=== PATIENT | male | born 1985 | race Caucasian/White ===

== ENCOUNTER 2017-11-01 02:41 | Emergency (ER) | payer OTHER, MEDICAID, SELFPAY ==
[2017-11-01 02:57] VITALS: BP 138/80; PULSE 96; RESP 16; TEMP 36.7; O2SAT 100; BMI 35.9
--- NOTE | 2017-11-01 03:20 | ED.EXTPRO ---
HPI - Extremity Problem General Chief complaint: Extremity Problem,Nontraumatic Stated complaint: SWOLLEN AND PAINFUL LEGS Time Seen by Provider: 11/01/17 03:17 Source: patient Mode of arrival: ambulatory Limitations: no limitations History of Present Illness HPI Narrative: Patient is a 32-year-old male presents with bilateral lower extremity wounds and swelling. He is known IV drug user. He injects in his thighs. But his sores that her open and drain are on his lower legs. He denies any injecting there. He has noticed that they have been more swollen over the past couple of days. Slightly more erythema. Used to note that his legs and swelling would go down at nighttime and the almost normal by the next morning. However they no longer go down. He has noted the over the past few months he has had increased swelling in his legs. He denies any swelling is abdomen no shortness of breath. He was seen back at [facility] diagnosed with [id number]-[id number]. Denies any chest pain or heart palpitations. He has not had fever chills or body aches. MD Complaint: extremity swelling Related Data Previous Rx's Medication Instructions Recorded sulfamethoxazole-trimethoprim 1 tab PO BID 7 Days #14 tab 11/01/17 Allergies Allergy/AdvReac Type Severity Reaction Status Date / Time No Known Drug Allergies Allergy Verified 11/01/17 05:10 Review of Systems Review of Systems All systems reviewed & are unremarkable except as noted in HPI and below Constitutional Denies chills, Denies fever(s), Denies lethargy and Denies weakness Cardiovascular Denies chest pain, Denies rapid heart rate, Denies irregular heart rhythm, Denies lightheadedness, Denies palpitations, Denies dyspnea, Denies dyspnea on exertion and Denies orthopnea Respiratory Denies cough, Denies dyspnea, Denies dyspnea on exertion and Denies wheezing Gastrointestinal Gastrointestinal: Denies abdominal pain, Denies change in bowel habits, Denies diarrhea, Denies nausea and Denies vomiting Musculoskeletal Denies back pain, Denies muscle weakness, Denies numbness and Denies tingling Integumentary/Breasts Reports as per HPI, Reports dry skin, Reports new lesions, Reports non-healing lesions, Reports erythema, Reports skin swelling and Reports sores Neurologic Denies numbness, Denies tingling and Denies weakness Endocrine Denies palpitations Allergic/Immunologic Denies wheezing [facility] Medical History Drug abuse (Acute) Hepatitis C virus infection cured after antiviral drug therapy (Acute) Rdtbl-Hnyscxlnj-Dcauk (WPW) pattern (Acute) Social History Smoking Status: Current every day smoker substance use type: opiates and IV drugs Exam Initial Vital Signs Initial Vital Signs: Vital Signs Temperature 98.0 F 11/01/17 02:57 Pulse Rate 96 H 11/01/17 02:57 Respiratory Rate 16 11/01/17 02:57 Blood Pressure 138/80 H 11/01/17 02:57 Pulse Oximetry 100 11/01/17 02:57 Const General: cooperative, healthy appearing and comfortable Orientation: alert, awake and oriented x3 Chest Chest: normal inspection of the chest Resp Effort & Inspection: normal respiratory effort Auscultation: clear to auscultation bilaterally, no crackles, no rhonchi and no wheezes Cardio Rate: regular rate Rhythm: regular rhythm Heart Sounds: S1 normal and S2 normal GI Palpation: soft, No guarding and No tender Skin General: erythema (Bilateral lower extremity he has faint without clear demarcation) Lesions: lesion noted (Multiple lesions noted on lower extremities without gross pus they seem to be healing and scabbed over) Extrem General: normal to inspection, full ROM and edema (Bilaterally nonpitting) Course Orders Ordered: ED Orders 11/01/17 03:45 Lactate (Lactic Acid) Stat 11/01/17 04:25 Blood Culture Stat Complete Blood Count AUTO DIFF Stat Comprehensive Metabolic Panel Stat Partial Thromboplastin Time Stat Procalcitonin Stat Prothrombin Time INR Stat Discontinued Medications Trimethoprim/Sulfamethoxazole (Bactrim Ds Prepack) 1 bottle MISC SEEINSTR ONE Stop: 11/01/17 05:09 Last Admin: 11/01/17 05:20 Dose: 1 bottle Vital Signs - 8 hr 11/01/17 02:57 11/01/17 04:55 11/01/17 05:21 Temperature 98.0 F Pulse Rate 96 H 77 80 Respiratory Rate 16 15 16 Blood Pressure 138/80 H 127/77 H Blood Pressure [Left Arm] 109/74 Pulse Oximetry 100 99 98 MDM - Extremity (Nontraumatic) Medical Records Attestation: I reviewed the patient's medical records. Lab Data Attestation: I reviewed the patient's lab results. Result diagrams: 11/01/17 04:25 11/01/17 04:25 Lab Results 11/01/17 11/01/17 11/01/17 Range/Units 04:25 04:25 04:25 WBC 7.1 (4.5-11.0) X10^3/uL RBC 4.46 L (4.5-5.9) X10^6/uL Hgb 10.6 L (13.5-17.5) g/dL Hct 32.6 L (41-53) % MCV 73.1 L (80-100) fL MCH 23.8 L (26-34) PG MCHC 32.6 (30-36) % RDW 16.1 H (11.6-14.8) % Plt Count 254 (150-400) X10^3/uL Neut % (Auto) 59.6 (50-75) % Lymph % (Auto) 23.1 L (25-40) % [place] % (Auto) 11.1 (3-14) % Eos % (Auto) 5.7 H (2-4) % Baso % (Auto) 0.5 (0-2) % Neut # (Auto) 4200 (8506-1411) /uL PT (10.1-12.7) SECONDS INR (0.9-1.3) APTT (26.4-36.2) SECONDS Sodium 141 (137-145) mmol/L Potassium 3.9 (3.4-5.1) mmol/L Chloride 103 (98-107) mmol/L Carbon Dioxide 33 H (22-32) mmol/L BUN 14 (9-20) mg/dL Creatinine 0.90 (0.66-1.25) mg/dL Estimated GFR > 60.0 (>60) mL/min BUN/Creatinine Ratio 15.6 (6-22) Glucose 104 H (70-100) mg/dL Calcium 8.9 (8.4-10.2) mg/dL Total Bilirubin 0.4 (0.2-1.3) mg/dL AST 23 (17-59) IU/L ALT 23 (21-72) IU/L Alkaline Phosphatase 76 (38-126) U/L Total Protein 7.4 (6.3-8.2) g/dL Albumin 3.7 (3.5-5.0) g/dL Globulin 3.7 (1.7-4.1) g/dL Albumin/Globulin Ratio 1.0 (1.0-2.8) Procalcitonin 0.07 (<0.5) ng/mL 11/01/17 Range/Units 04:25 WBC (4.5-11.0) X10^3/uL RBC (4.5-5.9) X10^6/uL Hgb (13.5-17.5) g/dL Hct (41-53) % MCV (80-100) fL MCH (26-34) PG MCHC (30-36) % RDW (11.6-14.8) % Plt Count (150-400) X10^3/uL Neut % (Auto) (50-75) % Lymph % (Auto) (25-40) % [place] % (Auto) (3-14) % Eos % (Auto) (2-4) % Baso % (Auto) (0-2) % Neut # (Auto) (2260-9974) /uL PT 11.6 (10.1-12.7) SECONDS INR 1.1 (0.9-1.3) APTT 20 L (26.4-36.2) SECONDS Sodium (137-145) mmol/L Potassium (3.4-5.1) mmol/L Chloride (98-107) mmol/L Carbon Dioxide (22-32) mmol/L BUN (9-20) mg/dL Creatinine (0.66-1.25) mg/dL Estimated GFR (>60) mL/min BUN/Creatinine Ratio (6-22) Glucose (70-100) mg/dL Calcium (8.4-10.2) mg/dL Total Bilirubin (0.2-1.3) mg/dL AST (17-59) IU/L ALT (21-72) IU/L Alkaline Phosphatase (38-126) U/L Total Protein (6.3-8.2) g/dL Albumin (3.5-5.0) g/dL Globulin (1.7-4.1) g/dL Albumin/Globulin Ratio (1.0-2.8) Procalcitonin (<0.5) ng/mL [facility] Narrative Medical decision making narrative: Patient blood work relatively within normal limits. Vitals also stable and he appears nontoxic. His concern for his bilateral chronic ongoing swelling. Likely a combination of factors, Chronic venous stasis, persistent IV drug abuse, and open sores. At this time recommend compression socks and will give a course of antibiotics. He is also in sinus rhythm on the monitor. He has no sign of ascites, no shortness of breath Discharge Plan Departure Patient Disposition: Home, Self-Care Clinical Impression: Cellulitis Discharge Date/Time: 11/01/17 05:22 Interventions: ED Discharge Assessment Last Done: 11/01/17 05:21 Instructions: DI for Cellulitis -- Adult Activity Restrictions/Additional Instructions: *You have been diagnosed with cellulitis *What to do: Wear compression socks, elevate *Continue to take medications as directed Bactrim 1 pill twice a day for 7 days *Follow up with your primary care provider in 2-3 days *Return to ER if you should have any new, worsening or concerning symptoms Prescriptions: New sulfamethoxazole-trimethoprim 800-160 mg tablet 1 tab PO BID 7 Days Qty: 14 RF: 0 Referrals: [facility] [Provider Group]
[2017-11-01 04:43] LABS: INR 1.1 (0.9-1.3); Prothrombin Time 11.6 SECONDS (10.1-12.7)
[2017-11-01 04:45] LABS: PTT Partial Thromboplastin Tim 20 SECONDS (26.4-36.2)
[2017-11-01 04:46] LABS: Add Manual Diff / Slide Review NO; Alanine Aminotransferase 23 IU/L (21-72); Albumin 3.7 g/dL (3.5-5.0); Alkaline Phosphatase 76 U/L (38-126); Aspartate Aminotransferase 23 IU/L (17-59); BUN Creatinine Ratio 15.6 (6-22); Basophils Percent Auto 0.5 % (0-2); Bilirubin Total 0.4 mg/dL (0.2-1.3); Blood Urea Nitrogen 14 mg/dL (9-20); Calcium 8.9 mg/dL (8.4-10.2); Carbon Dioxide 33 mmol/L (22-32); Chloride 103 mmol/L (98-107); Eosinophils Percent Auto 5.7 % (2-4); Estimated Glomerular Filt Rate > 60.0 mL/min (>60); Globulin 3.7 g/dL (1.7-4.1); Glucose 104 mg/dL (70-100); HEMOLYSIS < 15 (0-50); Hematocrit 32.6 % (41-53); Hemoglobin 10.6 g/dL (13.5-17.5); Lymphocytes Percent Auto 23.1 % (25-40); Mean Corpuscular HGB Conc 32.6 % (30-36); Mean Corpuscular Hemoglobin 23.8 PG (26-34); Mean Corpuscular Volume 73.1 fL (80-100); Monocytes Percent Auto 11.1 % (3-14); Neutrophils Absolute Auto 4200 /uL (3000-5900); Neutrophils Percent Auto 59.6 % (50-75); Platelet Count 254 X10^3/uL (150-400); Potassium 3.9 mmol/L (3.4-5.1); Red Blood Cell Count 4.46 X10^6/uL (4.5-5.9); Red Cell Distribution Width 16.1 % (11.6-14.8); Sodium 141 mmol/L (137-145); Total Protein 7.4 g/dL (6.3-8.2); White Blood Cell Count 7.1 X10^3/uL (4.5-11.0)
[2017-11-01 04:55] VITALS: BP 109/74; PULSE 77; RESP 15; O2SAT 99
[2017-11-01 05:07] LABS: Procalcitonin 0.07 ng/mL (<0.5)
[2017-11-01] MEDS: SULFA/TRIMETH 800/160 PREPACK 1 BOTTLE MISC (05:20)
[2017-11-01 05:21] VITALS: BP 127/77; PULSE 80; RESP 16; O2SAT 98
--- NOTE | 2017-11-01 05:52 | ED_ITS ---
HPI - Extremity Problem General Chief complaint: Extremity Problem,Nontraumatic Stated complaint: SWOLLEN AND PAINFUL LEGS Time Seen by Provider: 11/01/17 03:17 Source: patient Mode of arrival: ambulatory Limitations: no limitations History of Present Illness HPI Narrative: Patient is a 32-year-old male presents with bilateral lower extremity wounds and swelling. He is known IV drug user. He injects in his thighs. But his sores that her open and drain are on his lower legs. He denies any injecting there. He has noticed that they have been more swollen over the past couple of days. Slightly more erythema. Used to note that his legs and swelling would go down at nighttime and the almost normal by the next morning. However they no longer go down. He has noted the over the past few months he has had increased swelling in his legs. He denies any swelling is abdomen no shortness of breath. He was seen back at [facility] diagnosed with [id number]. Denies any chest pain or heart palpitations. He has not had fever chills or body aches. MD Complaint: extremity swelling Related Data Previous Rx's Medication Instructions Recorded sulfamethoxazole-trimethoprim 1 tab PO BID 7 Days #14 tab 11/01/17 Allergies Allergy/AdvReac Type Severity Reaction Status Date / Time No Known Drug Allergies Allergy Verified 11/01/17 05:10 Review of Systems Review of Systems All systems reviewed & are unremarkable except as noted in HPI and below Constitutional Denies chills, Denies fever(s), Denies lethargy and Denies weakness Cardiovascular Denies chest pain, Denies rapid heart rate, Denies irregular heart rhythm, Denies lightheadedness, Denies palpitations, Denies dyspnea, Denies dyspnea on exertion and Denies orthopnea Respiratory Denies cough, Denies dyspnea, Denies dyspnea on exertion and Denies wheezing Gastrointestinal Gastrointestinal: Denies abdominal pain, Denies change in bowel habits, Denies diarrhea, Denies nausea and Denies vomiting Musculoskeletal Denies back pain, Denies muscle weakness, Denies numbness and Denies tingling Integumentary/Breasts Reports as per HPI, Reports dry skin, Reports new lesions, Reports non-healing lesions, Reports erythema, Reports skin swelling and Reports sores Neurologic Denies numbness, Denies tingling and Denies weakness Endocrine Denies palpitations Allergic/Immunologic Denies wheezing [facility] Medical History Drug abuse (Acute) Hepatitis C virus infection cured after antiviral drug therapy (Acute) Ihbbs-Jvyhzbbnf-Dyhyj (WPW) pattern (Acute) Social History Smoking Status: Current every day smoker substance use type: opiates and IV drugs Exam Initial Vital Signs Initial Vital Signs: Vital Signs Temperature 98.0 F 11/01/17 02:57 Pulse Rate 96 H 11/01/17 02:57 Respiratory Rate 16 11/01/17 02:57 Blood Pressure 138/80 H 11/01/17 02:57 Pulse Oximetry 100 11/01/17 02:57 Const General: cooperative, healthy appearing and comfortable Orientation: alert, awake and oriented x3 Chest Chest: normal inspection of the chest Resp Effort & Inspection: normal respiratory effort Auscultation: clear to auscultation bilaterally, no crackles, no rhonchi and no wheezes Cardio Rate: regular rate Rhythm: regular rhythm Heart Sounds: S1 normal and S2 normal GI Palpation: soft, No guarding and No tender Skin General: erythema (Bilateral lower extremity he has faint without clear demarcation) Lesions: lesion noted (Multiple lesions noted on lower extremities without gross pus they seem to be healing and scabbed over) Extrem General: normal to inspection, full ROM and edema (Bilaterally nonpitting) Course Orders Ordered: ED Orders 11/01/17 03:45 Lactate (Lactic Acid) Stat 11/01/17 04:25 Blood Culture Stat Complete Blood Count AUTO DIFF Stat Comprehensive Metabolic Panel Stat Partial Thromboplastin Time Stat Procalcitonin Stat Prothrombin Time INR Stat Discontinued Medications Trimethoprim/Sulfamethoxazole (Bactrim Ds Prepack) 1 bottle MISC SEEINSTR ONE Stop: 11/01/17 05:09 Last Admin: 11/01/17 05:20 Dose: 1 bottle Vital Signs - 8 hr 11/01/17 02:57 11/01/17 04:55 11/01/17 05:21 Temperature 98.0 F Pulse Rate 96 H 77 80 Respiratory Rate 16 15 16 Blood Pressure 138/80 H 127/77 H Blood Pressure [Left Arm] 109/74 Pulse Oximetry 100 99 98 MDM - Extremity (Nontraumatic) Medical Records Attestation: I reviewed the patient's medical records. Lab Data Attestation: I reviewed the patient's lab results. Result diagrams: 11/01/17 04:25 11/01/17 04:25 Lab Results 11/01/17 11/01/17 11/01/17 Range/Units 04:25 04:25 04:25 WBC 7.1 (4.5-11.0) X10^3/uL RBC 4.46 L (4.5-5.9) X10^6/uL Hgb 10.6 L (13.5-17.5) g/dL Hct 32.6 L (41-53) % MCV 73.1 L (80-100) fL MCH 23.8 L (26-34) PG MCHC 32.6 (30-36) % RDW 16.1 H (11.6-14.8) % Plt Count 254 (150-400) X10^3/uL Neut % (Auto) 59.6 (50-75) % Lymph % (Auto) 23.1 L (25-40) % [place] % (Auto) 11.1 (3-14) % Eos % (Auto) 5.7 H (2-4) % Baso % (Auto) 0.5 (0-2) % Neut # (Auto) 4200 (1509-9830) /uL PT (10.1-12.7) SECONDS INR (0.9-1.3) APTT (26.4-36.2) SECONDS Sodium 141 (137-145) mmol/L Potassium 3.9 (3.4-5.1) mmol/L Chloride 103 (98-107) mmol/L Carbon Dioxide 33 H (22-32) mmol/L BUN 14 (9-20) mg/dL Creatinine 0.90 (0.66-1.25) mg/dL Estimated GFR > 60.0 (>60) mL/min BUN/Creatinine Ratio 15.6 (6-22) Glucose 104 H (70-100) mg/dL Calcium 8.9 (8.4-10.2) mg/dL Total Bilirubin 0.4 (0.2-1.3) mg/dL AST 23 (17-59) IU/L ALT 23 (21-72) IU/L Alkaline Phosphatase 76 (38-126) U/L Total Protein 7.4 (6.3-8.2) g/dL Albumin 3.7 (3.5-5.0) g/dL Globulin 3.7 (1.7-4.1) g/dL Albumin/Globulin Ratio 1.0 (1.0-2.8) Procalcitonin 0.07 (<0.5) ng/mL 11/01/17 Range/Units 04:25 WBC (4.5-11.0) X10^3/uL RBC (4.5-5.9) X10^6/uL Hgb (13.5-17.5) g/dL Hct (41-53) % MCV (80-100) fL MCH (26-34) PG MCHC (30-36) % RDW (11.6-14.8) % Plt Count (150-400) X10^3/uL Neut % (Auto) (50-75) % Lymph % (Auto) (25-40) % [place] % (Auto) (3-14) % Eos % (Auto) (2-4) % Baso % (Auto) (0-2) % Neut # (Auto) (0155-5287) /uL PT 11.6 (10.1-12.7) SECONDS INR 1.1 (0.9-1.3) APTT 20 L (26.4-36.2) SECONDS Sodium (137-145) mmol/L Potassium (3.4-5.1) mmol/L Chloride (98-107) mmol/L Carbon Dioxide (22-32) mmol/L BUN (9-20) mg/dL Creatinine (0.66-1.25) mg/dL Estimated GFR (>60) mL/min BUN/Creatinine Ratio (6-22) Glucose (70-100) mg/dL Calcium (8.4-10.2) mg/dL Total Bilirubin (0.2-1.3) mg/dL AST (17-59) IU/L ALT (21-72) IU/L Alkaline Phosphatase (38-126) U/L Total Protein (6.3-8.2) g/dL Albumin (3.5-5.0) g/dL Globulin (1.7-4.1) g/dL Albumin/Globulin Ratio (1.0-2.8) Procalcitonin (<0.5) ng/mL [facility] Narrative Medical decision making narrative: Patient blood work relatively within normal limits. Vitals also stable and he appears nontoxic. His concern for his bilateral chronic ongoing swelling. Likely a combination of factors, Chronic venous stasis, persistent IV drug abuse, and open sores. At this time recommend compression socks and will give a course of antibiotics. He is also in sinus rhythm on the monitor. He has no sign of ascites, no shortness of breath Discharge Plan Departure Patient Disposition: Home, Self-Care Clinical Impression: Cellulitis Discharge Date/Time: 11/01/17 05:22 Interventions: ED Discharge Assessment Last Done: 11/01/17 05:21 Instructions: DI for Cellulitis -- Adult Activity Restrictions/Additional Instructions: *You have been diagnosed with cellulitis *What to do: Wear compression socks, elevate *Continue to take medications as directed Bactrim 1 pill twice a day for 7 days *Follow up with your primary care provider in 2-3 days *Return to ER if you should have any new, worsening or concerning symptoms Prescriptions: New sulfamethoxazole-trimethoprim 800-160 mg tablet 1 tab PO BID 7 Days Qty: 14 RF: 0 Referrals: [facility] [Provider Group]
== END 2017-11-01 05:22 | disposition home or self-care (01) ==
PROVIDERS: Emergency Provider Emergency Medicine
DX: L03.119 Cellulitis of unspecified part of limb (principal)
CPT/HCPCS: 80053; 84145; 85025; 85610; 85730; 87040; 99282; 99283

== ENCOUNTER 2017-12-01 03:01 | Inpatient (IN) | payer OTHER, MEDICAID, SELFPAY ==
[2017-12-01] VITALS (15 sets, daily range): BP systolic 109–147; BP diastolic 58–84; PULSE 73–97; RESP 14–20; TEMP 36.3–37.7; O2SAT 93–100; BMI 34.7
[2017-12-01 04:41] LABS: Basophils Percent Auto 0.4 % (0-2); Eosinophils Percent Auto 5.5 % (2-4); Hematocrit 34.5 % (41-53); Hemoglobin 11.2 g/dL (13.5-17.5); Lymphocytes Percent Auto 19.3 % (25-40); Mean Corpuscular HGB Conc 32.3 % (30-36); Mean Corpuscular Hemoglobin 23.1 PG (26-34); Mean Corpuscular Volume 71.4 fL (80-100); Monocytes Percent Auto 15.9 % (3-14); Neutrophils Absolute Auto 4900 /uL (3000-5900); Neutrophils Percent Auto 58.9 % (50-75); Platelet Count 257 X10^3/uL (150-400); Red Blood Cell Count 4.83 X10^6/uL (4.5-5.9); Red Cell Distribution Width 15.7 % (11.6-14.8); White Blood Cell Count 8.3 X10^3/uL (4.5-11.0)
[2017-12-01 04:43] LABS: Add Manual Diff / Slide Review SLIDE REVIEW
[2017-12-01 04:59] LABS: BUN Creatinine Ratio 18.8 (6-22); Blood Urea Nitrogen 15 mg/dL (9-20); Calcium 8.8 mg/dL (8.4-10.2); Carbon Dioxide 32 mmol/L (22-32); Chloride 104 mmol/L (98-107); Estimated Glomerular Filt Rate > 60.0 mL/min (>60); Glucose 109 mg/dL (70-100); HEMOLYSIS < 15 (0-50); Potassium 3.7 mmol/L (3.4-5.1); Sodium 146 mmol/L (137-145)
[2017-12-01 05:17] LABS: Microcytosis 2+
[2017-12-01 05:56] LABS: Procalcitonin 0.06 ng/mL (<0.5)
--- NOTE | 2017-12-01 06:41 | PC.NURSE ---
PICC team arrived to place access for surgery. provider ok'd midline placment
--- NOTE | 2017-12-01 07:30 | ED.SKABFB ---
HPI - Skin/Abscess/Foreign Bdy General Chief complaint: Skin/Abscess/Foreign Body Stated complaint: thinks he has infection in abdomen area Time Seen by Provider: 12/01/17 03:06 Source: patient and family Mode of arrival: ambulatory Limitations: no limitations History of Present Illness HPI narrative: 32-year-old male with history of IV drug abuse presents to the emergency department with a chief complaint of 1 week of worsening right lower abdominal wall pain, swelling and redness. It he has been skin popping for many years and has suffered many small cutaneous abscesses. He admits that this is the worst 1 he has ever had and was unable to drain it at home. He denies any significant abdominal pain and has no systemic findings such as fever, chills, nausea or vomiting. He has significant pain particularly with any motion. MD complaint: abscess/boil Onset (ago): day(s) Location: generalized (Right lower abdominal wall) Severity: moderate Quality: burning and aching Pain Consistency: constant Relieving factors: rest Exacerbating factors: palpation and movement Context: IVDA Associated symptoms: denies other symptoms Treatments prior to arrival: attempted to drain pus at home Related Data Allergies Allergy/AdvReac Type Severity Reaction Status Date / Time No Known Drug Allergies Allergy Verified 11/01/17 05:10 Review of Systems Review of Systems All systems reviewed & are unremarkable except as noted in HPI and below Constitutional Denies chills, Denies fever(s), Denies lethargy and Denies weakness Eyes Denies change in vision, Denies eye discharge, Denies irritation and Denies loss of vision ENT Ears, Nose, Mouth, and Throat: Denies change in voice, Denies neck pain and Denies sore throat Cardiovascular Denies chest pain, Denies irregular heart rhythm, Denies lightheadedness, Denies palpitations, Denies dyspnea, Denies dyspnea on exertion and Denies orthopnea Respiratory Denies cough, Denies dyspnea, Denies dyspnea on exertion and Denies wheezing Gastrointestinal Gastrointestinal: Denies abdominal pain, Denies change in bowel habits, Denies diarrhea, Denies nausea and Denies vomiting Genitourinary Denies hematuria, Denies flank pain, Denies urinary incontinence and Denies urinary urgency Musculoskeletal Denies neck pain Integumentary/Breasts Denies pruritus, Reports erythema, Denies rash, Reports skin pain, Reports skin swelling and Denies wounds Neurologic Denies confusion, Denies loss of vision and Denies weakness Psychiatric Denies anxiety, Denies confusion, Denies depression, Denies homicidal ideation and Denies suicidal ideation Endocrine Denies palpitations Hematologic/Lymphatic Denies easy bruising Allergic/Immunologic Denies wheezing [facility] Medical History Drug abuse (Acute) Hepatitis C virus infection cured after antiviral drug therapy (Acute) Wlmvd-Rhyydzhom-Wkpjl (WPW) pattern (Acute) Social History Smoking Status: Current every day smoker substance use type: opiates and IV drugs Exam Narrative Exam Narrative: 32M obviously in pain, clutching his R lower abdomen Initial Vital Signs Initial Vital Signs: Vital Signs Temperature 97.3 F L 12/01/17 03:25 Pulse Rate 82 12/01/17 03:25 Respiratory Rate 16 12/01/17 03:25 Blood Pressure 147/83 H 12/01/17 03:25 Pulse Oximetry 97 12/01/17 03:25 Const General: cooperative and in distress Nutritional Appearance: obese Orientation: alert, awake, oriented x3 and not confused HENMT Head: normocephalic and atraumatic Ears: external ears normal and TM's normal bilaterally Nose: external nose normal and No nasal discharge Face and sinus: sinuses nontender, face symmetric, no sinus tenderness and No dry mucous membranes Mouth: oral mucosae normal and moist mucous membranes Teeth and gingiva: dentition normal Throat: tonsils normal and uvula midline Eyes General: appearance normal, both eyes and all related structures Eyelids: eyelids normal Conjunctivae: conjunctivae normal Sclera: sclerae normal Pupils: PERRL EOM: EOM intact bilaterally Neck Neck: normal visual inspection, trachea midline, No lymphadenopathy, No midline deformity and No JVD Lymphatic: No lymphedema Chest Chest: normal inspection of the chest Resp Effort & Inspection: normal respiratory effort, able to speak in complete sentences, no respiratory distress and no use of accessory muscles Auscultation: clear to auscultation bilaterally, no rales, no rhonchi and no wheezes Cardio Rate: regular rate Rhythm: regular rhythm Heart Sounds: no click, no gallops, no murmurs and no rubs Pulses: normal peripheral pulses GI Inspection: non-distended Palpation: soft, no hepatosplenomegaly, No guarding, No pulsatile mass and tender Auscultation: normal bowel sounds Back/Spine/Pelvis Back: No CVA tenderness Cervical Spine: cervical ROM normal and No pain with cervical ROM Thoracic/Lumbar Spine: thoracic and lumbar spine normal to inspection Skin General: no rashes or lesions noted, No jaundice and No petechiae Other: Patient has a 8 cm oval of fluctuance and induration that with palpation feels quite deep with significant surrounding erythema of the majority of patient's pannus Neuro General: alert, oriented x3, gait normal and no focal motor deficits Speech: speech normal Extrem General: full ROM, no clubbing, cyanosis or edema, no pedal edema and no calf tenderness Psych Appearance: disheveled Mental Status: mental status grossly normal Attitude: cooperative Thought Content: normal and suicidality Judgment: judgment good Course Decision to Admit Date: 12/01/17 Decision to Admit time: 04:30 Orders Ordered: ED Orders 12/01/17 03:47 Blood Culture Stat Lactate (Lactic Acid) Stat 12/01/17 04:15 Basic Metabolic Panel Stat Complete Blood Count AUTO DIFF Stat Procalcitonin Stat 12/01/17 06:46 Basic Metabolic Panel Stat Discontinued Medications Vancomycin HCl 2,000 mg/ (Sodium Chloride) 500 mls @ 250 mls/hr IV NOW ONE Stop: 12/01/17 03:48 Consultations Consultation #1: Ddr. Jo is happy to accept this patient on her service. Vital Signs - 8 hr 12/01/17 03:25 12/01/17 06:47 Temperature 97.3 F L Pulse Rate 82 81 Respiratory Rate 16 16 Blood Pressure 147/83 H Blood Pressure [Right Arm] 141/84 H Pulse Oximetry 97 98 MDM - Skin/Abscess/Foreign Bdy Differential Diagnosis Likely abscess of skin or subcutaneous tissue Lab Data Attestation: I reviewed the patient's lab results. Result diagrams: 12/01/17 04:15 12/01/17 04:15 Lab Results 12/01/17 12/01/17 12/01/17 Range/Units 04:15 04:15 04:15 WBC 8.3 (4.5-11.0) X10^3/uL RBC 4.83 (4.5-5.9) X10^6/uL Hgb 11.2 L (13.5-17.5) g/dL Hct 34.5 L (41-53) % MCV 71.4 L (80-100) fL MCH 23.1 L (26-34) PG MCHC 32.3 (30-36) % RDW 15.7 H (11.6-14.8) % Plt Count 257 (150-400) X10^3/uL Neut % (Auto) 58.9 (50-75) % Lymph % (Auto) 19.3 L (25-40) % [place] % (Auto) 15.9 H (3-14) % Eos % (Auto) 5.5 H (2-4) % Baso % (Auto) 0.4 (0-2) % Neut # (Auto) 4900 (0865-5880) /uL RBC Morphology Not Reportable Microcytosis 2+ H Sodium 146 H (137-145) mmol/L Potassium 3.7 (3.4-5.1) mmol/L Chloride 104 (98-107) mmol/L Carbon Dioxide 32 (22-32) mmol/L BUN 15 (9-20) mg/dL Creatinine 0.80 (0.66-1.25) mg/dL Estimated GFR > 60.0 (>60) mL/min BUN/Creatinine Ratio 18.8 (6-22) Glucose 109 H (70-100) mg/dL Calcium 8.8 (8.4-10.2) mg/dL Procalcitonin 0.06 (<0.5) ng/mL MDM Narrative Medical decision making narrative: The physical exam would suggest the abscess is contained within abdominal wall and subcutaneous tissues it is much larger we can realistically appropriately drained in the emergency department. As result I have consulted the on-call surgeon who was happy to do an incision and drainage in the OR later today Discharge Plan Departure Patient Disposition: Admitted As Inpatient Discharge Date/Time: 12/01/17 07:44 Interventions: ED Discharge Assessment Last Done: 12/01/17 07:43 Admit Date/Time: 12/01/17 07:15 Admit Provider: Winsome Jo
--- NOTE | 2017-12-01 08:05 | PC.NURSE ---
Addendum entered by Samantha Villareal R.N. 12/01/17 11:35: Patient's fiance arrived into room, shortly thereafter patient became somnolent and hard to arouse. Told patient and fiance door needs to remain open. Patient had cigarettes at bedside, I educated them as to our no smoking policy, patient stated he knows and that they were just in his pocket; I gave them to his fiance who packed up their belongings and took them home. Patient was taken from room, to ED, ambulated to BR and voided before he left the room. Midline placed by [facility] in ED early this morning. Midline should be flushed with 50U heparin and can pull labs from line. Dr. Jo said to dismiss the lab draws previously ordered, she stated, I'll take care of them downstairs. Original Note: AM Shift Patient arrived to floor at 0750. Able to ambulate from ED stretcher to room bed. Patient c/o abdominl pain when touched (reports 7/10 pain). +3, pitting edema to bilateral lower extremities. Variously staged bruises and abrasions throughout body including back, stomach, upper and lower extremities. Power Port Midline placed in ED this AM to upper right arm. Patient is AO and pleasant. RLQ of abdomen is red and tender to the touch. Patient is currently resting in bed, with his eyes closed. Asked for his fiance once and then fell asleep.
[2017-12-01] MEDS: LACTATED RINGERS 1,000 ML 42 ML IV (11:44)
--- NOTE | 2017-12-01 12:38 | SUR.OPER ---
Supine on padded OR bed, head on pillow, arms secured on padded arm boards at <90 degrees abduction, legs uncrossed, safety belt at thigh, tape over blanket over lower legs.
[2017-12-01] MEDS: DEXTROSE 5%-0.45% NS 1,000 ML 125 ML IV ×2 (13:18→22:55)
[2017-12-01 14:20] LABS: Lactate (Lactic Acid) 0.5 mmol/L (0.7-2.1)
[2017-12-01] MEDS: VANCOMYCIN 1,500 MG in SODIUM CHLORIDE 0.9% 500 ML 333.333 ML IV (14:23)
--- NOTE | 2017-12-01 14:50 | PC.NURSE ---
Postop Note Pt to room 231 from PACU at 1305. Drowsy but awakens easily to voice, able to answer questions and was asking appropriate questions regarding his surgery. However, unable to remember candace's phone number for chart - will attempt to obtain at later date. Dressings to lower abdomen and left groin/hip, D/I with bloody shadow drainage. Initially reported horrible back pain but not denies pain stating it has settled now. Sleeping/resting in bed, oxygen sats 94-98% RA. SR with PACs on monitor. Belongings at bedside. Call light within reach and bed alarm on.
[2017-12-01] MEDS: HYDROMORPHONE PCA 6 MG/30 ML PCA.VIAL IV (16:20)
[2017-12-01] MEDS: LORazepam 2 MG/ML SYRINGE 1 MG IV ×2 (16:23→19:54)
--- NOTE | 2017-12-01 16:58 | PM.HP.1 ---
History of Present Illness Date Patient Seen: 12/01/17 Time Patient Seen: 08:58 Chief complaint: thinks he has infection in abdomen area Narrative: 32-year-old gentleman presented to the emergency room with complaint of about 10 days of pain in his right lower abdomen. He reports that he injects heroin subcutaneously and has had multiple abscesses in the past. He chooses this route because he reports he has no accessible veins remaining. He has been seen in the emergency room at [place] as well as our facility in the past for abscesses as well as Pvlbj-Hxmjoadun-Gfckb syndrome. He reports that his problem with Cnwfx-Ltgfizyyk-Jtbby syndrome seems to be greatly exacerbated when he is smoking methamphetamine and seems to be better when he is not. He reports that about 10 days ago he noticed some soreness in his abdomen. He said he can usually just drain these little abscesses at home but he was not able to get this 1 to drain. He feels like it became significantly worse because he has been working hard and has gotten very little sleep in the last week or so. He was admitted through the emergency room and given vancomycin. Patient History Medical History Drug abuse (Acute) Hepatitis C virus infection cured after antiviral drug therapy (Acute) Ambnw-Rijhaqdpe-Sqwtr (WPW) pattern (Acute) Family & Social History Family History: Reviewed 12/01/17 by Winsome Jo MD Social History: household members other Prior Living Arrangements House Safety & Behavioral: Feels Safe in Current Yes Environment Been Physically Hurt or No Threatened By a Person Suicidal Ideation Description None Suicide Plan Description No Plan Tobacco & Substance use: Tobacco type cigarettes Smoking Status Current every day smoker alcohol intake never Substance Use Type heroin,IV drugs,methamphetamine Meds Home Medications Medication Instructions Recorded Confirmed Type No Known Home Medications 12/01/17 12/01/17 History Allergies Allergy/AdvReac Type Severity Reaction Status Date / Time No Known Drug Allergies Allergy Verified 11/01/17 05:10 Review of Systems Review of Systems Complains of severe fatigue. Was recently seen in our emergency room for swelling in his legs which she feels is better now. All systems reviewed & are unremarkable except as noted in HPI and below Exam Vital Signs (past 8 hours): - 12/01/17 11:40 12/01/17 12:35 12/01/17 12:38 Temperature 97.3 F L 97.4 F L Pulse Rate 84 80 78 Respiratory Rate 17 15 15 Blood Pressure 112/73 109/74 120/79 Pulse Oximetry 100 99 99 12/01/17 12:43 12/01/17 12:47 12/01/17 13:05 Temperature 99 F 97.3 F L Pulse Rate 74 84 74 Respiratory Rate 14 15 18 Blood Pressure 117/80 124/81 H 111/73 Pulse Oximetry 99 97 97 12/01/17 13:35 12/01/17 14:14 12/01/17 14:50 Temperature 97.5 F L 97.8 F 97.5 F L Pulse Rate 78 77 88 Respiratory Rate 15 20 18 Blood Pressure 121/77 H 120/71 120/79 Pulse Oximetry 95 96 96 12/01/17 15:58 Temperature 99.9 F H Pulse Rate Respiratory Rate 16 Blood Pressure 132/78 H Pulse Oximetry 99 Oxygen Delivery Method Room Air Oxygen Flow Rate 0 Narrative Exam Narrative: Very sleepy gentleman in no obvious distress HEENT: Normocephalic and atraumatic, pupils equal round reactive to light accommodation with anicteric sclera. Oropharynx reveals only poor dentition Lungs: Upper airway noise but improves with coughing. No wheezing Heart: Regular rate and rhythm without murmur Abdomen: Soft, approximately 20 in of erythema surrounding a central area of fluctuance. A small dark region in the center of the fluctuant area is consistent with necrosis. This is in the right lower quadrant of the abdominal wall. Multiple scars and lesions are noted across his abdominal wall consistent with prior skin popping. On the left hip laterally, there is a 10 cm area of erythema with a central necrotic region that is also fluctuant. This is consistent with a 2nd abscess. Abdomen is otherwise soft with active bowel sounds. Extremities: Multiple lesions in various stages of healing. No other obviously fluctuant regions Objective Labs Result Diagrams: 12/01/17 04:15 12/01/17 04:15 Labs: Laboratory Results - last 24 hr 12/01/17 12/01/17 12/01/17 04:15 04:15 04:15 WBC 8.3 RBC 4.83 Hgb 11.2 L Hct 34.5 L MCV 71.4 L MCH 23.1 L MCHC 32.3 RDW 15.7 H Plt Count 257 Neut % (Auto) 58.9 Lymph % (Auto) 19.3 L [place] % (Auto) 15.9 H Eos % (Auto) 5.5 H Baso % (Auto) 0.4 Neut # (Auto) 4900 RBC Morphology Not Reportable Microcytosis 2+ H Sodium 146 H Potassium 3.7 Chloride 104 Carbon Dioxide 32 BUN 15 Creatinine 0.80 Estimated GFR > 60.0 BUN/Creatinine Ratio 18.8 Glucose 109 H Lactate Calcium 8.8 Procalcitonin 0.06 Nasal Screen MRSA (PCR) 12/01/17 12/01/17 13:43 13:50 WBC RBC Hgb Hct MCV MCH MCHC RDW Plt Count Neut % (Auto) Lymph % (Auto) [place] % (Auto) Eos % (Auto) Baso % (Auto) Neut # (Auto) RBC Morphology Microcytosis Sodium Potassium Chloride Carbon Dioxide BUN Creatinine Estimated GFR BUN/Creatinine Ratio Glucose Lactate 0.5 L Calcium Procalcitonin Nasal Screen MRSA (PCR) Positive for mrsa H Assessment & Plan Plan: Assessment/Plan Narrative: Abscess x2 on the right lower abdominal wall and left lateral hip secondary to skin popping heroin. I have recommended incision and drainage in the operating room. The patient expressed an understanding of this procedure and a desire to completed today. Quality VTE Deep Vein Thrombosis/Pulmonary Embolism Present on Admission: No
--- NOTE | 2017-12-01 17:04 | P.HP_ITS ---
History of Present Illness Date Patient Seen: 12/01/17 Time Patient Seen: 08:58 Chief complaint: thinks he has infection in abdomen area Narrative: 32-year-old gentleman presented to the emergency room with complaint of about 10 days of pain in his right lower abdomen. He reports that he injects heroin subcutaneously and has had multiple abscesses in the past. He chooses this route because he reports he has no accessible veins remaining. He has been seen in the emergency room at [place] as well as our facility in the past for abscesses as well as Gxfuu-Cphrntljb-Qgxjh syndrome. He reports that his problem with Dcxxb-Qmkmqmxhd-Sxrug syndrome seems to be greatly exacerbated when he is smoking methamphetamine and seems to be better when he is not. He reports that about 10 days ago he noticed some soreness in his abdomen. He said he can usually just drain these little abscesses at home but he was not able to get this 1 to drain. He feels like it became significantly worse because he has been working hard and has gotten very little sleep in the last week or so. He was admitted through the emergency room and given vancomycin. Patient History Medical History Drug abuse (Acute) Hepatitis C virus infection cured after antiviral drug therapy (Acute) Hyjul-Cotejpfnc-Rqoll (WPW) pattern (Acute) Family & Social History Family History: Reviewed 12/01/17 by Winsome Jo MD Social History: household members other Prior Living Arrangements House Safety & Behavioral: Feels Safe in Current Yes Environment Been Physically Hurt or No Threatened By a Person Suicidal Ideation Description None Suicide Plan Description No Plan Tobacco & Substance use: Tobacco type cigarettes Smoking Status Current every day smoker alcohol intake never Substance Use Type heroin,IV drugs,methamphetamine Meds Home Medications Medication Instructions Recorded Confirmed Type No Known Home Medications 12/01/17 12/01/17 History Allergies Allergy/AdvReac Type Severity Reaction Status Date / Time No Known Drug Allergies Allergy Verified 11/01/17 05:10 Review of Systems Review of Systems Complains of severe fatigue. Was recently seen in our emergency room for swelling in his legs which she feels is better now. All systems reviewed & are unremarkable except as noted in HPI and below Exam Vital Signs (past 8 hours): - 12/01/17 11:40 12/01/17 12:35 12/01/17 12:38 Temperature 97.3 F L 97.4 F L Pulse Rate 84 80 78 Respiratory Rate 17 15 15 Blood Pressure 112/73 109/74 120/79 Pulse Oximetry 100 99 99 12/01/17 12:43 12/01/17 12:47 12/01/17 13:05 Temperature 99 F 97.3 F L Pulse Rate 74 84 74 Respiratory Rate 14 15 18 Blood Pressure 117/80 124/81 H 111/73 Pulse Oximetry 99 97 97 12/01/17 13:35 12/01/17 14:14 12/01/17 14:50 Temperature 97.5 F L 97.8 F 97.5 F L Pulse Rate 78 77 88 Respiratory Rate 15 20 18 Blood Pressure 121/77 H 120/71 120/79 Pulse Oximetry 95 96 96 12/01/17 15:58 Temperature 99.9 F H Pulse Rate Respiratory Rate 16 Blood Pressure 132/78 H Pulse Oximetry 99 Oxygen Delivery Method Room Air Oxygen Flow Rate 0 Narrative Exam Narrative: Very sleepy gentleman in no obvious distress HEENT: Normocephalic and atraumatic, pupils equal round reactive to light accommodation with anicteric sclera. Oropharynx reveals only poor dentition Lungs: Upper airway noise but improves with coughing. No wheezing Heart: Regular rate and rhythm without murmur Abdomen: Soft, approximately 20 in of erythema surrounding a central area of fluctuance. A small dark region in the center of the fluctuant area is consistent with necrosis. This is in the right lower quadrant of the abdominal wall. Multiple scars and lesions are noted across his abdominal wall consistent with prior skin popping. On the left hip laterally, there is a 10 cm area of erythema with a central necrotic region that is also fluctuant. This is consistent with a 2nd abscess. Abdomen is otherwise soft with active bowel sounds. Extremities: Multiple lesions in various stages of healing. No other obviously fluctuant regions Objective Labs Result Diagrams: 12/01/17 04:15 12/01/17 04:15 Labs: Laboratory Results - last 24 hr 12/01/17 12/01/17 12/01/17 04:15 04:15 04:15 WBC 8.3 RBC 4.83 Hgb 11.2 L Hct 34.5 L MCV 71.4 L MCH 23.1 L MCHC 32.3 RDW 15.7 H Plt Count 257 Neut % (Auto) 58.9 Lymph % (Auto) 19.3 L [place] % (Auto) 15.9 H Eos % (Auto) 5.5 H Baso % (Auto) 0.4 Neut # (Auto) 4900 RBC Morphology Not Reportable Microcytosis 2+ H Sodium 146 H Potassium 3.7 Chloride 104 Carbon Dioxide 32 BUN 15 Creatinine 0.80 Estimated GFR > 60.0 BUN/Creatinine Ratio 18.8 Glucose 109 H Lactate Calcium 8.8 Procalcitonin 0.06 Nasal Screen MRSA (PCR) 12/01/17 12/01/17 13:43 13:50 WBC RBC Hgb Hct MCV MCH MCHC RDW Plt Count Neut % (Auto) Lymph % (Auto) [place] % (Auto) Eos % (Auto) Baso % (Auto) Neut # (Auto) RBC Morphology Microcytosis Sodium Potassium Chloride Carbon Dioxide BUN Creatinine Estimated GFR BUN/Creatinine Ratio Glucose Lactate 0.5 L Calcium Procalcitonin Nasal Screen MRSA (PCR) Positive for mrsa H Assessment & Plan Plan: Assessment/Plan Narrative: Abscess x2 on the right lower abdominal wall and left lateral hip secondary to skin popping heroin. I have recommended incision and drainage in the operating room. The patient expressed an understanding of this procedure and a desire to completed today. Quality VTE Deep Vein Thrombosis/Pulmonary Embolism Present on Admission: No
[2017-12-01] MEDS: KETOROLAC 30 MG/ML VIAL IV (19:53)
[2017-12-01] MEDS: HYDROMORPHONE PCA 6 MG/30 ML PCA.VIAL 0.8 MG IV (22:39)
--- NOTE | 2017-12-01 22:50 | PC.NURSE ---
joni note pt woke up, said he was starving. Pt tolerated pudding and water, then ate 100% evening meal. Pt c/o pain and withdrawl symptoms. Pt is tremulous, shivering, mild temp of 99.8. Started ASSOCIATE PROGRAM MANAGER and gave IV Ativan twice. Pt mostly sleeping.
[2017-12-01] MEDS: VANCOMYCIN 1,500 MG in SODIUM CHLORIDE 0.9% 500 ML 333 ML IV (23:28)
[2017-12-02] MEDS: KETOROLAC 30 MG/ML VIAL IV ×5 (00:02→23:52)
[2017-12-02 00:25] VITALS: BP 113/59; PULSE 72; RESP 16; TEMP 36.8; O2SAT 95
[2017-12-02] MEDS: LORazepam 2 MG/ML SYRINGE 1 MG IV ×7 (02:19→22:01)
[2017-12-02 04:36] VITALS: BP 141/80; PULSE 88; RESP 20; TEMP 36.3
[2017-12-02] MEDS: HYDROMORPHONE PCA 6 MG/30 ML PCA.VIAL 2.2 MG IV (06:07)
[2017-12-02] MEDS: VANCOMYCIN 1,500 MG in SODIUM CHLORIDE 0.9% 500 ML 333 ML IV ×3 (06:13→22:01)
--- NOTE | 2017-12-02 07:05 | PC.NURSE ---
NOC Shift: Pt restless night w/active detoxing. VSS, sats stable on room air. Pt needs encouragement to use CONVEYOR WORKER for generalized pain. Has taken off dsgs to left hip, abd. six times, iodiform remains intact, incisions draining yellow serrous drainage. Attempts made to secure dsgs continue. Pt currently getting Ativan Q2H prn, toradol and dilaudid CONVEYOR WORKER. Pt is cooperative yet impulsive bed alarm on for safety. ICU care.
[2017-12-02 08:44] VITALS: BP 132/64; PULSE 50; RESP 18; TEMP 36.6; O2SAT 97
--- NOTE | 2017-12-02 09:20 | PC.NURSE ---
0920 Pt transfered from room 231 via bed. Recieved report from JOVITA Milton. Pt has a dilaudid SALES AND LEASING CONSULTANT, added cont 1mg per new orders.
[2017-12-02] MEDS: HYDROMORPHONE PCA 6 MG/30 ML PCA.VIAL 5 MG IV ×2 (09:26→22:10)
[2017-12-02] MEDS: DEXTROSE 5%-0.45% NS 1,000 ML 125 ML IV ×2 (10:32→20:37)
[2017-12-02 14:48] LABS: Vancomycin Trough 12.7 ug/mL (10-20)
[2017-12-02] MEDS: VANCOMYCIN TROUGH 1 REQUEST MISC (14:48)
--- NOTE | 2017-12-02 15:09 | CM.DANOTE ---
DCP/continued: Received verbal referral from Dr. Jo re: this patient and substance abuse. Per Dr. Jo reports there is suspicion that patient's girlfriend might be bringing him heroin and putting in patient's PICC line. DIGITAL PRODUCER notified charge/RN Rebecca. In addition, Dr. Jo concerned about managing patient's current withdrawal symptoms. Dr. Baldwin/hospitalist consulted to assist. Spoke with Dr. Baldwin and she will speak with pharmacy and consider methadone as option. P: DIGITAL PRODUCER following closely. Patient will need assessment and hopefully will be in agreement to get some help. DONNIE Evans
--- NOTE | 2017-12-02 15:31 | PC.NURSE ---
1430 Pt has been restless all this shift, Pt did rub off abd drsg today.w/2 people:Replaced with sterile guaze & hypafix tape to secure. Pt is uncooperative, turns back & forth in the bed, got OOB by self X one. Risk of falls. Pt PICC line is patent & PANELBOARD ASSEMBLER infusing & IVF. Dr Jo called/notified of Pt's dressing being undone, & that the Pt states I want out of here, Im leaving now. Dr Jo stated would come assess Pt/ replace the packing etc. Dr Jo did arrive, Pt too agitated at the time for wnd care, Pt had previously been Med w/Ativan & toradol & on on dilaudid PANELBOARD ASSEMBLER. Pt has not had any PO fluids or diet this shift. 1510 Dr Baldwin in too assess Pt. will discuss with pharmacy meds to get Pt thru the withdrawls. gave report to oncoming shift.
--- NOTE | 2017-12-02 15:43 | PM.CN ---
History of Present Illness Date Patient Seen: 12/02/17 Time Patient Seen: 15:43 Chief complaint: thinks he has infection in abdomen area Reason for consult: To manage opioid withdrawal Narrative: I was kindly asked by Dr. Jo to assist with the medical management of opioid withdrawal for this 32 y/0 male admitted for treatment of multiple subcutaneous abcesses. Patient admits to using about 1 gram of heroin daily. He has used all veins and now skin popps black tar heroin. Patient has been managed post operatively with Dilaudiid continuous infusion and OUTBOARD MOTORS EXPERIMENTAL MECHANIC. However he has not used the OUTBOARD MOTORS EXPERIMENTAL MECHANIC. He was very agitated, diaphoretic, combative, and removed his dressing and has been uncooperative with further dressing changes. He was given additional dilaudid and ativan and is now sedated but arousable. The patient is not answering questions but appears comfortable [facility] Medical History Drug abuse (Acute) Hepatitis C virus infection cured after antiviral drug therapy (Acute) Gecar-Sootfamrb-Stqrx (WPW) pattern (Acute) Family History: Reviewed 12/01/17 by Winsome Jo MD Social History household members: other Smoking Status: Current every day smoker alcohol intake: never substance use type: opiates and IV drugs Comment: Patient is unable to provide further family history Meds Home Medications Medication Instructions Recorded Confirmed Type No Known Home Medications 12/01/17 12/01/17 History Allergies Allergy/AdvReac Type Severity Reaction Status Date / Time No Known Drug Allergies Allergy Verified 11/01/17 05:10 Review of Systems Review of Systems unobtainable due to mental condition Exam Vital Signs (past 8 hours): - 12/02/17 08:44 Temperature 97.8 F Pulse Rate 50 L Respiratory Rate 18 Blood Pressure 132/64 H Pulse Oximetry 97 Oxygen Delivery Method Room Air Oxygen Flow Rate 0 Narrative Exam Narrative: HEENT: NC/ AT, Oropharynx clear neck supple Lungs: clear to auscultation CV: RRR nl Sl S2 ABd: obese, soft, non tender, multiple subcutaneous masses palpated along the abdomen in the right lower quadrant the wound is open with serous drainage fluid, there is an open small wound on the left anterior thigh Ext: lichenification of both feet with multiple excoriations and 3+ edema bilaterally Skin: Multiple excoriations, evidence of bruising, skin popping, subcutaneous nodules noted Neuro: lethargic but arousable, uncooperative Objective Labs Result Diagrams: 12/01/17 04:15 12/01/17 04:15 Labs: Laboratory Results - last 24 hr 12/01/17 12/02/17 13:43 13:30 Nasal Screen MRSA (PCR) Positive for mrsa H Vancomycin Trough 12.7 Assessment & Plan (1) Opioid withdrawal: Problem details: Would continue the dilaudid drip for acute pain. Will start methadone 20 mg twice daily. Continue Ativan as needed. will titrate medications daily Current visit: Yes Status: Acute (2) Opioid withdrawal delirium: Problem details: Ativan and methadone as above Current visit: Yes Status: Acute (3) Subcutaneous abscess: Problem details: Dressing changes per surgery. Continue vancomycin Current visit: Yes Status: Acute
--- NOTE | 2017-12-02 15:47 | P.CONS_ITS ---
History of Present Illness Date Patient Seen: 12/02/17 Time Patient Seen: 15:43 Chief complaint: thinks he has infection in abdomen area Reason for consult: To manage opioid withdrawal Narrative: I was kindly asked by Dr. Jo to assist with the medical management of opioid withdrawal for this 32 y/0 male admitted for treatment of multiple subcutaneous abcesses. Patient admits to using about 1 gram of heroin daily. He has used all veins and now skin popps black tar heroin. Patient has been managed post operatively with Dilaudiid continuous infusion and WELFARE ELIGIBILITY WORKER. However he has not used the WELFARE ELIGIBILITY WORKER. He was very agitated, diaphoretic, combative, and removed his dressing and has been uncooperative with further dressing changes. He was given additional dilaudid and ativan and is now sedated but arousable. The patient is not answering questions but appears comfortable [facility] Medical History Drug abuse (Acute) Hepatitis C virus infection cured after antiviral drug therapy (Acute) Yjfrj-Oxzvnmros-Uwkwf (WPW) pattern (Acute) Family History: Reviewed 12/01/17 by Winsome Jo MD Social History household members: other Smoking Status: Current every day smoker alcohol intake: never substance use type: opiates and IV drugs Comment: Patient is unable to provide further family history Meds Home Medications Medication Instructions Recorded Confirmed Type No Known Home Medications 12/01/17 12/01/17 History Allergies Allergy/AdvReac Type Severity Reaction Status Date / Time No Known Drug Allergies Allergy Verified 11/01/17 05:10 Review of Systems Review of Systems unobtainable due to mental condition Exam Vital Signs (past 8 hours): - 12/02/17 08:44 Temperature 97.8 F Pulse Rate 50 L Respiratory Rate 18 Blood Pressure 132/64 H Pulse Oximetry 97 Oxygen Delivery Method Room Air Oxygen Flow Rate 0 Narrative Exam Narrative: HEENT: NC/ AT, Oropharynx clear neck supple Lungs: clear to auscultation CV: RRR nl Sl S2 ABd: obese, soft, non tender, multiple subcutaneous masses palpated along the abdomen in the right lower quadrant the wound is open with serous drainage fluid, there is an open small wound on the left anterior thigh Ext: lichenification of both feet with multiple excoriations and 3+ edema bilaterally Skin: Multiple excoriations, evidence of bruising, skin popping, subcutaneous nodules noted Neuro: lethargic but arousable, uncooperative Objective Labs Result Diagrams: 12/01/17 04:15 12/01/17 04:15 Labs: Laboratory Results - last 24 hr 12/01/17 12/02/17 13:43 13:30 Nasal Screen MRSA (PCR) Positive for mrsa H Vancomycin Trough 12.7 Assessment & Plan (1) Opioid withdrawal: Problem details: Would continue the dilaudid drip for acute pain. Will start methadone 20 mg twice daily. Continue Ativan as needed. will titrate medications daily Current visit: Yes Status: Acute (2) Opioid withdrawal delirium: Problem details: Ativan and methadone as above Current visit: Yes Status: Acute (3) Subcutaneous abscess: Problem details: Dressing changes per surgery. Continue vancomycin Current visit: Yes Status: Acute
[2017-12-02 15:58] VITALS: BP 123/68; PULSE 61; RESP 28; TEMP 36.9; O2SAT 96
--- NOTE | 2017-12-02 16:13 | P.PN_ITS ---
Subjective Date Patient Seen: 12/02/17 Time Patient Seen: 16:11 Interval history: Gulshan is extremely restless and uncomfortable. He is denying pain but requesting a ?fix? from visiting friends. Unable to express his needs. Exam Vital Signs (past 8 hours): - 12/02/17 08:44 12/02/17 15:58 Temperature 97.8 F 98.4 F Pulse Rate 50 L 61 Respiratory Rate 18 28 H Blood Pressure 132/64 H 123/68 H Pulse Oximetry 97 96 Oxygen Delivery Method Room Air Oxygen Flow Rate 0 Narrative Exam Narrative: Extremely restless. Unable to assess wound due to patient inability to cooperate. No gross hemorrhage. Dressing is off. Objective Labs Result Diagrams: 12/01/17 04:15 12/01/17 04:15 Labs: Laboratory Results - last 24 hr 12/02/17 13:30 Vancomycin Trough 12.7 Assessment & Plan Plan: Assessment/Plan Narrative: Acute opiate withdrawal. I have consulted Dr. Baldwin, hospitalist, for help in managing withdrawal symptoms. Once Tesfaye has a more clear mind, the social media campaign manager staff can discuss rehab options with him. Awaiting final culture on the wound. Continue vancomycin. Quality VTE Deep Vein Thrombosis/Pulmonary Embolism Present on Admission: No
[2017-12-02] MEDS: METHADONE 10 MG TABLET 20 MG PO (16:35)
[2017-12-02] MEDS: HYDROMORPHONE 2 MG INJ 1 MG IV ×2 (18:31→23:54)
[2017-12-02 20:00] VITALS: BP 135/74; PULSE 55; RESP 20; TEMP 36; O2SAT 95
--- NOTE | 2017-12-02 22:52 | PC.NURSE ---
SHANTE SHIFT: Patent thrashing during first few hours of shift. Patient given prn dilaudid with good effect, patient able to rest on R side for a while. Patient dressing had been removed by patient and open to air. Dr. Woodard aware and this RN told via phone by Dr. woodard that dressings could remain off until patient calm and cooperative. This Rn was able to pack wounds with plain saline guaze and place a dry dressing over with tape. Patient immediately scratched and pulled at dressings removing them again. Dressings reinforced. Ativan helpful for this patient with prn dilaudid breakthrough with residential roofer dilaudid basal rate. Patient not awake enough to push residential roofer button. Patient not eating at this time. Patient not coherent to place, date or situation. Patient rambling through out shifts believing he was at home. PICC line wrapped with kerlix dressing due to patient itching site and dressing. One on one care person with eyes on patient through out shift. Will continue to monitor. Bed alarm on.
[2017-12-02 23:59] VITALS: BP 141/89; PULSE 65; RESP 18; TEMP 36.7; O2SAT 100
[2017-12-03] MEDS: LORazepam 2 MG/ML SYRINGE 1 MG IV ×2 (01:49→06:40)
[2017-12-03 06:01] VITALS: BP 126/69; PULSE 60; RESP 18; TEMP 37.2; O2SAT 95
[2017-12-03] MEDS: VANCOMYCIN 1,500 MG in SODIUM CHLORIDE 0.9% 500 ML 333 ML IV (06:22)
[2017-12-03] MEDS: DEXTROSE 5%-0.45% NS 1,000 ML 125 ML IV (06:22)
[2017-12-03] MEDS: KETOROLAC 30 MG/ML VIAL IV (06:23)
[2017-12-03] MEDS: HYDROMORPHONE PCA 6 MG/30 ML PCA.VIAL 5 MG IV (06:31)
[2017-12-03 07:50] VITALS: BP 138/86; PULSE 61; RESP 18; TEMP 37; O2SAT 97
--- NOTE | 2017-12-03 07:55 | PC.NURSE ---
Assumed care of pt from outgoing shift at 2300 8-29. Pt asleep at this time. Pt has fluids infusing and DIRECTOR OF ADULT EPILEPSY. Pt does not use call light. Pt given PRN ativan and diluadid through the night PRN and pt slept soundly through the night. Pt up around 0100 when mary kay San came in, pt changed into his own underwear. Pt complaint with med passes. pt fell back asleep. Pt tosses and turns 0600- pt slept most of the night. Pt complaining of back pain. adjusted bed and pillows with some relief. Pt given PRNs around the clock for detoxing. and pt did ok. around 0645- pt awake and fiance in room talking with patient and she told him he will need to say for a while and pt then decided he wanted to sign out AMA. called and made aware, Pt and this investment underwriter and Spike discussed at length and repeated plan and reasons for being in the hospital. Pt stated I feel like I'm better and I want to go Pt mary kay stated and was crying that she wanted him to stay that he was really sick and could and needed antibiotics and everything and that he needed to stay. discussed with pt that he did need antibiotic therapy and pt started crying and so was spike. Pt then stated well I can stay. Pt up to chair with one assist, chair alarm on. Pt still tearful and upset but is compliant with staying. Pt call light and belongings within reach. will continue to monitor. Pt door remained open through the night. spike slept most of the night.
[2017-12-03] MEDS: METHADONE 10 MG TABLET 20 MG PO (08:27)
--- NOTE | 2017-12-03 09:59 | PM.PN.1 ---
Subjective Date Patient Seen: 12/03/17 Interval history: Better today. Still saying he will leave AMA at times, but more alert and calm today. We discussed treatment of pain and he was agreeable to transitioning to oral pain medications. He is tolerating the methadone for withdrawal. Exam Vital Signs (past 8 hours): - 12/03/17 06:01 12/03/17 07:50 Temperature 98.9 F 98.6 F Pulse Rate 60 61 Respiratory Rate 18 18 Blood Pressure 126/69 H 138/86 H Pulse Oximetry 95 97 Oxygen Delivery Method Room Air Oxygen Flow Rate 0 Narrative Exam Narrative: Lungs: Clear to auscultation CV: RRR nl Sl S2 Abd: right sided abdominal wound clean and dry without erythema or drainage Left hip wound: clean base no erythema Ext: 2+ edema Skin: Lichenification of both feet with multiple areas of healing lesions on both legs/arms/abdomen Objective Labs Result Diagrams: 12/01/17 04:15 12/01/17 04:15 Labs: Laboratory Results - last 24 hr 12/02/17 13:30 Vancomycin Trough 12.7 Assessment & Plan (1) Subcutaneous abscess: Problem details: Dressing changes per surgery. 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 Start oxycodone for pain Continue methadone for withdrawals Current visit: Yes Status: Acute Quality VTE Deep Vein Thrombosis/Pulmonary Embolism Present on Admission: No
--- NOTE | 2017-12-03 10:03 | P.PN_ITS ---
Subjective Date Patient Seen: 12/03/17 Interval history: Better today. Still saying he will leave AMA at times, but more alert and calm today. We discussed treatment of pain and he was agreeable to transitioning to oral pain medications. He is tolerating the methadone for withdrawal. Exam Vital Signs (past 8 hours): - 12/03/17 06:01 12/03/17 07:50 Temperature 98.9 F 98.6 F Pulse Rate 60 61 Respiratory Rate 18 18 Blood Pressure 126/69 H 138/86 H Pulse Oximetry 95 97 Oxygen Delivery Method Room Air Oxygen Flow Rate 0 Narrative Exam Narrative: Lungs: Clear to auscultation CV: RRR nl Sl S2 Abd: right sided abdominal wound clean and dry without erythema or drainage Left hip wound: clean base no erythema Ext: 2+ edema Skin: Lichenification of both feet with multiple areas of healing lesions on both legs/arms/abdomen Objective Labs Result Diagrams: 12/01/17 04:15 12/01/17 04:15 Labs: Laboratory Results - last 24 hr 12/02/17 13:30 Vancomycin Trough 12.7 Assessment & Plan (1) Subcutaneous abscess: Problem details: Dressing changes per surgery. 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 Start oxycodone for pain Continue methadone for withdrawals Current visit: Yes Status: Acute Quality VTE Deep Vein Thrombosis/Pulmonary Embolism Present on Admission: No
--- NOTE | 2017-12-03 11:41 | PC.NURSE ---
1040 Case managemnt in to see Pt regarding counseling r/t drug usse. Pt states is leaving, right now. Call to Dr Sandro MD requests to have Pt wait, she will be in to dc the Pt, give script for antibX, etc. 1110 DCd [place]. [place] [id number] this AM. Packing was not replaced. drsg to abd & L hip surg sites. Pt states made an appt in [facility] rehab facility, for [address] Jo in to see Pt, will dc to home now.
--- NOTE | 2017-12-03 11:42 | P.DS_ITS ---
History of Present Illness Chief complaint: thinks he has infection in abdomen area Narrative: 32-year-old gentleman presented to the emergency room with complaint of about 10 days of pain in his right lower abdomen. He reports that he injects heroin subcutaneously and has had multiple abscesses in the past. He chooses this route because he reports he has no accessible veins remaining. He has been seen in the emergency room at [facility] as well as our facility in the past for abscesses as well as Rkyel-Hqpjzqrkr-Xmhmz syndrome. He reports that his problem with Pcjyo-Ijcbkpynh-Xzhpe syndrome seems to be greatly exacerbated when he is smoking methamphetamine and seems to be better when he is not. He reports that about 10 days ago he noticed some soreness in his abdomen. He said he can usually just drain these little abscesses at home but he was not able to get this 1 to drain. He feels like it became significantly worse because he has been working hard and has gotten very little sleep in the last week or so. He was admitted through the emergency room and given vancomycin. Discharge Providers Date of admission: 12/01/17 07:15 Consults: 12/01/17 13:13 Consult to Discharge Planning Routine Comment: 12/01/17 13:59 Consult to Respiratory Therapy Evaluate & Treat Comment: Physician Instructions: Evaluate and treat Consult to Dedicated Owner Operator Routine Comment: Discharge provider: Winsome Jo MD Summary Discharge Diagnosis: 1. Multiple skin abscesses secondary to heroin injection 2. Delirium secondary to withdrawal Hospital Course: Gulshan was taken to the operating room shortly after admission where he underwent incision and drainage with culture of both the lesion on his abdomen and a smaller 1 is left hip. He continued on vancomycin while in the hospital. Shortly after his procedure, he began experiencing significant and severe symptoms of withdrawal. Dr. Baldwin was consulted and started him on methadone which seemed to improve his symptoms significantly. Dedicated Owner Operator has contacted [facility] and he has appointment today at 12:30 p.m.. He is being discharged in order to make that appointment. I have gone over wound care with him and he reports he can definitely take care of his wounds without difficulty. He will be discharged with Bactrim for treatment of remaining abscesses in lesions. He will follow up with me in 2 weeks at my office for wound check. If he is not available, he should call and let us know so that we can follow up with him by telephone. Status at Discharge Cognitive/behavioral status at discharge: Improving Functional status at discharge: independent ambulation Overall status at discharge: patient is back to baseline Time Spent with Patient Less than 30 minutes Exam Vital Signs (past 8 hours): - 12/03/17 06:01 12/03/17 07:50 Temperature 98.9 F 98.6 F Pulse Rate 60 61 Respiratory Rate 18 18 Blood Pressure 126/69 H 138/86 H Pulse Oximetry 95 97 Oxygen Delivery Method Room Air Oxygen Flow Rate 0 Narrative Exam Narrative: Much more calm and pleasant today HEENT: Normocephalic and atraumatic, pupils equal round and reactive to light and accommodation Lungs: Essentially clear bilaterally Heart: Regular rate and rhythm Abdomen: Soft, minimal tenderness to palpation now around the incision, active bowel sounds. Skin: Multiple open wounds and lesions with mild cellulitis. No other abscess cavities. Left hip wound is improving significantly Extremities: Warm and well perfused Objective Labs Result Diagrams: 12/01/17 04:15 12/01/17 04:15 Labs: Laboratory Results - last 24 hr 12/02/17 13:30 Vancomycin Trough 12.7 Discharge Plan Discharge Plan Patient Disposition: Released, Other Transportation: Private vehicle Discharge Med Rec/Prescriptions Discharge Orders: Discharge (Order); Ordered 12/03/17 Ordered By: Winsome Jo Discharge Health Status Multidrug resistant organism: No MDRO Precautions: [place] Provider Discharge Instructions Diet: Diet as Tolerated Food texture: Regular Skin/Wound/Dressing Care Report to your healthcare provider any signs of infection, such as:: chills, fever, night sweats, increased pain and unusual drainage Dressing: You may shower as desired. Keep the wounds clean with soap and water and cover with a dry dressing. Discharge Data Attending Provider: Winsome Jo Admit Date/Time: 12/01/17 07:15 Quality VTE Deep Vein Thrombosis/Pulmonary Embolism Present on Admission: No
--- NOTE | 2017-12-03 11:55 | CM.SWNOTE ---
TORCH BRAZER Consult: Reviewed chart. Pt requesting to leave this morning. Met w/pt, explained SW role. Pt dozing off but inevitably sits up to talk w/this TORCH BRAZER. Pt lives w/his gf Mena. 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 Pt also admits to shooting approx 4-7grams of heroin daily which can cost anywhere from$200-$400. Both pt and gf are currently using. Pt makes good eye contact throughout our brief conversation. He is teary and acts remorseful about his use and likelihood it will kill him eventually. Pt wants to be clean. Pt denies being snuck heroin while here. Pt has h/o Crisis respite with follow up at [facility] in [facility]. Pt's current counselor is Shauna, he has not seen her for months. Pt admits to being sober for 2 years until August 2016 when I was too bored. Pt has been heavily using Heroin since that time, states he occasionally gets Suboxone. Pt agreeable to contacting [facility] while this TORCH BRAZER in the room to arrange an appt w/counselor. Appt available today at 1230. Pt wants his gf to drive. This TORCH BRAZER strongly encouraged pt to accept a taxi ride to [place]. Pt refuses. Updated JOVITA Salazar and Dr Jo re: above. Pt eager to leave to have a cigarette. Pt stayed to get PICC removed and DC order/instructions reviewed. Hopefully pt makes it to his arranged appt w/counselor. Home w/recovery/ outpt treatment arranged. Sita Larose TORCH BRAZER
--- NOTE | 2017-12-03 12:20 | PC.NURSE ---
1210 Pt escorted out via w/c to meet w/girlfriend outside.
--- NOTE | 2017-12-10 22:07 | P.OP_ITS ---
Operative Date/Time/Diagnoses Date of procedure: 12/01/17 Time of procedure: 18:07 Pre-op diagnosis: Abdominal wall abscess and left anterior hip abscess Post-op diagnosis: same Procedure & Clinicians Procedure: Incision and drainage with debridement of right anterior abdominal wall abscess and left anterior hip abscess. Same procedure as scheduled: Yes Indications: Two skin abscesses with associated cellulitis secondary to skin popping heroin Surgeon: Winsome Jo Click Yes if Unassisted: Yes Anesthesia Type: General Operative Notes Findings: 5 x 4 cm anterior abdominal wall abscess on the right 2 x 2 cm left anterior hip abscess Both abscesses contained black oily material at the base. Closure Type: non-primary Specimen(s): other (Cultures-both aerobic and anaerobic-submitted from each wound) Implants & Drains: Both wounds packed with iodoform gauze Estimated Blood Loss (mL): 10 Procedure in detail: After obtaining informed consent, the patient is brought to the operating room and placed in the supine position on the operating table. Following successful induction of general endotracheal anesthesia, appropriate padding of all bony prominences, and placement of appropriate monitors, the abdomen and hip are prepped and draped in the standard surgical fashion. A time-out was held per SCOAP protocol. A cruciate incision was created directly over the fluctuant area of the right lateral abdominal wall abscess. This was extended down into the cavity and revealed a well-developed 4 by 5 cm cavity filled with necrotic tissue and containing an oily substance at its base. The cavity was cultured and then irrigated copiously with Betadine saline solution. It was packed with iodoform gauze. An identical procedure was performed on the left anterior hip abscess. It was packed in the same way. Dry dressings were applied to each wound. All sponge, needle, and instrument counts were correct at the conclusion of the case. Patient was allowed to wake from anesthesia without significant difficulty and taken to the postanesthesia care unit in good condition. Complications: none Condition: stable Disposition: PACU Plan for aftercare: Return to [facility] for continued convalescence and supportive care
== END 2017-12-03 12:19 | disposition home or self-care (01) | DRG 364 ==
LOC: ED 03:15 → AC 07:16
PROVIDERS: Admitting Provider Surgery; Emergency Provider Emergency Medicine; Visit Provider Surgery
PROC: 0JD80ZZ Extraction of Abdomen Subcutaneous Tissue and Fascia, Open Approach (ICD-10-PCS; principal; 2017-12-01 12:30)
DX: L03.311 Cellulitis of abdominal wall (principal); L03.116 Cellulitis of left lower limb; I45.6 Pre-excitation syndrome; F17.210 Nicotine dependence, cigarettes, uncomplicated; I96 Gangrene, not elsewhere classified; L02.211 Cutaneous abscess of abdominal wall; L02.416 Cutaneous abscess of left lower limb; F11.23 Opioid dependence with withdrawal
CPT/HCPCS: 10061; 11042; 36415; 80048; 80202; 83605; 84145; 85025; 87040; 87070; 87075; 87077; 87147; 87205; 87797; 99282; 99283; 99406; J1170; J1642; J1885; J2060; J3010

== ENCOUNTER 2020-10-09 09:12 | Emergency (ER) | payer OTHER, MEDICAID, SELFPAY ==
[2017-12-03 11:56] VITALS: BMI 34.7
--- NOTE | 2020-10-09 09:29 | ED.SKABFB ---
HPI - Skin/Abscess/Foreign Bdy General Chief complaint: Skin/Abscess/Foreign Body Stated complaint: Wounds on both feet and legs Time Seen by Provider: 10/09/20 09:29 Mode of arrival: Ambulatory Limitations: no limitations History of Present Illness HPI narrative: This is a 35-year-old male comes emergency department with complaint of swelling and wounds on his bilateral lower extremities for at least 2 years. Patient states he has been trying to care for the home. He has been using topical Neosporin and bacitracin. Patient is using it almost daily. He is keeping his wounds covered the majority of the time. He has had increasing pain and discomfort. He notes that he elevates his legs and evening with swelling improves almost by half and when he then stands he has significant swelling again of his lower extremities. Patient has not had any fevers, denies any chest pain, shortness of breath, orthopnea, cold cough or congestion, no nausea vomiting, no other GI or urinary symptoms. Patient is unaware of any medical issues besides history of Cfrjx-Axblfmxzh-Fnjue, he states he saw cardiology several years ago but never followed with them and was recommended to have ablation but did not complete this. Patient states he has had his tonsils removed. He is not on any daily oral medications. He has not been following regularly for with anyone for his lower extremities but has been told he would benefit from wound care. Patient is unaware of any drug allergies. He uses tobacco occasionally. Occasional alcohol. He had a significant history of methamphetamine abuse and states he will occasionally use but has been trying to avoid. Related Data Previous Rx's Medication Instructions Recorded sulfamethoxazole 800 1 tab PO BID #20 tab MDD 2 12/03/17 mg-trimethoprim 160 mg tablet doxycycline hyclate 100 mg tablet 100 mg PO BID #20 tab 10/09/20 fluconazole 150 mg tablet 150 mg PO DAILY #7 tab 10/09/20 (Diflucan) furosemide 40 mg tablet (Lasix) 40 mg PO DAILY #7 tab 10/09/20 Allergies Allergy/AdvReac Type Severity Reaction Status Date / Time No Known Drug Allergies Allergy Verified 11/01/17 05:10 Review of Systems Review of Systems ROS Unobtainable: All systems reviewed & are unremarkable except as noted in HPI and below Patient History Medical History (Updated 10/09/20 @ 12:08 by Linsey Wilkinson DO) Drug abuse Hepatitis C virus infection cured after antiviral drug therapy Jkyzm-Grhgnxfdk-Oppul (WPW) pattern Social History household members: other Smoking Status: Current every day smoker alcohol intake: never substance use type: opiates and IV drugs Smoking Status: Current every day smoker alcohol intake frequency: 0-2 drinks per day Substance Use Type: heroin, opiates and IV drugs Exam Narrative Exam Narrative: GENERAL: Alert and oriented x three, obese male in mild distress HEENT: Head normocephalic, atraumatic, EOMI, pupils reactive, face symmetric, moist mucous membranes NECK: Supple, full range of motion CARDIOVASCULAR: Regular rate and rhythm without murmurs, rubs or gallops. RESPIRATORY: Breath sounds equal bilaterally, no wheezes rales or rhonchi. ABDOMEN: Soft, nontender. Normoactive bowel sounds all 4 quadrants. No guarding or rebound, rigidity, no mass EXTREMITIES: Normal range of motion, patient has significant bilateral lower extremity edema. Neurovascularly intact to light touch. Cap refill is 3 seconds. Patient has significant chronic venous stasis changes bilateral lower extremities as well as a circular wound on his right anterior eli that is approximately 3 cm in the subcutaneous tissue, there is no bony exposure. S tissue is pink granulation tissue without any obvious drainage at this time. Patient also has multiple areas of skin breakdown that are small. Patient has whitish discoloration over the tops of his toes which appears to be overlying the skin, as well as excoriation of the top layer of skin over his toes. NEUROLOGICAL: Cranial nerves II through XII grossly intact. Moving all extremities SKIN: Warm, dry, no petechiae. Patient does not have any obvious skin changes above the knees. Initial Vital Signs Initial Vital Signs: Vital Signs Pulse Rate 100 H 10/09/20 11:09 Blood Pressure 151/83 H 10/09/20 11:09 Pulse Oximetry 100 10/09/20 11:09 Course Orders Ordered: Discontinued Medications Furosemide (Furosemide 40 Mg/4 Ml Vial) 40 mg IV NOW ONE Stop: 10/09/20 09:56 Last Admin: 10/09/20 11:11 Dose: 40 mg Documented by: ATAYLOR Sodium Chloride (Normal Saline 0.9%) 1,000 mls @ 1,000 mls/hr IV BOLUS ONE Stop: 10/09/20 10:29 Last Admin: 10/09/20 11:00 Dose: Not Given Documented by: ALESIA MDM - Skin/Abscess/Foreign Bdy Lab Data Result diagrams: 10/09/20 10:34 10/09/20 10:34 Labs: Lab Results 10/09/20 10/09/20 10/09/20 Range/Units 10:34 10:34 10:34 WBC 6.2 (4.5-11.0) X10^3/uL RBC 8.03 H (4.5-5.9) X10^6/uL Hgb 19.3 H (13.5-17.5) g/dL Hct 57.2 H (41-53) % MCV 71.2 L (80-100) fL MCH 24.0 L (26-34) PG MCHC 33.7 (30-36) % RDW 19.5 H (11.6-14.8) % Plt Count 103 L (150-400) X10^3/uL Neut % (Auto) 79.1 H (50-75) % Lymph % (Auto) 11.0 L (25-40) % [place] % (Auto) 6.8 (3-14) % Eos % (Auto) 2.7 (2-4) % Baso % (Auto) 0.4 (0-2) % Neut # (Auto) 4900 (4840-5876) /uL Lymph # (Auto) 700 L (8784-5527) /uL [place] # (Auto) 400 (0-900) /uL Eos # (Auto) 200 (0-450) /uL Baso # (Auto) 0 (0-100) /uL Platelet Estimate Decreased on smear RBC Morphology Normal morphology Sodium 140 (137-145) mmol/L Potassium 4.0 (3.4-5.1) mmol/L Chloride 105 (98-107) mmol/L Carbon Dioxide 27 (22-32) mmol/L BUN 15 (9-20) mg/dL Creatinine 0.84 (0.66-1.25) mg/dL Estimated GFR > 60.0 (>60) mL/min BUN/Creatinine Ratio 17.9 (6-22) Glucose 116 H (70-100) mg/dL Hemoglobin A1c (4.0-6.0) % Lactate 1.6 (0.7-2.1) mmol/L Calcium 9.4 (8.4-10.2) mg/dL Total Bilirubin 0.3 (0.2-1.3) mg/dL AST 39 (17-59) IU/L ALT 25 (<50) IU/L Alkaline Phosphatase 102 (38-126) U/L Total Creatine Kinase (55-170) U/L CK-MB (CK-2) (<2.37) ng/mL CK-MB (CK-2) Rel Index (1.5-5.0) % Troponin I (0.01-0.034) ng/mL NT-Pro-B Natriuret Pep (<125) pg/mL Total Protein 8.9 H (6.3-8.2) g/dL Albumin 4.1 (3.5-5.0) g/dL Globulin 4.8 H (1.7-4.1) g/dL Albumin/Globulin Ratio 0.9 L (1.0-2.8) Lipase 61 (23-300) U/L Procalcitonin 0.13 (<0.5) ng/mL 10/09/20 10/09/20 Range/Units 10:34 10:34 WBC (4.5-11.0) X10^3/uL RBC (4.5-5.9) X10^6/uL Hgb (13.5-17.5) g/dL Hct (41-53) % MCV (80-100) fL MCH (26-34) PG MCHC (30-36) % RDW (11.6-14.8) % Plt Count (150-400) X10^3/uL Neut % (Auto) (50-75) % Lymph % (Auto) (25-40) % [place] % (Auto) (3-14) % Eos % (Auto) (2-4) % Baso % (Auto) (0-2) % Neut # (Auto) (6239-6447) /uL Lymph # (Auto) (7579-5710) /uL [place] # (Auto) (0-900) /uL Eos # (Auto) (0-450) /uL Baso # (Auto) (0-100) /uL Platelet Estimate RBC Morphology Sodium (137-145) mmol/L Potassium (3.4-5.1) mmol/L Chloride (98-107) mmol/L Carbon Dioxide (22-32) mmol/L BUN (9-20) mg/dL Creatinine (0.66-1.25) mg/dL Estimated GFR (>60) mL/min BUN/Creatinine Ratio (6-22) Glucose (70-100) mg/dL Hemoglobin A1c 5.7 (4.0-6.0) % Lactate (0.7-2.1) mmol/L Calcium (8.4-10.2) mg/dL Total Bilirubin (0.2-1.3) mg/dL AST (17-59) IU/L ALT (<50) IU/L Alkaline Phosphatase (38-126) U/L Total Creatine Kinase 194 H (55-170) U/L CK-MB (CK-2) 4.94 H (<2.37) ng/mL CK-MB (CK-2) Rel Index 2.5 (1.5-5.0) % Troponin I < 0.012 (0.01-0.034) ng/mL NT-Pro-B Natriuret Pep 91 (<125) pg/mL Total Protein (6.3-8.2) g/dL Albumin (3.5-5.0) g/dL Globulin (1.7-4.1) g/dL Albumin/Globulin Ratio (1.0-2.8) Lipase (23-300) U/L Procalcitonin (<0.5) ng/mL Imaging Data Chest x-ray: Radiologist's Impression: Chart Viewer Diagnostics DATE TYPE STATUS REF RANGE/AUTHOR Hx Today 09:30 PhillipsSalazar 12/01/17 07:15 35, M0 1985 REG ER, Main ED R11 193.04cm Skin/Abscess/Foreign Body Search Chart No Data to Display ONSET No Data to Display Hal Sifuentes 35 M [address] [id number] ReportSigned Patient: Hal Sifuentes SMR#: [id number]: [id number]:[id number]/Sex: 35 / MDate of Service: 10/09/20Loc: EDAccession Number: [id number] Procedure: XR chest 1V Ordering Provider: Linsey Wilkinson D.O. PROCEDURE: XR CHEST 1V INDICATIONS: Suspected sepsis TECHNIQUE: One view of the chest was acquired. COMPARISON: None. FINDINGS: Surgical changes and devices: None. Lungs and pleura: Lungs are clear. No pleural effusions or pneumothorax. Mediastinum: Mediastinal contours appear normal. Heart size is normal. Bones and chest wall: No suspicious bony lesions. Overlying soft tissues appear unremarkable. IMPRESSION: No acute cardiopulmonary process demonstrated radiographically. Dictated by: Salazar Phillips M.D. on 10/09/2020 at 10:24 Approved by: Salazar Phillips M.D. on 10/09/2020 at 10:30 [facility] Narrative Medical decision making narrative: This is a 35-year-old male with significant bilateral lower extremity edema with chronic venous stasis changes with likely overlying bacterial and or fungal infection. Patient has been using Neosporin topically for long-term likely is also having some changes with this as well as keeping his feet covered without any open to air. Increasing the likelihood of skin breakdown. Patient has been trying to care for his lower extremities but feels he is not being successful. He is requesting referral to wound care which I feel is appropriate. Plan for course of Lasix, Diflucan and oral antibiotic. Wound care referral was sent. Discharge Plan Departure Patient Disposition: Home Clinical Impression: Swelling of both lower extremities, Open wound of both lower extremities Instructions: DI for Wound Infection Activity Restrictions/Additional Instructions: Follow up with wound care for treatment and care of her bilateral lower extremities. Call for an appointment. A referral has already been sent. I would put you on oral Diflucan which is an antifungal as well as antibiotics for the short term. You also be given a prescription for Lasix which is diuretic to assist in decreasing some of the fluid on your lower extremities. Prescriptions to [facility] in [place]. I would also recommend following up with Cardiology regarding your prior diagnosis. Call for an appointment. There is a referral included below. Please return for fevers, rapidly worsening symptoms, rapidly worsening pain, purulence drainage, redness, swelling tracking up her lower extremities, new chest pain shortness of breath or other new or concerning symptoms. Prescriptions: New fluconazole [Diflucan] 150 mg tablet 150 mg PO DAILY Qty: 7 RF: 0 doxycycline hyclate 100 mg tablet 100 mg PO BID Qty: 20 RF: 0 furosemide [Lasix] 40 mg tablet 40 mg PO DAILY Qty: 7 RF: 0 No Action sulfamethoxazole-trimethoprim 800-160 mg tablet 1 tab PO BID MDD 2 Qty: 20 RF: 0 Referrals: Rainer Quintero MD [Physician] - Giacomo Mckeon MD [Physician] -
[2020-10-09 11:04] LABS: Alanine Aminotransferase 25 IU/L (<50); Albumin 4.1 g/dL (3.5-5.0); Albumin Globulin Ratio 0.9 (1.0-2.8); Alkaline Phosphatase 102 U/L (38-126); Aspartate Aminotransferase 39 IU/L (17-59); BUN Creatinine Ratio 17.9 (6-22); Bilirubin Total 0.3 mg/dL (0.2-1.3); Blood Urea Nitrogen 15 mg/dL (9-20); Calcium 9.4 mg/dL (8.4-10.2); Carbon Dioxide 27 mmol/L (22-32); Chloride 105 mmol/L (98-107); Creatine Kinase 194 U/L (55-170); Estimated Glomerular Filt Rate > 60.0 mL/min (>60); Globulin 4.8 g/dL (1.7-4.1); Glucose 116 mg/dL (70-100); HEMOLYSIS < 15 (0-50); Lipase 61 U/L (23-300); Sodium 140 mmol/L (137-145); Total Protein 8.9 g/dL (6.3-8.2)
[2020-10-09 11:05] LABS: Lactate (Lactic Acid) 1.6 mmol/L (0.7-2.1)
[2020-10-09 11:09] VITALS: BP 151/83; PULSE 100; O2SAT 100
[2020-10-09] MEDS: FUROSEMIDE 40 MG/4 ML VIAL IV (11:11)
[2020-10-09 11:16] LABS: NT-proBNP (BNP-Adult 18+) 91 pg/mL (<125); Troponin I < 0.012 ng/mL (0.01-0.034)
[2020-10-09 11:19] LABS: Basophils Absolute Auto 0 /uL (0-100); Basophils Percent Auto 0.4 % (0-2); Eosinophils Absolute Auto 200 /uL (0-450); Eosinophils Percent Auto 2.7 % (2-4); Hematocrit 57.2 % (41-53); Hemoglobin 19.3 g/dL (13.5-17.5); Lymphocytes Absolute Auto 700 /uL (1100-4500); Mean Corpuscular HGB Conc 33.7 % (30-36); Mean Corpuscular Volume 71.2 fL (80-100); Monocytes Absolute Auto 400 /uL (0-900); Monocytes Percent Auto 6.8 % (3-14); Neutrophils Absolute Auto 4900 /uL (1500-7000); Neutrophils Percent Auto 79.1 % (50-75); Platelet Count 103 X10^3/uL (150-400); Red Cell Distribution Width 19.5 % (11.6-14.8); White Blood Cell Count 6.2 X10^3/uL (4.5-11.0)
[2020-10-09 11:20] LABS: CKMB % Relative Index 2.5 % (1.5-5.0); Creatine Kinase MB 4.94 ng/mL (<2.37)
[2020-10-09 11:21] LABS: Procalcitonin 0.13 ng/mL (<0.5)
[2020-10-09 11:47] LABS: Add Manual Diff / Slide Review SLIDE REVIEW; Red Blood Cell Count 8.03 X10^6/uL (4.5-5.9)
[2020-10-09 11:58] LABS: Platelet Estimate Decreased on smear; RBC Morphology Normal Morphology
--- NOTE | 2020-10-09 12:08 | CM.SWNOTE ---
STEAMER GUM CANDY Note STE[employer]ER G[employer] CAND[employer] recieves consult to meet with patient from ED provider Dr. Wilkinson. Dr. Wilkinson speaks with patient and patient declines STEAMER GUM CANDY consult and reports that patient has been clean from methamphetamine for a few years. Plan: patient to d/c to the community when medically clear with wound clinic referral DONNIE Jarvis
[2020-10-09 12:36] LABS: Hemoglobin A1C% w Est Avg Glu 5.7 % (4.0-6.0)
== END 2020-10-09 12:26 | disposition home or self-care (01) ==
PROVIDERS: Emergency Provider Emergency Medicine
DX: M79.89 Other specified soft tissue disorders (principal); S81.802A Unspecified open wound, left lower leg, initial encounter; S81.801A Unspecified open wound, right lower leg, initial encounter
CPT/HCPCS: 36415; 71045; 80053; 82550; 82553; 83036; 83605; 83690; 83880; 84145; 84484; 85025; 87040; 96374; 99284; J1940

== ENCOUNTER → 2020-10-22 13:18 | Outpatient (CLI) | payer OTHER, MEDICAID, SELFPAY ==
[2021-02-07 01:23] VITALS: BMI 39.4
== END ==
PROVIDERS: Referring Provider Nurse Practitioner; Visit Provider Family Medicine
DX: I89.0 Lymphedema, not elsewhere classified (principal); I87.2 Venous insufficiency (chronic) (peripheral); L97.811 Non-pressure chronic ulcer of other part of right lower leg limited to breakdown of skin; L97.821 Non-pressure chronic ulcer of other part of left lower leg limited to breakdown of skin; L08.9 Local infection of the skin and subcutaneous tissue, unspecified; S91.301A Unspecified open wound, right foot, initial encounter; S91.302A Unspecified open wound, left foot, initial encounter; F19.10 Other psychoactive substance abuse, uncomplicated; Z72.0 Tobacco use; D58.2 Other hemoglobinopathies; D69.6 Thrombocytopenia, unspecified; R77.1 Abnormality of globulin
CPT/HCPCS: 11042; 11045; 29581; 93922; 99204; 99214

== ENCOUNTER → 2020-10-22 15:48 | Outpatient (CLI) | payer OTHER, MEDICAID, SELFPAY ==
[2017-12-03 11:56] VITALS: BMI 34.7
== END ==
LOC: WC 15:48 → LAB 11-20 12:55
PROVIDERS: Referring Provider Emergency Medicine; Visit Provider Family Medicine
DX: L08.9 Local infection of the skin and subcutaneous tissue, unspecified (principal)
CPT/HCPCS: 87070; 87075; 87077; 87147; 87186; 87205

== ENCOUNTER → 2020-10-24 09:38 | Outpatient (CLI) | payer OTHER, MEDICAID, SELFPAY ==
[2017-12-03 11:56] VITALS: BMI 34.7
== END ==
PROVIDERS: Referring Provider Emergency Medicine; Visit Provider Family Medicine
DX: I87.2 Venous insufficiency (chronic) (peripheral) (principal); L97.821 Non-pressure chronic ulcer of other part of left lower leg limited to breakdown of skin; S91.302A Unspecified open wound, left foot, initial encounter; L97.511 Non-pressure chronic ulcer of other part of right foot limited to breakdown of skin; R60.0 Localized edema
CPT/HCPCS: 29581

== ENCOUNTER → 2020-11-15 15:50 | Outpatient (CLI) | payer OTHER, MEDICAID, SELFPAY ==
[2017-12-03 11:56] VITALS: BMI 34.7
== END ==
PROVIDERS: Referring Provider Emergency Medicine; Visit Provider Family Medicine
DX: I87.2 Venous insufficiency (chronic) (peripheral) (principal); L97.811 Non-pressure chronic ulcer of other part of right lower leg limited to breakdown of skin; L08.89 Other specified local infections of the skin and subcutaneous tissue; L97.521 Non-pressure chronic ulcer of other part of left foot limited to breakdown of skin; L97.511 Non-pressure chronic ulcer of other part of right foot limited to breakdown of skin
CPT/HCPCS: 99214

== ENCOUNTER → 2020-11-30 11:37 | Outpatient (CLI) | payer OTHER, MEDICAID, SELFPAY ==
[2017-12-03 11:56] VITALS: BMI 34.7
== END ==
PROVIDERS: Referring Provider Emergency Medicine; Visit Provider Nurse Practitioner Family
DX: I87.2 Venous insufficiency (chronic) (peripheral) (principal); L97.812 Non-pressure chronic ulcer of other part of right lower leg with fat layer exposed; R60.0 Localized edema
CPT/HCPCS: 11042; 99213

== ENCOUNTER 2020-12-15 20:46 | Inpatient (IN) | payer OTHER, MEDICAID, SELFPAY ==
[2017-12-03 11:56] VITALS: BMI 34.7
[2020-12-15 21:22] VITALS: BP 137/93; PULSE 110; RESP 18; TEMP 36.6; O2SAT 93; BMI 37.5
--- NOTE | 2020-12-15 21:29 | DI.RAD.S_ITS ---
PROCEDURE: XR CHEST 1V INDICATIONS: suspected sepsis TECHNIQUE: One view of the chest was acquired. COMPARISON: [facility], CT, CHEST ANGIO-PE, 11/21/2013, 5:07. [facility], CR, XR CHEST 1V, 10/09/2020, 10:10. FINDINGS: Surgical changes and devices: None. Lungs and pleura: Lungs are clear. No pleural effusions or pneumothorax. Mediastinum: Mediastinal contours appear normal. Heart size is normal. Bones and chest wall: No suspicious bony lesions. Overlying soft tissues appear unremarkable. IMPRESSION: No acute disease. Dictated by: Spenser Charles M.D. on 12/15/2020 at 22:07 Approved by: Spenser Charles M.D. on 12/15/2020 at 22:08
[2020-12-15 22:17] LABS: Hematocrit 33.9 % (41-53); Hemoglobin 10.8 g/dL (13.5-17.5); Mean Corpuscular HGB Conc 31.7 % (30-36); Mean Corpuscular Hemoglobin 22.8 PG (26-34); Platelet Count 464 X10^3/uL (150-400); Red Blood Cell Count 4.71 X10^6/uL (4.5-5.9); Red Cell Distribution Width 18.2 % (11.6-14.8); White Blood Cell Count 14.6 X10^3/uL (4.5-11.0)
[2020-12-15 22:19] LABS: Add Manual Diff / Slide Review YES
[2020-12-15 22:23] LABS: Lactate (Lactic Acid) 1.5 mmol/L (0.7-2.1)
[2020-12-15 22:24] LABS: Alanine Aminotransferase 40 IU/L (<50); Albumin 3.7 g/dL (3.5-5.0); Albumin Globulin Ratio 0.7 (1.0-2.8); Alkaline Phosphatase 296 U/L (38-126); Aspartate Aminotransferase 35 IU/L (17-59); BUN Creatinine Ratio 15.6 (6-22); Bilirubin Total 0.6 mg/dL (0.2-1.3); Blood Urea Nitrogen 15 mg/dL (9-20); Calcium 9.3 mg/dL (8.4-10.2); Carbon Dioxide 30 mmol/L (22-32); Chloride 100 mmol/L (98-107); Estimated Glomerular Filt Rate > 60.0 mL/min (>60); Globulin 5.4 g/dL (1.7-4.1); Glucose 98 mg/dL (70-100); HEMOLYSIS < 15 (0-50); Lipase 34 U/L (23-300); Potassium 4.4 mmol/L (3.4-5.1); Sodium 138 mmol/L (137-145); Total Protein 9.1 g/dL (6.3-8.2)
--- NOTE | 2020-12-15 22:25 | PC.NURSE ---
pt is being treated with PO abx for RLeg cellulites. pt states leg is not improving. Redness, hard dry skin with multiple open wounds and swelling to the extremity from thigh to foot. CMST and pulses intact to effected extremity. pt denies pain or difficulty with ambulation.
[2020-12-15 22:41] LABS: Procalcitonin 0.48 ng/mL (<0.5)
[2020-12-15] MEDS: SODIUM CHLORIDE 0.9% 1,000 ML 1000 ML IV (22:41)
[2020-12-15 22:58] VITALS: BP 134/80; PULSE 89; O2SAT 96
[2020-12-15 23:07] LABS: Neutrophils Absolute Manual 10220 /uL (3000-5900); Total Cells Counted 100
[2020-12-15 23:08] LABS: Anisocytosis 2+
[2020-12-15 23:23] LABS: COVID19 - ADMIT (NP swab/PCR) Negative (Negative)
--- NOTE | 2020-12-15 23:53 | ED.SKABFB ---
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 He was seen and evaluated at [facility] on 12/08/2020 he was started on Keflex and Bactrim of for cellulitis. At that time it appears as though he had full workup including blood work, ultrasound of lower extremity, CT angio chest and CT abdomen pelvis. He apparently previously had blood clot from prior infection he is not on any anticoagulation. He CT abdomen showed numerous large lymph nodes and pelvis and inguinal area possibly reactive. CT chest did not show any pulmonary embolism. He states that the right lower extremity has gotten significantly more swollen and red. He feels like there is an abscess behind his knee. He has been trying to keep his legs elevated to help with the edema. He has chronic lower extremity wounds she has been going to wound care. He says they are doing overall much better. He is no longer using IV drugs but continues to smoke fentanyl. He also has a history of using methamphetamines but says that he has stopped that as well. On wait list to get into a methadone clinic. He has no longer had fever or chills. He is able to ambulate. He denies any chest pain cough or shortness of breath. Related Data Previous Rx's Medication Instructions Recorded sulfamethoxazole 800 1 tab PO BID #20 tab MDD 2 12/03/17 mg-trimethoprim 160 mg tablet doxycycline hyclate 100 mg tablet 100 mg PO BID #20 tab 10/09/20 fluconazole 150 mg tablet 150 mg PO DAILY #7 tab 10/09/20 (Diflucan) furosemide 40 mg tablet (Lasix) 40 mg PO DAILY #7 tab 10/09/20 Allergies Allergy/AdvReac Type Severity Reaction Status Date / Time No Known Drug Allergies Allergy Verified 12/15/20 21:21 Review of Systems Review of Systems Narrative: GENERAL: Denies chills, fatigue, malaise, fever, sweats, travel HEENT: Denies sinus pain, ear pain, sore throat, difficulty swallowing, neck pain RESPIRATORY: Denies dyspnea, cough, wheezing, hemoptysis, sputum. CARDIOVASCULAR: Denies chest pain, palpitations, orthopnea, edema GASTROINTESTINAL: Denies nausea, vomiting, abdominal pain, diarrhea, constipation, melena. : Denies dysuria, frequency, incontinence, hematuria, urinary retention, flank pain. MUSCULOSKELETAL: Denies weakness, joint pain, or bony pain SKIN: Chronic lower extremity wounds with new right leg infection NEUROLOGIC: Denies weakness, dizziness, headache, numbness, change in speech, confusion PSYCHIATRIC: No concerning psychosocial issues. 12 point review of systems is negative except for those stated above and HPI Patient History Medical History (Updated 12/16/20 @ 02:26 by Sonia Otero DO) Drug abuse Hepatitis C virus infection cured after antiviral drug therapy Vpjov-Zsetzhkic-Rouwd (WPW) pattern Social History household members: other Smoking Status: Current every day smoker alcohol intake: never substance use type: opiates and IV drugs Smoking Status: Current every day smoker alcohol intake frequency: 0-2 drinks per day Substance Use Type: heroin, amphetamines, opiates, IV drugs and methamphetamine Exam Initial Vital Signs Initial Vital Signs: Vital Signs Temperature 97.9 F 12/15/20 21:22 Pulse Rate 110 H 12/15/20 21:22 Respiratory Rate 18 12/15/20 21:22 Blood Pressure 137/93 H 12/15/20 21:22 Pulse Oximetry 93 12/15/20 21:22 GENERAL: Alert 35-year-old male in no acute distress. HEENT: Head atraumatic,EOMI, pupils reactive, face symmetric, moist mucous membranes CARDIOVASCULAR: Regular rate and rhythm without murmurs, rubs or gallops. RESPIRATORY: Breath sounds equal bilaterally, no wheezes rales or rhonchi. ABDOMEN: Soft, nontender. Normoactive bowel sounds all 4 quadrants. No guarding or rebound. EXTREMITIES: Normal range of motion, no clubbing or edema. Neurovascularly intact NEUROLOGICAL: Alert and oriented x4.Normal gait and speech. SKIN: Chronic lower extremity wounds. However right leg is significantly more swollen than the left. He has significant erythema of his thigh induration noted. Possible abscess posterior knee but it is not draining and difficult to tell. 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) Stat 12/15/20 22:20 Blood Culture Stat 12/16/20 00:14 US periph venous low extrem rt Stat Acetaminophen (Acetaminophen 325 Mg Tablet) 650 mg PO Q6HR PRN PRN Reason: Fever/Mild Pain (1-3) Lactated Ringer's (Lactated Ringers) 1,000 mls @ 100 mls/hr IV CONT ROSALINDA Vancomycin HCl/Dextrose (Vancomycin) 2,000 mg in 400 mls @ 200 mls/hr IV Q12H ROSALINDA Ibuprofen (Ibuprofen 600 Mg Tablet) 600 mg PO Q6HR PRN PRN Reason: Fever/Mild Pain (1-3) Ketorolac Tromethamine (Ketorolac 30 Mg/Ml Vial) 30 mg IV Q6HR PRN PRN Reason: Pain, Severe (7-10) Stop: 12/21/20 02:39 Methadone HCl (Methadone 10 Mg Tablet) 10 mg PO BID [facility] Metoclopramide HCl (Metoclopramide 10 Mg/2 Ml Inj) 10 mg IV Q6HR PRN PRN Reason: Nausea And Vomiting Stop: 12/17/20 02:44 Metoclopramide HCl (Metoclopramide Hcl 10 Mg Tablet) 10 mg PO Q4HR PRN PRN Reason: Nausea And Vomiting Naloxone HCl (Naloxone 0.4 Mg/Ml Vial) 0.2 mg IV Q2MIN PRN PRN Reason: Opiate Reversal Ondansetron HCl (Ondansetron 4 Mg/2 Ml Inj) 4 mg IV Q8HR PRN PRN Reason: Nausea And Vomiting Stop: 12/17/20 05:00 Ondansetron HCl (Ondansetron 4 Mg Odt) 4 mg PO Q8HR PRN PRN Reason: Nausea And Vomiting Pantoprazole Sodium (Pantoprazole Dr 20 Mg Tablet) 20 mg PO 0600 [facility] Discontinued Medications Sodium Chloride (Normal Saline 0.9%) 1,000 mls @ 1,000 mls/hr IV BOLUS ONE Stop: 12/15/20 22:28 Last Infusion: 12/16/20 00:08 Dose: 1,000 mls/hr Documented by: Admin: 12/15/20 22:41 Dose: 1,000 mls/hr Documented by: MILAGROS Ceftriaxone Sodium 2,000 mg/ (Sodium Chloride) 100 mls @ 200 mls/hr IV NOW ONE Stop: 12/16/20 00:11 Last Infusion: 12/16/20 00:57 Dose: 0 mls/hr Documented by: Admin: 12/16/20 00:23 Dose: 200 mls/hr Documented by: ALBERTINA Vancomycin HCl/Dextrose (Vancomycin) 2,000 mg in 400 mls @ 200 mls/hr IV NOW ONE Stop: 12/16/20 02:13 Last Infusion: 12/16/20 02:52 Dose: 0 mls/hr Documented by: Admin: 12/16/20 01:01 Dose: 200 mls/hr Documented by: MILAGROS Pantoprazole Sodium (Pantoprazole 40 Mg Vial) 40 mg IV NOW ONE Stop: 12/16/20 00:23 Last Admin: 12/16/20 00:34 Dose: 40 mg Documented by: ALBERTINA Vancomycin HCl (Vancomycin Per Pharmacy) 1 request MISC NOW ONE Stop: 12/16/20 02:46 Vital Signs Vital signs: Vital Signs - 8 hr 12/15/20 21:22 12/15/20 22:58 12/16/20 01:08 Temperature 97.9 F Pulse Rate 110 H 89 91 H Respiratory Rate 18 Blood Pressure 137/93 H 134/80 135/85 Pulse Oximetry 93 96 98 MDM - Skin/Abscess/Foreign Bdy Lab Data Result diagrams: 12/15/20 22:00 12/15/20 22:00 Labs: Lab Results 12/15/20 12/15/20 12/15/20 Range/Units 22:00 22:00 22:00 WBC 14.6 H (4.5-11.0) X10^3/uL RBC 4.71 (4.5-5.9) X10^6/uL Hgb 10.8 L (13.5-17.5) g/dL Hct 33.9 L (41-53) % MCV 72.0 L (80-100) fL MCH 22.8 L (26-34) PG MCHC 31.7 (30-36) % RDW 18.2 H (11.6-14.8) % Plt Count 464 H (150-400) X10^3/uL Neut % (Auto) Not Reportable Lymph % (Auto) Not Reportable [place] % (Auto) Not Reportable Eos % (Auto) Not Reportable Baso % (Auto) Not Reportable Lymph # (Auto) Not Reportable [place] # (Auto) Not Reportable Baso # (Auto) Not Reportable Total Counted 100 Seg Neutrophils % 64.0 (38-70) % Band Neutrophils % 6.0 (3-7) % Lymphocytes % (Manual) 17.0 L (25-45) % Monocytes % (Manual) 8.0 (2-11) % Eosinophils % (Manual) 3.0 (2-4) % Basophils % (Manual) 1.0 (0-1) % Myelocytes % 1.0 H (-0) % Neutrophils # (Manual) 64534 H (8991-9847) /uL RBC Morphology See below Anisocytosis 2+ H Sodium 138 (137-145) mmol/L Potassium 4.4 (3.4-5.1) mmol/L Chloride 100 (98-107) mmol/L Carbon Dioxide 30 (22-32) mmol/L BUN 15 (9-20) mg/dL Creatinine 0.96 (0.66-1.25) mg/dL Estimated GFR > 60.0 (>60) mL/min BUN/Creatinine Ratio 15.6 (6-22) Glucose 98 (70-100) mg/dL Lactate 1.5 (0.7-2.1) mmol/L Calcium 9.3 (8.4-10.2) mg/dL Total Bilirubin 0.6 (0.2-1.3) mg/dL AST 35 (17-59) IU/L ALT 40 (<50) IU/L Alkaline Phosphatase 296 H (38-126) U/L Total Protein 9.1 H (6.3-8.2) g/dL Albumin 3.7 (3.5-5.0) g/dL Globulin 5.4 H (1.7-4.1) g/dL Albumin/Globulin Ratio 0.7 L (1.0-2.8) Lipase 34 (23-300) U/L Procalcitonin 0.48 (<0.5) ng/mL SARS-CoV-2 (PCR) (Negative) 12/15/20 Range/Units 22:10 WBC (4.5-11.0) X10^3/uL RBC (4.5-5.9) X10^6/uL Hgb (13.5-17.5) g/dL Hct (41-53) % MCV (80-100) fL MCH (26-34) PG MCHC (30-36) % RDW (11.6-14.8) % Plt Count (150-400) X10^3/uL Neut % (Auto) Lymph % (Auto) [place] % (Auto) Eos % (Auto) Baso % (Auto) Lymph # (Auto) [place] # (Auto) Baso # (Auto) Total Counted Seg Neutrophils % (38-70) % Band Neutrophils % (3-7) % Lymphocytes % (Manual) (25-45) % Monocytes % (Manual) (2-11) % Eosinophils % (Manual) (2-4) % Basophils % (Manual) (0-1) % Myelocytes % (-0) % Neutrophils # (Manual) (1041-9104) /uL RBC Morphology Anisocytosis Sodium (137-145) mmol/L Potassium (3.4-5.1) mmol/L Chloride (98-107) mmol/L Carbon Dioxide (22-32) mmol/L BUN (9-20) mg/dL Creatinine (0.66-1.25) mg/dL Estimated GFR (>60) mL/min BUN/Creatinine Ratio (6-22) Glucose (70-100) mg/dL Lactate (0.7-2.1) mmol/L Calcium (8.4-10.2) mg/dL Total Bilirubin (0.2-1.3) mg/dL AST (17-59) IU/L ALT (<50) IU/L Alkaline Phosphatase (38-126) U/L Total Protein (6.3-8.2) g/dL Albumin (3.5-5.0) g/dL Globulin (1.7-4.1) g/dL Albumin/Globulin Ratio (1.0-2.8) Lipase (23-300) U/L Procalcitonin (<0.5) ng/mL SARS-CoV-2 (PCR) Negative (Negative) Urine Dip Bedside Urine Glucose Negative Bedside Urine Bilirubin - Negative Bedside Urine Ketone - Negative Urine Specific [place] 1.015 Bedside Urine Occult Blood - Negative Bedside Urine pH 6.0 Bedside Urine Protein - Negative Bedside Urine Urobilinogen - Negative Bedside Urine Nitrite - Negative Bedside Urine Leukocytes - Negative Esterase Imaging Data US - DVT: Radiologist's Impression: Preliminary report no DVT. Soft tissue edema/fluid and posterior thigh and upper calf. No loculated fluid collection ECG Data Interpretation: Sinus rhythm rate 87 NC interval 136 QRS [address] changes no priors to compare, possible delta wave noted MDM Narrative Medical decision making narrative: Records from [facility] received and reviewed loss of imaging I do not see a physician note. Failed outpatient antibiotics Bactrim and Keflex. Significant erythema and induration and swelling of his right leg. Concern may need to go to OR for drainage of questionable abscess. Ultrasound does not show any sign of DVT, and no fluid collection. He is found have leukocytosis, elevated procalcitonin slightly of 0.48 no septic shock. Discussed case with Dr. Banegas who will see and evaluate patient in the morning Rocky GARCIA updated patient's symptoms test results and accepts patient. Discharge Plan Departure Patient Disposition: Admitted As Inpatient Clinical Impression: Cellulitis and abscess of right leg Admit Date/Time: 12/16/20 02:26 Admit Provider: Renetta Hidalgo
[2020-12-16] VITALS (12 sets, daily range): BP systolic 129–153; BP diastolic 65–85; PULSE 84–101; RESP 17–18; TEMP 35.9–36.9; O2SAT 94–99; BMI 37.5
--- NOTE | 2020-12-16 00:14 | DI.US.S_ITS ---
PROCEDURE: US PERIPH VENOUS LOW EXTREM RT INDICATIONS: SEVERE EDEMA; DVT VS ABSCESS TECHNIQUE: Real-time imaging, as well as color and pulse Doppler interrogation, were performed of the lower extremity deep veins from the inguinal ligament to the popliteal fossa. COMPARISON: [facility], CT, CT LE RT W CON, 12/16/2020, 9:09. FINDINGS: The common femoral, femoral and popliteal veins are normally compressible, and free of intraluminal thrombus. Color and pulse Doppler demonstrate normal phasic intraluminal flow. There is normal augmentation response to distal compression maneuver. The distal SFV is suboptimally visualized. Subcutaneous edema in the posterior thigh and calf. No loculated fluid collection. IMPRESSION: 1. No right lower extremity DVT. 2. Subcutaneous edema in the posterior thigh and calf. This report is concordant with the overnight preliminary interpretation. Dictated by: Shubham Martin M.D. on 12/16/2020 at 8:49 Approved by: Shubham Martin M.D. on 12/16/2020 at 8:51
[2020-12-16] MEDS: cefTRIAXone 2,000 MG in SODIUM CHLORIDE 0.9% 100 ML 200 ML IV (00:23)
[2020-12-16] MEDS: PANTOPRAZOLE 40 MG VIAL IV (00:34)
[2020-12-16] MEDS: VANCOMYCIN 2,000 MG/400 ML PIGGYBACK 200 MG IV ×2 (01:01→12:24)
--- NOTE | 2020-12-16 03:05 | PM.HP.1 ---
History of Present Illness History of Present Illness Date Patient Seen: 12/16/20 Time Patient Seen: 20:54 Chief complaint: wound RT leg, fever headache, wound care Narrative: Hal Mayen is a?pleasant year-old gentleman presented to the emergency room with complaint of Right Leg swelling/pain/possible abcess. The patient is very jada and honest and reports a history of injecting heroin subcutaneously into his abd, he then changed to skin popping Black Tar Heroin resulting in a prior admission for abd cellulitis/abcess which required surgical I&D Dr. Jo general surgery 2018. He choose that route previously because he reported on prior admission that he had no accessible veins remaining.? He reports that his problem with Jrlgk-Anidbkkyz-Oqukl syndrome seems to be greatly exacerbated when he smoked methamphetamine and seems to be better when he is not. The patient reports that he now has switched to smoking fentanyl upwards of 20 times per day. The patient has attempted to enter a methadone clinic program but has been turned away due to no available slots for treatment. He developed chronic leg wounds starting approximately 1 year ago, inciting event unknown. Of which he saw seen in the ED here on 10/09/20 prescribed antibiotics, lasix, and referred to wound care clinic. He states that the right lower extremity has gotten significantly more swollen, painful, and red.?He has been trying to keep his legs elevated to help with the edema.? He has been going to wound care for his chronic leg wounds.? He says that the left is improving but the right has changed and is worsening. Patient reports that approximately 1 week ago the swelling in the right leg exceeded that of the left and became more red and painful, was seen and evaluated at [facility] on 12/08/2020 he was started on Keflex and Bactrim of for cellulitis.? At that time it appears as though he had full workup including blood work, ultrasound of lower extremity, CT angio chest and CT abdomen pelvis.? He apparently previously had blood clot from prior infection he is not on any anticoagulation.? His CT abdomen showed numerous large lymph nodes and pelvis and inguinal area possibly reactive.? CT chest did not show any pulmonary embolism. He feels like there is an abscess behind his Right knee.? Patient denies chest pain, shortness of breath, abdominal pain, nausea, vomiting, diarrhea, chills, body aches, fever, hematemesis, melena, hematuria, recent injury illness or trauma. Patient is resting in bed and states that the pain is manageable at this time, he denies current withdrawal symptoms and is in no distress. Patient's vitals upon admit are stable afebrile with BP 134/80, HR 89, RR 18, O2 saturation 96% on room air. Patient has an elevated white count WBC 14.6, HGB 10.8, HCt 33.9, platelets 464, MCV 72, neutrophils 10,220, chemistry use WNL, total protein 9.1, lipase and procalcitonin WNL, alk-phos 296, sofa score of 1. Chest x-ray demonstrated no acute cardiopulmonary processes. Dr. Banegas was consulted in the ED and will come in tomorrow to evaluate the patient for possible surgical intervention. Patient to be admitted for right leg cellulitis with possible abscess. Patient History Medical History (Updated 12/16/20 @ 03:35 by NINOSKA Adames-PAM) Drug abuse Hepatitis C virus infection cured after antiviral drug therapy History of DVT (deep vein thrombosis) Obesity (BMI 30-39.9) Opiate dependence, continuous Vfdan-Ebkfltrwj-Duawh (WPW) pattern Surgical History (Updated 12/16/20 @ 03:33 by NINOSKA Adames-PAM) History of abdominal surgery Family & Social History Family History (Updated 12/16/20 @ 06:12 by NINOSKA Adames-PAM) Father Overdose Drug addiction Mother Overdose Drug addiction Social History: household members other Safety & Behavioral: Feels Safe in Current Yes, patient lives in a 5th wheel with his . Environment Tobacco & Substance use: Tobacco type cigarettes 2-3 QD Smoking Status Current every day smoker alcohol intake never alcohol intake frequency Quit 2 yrs ago Substance Use Type amphetamines,opiates,IV drugs stopped injecting a year ago, popping black tar heroin, methamphetamine, currently smokes fentanyl (equivalent of a 8Ball of heroin or 4-500 mg of morphine q.day) Meds Home Medications and Allergies Home Medications Medication Instructions Recorded Confirmed Type furosemide 40 mg tablet (Lasix) 40 mg PO DAILY #7 tab 10/09/20 12/16/20 Rx cephalexin 500 mg capsule 500 mg PO Q6HR 12/16/20 12/16/20 History sulfamethoxazole 800 1 tab PO BID MDD 2 12/16/20 12/16/20 History mg-trimethoprim 160 mg tablet (Bactrim DS) Allergies Allergy/AdvReac Type Severity Reaction Status Date / Time No Known Drug Allergies Allergy Verified 12/15/20 21:21 Review of Systems Review of Systems Narrative: All 12 point systems reviewed with the patient and are negative except otherwise documented. Exam Vital Signs (past 8 hours): - 12/15/20 21:22 12/15/20 22:58 12/16/20 01:08 Temperature 97.9 F Pulse Rate 110 H 89 91 H Respiratory Rate 18 Blood Pressure 137/93 H 134/80 135/85 Pulse Oximetry 93 96 98 12/16/20 02:50 Temperature Pulse Rate 92 H Respiratory Rate 18 Blood Pressure 143/65 H Pulse Oximetry 94 Oxygen Delivery Method Room Air Narrative Exam Narrative: General: Patient is a pleasant well-developed, well-nourished obese male, calm, relaxed in bed, in no distress at this time. HEENT: Normocephalic, atraumatic, extraocular muscles intact, oral pharynx is clear and mucous membranes are moist. Neck is supple and symmetric, trachea is midline, no adenopathy, no thyroid enlargement, nontender, no masses palpated. Negative for JVD Chest: Normal AP diameter and contour without kyphoscoliosis, no nasal flaring, retractions, or tachypneic labored Lungs: Auscultation of all lung dos santos are clear without adventitious sounds, wheezes, rhonchi, or rales. Cardio: S1 & S2 with regular rate and rhythm without murmur, rubs, or gallops, no carotid bruit, no cardiac pulsations present. Abdomen: Soft nontender, negative for organomegaly, or masses. Bowel sounds are present in all 4 quadrants without guarding or rebound, no CVA tenderness. Musculoskeletal: LOWER EXT /SKIN: Radial and pedal pulses are intact, sensation intact, Bilateral Chronic lower extremity wounds, skin is dry, feet have white flaky skin, left lower leg appearance of venous stasis, dark red discoloration, non-pitting edema.? However right leg is significantly more swollen than the left groin to foot.? He has significant erythema of his thigh induration noted.? Possible abscess posterior knee, increased warmth to touch, no openings or drainage noted, Left leg no acute signs of infection visualized. Neuro: Alert and orientated x3, sensation to touch intact, no gross deficits noted of cranial nerves. Psych: Patient has a moderately-kept appearance, appropriate affect, mental status attitude thought context and judgment are appropriate for age, no signs of withdrawls. Objective Labs Result Diagrams: 12/16/20 04:10 12/15/20 22:00 Labs: Laboratory Results - last 24 hr 12/15/20 12/15/20 12/15/20 22:00 22:00 22:00 WBC 14.6 H RBC 4.71 Hgb 10.8 L Hct 33.9 L MCV 72.0 L MCH 22.8 L MCHC 31.7 RDW 18.2 H Plt Count 464 H Neut % (Auto) Not Reportable Lymph % (Auto) Not Reportable [place] % (Auto) Not Reportable Eos % (Auto) Not Reportable Baso % (Auto) Not Reportable Lymph # (Auto) Not Reportable [place] # (Auto) Not Reportable Baso # (Auto) Not Reportable Total Counted 100 Seg Neutrophils % 64.0 Band Neutrophils % 6.0 Lymphocytes % (Manual) 17.0 L Monocytes % (Manual) 8.0 Eosinophils % (Manual) 3.0 Basophils % (Manual) 1.0 Myelocytes % 1.0 H Neutrophils # (Manual) 95657 H RBC Morphology See below Anisocytosis 2+ H Sodium 138 Potassium 4.4 Chloride 100 Carbon Dioxide 30 BUN 15 Creatinine 0.96 Estimated GFR > 60.0 BUN/Creatinine Ratio 15.6 Glucose 98 Lactate 1.5 Calcium 9.3 Total Bilirubin 0.6 AST 35 ALT 40 Alkaline Phosphatase 296 H Total Protein 9.1 H Albumin 3.7 Globulin 5.4 H Albumin/Globulin Ratio 0.7 L Lipase 34 Procalcitonin 0.48 SARS-CoV-2 (PCR) 12/15/20 22:10 WBC RBC Hgb Hct MCV MCH MCHC RDW Plt Count Neut % (Auto) Lymph % (Auto) [place] % (Auto) Eos % (Auto) Baso % (Auto) Lymph # (Auto) [place] # (Auto) Baso # (Auto) Total Counted Seg Neutrophils % Band Neutrophils % Lymphocytes % (Manual) Monocytes % (Manual) Eosinophils % (Manual) Basophils % (Manual) Myelocytes % Neutrophils # (Manual) RBC Morphology Anisocytosis Sodium Potassium Chloride Carbon Dioxide BUN Creatinine Estimated GFR BUN/Creatinine Ratio Glucose Lactate Calcium Total Bilirubin AST ALT Alkaline Phosphatase Total Protein Albumin Globulin Albumin/Globulin Ratio Lipase Procalcitonin SARS-CoV-2 (PCR) Negative Assessment & Plan Assessment & Plan narrative: Hal Mayen is a?35-year-old gentleman presented to the emergency room with complaint of Right Leg swelling/pain/possible abcess. With a history of injecting heroin subcutaneously into his abd, he then changed to skin popping Black Tar Heroin resulting in a prior admission for abd cellulitis/abcess, Yknbl-Rwcxavuep-Khvoe syndrome, methamphetamine abuse, and now smokes fentanyl. He has failed out-patient management with previous ED visit here on 10/09/20, wound care clinic, and [facility] visit on 12/08/2020 and failed 9 days of Bactrim & keflex. Patient admitted for right leg cellulitis and abscess in the setting of chronic leg wounds for acute care IV fluid, antibiotics and surgical consult. 1. Right leg cellulitis with abscess in the setting of chronic legs, and history of Abcess/Cellulitis, acute on chronic, present on admission -without respiratory failure, SEPSIS/septic shock or POLI -Initial Labs: WBC 14.6, HGB 10.8, HCt 33.9, platelets 464, MCV 72, neutrophils# 10,220, chemistry use WNL, total protein 9.1, lipase and procalcitonin WNL, alk-phos 296 -Sofa Score of 1. -Chest x-ray: no acute cardiopulmonary processes. -US - DVT:Radiologist's Impression: Preliminary report no DVT.? Soft tissue edema/fluid and posterior thigh and upper calf.? No loculated fluid collection -EKG: Sinus rhythm rate 87, without ST or T wave changes no priors to compare, possible delta wave noted. -Dr. Banegas was consulted in the ED, Consult order placed, and he will consult & evaluate the patient today. -Pain Management with toradol, IBF, Tylenol. Antimetics: Zofran & reglan -Vancomyacin per Pharmacy- Initial doses of Rocephin and vancomycin given in ED -elevate right extremity -Labs: Ordered in am cbc, BNP, PT PTT, lacatate, MRSA, Lactate -blood cultures pending 2. Opiate withdrawals in the setting of opiate dependence, with a history methamphetamine, amphetamine, heroin, and IV drug use, acute on chronic, present on admission -patient to be monitored for withdrawal symptoms, aspiration, QT prolongation, airway impairment, and over-sedation -patient was very honest and states that he smokes fentanyl upwards of 20 times a day-he base the equivalent amount approximately on 8 ball of heroin or 4-500 mg of morphine daily. Patient denies any further IV drug use. -patient to be started on methadone 20 mg b.i.d. to be titrated as needed-monitor for QT prolongation patient placed on telemedicine ( please note pt given one 10mg tab on admit with an additional 10mg tab at 9am for total 20mg, then the 20BID schedule will kick in at 2100 for a total 40mgQD. -begin tapering methadone when appropriate for discharge -clonidine as needed 0.1-0.2 mg Q 45-60 minutes reasses for s/s relief-with a max of 4 doses or total 0.8-1.2 mg per day or ativan per withdrawal protocol -recommend using the Clinical Opiate Withdrawal Scale (COWS) opiate withdrawal scale for monitoring-as it is a well validated, easy to use & sensitivity. Best suited to the purposes of short-term medically supervised withdrawal, and clinical observation. -patient encouraged in opiate cessation 3.Obesity as evidence by BMI of 37.5, acute on chronic, present on admission -consideration will be given for dietary counseling 4. Tobacco abuse, acute on chronic, present on admission -patient will be provided with tobacco cessation education Code status: Full code Surrogate decision maker: Mena [place] spouse COVID PCR: Negative COVID vaccination: Unknown DVT/VTE prophylaxis: Medication held until surgical intervention assessed, No SCD's due to left edema & leg wounds. Will resume heparin EDMOND-based on surgery needs. Disposition: Expected length of stay greater than 2 midnights I have utilized all available immediate resources to obtain, update, or review the patient's current medications. I confirmed that the patient's advanced care plan is present, Code status is documented and/or surrogate decision maker is listed in the patient's medical record. Time Spent With Patient Critical Care time: I spent a total of [] minutes of critical care time on this patient's care today; this time is exclusive of procedural time. Scores GCS Sana coma scale eye opening: Spontaneous Sana coma scale verbal response: Orientated [place] coma scale motor response: Obey commands [place] coma scale total score: 15
[2020-12-16] MEDS: LACTATED RINGERS 1,000 ML 100 ML IV (03:28)
[2020-12-16] MEDS: KETOROLAC 30 MG/ML VIAL IV ×2 (04:20→22:24)
[2020-12-16 04:32] LABS: INR 1.1 (0.9-1.3); Prothrombin Time 11.8 SECONDS (10.1-12.7)
[2020-12-16 04:34] LABS: Add Manual Diff / Slide Review YES; Hematocrit 32.6 % (41-53); Hemoglobin 10.5 g/dL (13.5-17.5); Mean Corpuscular HGB Conc 32.2 % (30-36); Mean Corpuscular Hemoglobin 22.9 PG (26-34); Mean Corpuscular Volume 71.3 fL (80-100); Platelet Count 335 X10^3/uL (150-400); Red Blood Cell Count 4.57 X10^6/uL (4.5-5.9); White Blood Cell Count 11.2 X10^3/uL (4.5-11.0)
[2020-12-16 04:35] LABS: PTT Partial Thromboplastin Tim 28 SECONDS (26.4-36.2)
--- NOTE | 2020-12-16 04:36 | PC.NURSE ---
0315 Pt. admitted from ER with diagnosed of RLE Cellulitis. Oriented to his room showed how to use his call light, TV & bed controls. Denies any fall for the past 3 months, fall precautions not implemented. C/O RLE pain with pain level of 6/10, medicated with 30 mg. of Toradol IVP. No S&S of any drugs withdrawal noted at this time. After medicated with Toradol he settled to sleep. Pt. declined to keep his money & wallet in the hospital safe. Will continue POC & monitor.
[2020-12-16] MEDS: METHADONE 10 MG TABLET PO ×2 (05:30→21:00)
[2020-12-16 05:39] LABS: Lactate (Lactic Acid) 0.9 mmol/L (0.7-2.1)
[2020-12-16 06:28] LABS: Neutrophils Absolute Manual 7280 /uL (3000-5900); Total Cells Counted 100
[2020-12-16 06:29] LABS: Anisocytosis 1+
[2020-12-16 06:47] LABS: BUN Creatinine Ratio 17.6 (6-22); Blood Urea Nitrogen 15 mg/dL (9-20); Calcium 8.8 mg/dL (8.4-10.2); Carbon Dioxide 28 mmol/L (22-32); Chloride 104 mmol/L (98-107); Estimated Glomerular Filt Rate > 60.0 mL/min (>60); Glucose 119 mg/dL (70-100); HEMOLYSIS 28 (0-50); Magnesium 2.4 mg/dL (1.6-2.3); Potassium 4.5 mmol/L (3.4-5.1); Sodium 138 mmol/L (137-145)
--- NOTE | 2020-12-16 06:56 | PC.NURSE ---
0650 Right thigh measures 76 cm, right calf 51 cm & left thigh 69 cm & left calf 38 cm.
--- NOTE | 2020-12-16 08:30 | DI.CT.S_ITS ---
PROCEDURE: CT LE RT W CON INDICATIONS: indurated back of leg, proximal to popliteal fossa, abscess? TECHNIQUE: After the administration of intravenous contrast, 1 mm axial sections acquired of the right knee, with coronal and sagittal reformats. COMPARISON: [facility], CR, XR KNEE 3VW RT, 07/11/2015, 18:56. FINDINGS: Image quality: Excellent. Bones: No fracture or dislocation. No periosteal reaction. No suspicious osseous lesion. Soft tissues: Diffuse subcutaneous edema. No loculated fluid collection. Prepatellar soft tissue swelling. Skin thickening suspected. No significant joint effusion. IMPRESSION: No acute osseous abnormality. Diffuse subcutaneous edema. No loculated fluid collection to suggest abscess. Skin thickening. Possible cellulitis. Dictated by: Shubham Martin M.D. on 12/16/2020 at 9:17 Approved by: Shubham Martin M.D. on 12/16/2020 at 9:21
[2020-12-16] MEDS: PANTOPRAZOLE 40 MG VIAL 20 MG IV (09:41)
--- NOTE | 2020-12-16 10:29 | PM.CN ---
History of Present Illness Consult details Date Patient Seen: 12/16/20 Time Patient Seen: 10:29 Chief complaint: wound RT leg, fever headache, wound care Narrative: 35M history of injection substance abuse admitted to the hospital for concern of a right lower extremity infection. Has a painful RLE for many weeks but acutely worse over the past several days. No drainage or fever. Meds Home Medications and Allergies Home Medications Medication Instructions Recorded Confirmed Type furosemide 40 mg tablet (Lasix) 40 mg PO DAILY #7 tab 10/09/20 12/16/20 Rx cephalexin 500 mg capsule 500 mg PO Q6HR 12/16/20 12/16/20 History sulfamethoxazole 800 1 tab PO BID MDD 2 12/16/20 12/16/20 History mg-trimethoprim 160 mg tablet (Bactrim DS) Allergies Allergy/AdvReac Type Severity Reaction Status Date / Time No Known Drug Allergies Allergy Verified 12/15/20 21:21 Review of Systems Review of Systems ROS: Yes All systems reviewed with the patient and are negative except as otherwise documented Exam Vital Signs (past 8 hours): - 12/16/20 02:31 12/16/20 02:50 12/16/20 03:15 Temperature 98.4 F Pulse Rate 92 H 86 Respiratory Rate 18 18 Blood Pressure 143/65 H 153/81 H Pulse Oximetry 98 94 99 12/16/20 06:31 12/16/20 09:27 Temperature 98.0 F Pulse Rate 84 Respiratory Rate 17 Blood Pressure 140/78 Pulse Oximetry 97 96 Oxygen Delivery Method Room Air Oxygen Flow Rate 0 Narrative Exam Narrative: Gen-Adult man obese no acute distress Chest-non labored resp [id number], chronic inflammation involving the leg from ankle to groin. Well perfused. Fullness posteior R knee, no discrete fluid collection. Generalized edema. Objective Labs Result Diagrams: 12/16/20 04:10 12/16/20 04:10 Labs: Laboratory Results - last 24 hr 12/15/20 12/15/20 12/15/20 22:00 22:00 22:00 WBC 14.6 H RBC 4.71 Hgb 10.8 L Hct 33.9 L MCV 72.0 L MCH 22.8 L MCHC 31.7 RDW 18.2 H Plt Count 464 H Neut % (Auto) Not Reportable Lymph % (Auto) Not Reportable [place] % (Auto) Not Reportable Eos % (Auto) Not Reportable Baso % (Auto) Not Reportable Lymph # (Auto) Not Reportable [place] # (Auto) Not Reportable Baso # (Auto) Not Reportable Total Counted 100 Seg Neutrophils % 64.0 Band Neutrophils % 6.0 Lymphocytes % (Manual) 17.0 L Monocytes % (Manual) 8.0 Eosinophils % (Manual) 3.0 Basophils % (Manual) 1.0 Myelocytes % 1.0 H Neutrophils # (Manual) 94128 H RBC Morphology See below Anisocytosis 2+ H PT INR APTT Sodium 138 Potassium 4.4 Chloride 100 Carbon Dioxide 30 BUN 15 Creatinine 0.96 Estimated GFR > 60.0 BUN/Creatinine Ratio 15.6 Glucose 98 Lactate 1.5 Calcium 9.3 Magnesium Total Bilirubin 0.6 AST 35 ALT 40 Alkaline Phosphatase 296 H Total Protein 9.1 H Albumin 3.7 Globulin 5.4 H Albumin/Globulin Ratio 0.7 L Lipase 34 Procalcitonin 0.48 Nasal Screen MRSA (PCR) SARS-CoV-2 (PCR) 12/15/20 12/16/20 12/16/20 22:10 04:00 04:10 WBC 11.2 H RBC 4.57 Hgb 10.5 L Hct 32.6 L MCV 71.3 L MCH 22.9 L MCHC 32.2 RDW 18.0 H Plt Count 335 Neut % (Auto) Not Reportable Lymph % (Auto) Not Reportable [place] % (Auto) Not Reportable Eos % (Auto) Not Reportable Baso % (Auto) Not Reportable Lymph # (Auto) Not Reportable [place] # (Auto) Not Reportable Baso # (Auto) Not Reportable Total Counted 100 Seg Neutrophils % 61.0 Band Neutrophils % 4.0 Lymphocytes % (Manual) 20.0 L Monocytes % (Manual) 12.0 H Eosinophils % (Manual) 3.0 Basophils % (Manual) Myelocytes % Neutrophils # (Manual) 7280 H RBC Morphology See below Anisocytosis 1+ H PT INR APTT Sodium Potassium Chloride Carbon Dioxide BUN Creatinine Estimated GFR BUN/Creatinine Ratio Glucose Lactate Calcium Magnesium Total Bilirubin AST ALT Alkaline Phosphatase Total Protein Albumin Globulin Albumin/Globulin Ratio Lipase Procalcitonin Nasal Screen MRSA (PCR) Negative for mrsa SARS-CoV-2 (PCR) Negative 12/16/20 12/16/20 12/16/20 04:10 04:10 05:10 WBC RBC Hgb Hct MCV MCH MCHC RDW Plt Count Neut % (Auto) Lymph % (Auto) [place] % (Auto) Eos % (Auto) Baso % (Auto) Lymph # (Auto) [place] # (Auto) Baso # (Auto) Total Counted Seg Neutrophils % Band Neutrophils % Lymphocytes % (Manual) Monocytes % (Manual) Eosinophils % (Manual) Basophils % (Manual) Myelocytes % Neutrophils # (Manual) RBC Morphology Anisocytosis PT 11.8 INR 1.1 APTT 28 D Sodium 138 Potassium 4.5 Chloride 104 Carbon Dioxide 28 BUN 15 Creatinine 0.85 Estimated GFR > 60.0 BUN/Creatinine Ratio 17.6 Glucose 119 H Lactate 0.9 Calcium 8.8 Magnesium 2.4 H Total Bilirubin AST ALT Alkaline Phosphatase Total Protein Albumin Globulin Albumin/Globulin Ratio Lipase Procalcitonin Nasal Screen MRSA (PCR) SARS-CoV-2 (PCR) [facility] Medical History Drug abuse Hepatitis C virus infection cured after antiviral drug therapy History of DVT (deep vein thrombosis) Obesity (BMI 30-39.9) Opiate dependence, continuous Pntii-Jvryhenkt-Teicd (WPW) pattern Surgical History History of abdominal surgery Family History Father Overdose Drug addiction Mother Overdose Drug addiction Social History household members: spouse Tobacco & Substance Use Smoking Status: Current every day smoker alcohol intake: never substance use type: opiates and IV drugs Assessment & Plan Assessment and plan (1) Cellulitis and abscess of right leg: Status: Acute Assessment & Plan narrative: 35M history of injection substance abuse admitted for Right lower extremity chronic wound. No abscess appreciated on exam, there is chronic inflammation of the entire right leg. CT reviewed demonstrates diffuse subcutaneous edema without loculated fluid collection to suggest abscess.? No surgical intervention necessary, will sign off for now. Continue management of possible cellulitis. Call with questions Time Spent With Patient Critical Care time: I spent a total of [] minutes of critical care time on this patient's care today; this time is exclusive of procedural time.
--- NOTE | 2020-12-16 11:13 | PM.PN.1 ---
Subjective Subjective Date Patient Seen: 12/16/20 Time Patient Seen: 08:00 Interval history: Today he thinks he feels somewhat improved. He notes the pain is most just proximal to the popliteal fossa on the right side. He does not feel any withdrawal symptoms Exam Vital Signs (past 8 hours): - 12/16/20 03:15 12/16/20 06:31 12/16/20 09:27 Temperature 98.4 F 98.0 F Pulse Rate 86 84 Respiratory Rate 18 17 Blood Pressure 153/81 H 140/78 Pulse Oximetry 99 97 96 Oxygen Delivery Method Room Air Oxygen Flow Rate 0 Narrative Exam Narrative: GEN: no acute distress HEENT: moist mucous membranes, PERRL PULM: clear bilaterally, no wheezes, rhonchi, rales CV: regular rate and rhythm with no murmurs ABD: soft, nontender, nondistended, no organomegaly, normal bowel sounds EXT: warm and well perfused, woody/brawny appearance to bilateral legs with worse chronic changes on right leg, healing wounds on bilateral legs, skin is dry, no pus, has quite significant tenderness to palpation on the back of the right leg just proximal to the popliteal fossa, area is mildly erythematous, no fluctuance noted Objective Labs Result Diagrams: 12/16/20 04:10 12/16/20 04:10 Labs: Laboratory Results - last 24 hr 12/15/20 12/15/20 12/15/20 22:00 22:00 22:00 WBC 14.6 H RBC 4.71 Hgb 10.8 L Hct 33.9 L MCV 72.0 L MCH 22.8 L MCHC 31.7 RDW 18.2 H Plt Count 464 H Neut % (Auto) Not Reportable Lymph % (Auto) Not Reportable [place] % (Auto) Not Reportable Eos % (Auto) Not Reportable Baso % (Auto) Not Reportable Lymph # (Auto) Not Reportable [place] # (Auto) Not Reportable Baso # (Auto) Not Reportable Total Counted 100 Seg Neutrophils % 64.0 Band Neutrophils % 6.0 Lymphocytes % (Manual) 17.0 L Monocytes % (Manual) 8.0 Eosinophils % (Manual) 3.0 Basophils % (Manual) 1.0 Myelocytes % 1.0 H Neutrophils # (Manual) 61216 H RBC Morphology See below Anisocytosis 2+ H PT INR APTT Sodium 138 Potassium 4.4 Chloride 100 Carbon Dioxide 30 BUN 15 Creatinine 0.96 Estimated GFR > 60.0 BUN/Creatinine Ratio 15.6 Glucose 98 Lactate 1.5 Calcium 9.3 Magnesium Total Bilirubin 0.6 AST 35 ALT 40 Alkaline Phosphatase 296 H Total Protein 9.1 H Albumin 3.7 Globulin 5.4 H Albumin/Globulin Ratio 0.7 L Lipase 34 Procalcitonin 0.48 Nasal Screen MRSA (PCR) SARS-CoV-2 (PCR) 12/15/20 12/16/20 12/16/20 22:10 04:00 04:10 WBC 11.2 H RBC 4.57 Hgb 10.5 L Hct 32.6 L MCV 71.3 L MCH 22.9 L MCHC 32.2 RDW 18.0 H Plt Count 335 Neut % (Auto) Not Reportable Lymph % (Auto) Not Reportable [place] % (Auto) Not Reportable Eos % (Auto) Not Reportable Baso % (Auto) Not Reportable Lymph # (Auto) Not Reportable [place] # (Auto) Not Reportable Baso # (Auto) Not Reportable Total Counted 100 Seg Neutrophils % 61.0 Band Neutrophils % 4.0 Lymphocytes % (Manual) 20.0 L Monocytes % (Manual) 12.0 H Eosinophils % (Manual) 3.0 Basophils % (Manual) Myelocytes % Neutrophils # (Manual) 7280 H RBC Morphology See below Anisocytosis 1+ H PT INR APTT Sodium Potassium Chloride Carbon Dioxide BUN Creatinine Estimated GFR BUN/Creatinine Ratio Glucose Lactate Calcium Magnesium Total Bilirubin AST ALT Alkaline Phosphatase Total Protein Albumin Globulin Albumin/Globulin Ratio Lipase Procalcitonin Nasal Screen MRSA (PCR) Negative for mrsa SARS-CoV-2 (PCR) Negative 12/16/20 12/16/20 12/16/20 04:10 04:10 05:10 WBC RBC Hgb Hct MCV MCH MCHC RDW Plt Count Neut % (Auto) Lymph % (Auto) [place] % (Auto) Eos % (Auto) Baso % (Auto) Lymph # (Auto) [place] # (Auto) Baso # (Auto) Total Counted Seg Neutrophils % Band Neutrophils % Lymphocytes % (Manual) Monocytes % (Manual) Eosinophils % (Manual) Basophils % (Manual) Myelocytes % Neutrophils # (Manual) RBC Morphology Anisocytosis PT 11.8 INR 1.1 APTT 28 D Sodium 138 Potassium 4.5 Chloride 104 Carbon Dioxide 28 BUN 15 Creatinine 0.85 Estimated GFR > 60.0 BUN/Creatinine Ratio 17.6 Glucose 119 H Lactate 0.9 Calcium 8.8 Magnesium 2.4 H Total Bilirubin AST ALT Alkaline Phosphatase Total Protein Albumin Globulin Albumin/Globulin Ratio Lipase Procalcitonin Nasal Screen MRSA (PCR) SARS-CoV-2 (PCR) [facility] Medical History Drug abuse Hepatitis C virus infection cured after antiviral drug therapy History of DVT (deep vein thrombosis) Obesity (BMI 30-39.9) Opiate dependence, continuous Jbuwi-Djlabhzxz-Ivlwd (WPW) pattern Surgical History History of abdominal surgery Family History Father Overdose Drug addiction Mother Overdose Drug addiction Social History household members: spouse Smoking Status: Current every day smoker alcohol intake: never substance use type: opiates and IV drugs Assessment & Plan Assessment & Plan narrative: Mr. Sifuentes is a 35M with [facility] previous IVDU with heroin, meth abuse, now smokes fentanyl who presents with cellulitis, failed outpatient oral antibiotics. 1. R leg cellulitis, acute -failed outpatient antibiotics -no evidence of sepsis -CT negative for abscess -continue vancomycin for cellulitis -follow up cultures 2. Opiate abuse -currently not in withdrawal -smokes significant amounts of fentanyl -ordered for methadone while in the hospital -appreciate [facility] 3.Obesity as evidence by BMI of 37.5, acute on chronic, present on admission -encourage dietary modifications 4. 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 Chronic leg wounds -plan for return to wound care on discharge Time Spent With Patient Critical Care time: I spent a total of [] minutes of critical care time on this patient's care today; this time is exclusive of procedural time. Quality VTE Deep Vein Thrombosis/Pulmonary Embolism Present on Admission: No
[2020-12-16] MEDS: IBUPROFEN 600 MG TABLET PO (12:25)
[2020-12-16] MEDS: ACETAMINOPHEN 325 MG TABLET 650 MG PO (12:25)
[2020-12-16] MEDS: SODIUM CHLORIDE 0.9% FLUSH 10 ML IV (21:00)
[2020-12-17] VITALS (9 sets, daily range): BP systolic 125–138; BP diastolic 63–82; PULSE 92–101; RESP 16–20; TEMP 36.3–36.8; O2SAT 94–99
[2020-12-17] MEDS: VANCOMYCIN 2,000 MG/400 ML PIGGYBACK 200 MG IV ×2 (00:48→12:34)
[2020-12-17] MEDS: SODIUM CHLORIDE 0.9% FLUSH 10 ML IV ×2 (00:50→08:32)
--- NOTE | 2020-12-17 01:51 | PC.NURSE ---
Patient is alert and oriented. Breath sounds CTA with RA sat of 96%. HRR w/rate of 101 bpm. Denies nausea. BT present and reports having had BM yesterday. Voiding per urinal; denies dysuria, frequency or urgency. Independent with mobility; denies weakness or unsteadiness. Right LE is swollen, firm, erythematous with scaly skin. Noted to have 2cm open area; no drainage. Area behind right knee is also reddened. Right LE is elevated on 2 pillows. States pain is improved at 4/10 at shift change. Has order for left LE SCD but patient states I don't think I need that after receiving explanation as to purpose; reminded to ankle wave when awake. Fall risk score is moderate but patient is steady on feet; verbalizes agreement to call for assist if feeling dizzy or weak when getting out of bed.
[2020-12-17 05:00] LABS: Add Manual Diff / Slide Review NO; Basophils Absolute Auto 0 /uL (0-100); Basophils Percent Auto 0.3 % (0-2); Eosinophils Absolute Auto 300 /uL (0-450); Eosinophils Percent Auto 2.8 % (2-4); Hematocrit 33.3 % (41-53); Hemoglobin 10.6 g/dL (13.5-17.5); Lymphocytes Absolute Auto 1700 /uL (1100-4500); Lymphocytes Percent Auto 15.1 % (25-40); Monocytes Absolute Auto 1200 /uL (0-900); Monocytes Percent Auto 10.1 % (3-14); Neutrophils Absolute Auto 8300 /uL (1500-7000); Neutrophils Percent Auto 71.7 % (50-75); Platelet Count 371 X10^3/uL (150-400); Red Blood Cell Count 4.62 X10^6/uL (4.5-5.9); Red Cell Distribution Width 18.1 % (11.6-14.8); White Blood Cell Count 11.5 X10^3/uL (4.5-11.0)
[2020-12-17 05:14] LABS: Blood Urea Nitrogen 16 mg/dL (9-20); Calcium 8.3 mg/dL (8.4-10.2); Carbon Dioxide 26 mmol/L (22-32); Chloride 102 mmol/L (98-107); Estimated Glomerular Filt Rate > 60.0 mL/min (>60); Glucose 98 mg/dL (70-100); Sodium 135 mmol/L (137-145)
[2020-12-17 05:17] LABS: HEMOLYSIS 54 (0-50)
[2020-12-17 05:18] LABS: Potassium 4.6 mmol/L (3.4-5.1)
[2020-12-17] MEDS: PANTOPRAZOLE DR 20 MG TABLET PO (05:53)
--- NOTE | 2020-12-17 08:15 | CM.DANOTE ---
DCP/Assessment: Reviewed chart. Patient is a 35yr old male admitted [facility] with [facility]. Primary payor is 1)PW 2)Medicaid. No PCP listed. NUMERICAL CONTROL LATHE OPERATOR met with patient on 12-16. Patient resting comfortably in bed at time of visit. Patient alert and oriented. Patient reports that he has long h/o substance abuse. Patient indicates that he actively has been crushing up fentanyl pills and smoking it. Patient reports that he has been doing this for approximately 1 year. Prior to that patient was using heroin. Patient denies currently injecting any substances. Patient indicates that he has been doing illegal drugs for about 22yrs. Patient denies any legal trouble associated with his substance abuse. However, patient does admit to strained family relationships do to his drug use. Patient has 2 nine year old daughters that reside in [place] with there Mother. Patient currently and reports that he has a very good marriage. Patient does report that his spouse also uses but states not as much as me. In addition, patient reports that his spouse often is the one initiating treatment. Patient denies suicidal or homicidal ideation. Patient reports that he is interested in treatment but prefers a methadone program vs. anything else? Patient indicates that he has tried to enroll onto methadone program at [facility] but that they are currently not accepting new patients. Patient currently not receiving any type of outpatient treatment for substance abuse. Initially it was thought that patient was on methodone as outpatient but he is not. NUMERICAL CONTROL LATHE OPERATOR encouraged patient to consider additional alternatives to methodone while he is waiting for enrollment at [facility]. Patient reports that he has been on suboxene in the past but it was unsuccessful. Patient is willing to accept resources for suboxene treatment and additional methodone clinics however, he will have difficulty driving long distances to obtain methadone. Updated provider of above. It is anticipated that patient will not be discharging from [facility] on methodone and patient aware. Patient with h/o right lower extremity infection(s) prior to admit patient reports that he has been going to [facility] care clinic for dressing changes and wound checks. Patient reports that he has been doing this for approximately 1 year. Currently appointments are every 2 weeks. P: Home when medically stable. NUMERICAL CONTROL LATHE OPERATOR will provide community resources for substance abuse treatment which will include suboxene. Patient aware and agreeable. KJS Discharge Planning/Care Management Advanced directive, confirm from FAMILY Start: 12/16/20 04:03 Freq: Q24H Status: Active Protocol: Document 12/16/20 04:03 MP (Rec: 12/16/20 04:11 MP [id number]) Advance Directive, confirm on record Time 04:11 Person contacted Pt. Copy received No CM Discharge Assessment Start: 12/17/20 08:12 Freq: Status: Active Protocol: Document 12/17/20 08:12 KJS (Rec: 12/17/20 08:15 KJS [id number]) Discharge Planning Assessment Assigned Gis Instructor DONNIE Evans Contact Information Mena Hagen (spouse) # [phone] Advance Directives? No Advance Directives on File No History Provided By Patient,Medical Record Prior Living Arrangements Apartment/Condo Household Members spouse Type of transporation used prior to Relies on Others admit Independent with ADL's Yes Is patient alert and oriented? Yes Caregiver for Another No Barriers to Discharge No Discharge Plan Home Transportation Arrangement Family can provide transport. Referrals Initiated Other Additional Comment Resources will be provided for substance abuse treatment. Whiteboard Updated in Patient Room with Yes name and ext. # of Gis Instructor Review Status In Process Next Review Type Continued Stay Review
[2020-12-17] MEDS: METHADONE 10 MG TABLET PO ×2 (08:32→20:52)
--- NOTE | 2020-12-17 12:16 | DI.MRI.S_ITS ---
PROCEDURE: MR LOWER LEG RT WO CON INDICATIONS: r/o rt post thigh abscess TECHNIQUE: Noncontrast coronal T1 spin echo and STIR through the knee. COMPARISON: [facility], CT, CT LE RT W CON, 12/16/2020, 9:09. FINDINGS: Image quality: The exam is incomplete, as the patient terminated the exam early due to pain. Only 2 coronal sequences were obtained, which are moderately degraded by patient motion. A small amount of diagnostic information is obtained. Bones: No acute trabecular bone injury. Mild subchondral edema and marginal osteophyte formation is seen at the lateral femorotibial compartment. No definite signs of osteomyelitis. Soft tissues: Diffuse subcutaneous edema is seen throughout the visualized portion of the lower extremity. No discrete fluid collection is identified at the popliteal fossa. The included musculature is normal in bulk. No large joint effusion is seen. No significant medial popliteal cyst identified. IMPRESSION: 1. Markedly limited evaluation, as the patient terminated the exam after 2 coronal sequences were obtained due to pain. The obtained images are degraded by patient motion. 2. Diffuse subcutaneous edema throughout the visualized lower extremity. No definite focal fluid collection is seen to suggest abscess formation. No acute osseous edema. No definite involvement of the deeper intermuscular fascial layers is identified. Dictated by: Cuco Mcqueen M.D. on 12/17/2020 at 15:48 Approved by: Cuco Mcqueen M.D. on 12/17/2020 at 15:56
[2020-12-17] MEDS: VANCOMYCIN TROUGH 1 REQUEST MISC (12:34)
[2020-12-17 13:26] LABS: Vancomycin Trough 14.5 ug/mL (10-20)
--- NOTE | 2020-12-17 16:17 | P.PN_ITS ---
Subjective Subjective Date Patient Seen: 12/17/20 Interval history: Patient notes improvement in right posterior thigh pain on IV antibiotic. Limited MRI done today shows no evidence of abscess. Exam Vital Signs (past 8 hours): - 12/17/20 08:23 12/17/20 12:00 12/17/20 16:00 Temperature 97.4 F L 97.9 F Pulse Rate 94 H 92 H Respiratory Rate 19 18 Blood Pressure 127/66 133/74 Pulse Oximetry 99 98 99 Oxygen Delivery Method Room Air Oxygen Flow Rate 0 Narrative Exam Narrative: General: Alert and cooperative male NAD Extremities: There is diffuse lymphedema of the right leg, there is area of increased erythema, swelling and induration above the right popliteal fossa Objective Labs Result Diagrams: 12/17/20 04:20 12/17/20 04:20 Labs: Laboratory Results - last 24 hr 12/17/20 12/17/20 12/17/20 04:20 04:20 12:28 WBC 11.5 H RBC 4.62 Hgb 10.6 L Hct 33.3 L MCV 72.0 L MCH 23.0 L MCHC 32.0 RDW 18.1 H Plt Count 371 Neut % (Auto) 71.7 Lymph % (Auto) 15.1 L [place] % (Auto) 10.1 Eos % (Auto) 2.8 Baso % (Auto) 0.3 Neut # (Auto) 8300 H Lymph # (Auto) 1700 [place] # (Auto) 1200 H Eos # (Auto) 300 Baso # (Auto) 0 Sodium 135 L Potassium 4.6 Chloride 102 Carbon Dioxide 26 BUN 16 Creatinine 0.80 Estimated GFR > 60.0 BUN/Creatinine Ratio 20.0 Glucose 98 Calcium 8.3 L Vancomycin Trough 14.5 PFSH Medical History Drug abuse Hepatitis C virus infection cured after antiviral drug therapy History of DVT (deep vein thrombosis) Obesity (BMI 30-39.9) Opiate dependence, continuous Munzk-Dqzcnupys-Gqknd (WPW) pattern Surgical History History of abdominal surgery Family History Father Overdose Drug addiction Mother Overdose Drug addiction Social History household members: spouse Smoking Status: Current every day smoker alcohol intake: never substance use type: opiates and IV drugs Assessment & Plan Assessment & Plan narrative: Mr. Sifuentes is a 35M with H previous IVDU with heroin, meth abuse, now smokes fentanyl who presents with cellulitis, failed outpatient oral antibiotics. 1. R leg cellulitis, acute, improving -previous history MRSA -failed outpatient antibiotics (1 week of Bactrim and Keflex) -no evidence of sepsis -CT, U.S. and MRI negative for abscess -continue vancomycin for cellulitis -blood cultures negative -consider DC tomorrow on doxycycline if continued improvement 2. Opiate abuse -currently not in withdrawal -smokes significant amounts of fentanyl -ordered for methadone 20 mg b.i.d. while in the hospital -appreciate SW eval and referral to Suboxone Clinic 3.Obesity as evidence by BMI of 37.5, acute on chronic, present on admission -encourage dietary modifications 4. 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 Chronic leg wounds -plan for return to wound care on discharge Time Spent With Patient Critical Care time: I spent a total of [] minutes of critical care time on this patient's care today; this time is exclusive of procedural time. Quality VTE Deep Vein Thrombosis/Pulmonary Embolism Present on Admission: No
--- NOTE | 2020-12-17 18:07 | PC.NURSE ---
pt IV became infiltrated, tried restarting IV X 4. pt states he is a hard IV stick. Spoke to the hospitalist lina and he will be changing pt to PO AB.
[2020-12-17] MEDS: DOXYCYCLINE HYCLATE 100 MG TABLET PO (20:52)
--- NOTE | 2020-12-18 02:15 | PC.NURSE ---
Patient is alert and oriented. Breath sounds CTA with RA sat of 95%. HRR w/rate of 100 bpm. Denies nausea. BT present and abdomen is soft. Denies dysuria, frequency or urgency with urination. Independent with mobility. Right LE remains lightly pink, edematous to groin with open area on lateral aspect of lower calf. Skin is dry and callused appearance, firm to touch. States pain is tolerable at 3/10 and describes as tightness. Refuses SCD to left leg so reminded to ankle wave. Fall risk score is moderate but patient is steady on feet so alarm is not in use.
[2020-12-18 04:10] VITALS: BP 131/84; PULSE 89; RESP 18; TEMP 36.3; O2SAT 96
[2020-12-18 05:32] LABS: Add Manual Diff / Slide Review NO; Basophils Absolute Auto 0 /uL (0-100); Basophils Percent Auto 0.4 % (0-2); Eosinophils Absolute Auto 400 /uL (0-450); Eosinophils Percent Auto 3.5 % (2-4); Hematocrit 32.9 % (41-53); Hemoglobin 10.4 g/dL (13.5-17.5); Lymphocytes Absolute Auto 2100 /uL (1100-4500); Lymphocytes Percent Auto 18.8 % (25-40); Mean Corpuscular HGB Conc 31.8 % (30-36); Mean Corpuscular Hemoglobin 23.1 PG (26-34); Mean Corpuscular Volume 72.7 fL (80-100); Monocytes Absolute Auto 1200 /uL (0-900); Neutrophils Absolute Auto 7400 /uL (1500-7000); Neutrophils Percent Auto 66.3 % (50-75); Platelet Count 455 X10^3/uL (150-400); Red Blood Cell Count 4.52 X10^6/uL (4.5-5.9); Red Cell Distribution Width 18.2 % (11.6-14.8); White Blood Cell Count 11.1 X10^3/uL (4.5-11.0)
[2020-12-18] MEDS: PANTOPRAZOLE DR 20 MG TABLET PO (05:56)
[2020-12-18 08:00] VITALS: O2SAT 93
[2020-12-18 08:43] VITALS: BP 144/85; PULSE 118; RESP 20; TEMP 36.2; O2SAT 93
[2020-12-18] MEDS: DOXYCYCLINE HYCLATE 100 MG TABLET PO (08:43)
[2020-12-18] MEDS: METHADONE 10 MG TABLET PO (08:43)
[2020-12-18 08:50] VITALS: O2SAT 97
--- NOTE | 2020-12-18 11:21 | PC.NURSE ---
A&Ox4. BP elevated 144/85, HR 118. Patient stated not feeling well and needing his methadone. He was diaphoretic. Patient was given methadone and cold towels. He felt much better shortly after. Denies pain. Right leg edematous with open wound on anterior eli. Independent in room. No IV access. Went over discharge instructions, questions answered. Wheeled off of unit at 11:20, driving home.
--- NOTE | 2020-12-18 17:52 | P.DS_ITS ---
History of Present Illness History of Present Illness Chief complaint: wound RT leg, fever headache, wound care Narrative: Hal Mayen is a pleasant year-old gentleman presented to the emergency room with complaint of Right Leg swelling/pain/possible abcess. The patient is very jada and honest and reports a history of injecting heroin subcutaneously into his abd, he then changed to skin popping Black Tar Heroin resulting in a prior admission for abd cellulitis/abcess which required surgical I&D Dr. Jo general surgery 2018. He choose that route previously because he reported on prior admission that he had no accessible veins remaining. He reports that his problem with Dihgd-Eadgkahob-Uiruf syndrome seems to be greatly exacerbated when he smoked methamphetamine and seems to be better when he is no t. The patient reports that he now has switched to smoking fentanyl upwards of 20 times per day. The patient has attempted to enter a methadone clinic program but has been turned away due to no available slots for treatment. He developed chronic leg wounds starting approximately 1 year ago, inciting event unknown. Of which he saw seen in the ED here on 10/09/20 prescribed antibiotics, lasix, and referred to wound care clinic. He states that the right lower extremity has gotten significantly more swollen, painful, and red. He has been trying to keep his legs elevated to help with the edema. He has been going to wound care for his chronic leg wounds. He says that the left is improving but the right has changed and is worsening. Patient reports that approximately 1 week ago the swelling in the right leg exceeded that of the left and became more red and painful, was seen and evaluated at [facility] general on 12/08/2020 he was started on Keflex and Bactrim of for cellulitis. At that time it appears as though he had full workup including blood work, ultrasound of lower extremity, CT angio chest and CT abdomen pelvis. He apparently previously had blood clot from prior infection he is not on any anticoagulation. His CT abdomen showed numerous large lymph nodes and pelvis and inguinal area possibly reactive. CT chest did not show any pulmonary embolism. He feels like there is an abscess behind his Right knee. Discharge Providers Provider Date of admission: 12/16/20 02:26 Discharge Date: 12/18/20 Consults: 12/16/20 03:00 Consult to General Surgery Routine Comment: Consulting Provider: Nicholas Banegas Reason for consultation: Right leg cellulitis/abscess Has provider been notified: Yes 12/16/20 11:22 Consult to LINE CONSTRUCTION SUPERINTENDENT - Safety Council Director Routine Comment: LINE CONSTRUCTION SUPERINTENDENT Consult: Substance Abuse Assess Discharge provider: Kendrick Underwood MD Summary Hospital Course Discharge Diagnosis: 1. Right leg cellulitis, MRSA, secondary to chronic lymphe michelet 2. Opiate abuse 3. Obesity 4. Tobacco abuse 5. History of WPW syndrome Patient was admitted and treated with vancomycin. He had area swelling and tenderness above the right popliteal but CT, ultrasound and MRI did not show any abscess. A wound culture grew MRSA but it was susceptible to doxycycline, clindamycin and Bactrim. He was discharged on clindamycin. He will follow-up with local wound care. Patient is using fentanyl prior to admission. He is given information on scheduling appointment at Suboxone clinic. On exam, vitals are stable. There is improvement in erythema and swelling of the leg and the area above the right popliteal is less swollen and less tender as well. Time Spent with Patient Time spent: Less than 30 minutes Exam Vital Signs (past 8 hours): Oxygen Delivery Method Room Air Oxygen Flow Rate 0 Objective Labs Result Diagrams: 12/18/20 04:55 12/17/20 04:20 Labs: Laboratory Results - last 24 hr 12/18/20 04:55 WBC 11.1 H RBC 4.52 Hgb 10.4 L Hct 32.9 L MCV 72.7 L MCH 23.1 L MCHC 31.8 RDW 18.2 H Plt Count 455 H Neut % (Auto) 66.3 Lymph % (Auto) 18.8 L [place] % (Auto) 11.0 Eos % (Auto) 3.5 Baso % (Auto) 0.4 Neut # (Auto) 7400 H Lymph # (Auto) 2100 [place] # (Auto) 1200 H Eos # (Auto) 400 Baso # (Auto) 0 PFSH Medical History Drug abuse Hepatitis C virus infection cured after antiviral drug therapy History of DVT (deep vein thrombosis) Obesity (BMI 30-39.9) Opiate dependence, continuous Heztz-Amycyqcmf-Clglx (WPW) pattern Surgical History History of abdominal surgery Family History Father Overdose Drug addiction Mother Overdose Drug addiction Social History household members: spouse Smoking Status: Current every day smoker alcohol intake: never substance use type: opiates and IV drugs Discharge Plan Discharge Plan Patient Disposition: Home Discharge orders & Medications Prescriptions: New doxycycline hyclate 100 mg Tablet 100 mg PO BID Qty: 28 RF: 0 Discontinued furosemide [Lasix] 40 mg tablet 40 mg PO DAILY Qty: 7 RF: 0 cephalexin 500 mg capsule 500 mg PO Q6HR RF: 0 sulfamethoxazole-trimethoprim [Bactrim DS] 800-160 mg tablet 1 tab PO BID MDD 2 RF: 0 Follow up/Referrals: Wound Care[facility] Ctr [Other] Diet/Activity/Treatments Diet: Regular Quality VTE Deep Vein Thrombosis/Pulmonary Embolism Present on Admission: No
== END 2020-12-18 11:20 | disposition home or self-care (01) | DRG 383 ==
LOC: ED 12-16 02:26 → AC 12-16 02:27
PROVIDERS: Internal Medicine; Admitting Provider Nurse Practitioner Family; Emergency Provider Emergency Medicine; Referring Provider Emergency Medicine; Visit Provider Nurse Practitioner Family
DX: L03.115 Cellulitis of right lower limb (principal); F15.10 Other stimulant abuse, uncomplicated; I45.6 Pre-excitation syndrome; B95.62 Methicillin resistant Staphylococcus aureus infection as the cause of diseases classified elsewhere; F17.210 Nicotine dependence, cigarettes, uncomplicated; E66.9 Obesity, unspecified; F11.20 Opioid dependence, uncomplicated; I89.0 Lymphedema, not elsewhere classified; Z68.37 Body mass index [BMI] 37.0-37.9, adult; Z20.822 Contact with and (suspected) exposure to COVID-19
CPT/HCPCS: 36415; 71045; 73701; 73718; 80048; 80053; 80202; 81003; 82962; 83605; 83690; 83735; 84145; 85007; 85025; 85610; 85730; 87040; 87635; 87797; 93005; 93971; 94760; 96361; 96365; 96366; 96367; 96375; 99232; 99284; C9803; C9113; J0696; J1885; Q9967

== ENCOUNTER 2021-02-06 20:34 | Inpatient (IN) | payer OTHER, MEDICAID, SELFPAY ==
[2020-12-16 03:15] VITALS: BMI 37.5
[2021-02-06] VITALS (14 sets, daily range): BP systolic 102–132; BP diastolic 54–75; PULSE 113–128; RESP 17–30; TEMP 38.4–39.5; O2SAT 89–99; BMI 38.7
--- NOTE | 2021-02-06 20:54 | DI.US.S_ITS ---
PROCEDURE: US EXTREMITY NONVASC LOWER RT INDICATIONS: RIGHT MEDIAL THIGH MASS, PAIN, ERYTHEMA, INFECTION TECHNIQUE: Real-time scanning was performed of the right, with image documentation. COMPARISON: None. FINDINGS: Diffuse ill-defined hypoechogenicity. No abscess. IMPRESSION: Diffuse edema versus cellulitis. No abscess. Dictated by: Mayra Bermudez M.D. on 02/06/2021 at 21:57 Approved by: Mayra Bermudez M.D. on 02/06/2021 at 21:58
--- NOTE | 2021-02-06 20:55 | ED.EXTPRO ---
HPI - Extremity Problem General Chief complaint: Skin/Abscess/Foreign Body Stated complaint: thinks possible blood infection Time Seen by Provider: 02/06/21 20:42 Source: patient, family and old records reviewed Mode of arrival: Wheelchair Limitations: no limitations History of Present Illness HPI Narrative: This is a 35-year-old male with complaint of infection in his right lower extremity. Patient states he had an infection and a lump in his leg which is treated with IV antibiotics and then he was discharged home on oral antibiotics. Patient states that he has had some intermittent discomfort at times but today acutely became significantly more painful. Patient states that he has developed a fever. He has had pain and swelling in his right leg as well as warmth and erythema. Patient states his leg is not as swollen as it was the time before. He does not have any known diabetes or medical issues that he relates to me. His prior admission notes that he has a history of opiate abuse and had been injecting in his extremity before. There has also noted a history of Ktiss-Jvmcvwstx-Xstzv syndrome. Patient states he had an episode of chest pain earlier today. He feels short of breath at this time. He denies any vomiting he has had some nausea. He has had normal bowel movements and urination. He denies new sensation changes other than being extremely painful in his right leg. He also notes some redness in the other leg as well. He states he has not been following up with Wound Care but he has been cleaning the wounds on his leg and changing them daily. He has not on does not follow with anyone as planned after his discharge. He denies any allergies to medications. Related Data Previous Rx's Medication Instructions Recorded doxycycline hyclate 100 mg tablet 100 mg PO BID #28 tab 12/18/20 Allergies Allergy/AdvReac Type Severity Reaction Status Date / Time No Known Drug Allergies Allergy Verified 12/15/20 21:21 Review of Systems Review of Systems ROS Unobtainable: All systems reviewed & are unremarkable except as noted in HPI and below Patient History Medical History Amphetamine abuse Drug abuse Hepatitis C virus infection cured after antiviral drug therapy History of DVT (deep vein thrombosis) Obesity (BMI 30-39.9) Opiate dependence, continuous Xivot-Gytafhksp-Xepwb (WPW) pattern Surgical History History of abdominal surgery Family History Father Overdose Drug addiction Mother Overdose Drug addiction Social History (Updated 02/07/21 @ 01:38 by JOSE Del Castillo) household members: spouse Smoking Status: Current every day smoker alcohol intake: never substance use type: opiates, IV drugs and methamphetamine Smoking Status: Current every day smoker alcohol intake frequency: 0-2 drinks per day Substance Use Type: heroin, amphetamines, opiates, IV drugs and methamphetamine Exam Narrative Exam Narrative: GEN: well nourished, well appearing male, alert and oriented x 3, patient appears to be in moderate distress. Patient is warm to touch. HEENT: Atraumatic, pupils are equal round reactive to light, extraocular movements are intact, nares are clear. Throat is clear without any exudates, erythema, tonsillar enlargement or uvular deviation HEART: Tachycardic but Regular rate and rhythm without murmur, clicks, rubs. Pulses are equal in upper extremities. Cap refill equal in all 10 toes bilateral lower extremities. Difficult to palpate pulses secondary to habitus. LUNGS:Lungs clear to auscultation, no wheezes, rales, crackles, chest moves symmetrically, no tachypnea accessory muscle use. ABD:bowel sounds normal, soft, non-tender, no guarding, rebound, rigidity, no masses noted, no hepatosplenomegaly :No CVA tenderness MSCL: Patient is quite tender in the right inner thigh with induration and some skin breakdown but no clearly palpable abscess, patient has erythema bilateral lower extremities but the right lower extremity from the upper thigh down towards the foot. Patient has wounds that least 3 on his anterior and posterior lower calf that are into subcutaneous. Patient also has some skin breakdown and whitish discoloration consistent with yeast between his toes. Patient does have full range of motion. He has sensation to my touch. NEURO:CN 2-12 intact, sensation normal SKIN: see above. Initial Vital Signs Initial Vital Signs: Vital Signs Temperature 102 F H 02/06/21 20:35 Pulse Rate 123 H 02/06/21 20:35 Respiratory Rate 24 02/06/21 20:35 Blood Pressure 130/64 02/06/21 20:35 Pulse Oximetry 95 02/06/21 20:35 Course Orders Ordered: ED Orders 02/06/21 20:45 COVID19 -Nasal swab/Pre-Proc Stat 02/06/21 20:51 Blood Culture Stat Complete Blood Count AUTO DIFF Stat Comprehensive Metabolic Panel Stat Lactate (Lactic Acid) Stat Procalcitonin Stat Troponin & CK Cardiac Panel Stat EKG-12 Lead Stat 02/06/21 20:54 US extremity nonvasc lower rt Stat 02/07/21 00:49 Urine Drug Screen, Rapid Stat 02/07/21 01:10 COVID19 - ADMIT ([facility] HOST/HOSTESS swab/PCR) Stat Acetaminophen (Acetaminophen 325 Mg Tablet) 650 mg PO Q6HR PRN PRN Reason: Fever/Mild Pain (1-3) Enoxaparin Sodium (Enoxaparin 40 Mg/0.4 Ml Syringe) 40 mg SUBCUT DAILY [facility] Vancomycin HCl/Dextrose (Vancomycin) 1,500 mg in 300 mls @ 200 mls/hr IV Q8H ROSALINDA Ketorolac Tromethamine (Ketorolac 30 Mg/Ml Vial) 30 mg IV Q6HR PRN PRN Reason: Pain, Severe (7-10) Stop: 02/12/21 01:32 Lorazepam (Lorazepam 1 Mg Tablet) 1 mg PO Q6HR PRN PRN Reason: Anxiety Methadone HCl (Methadone 10 Mg Tablet) 20 mg PO BID [facility] Naloxone HCl (Naloxone 0.4 Mg/Ml Vial) 0.2 mg IV Q2MIN PRN PRN Reason: Opiate Reversal Ondansetron HCl (Ondansetron 4 Mg/2 Ml Inj) 4 mg IV Q6HR PRN PRN Reason: Nausea And Vomiting Sennosides (Sennosides 8.6 Mg Tablet) 17.2 mg PO BEDTIME [facility] Vancomycin HCl (Vancomycin Per Pharmacy) 1 request MISC NOW ONE Stop: 02/07/21 01:40 Discontinued Medications Acetaminophen (Acetaminophen 325 Mg Tablet) 975 mg PO NOW ONE Stop: 02/06/21 20:56 Last Admin: 02/06/21 21:16 Dose: 975 mg Documented by: FLORENCE Hydromorphone HCl (Hydromorphone 1 Mg Inj) 1 mg IV NOW ONE Stop: 02/07/21 00:49 Last Admin: 02/07/21 00:56 Dose: 1 mg Documented by: FLORENCE Vancomycin HCl/Dextrose (Vancomycin) 2,000 mg in 400 mls @ 200 mls/hr IV NOW ONE Stop: 02/06/21 22:52 Last Infusion: 02/07/21 01:33 Dose: 200 mls/hr Documented by: Admin: 02/07/21 00:25 Dose: 200 mls/hr Documented by: FLORENCE Sodium Chloride (Normal Saline 0.9%) 1,000 mls @ 1,000 mls/hr IV BOLUS ONE Stop: 02/06/21 21:50 Last Admin: 02/07/21 00:32 Dose: Not Given Documented by: FLORENCE Sodium Chloride (Normal Saline 0.9%) 2,535 mls @ 845 mls/hr 30 ml/kg infuse over 3 hr (2535 ml) IV NOW ONE Stop: 02/07/21 00:08 Last Infusion: 02/07/21 01:33 Dose: 845 mls/hr Documented by: Admin: 02/07/21 00:25 Dose: 845 mls/hr Documented by: FLORENCE Ketorolac Tromethamine (Ketorolac 30 Mg/Ml Vial) 15 mg IV NOW ONE Stop: 02/07/21 00:34 Last Admin: 02/07/21 00:37 Dose: 15 mg Documented by: FLORENCE Reevaluation(s) Reevaluation #1: Patient continues to be uncomfortable. Given Toradol IV. HR has mild improvement as fever improves. PICC line placed and labs collected, fluids and antibiotics initiated. Consultations Consultation #1: ROSARIO Charles, hospitalist service. Accepts for admission. Patient has some skin breakdown at the right inner thigh where he has most indurated no obvious abscess or fluid collection. He has obvious wounds that are nonhealing on his right lower leg. Patient leg is red warm and erythematous with a fever, white count of 26 in clearly meets septic criteria. He has not been hypotensive in the department. Vitals are slowly improving with resuscitation. Patient accepted for admission. Vital Signs Vital signs: Vital Signs - 8 hr 02/06/21 20:35 02/06/21 20:46 02/06/21 20:47 Temperature 102 F H Pulse Rate 123 H 128 H 121 H Respiratory Rate 24 28 H 17 Blood Pressure 130/64 130/64 Pulse Oximetry 95 97 98 02/06/21 21:00 02/06/21 21:16 02/06/21 21:19 Temperature 102 F H Pulse Rate 121 H 118 H Respiratory Rate 26 H 30 H Blood Pressure 102/54 L Pulse Oximetry 97 02/06/21 21:30 02/06/21 22:00 02/06/21 22:25 Temperature 102 F H Pulse Rate 120 H 120 H Respiratory Rate 28 H 23 Blood Pressure Pulse Oximetry 02/06/21 22:26 02/06/21 22:30 02/06/21 22:34 Temperature 103.1 F H 101.3 F H 101.8 F H Pulse Rate 117 H 113 H Respiratory Rate 28 H 21 Blood Pressure 111/61 116/63 Pulse Oximetry 93 89 L 02/06/21 23:00 02/06/21 23:30 02/07/21 00:00 Temperature 101.7 F H 101.1 F H 100.6 F H Pulse Rate 114 H 114 H 111 H Respiratory Rate 27 H 21 20 Blood Pressure 132/75 125/60 144/66 H Pulse Oximetry 97 99 97 02/07/21 00:30 02/07/21 01:00 Temperature 100.6 F H 100.2 F H Pulse Rate 101 H 101 H Respiratory Rate 21 18 Blood Pressure 122/65 110/65 Pulse Oximetry 92 97 MDM - Extremity (Nontraumatic) Lab Data Result diagrams: 02/07/21 00:10 02/07/21 00:10 Labs: Lab Results 02/06/21 02/07/21 02/07/21 Range/Units 20:45 00:10 00:10 WBC 26.2 H (4.5-11.0) X10^3/uL RBC 4.26 L (4.5-5.9) X10^6/uL Hgb 9.9 L (13.5-17.5) g/dL Hct 30.7 L (41-53) % MCV 72.0 L (80-100) fL MCH 23.3 L (26-34) PG MCHC 32.3 (30-36) % RDW 16.5 H (11.6-14.8) % Plt Count 352 (150-400) X10^3/uL Neut % (Auto) Not Reportable Lymph % (Auto) Not Reportable [place] % (Auto) Not Reportable Eos % (Auto) Not Reportable Baso % (Auto) Not Reportable Lymph # (Auto) Not Reportable [place] # (Auto) Not Reportable Baso # (Auto) Not Reportable Total Counted 100 Seg Neutrophils % 74.0 H (38-70) % Band Neutrophils % 23.0 H (3-7) % Lymphocytes % (Manual) 2.0 L (25-45) % Monocytes % (Manual) 1.0 L (2-11) % Neutrophils # (Manual) 07746 H (8831-6564) /uL RBC Morphology Normal morphology Sodium 134 L (137-145) mmol/L Potassium 3.5 (3.4-5.1) mmol/L Chloride 99 (98-107) mmol/L Carbon Dioxide 29 (22-32) mmol/L BUN 8 L (9-20) mg/dL Creatinine 0.85 (0.66-1.25) mg/dL Estimated GFR > 60.0 (>60) mL/min BUN/Creatinine Ratio 9.4 (6-22) Glucose 111 H (70-100) mg/dL Lactate (0.7-2.1) mmol/L Calcium 8.5 (8.4-10.2) mg/dL Total Bilirubin 0.9 (0.2-1.3) mg/dL AST 30 (17-59) IU/L ALT 15 (<50) IU/L Alkaline Phosphatase 99 (38-126) U/L Total Creatine Kinase 38 L (55-170) U/L CK-MB (CK-2) TNP CK-MB (CK-2) Rel Index TNP Troponin I < 0.012 (0.01-0.034) ng/mL Total Protein 8.3 H (6.3-8.2) g/dL Albumin 3.5 (3.5-5.0) g/dL Globulin 4.8 H (1.7-4.1) g/dL Albumin/Globulin Ratio 0.7 L (1.0-2.8) Procalcitonin 12.2 H (<0.5) ng/mL U Opiates 300ng/mL cut (Negative) Ur Oxycodone Screen (Negative) Urine Methadone Screen (Negative) Ur Barbiturates Screen (Negative) U Tricyclic Antidepress (Negative) Ur Phencyclidine Scrn (Negative) Ur Amphetamines Screen (Negative) U Methamphetamines Scrn (Negative) Ur MDMA Scrn (Ecstasy) (Negative) U Benzodiazepines Scrn (Negative) Urine Cocaine Screen (Negative) U Marijuana (THC) Screen (Negative) SARS-CoV-2 (PCR) Negative (Negative) 02/07/21 02/07/21 Range/Units 00:10 00:49 WBC (4.5-11.0) X10^3/uL RBC (4.5-5.9) X10^6/uL Hgb (13.5-17.5) g/dL Hct (41-53) % MCV (80-100) fL MCH (26-34) PG MCHC (30-36) % RDW (11.6-14.8) % Plt Count (150-400) X10^3/uL Neut % (Auto) Lymph % (Auto) [place] % (Auto) Eos % (Auto) Baso % (Auto) Lymph # (Auto) [place] # (Auto) Baso # (Auto) Total Counted Seg Neutrophils % (38-70) % Band Neutrophils % (3-7) % Lymphocytes % (Manual) (25-45) % Monocytes % (Manual) (2-11) % Neutrophils # (Manual) (3882-6830) /uL RBC Morphology Sodium (137-145) mmol/L Potassium (3.4-5.1) mmol/L Chloride (98-107) mmol/L Carbon Dioxide (22-32) mmol/L BUN (9-20) mg/dL Creatinine (0.66-1.25) mg/dL Estimated GFR (>60) mL/min BUN/Creatinine Ratio (6-22) Glucose (70-100) mg/dL Lactate 1.0 (0.7-2.1) mmol/L Calcium (8.4-10.2) mg/dL Total Bilirubin (0.2-1.3) mg/dL AST (17-59) IU/L ALT (<50) IU/L Alkaline Phosphatase (38-126) U/L Total Creatine Kinase (55-170) U/L CK-MB (CK-2) CK-MB (CK-2) Rel Index Troponin I (0.01-0.034) ng/mL Total Protein (6.3-8.2) g/dL Albumin (3.5-5.0) g/dL Globulin (1.7-4.1) g/dL Albumin/Globulin Ratio (1.0-2.8) Procalcitonin (<0.5) ng/mL U Opiates 300ng/mL cut Negative (Negative) Ur Oxycodone Screen Negative (Negative) Urine Methadone Screen Negative (Negative) Ur Barbiturates Screen Negative (Negative) U Tricyclic Antidepress Negative (Negative) Ur Phencyclidine Scrn Negative (Negative) Ur Amphetamines Screen Positive H (Negative) U Methamphetamines Scrn Positive H (Negative) Ur MDMA Scrn (Ecstasy) Negative (Negative) U Benzodiazepines Scrn Negative (Negative) Urine Cocaine Screen Negative (Negative) U Marijuana (THC) Screen Negative (Negative) SARS-CoV-2 (PCR) (Negative) Urine Dip Bedside Urine Glucose Negative Bedside Urine Bilirubin - Negative Bedside Urine Ketone - Negative Urine Specific [place] 1.015 Bedside Urine Occult Blood - Negative Bedside Urine pH 6.5 Bedside Urine Protein - Negative Bedside Urine Urobilinogen - Negative Bedside Urine Nitrite - Negative Bedside Urine Leukocytes - Negative Esterase Imaging Data US lower extremity: Radiologist's Impression: Hal Sifuentes??35??M??1985 ? Allergy/Adv: No Known Drug Allergies Close Extremity Ultrasound (Signed) Mayra Bermudez - 02/06/21 Lower Extremity MRI (Signed) Cuco Mcqueen - 12/17/[address] (Signed) Call,Shubham - 12/16/20 Telemetry Strips 12/16/20 Vascular Ultrasound (Signed) Call,Shubham - 12/16/20 Chest X-Ray (Signed) Spenser Charles - 12/15/20 Chest X-Ray (Signed) Salazar Phillips - 10/09/20 Telemetry Strips 12/01/17 [place] [address] Ultrasound Report Signed Patient: Hal Sifuentes MR#: [id number] : 1985 Acct:[id number] Age/Sex: 35 / M Date of Service: 02/06/21 Loc: ED Accession Number: [id number] ?? Procedure: US extremity nonvasc lower rt Ordering Provider: Linsey Wilkinson D.O. PROCEDURE:? US EXTREMITY NONVASC LOWER RT ? INDICATIONS:? RIGHT MEDIAL THIGH MASS, PAIN, ERYTHEMA, INFECTION ? TECHNIQUE:? Real-time scanning was performed of the right, with image documentation.? ? COMPARISON:? None. ? FINDINGS:? Diffuse ill-defined hypoechogenicity.? No abscess. ? IMPRESSION:? Diffuse edema versus cellulitis.? No abscess. ? ? Dictated by: Mayra Bermudez M.D. on 02/06/2021 at 21:57 ? ? Approved by: Mayra Bermudez M.D. on 02/06/2021 at 21:58?? ECG Data Attestation EKG: I personally reviewed and interpreted this ECG as follows: Prior ECG tracings: available for review Interpretation: Sinus tachycardia rate of 116, MI 140 QRS of 98 QTC 447. No acute ST changes appreciated. Patient has prior from 12/15/2020 which appears similar MDM Narrative Medical decision making narrative: Patient and multiple times in axis and refused lab draw. PICC line nurse was called. Patient continued to be tachycardic but somewhat improved his fever decreasing. Patient was started on a 30 cc/kilos bolus but quite delayed secondary to access issues. Patient has not been hypotensive. He was started on vancomycin based on prior sensitivities. His right lower extremity has obvious signs of infection with open wound and skin breakdown in various locations. He has leg is hot and warm to touch. He had formal ultrasound which did not show abscess although he was quite indurated in the left inner thigh. He had multiple imaging modalities including CT, MRI and ultrasound on his last visit to evaluate the same area for abscess. Discussed with our hospitalist who accepts for admission. Patient was given medication for pain as well as some of his withdrawal symptoms as he does admit to smoking fentanyl regularly and just before coming to the emergency department. Discharge Plan Departure Patient Disposition: Admitted As Inpatient Clinical Impression: Cellulitis of right leg, Sepsis Admit Date/Time: 02/07/21 01:09 Admit Provider: Azalea Charles
--- NOTE | 2021-02-06 21:10 | PC.NURSE ---
Pt is an extremely hard IV stick. Multiple RNs looking for an IV site. notified. Lab coming to attempt lab draw. PICC team notified
[2021-02-06] MEDS: ACETAMINOPHEN 325 MG TABLET 975 MG PO (21:16)
[2021-02-06 21:36] LABS: COVID19 -Nasal RAPID Negative (Negative)
--- NOTE | 2021-02-06 22:32 | PC.NURSE ---
Pt appears to have sleep apnea, placed on 4 L NC. Pt did admit to smoking Fentanyl before coming.
--- NOTE | 2021-02-06 23:53 | PC.NURSE ---
PICC RN in placing line
[2021-02-07] VITALS (8 sets, daily range): BP systolic 102–144; BP diastolic 55–78; PULSE 94–111; RESP 17–22; TEMP 36.1–38.1; O2SAT 92–97; BMI 39.4
[2021-02-07] MEDS: VANCOMYCIN 2,000 MG/400 ML PIGGYBACK 200 MG IV (00:25)
[2021-02-07] MEDS: SODIUM CHLORIDE 0.9% 2,535 ML 845 ML IV (00:25)
[2021-02-07 00:32] LABS: Hematocrit 30.7 % (41-53); Hemoglobin 9.9 g/dL (13.5-17.5); Mean Corpuscular HGB Conc 32.3 % (30-36); Mean Corpuscular Hemoglobin 23.3 PG (26-34); Platelet Count 352 X10^3/uL (150-400); Red Blood Cell Count 4.26 X10^6/uL (4.5-5.9); Red Cell Distribution Width 16.5 % (11.6-14.8); White Blood Cell Count 26.2 X10^3/uL (4.5-11.0)
[2021-02-07 00:33] LABS: Add Manual Diff / Slide Review YES
[2021-02-07 00:35] LABS: Alanine Aminotransferase 15 IU/L (<50); Albumin 3.5 g/dL (3.5-5.0); Albumin Globulin Ratio 0.7 (1.0-2.8); Alkaline Phosphatase 99 U/L (38-126); Aspartate Aminotransferase 30 IU/L (17-59); BUN Creatinine Ratio 9.4 (6-22); Bilirubin Total 0.9 mg/dL (0.2-1.3); Blood Urea Nitrogen 8 mg/dL (9-20); Calcium 8.5 mg/dL (8.4-10.2); Carbon Dioxide 29 mmol/L (22-32); Chloride 99 mmol/L (98-107); Creatine Kinase 38 U/L (55-170); Estimated Glomerular Filt Rate > 60.0 mL/min (>60); Globulin 4.8 g/dL (1.7-4.1); Glucose 111 mg/dL (70-100); HEMOLYSIS < 15 (0-50); Potassium 3.5 mmol/L (3.4-5.1); Sodium 134 mmol/L (137-145); Total Protein 8.3 g/dL (6.3-8.2)
[2021-02-07] MEDS: KETOROLAC 30 MG/ML VIAL 15 MG IV (00:37)
[2021-02-07 00:47] LABS: Troponin I < 0.012 ng/mL (0.01-0.034)
[2021-02-07 00:52] LABS: Procalcitonin 12.2 ng/mL (<0.5)
[2021-02-07] MEDS: HYDROMORPHONE 1 MG INJ IV (00:56)
[2021-02-07 01:07] LABS: Neutrophils Absolute Manual 25414 /uL (3000-5900); Total Cells Counted 100
[2021-02-07 01:13] LABS: UR Morphine/Opiate cutoff 300 Negative (Negative); Ur Creatinine Normal (Normal); Ur Specific Gravity Normal (Normal); Urine Amphetamines Positive (Negative); Urine Barbiturates Negative (Negative); Urine Benzodiazepines Negative (Negative); Urine Cocaine Negative (Negative); Urine MDMA Negative (Negative); Urine Methadone Negative (Negative); Urine Methamphetamines Positive (Negative); Urine Oxycodone Negative (Negative); Urine Phencyclidine Negative (Negative); Urine Tetrahydrocannabinol Negative (Negative); Urine Tricyclic Antidepressant Negative (Negative); Urine pH Normal (Normal)
[2021-02-07 01:56] LABS: RBC Morphology Normal Morphology
[2021-02-07 02:13] LABS: COVID19 - ADMIT (NP swab/PCR) Negative (Negative)
--- NOTE | 2021-02-07 02:13 | PM.HP.1 ---
History of Present Illness History of Present Illness Date Patient Seen: 02/07/21 Time Patient Seen: 01:45 Chief complaint: thinks possible blood infection Narrative: Hal Mayen is a 35 year-old morbidly obese gentleman resident of [place] who presented to the emergency room with complaint of right Leg swelling, pain, and possible abscess.? He reports a history of injecting heroin subcutaneously into his abd, he then changed to skin popping Black Tar Heroin resulting in a prior admission for abominal cellulitis and abscess which required surgical I&D Dr. Covington Sandro general surgery 2018. He choose that route previously because he reported on prior admission that he had no accessible veins remaining.?? He reports that his problem with Xywyo-Ycdnhruli-Jngxb syndrome seems to be greatly exacerbated when he smoked methamphetamine and seems to be better when he is not.? The patient reports that he now has switched to smoking fentanyl as well as methamphetamine.?Today his UDS only indicates methamphetamine. He is quite lethargic and keeps falling asleep while being interviewed, so much of this history is gleaned from previous records in his chart. He presented with a fever he reports he has had for the last day or so. He was nauseous yesterday. He denies any abdominal pain, vomiting, dysuria, diarrhea or constipation. He does state that his left lower calf does hurt more than the right side. He developed chronic leg wounds starting approximately 1 year ago, inciting event unknown.?He states that the right lower extremity has gotten significantly more swollen, painful, and red.?He has been trying to keep his legs elevated to help with the edema.? He has gone to wound care in [place] for his chronic leg wounds. He was seen in the ED here on 10/09/20 prescribed antibiotics, lasix, and referred to wound care clinic. Review of our records indicated he was given oral methadone to help with both withdrawals as well as pain. He did state that it was not enough for his pain. Tonight in the emergency department he was given 1 mg of IV Dilaudid. In the emergency department they did an nonvascular ultrasound of the right leg and did not identify any abscesses. He did have enlarged lymph nodes per their report. He was febrile on presentation to the emergency department with a temperature of 102? and his T-max was 103.1?. Currently his blood pressure is 110/59, heart rate 94, respiratory rate 18, oxygen saturation of 97% on 2 L, he weighs 143 kg with a BMI of 37.5. He has a significantly elevated white count of 26.2, RBC 4.26 hemoglobin 9.9, hematocrit 30.7, platelet count 352, he has a significant left shift and a neutrophil count of 25,400, sodium is 134, glucose 111, lactate is 1.0 liver enzymes are within normal limits, procalcitonin is 12.2, UDS is positive for both amphetamines and methamphetamines and he underwent to [facility] [facility] screenings both were negative. The patient has attempted to enter a methadone clinic program but has been turned away due to no available slots for treatment and when asked was interested in being referred to drug rehab if it is available. He states he comes to [facility] as he states that there are no services available to him and [place]. Patient History Medical History Amphetamine abuse Drug abuse Hepatitis C virus infection cured after antiviral drug therapy History of DVT (deep vein thrombosis) Obesity (BMI 30-39.9) Opiate dependence, continuous Katie-Xqcatyveu-Lefpj (WPW) pattern Surgical History History of abdominal surgery Family & Social History Family History Father Overdose Drug addiction Mother Overdose Drug addiction Social History: household members spouse Safety & Behavioral: Feels Safe in Current Yes Environment Tobacco & Substance use: Tobacco type cigarettes Smoking Status Current every day smoker alcohol intake never alcohol intake frequency 0-2 drinks per day Substance Use Type states smokes methamphetmine and fentanyl Meds Home Medications and Allergies Home Medications Medication Instructions Recorded Confirmed Type doxycycline hyclate 100 mg tablet 100 mg PO BID #28 tab 12/18/20 Rx Allergies Allergy/AdvReac Type Severity Reaction Status Date / Time No Known Drug Allergies Allergy Verified 12/15/20 21:21 Review of Systems Review of Systems ROS: Yes All systems reviewed with the patient and are negative except as otherwise documented Exam Vital Signs (past 8 hours): - 02/06/21 20:35 02/06/21 20:46 02/06/21 20:47 Temperature 102 F H Pulse Rate 123 H 128 H 121 H Respiratory Rate 24 28 H 17 Blood Pressure 130/64 130/64 Pulse Oximetry 95 97 98 02/06/21 21:00 02/06/21 21:16 02/06/21 21:19 Temperature 102 F H Pulse Rate 121 H 118 H Respiratory Rate 26 H 30 H Blood Pressure 102/54 L Pulse Oximetry 97 02/06/21 21:30 02/06/21 22:00 02/06/21 22:25 Temperature 102 F H Pulse Rate 120 H 120 H Respiratory Rate 28 H 23 Blood Pressure Pulse Oximetry 02/06/21 22:26 02/06/21 22:30 02/06/21 22:34 Temperature 103.1 F H 101.3 F H 101.8 F H Pulse Rate 117 H 113 H Respiratory Rate 28 H 21 Blood Pressure 111/61 116/63 Pulse Oximetry 93 89 L 02/06/21 23:00 02/06/21 23:30 02/07/21 00:00 Temperature 101.7 F H 101.1 F H 100.6 F H Pulse Rate 114 H 114 H 111 H Respiratory Rate 27 H 21 20 Blood Pressure 132/75 125/60 144/66 H Pulse Oximetry 97 99 97 02/07/21 00:30 02/07/21 01:00 02/07/21 01:35 Temperature 100.6 F H 100.2 F H 98.9 F Pulse Rate 101 H 101 H 94 H Respiratory Rate 21 18 18 Blood Pressure 122/65 110/65 110/59 L Pulse Oximetry 92 97 97 Oxygen Delivery Method Room Air Oxygen Flow Rate 0 Narrative Exam Narrative: Gen: Alert, oriented, morbidly obese 35 y.o. male, very lethargic HEENT: normocephalic, atraumatic, conjunctiva clear, sclera non-icteric, oral mucosa pink and moist Neck: supple, full ROM, no JVD, trachea is midline Resp: Lungs CTA, non-labored breathing CV: RRR, no murmur or rubs Abd: Obese, soft, non-tender, normoactive BTs Skin: Multiple needle sticks visualized on both his lower extremities extending from his mid thigh area down to his toes. It appears that there are recent scars in her around his toes. He has dried ulcerations worse on the right leg. Skin is very dry, flaky and pale. Neuro: Alert and oriented X 3 w/no focal deficits. Speech almost inaudible but clear Extremities: moves all 4 extremities, is ambulatory, positive Melanie?s sign bilaterally Psyche: normal mood and affect. Objective Labs Result Diagrams: 02/07/21 00:10 02/07/21 00:10 Labs: Laboratory Results - last 24 hr 02/06/21 02/07/21 02/07/21 20:45 00:10 00:10 WBC 26.2 H RBC 4.26 L Hgb 9.9 L Hct 30.7 L MCV 72.0 L MCH 23.3 L MCHC 32.3 RDW 16.5 H Plt Count 352 Neut % (Auto) Not Reportable Lymph % (Auto) Not Reportable Union % (Auto) Not Reportable Eos % (Auto) Not Reportable Baso % (Auto) Not Reportable Lymph # (Auto) Not Reportable Union # (Auto) Not Reportable Baso # (Auto) Not Reportable Total Counted 100 Seg Neutrophils % 74.0 H Band Neutrophils % 23.0 H Lymphocytes % (Manual) 2.0 L Monocytes % (Manual) 1.0 L Neutrophils # (Manual) 10907 H RBC Morphology Normal morphology Sodium 134 L Potassium 3.5 Chloride 99 Carbon Dioxide 29 BUN 8 L Creatinine 0.85 Estimated GFR > 60.0 BUN/Creatinine Ratio 9.4 Glucose 111 H Lactate Calcium 8.5 Total Bilirubin 0.9 AST 30 ALT 15 Alkaline Phosphatase 99 Total Creatine Kinase 38 L CK-MB (CK-2) TNP CK-MB (CK-2) Rel Index TNP Troponin I < 0.012 Total Protein 8.3 H Albumin 3.5 Globulin 4.8 H Albumin/Globulin Ratio 0.7 L Procalcitonin 12.2 H U Opiates 300ng/mL cut Ur Oxycodone Screen Urine Methadone Screen Ur Barbiturates Screen U Tricyclic Antidepress Ur Phencyclidine Scrn Ur Amphetamines Screen U Methamphetamines Scrn Ur MDMA Scrn (Ecstasy) U Benzodiazepines Scrn Urine Cocaine Screen U Marijuana (THC) Screen SARS-CoV-2 (PCR) Negative 02/07/21 02/07/21 02/07/21 00:10 00:49 01:10 WBC RBC Hgb Hct MCV MCH MCHC RDW Plt Count Neut % (Auto) Lymph % (Auto) Union % (Auto) Eos % (Auto) Baso % (Auto) Lymph # (Auto) Union # (Auto) Baso # (Auto) Total Counted Seg Neutrophils % Band Neutrophils % Lymphocytes % (Manual) Monocytes % (Manual) Neutrophils # (Manual) RBC Morphology Sodium Potassium Chloride Carbon Dioxide BUN Creatinine Estimated GFR BUN/Creatinine Ratio Glucose Lactate 1.0 Calcium Total Bilirubin AST ALT Alkaline Phosphatase Total Creatine Kinase CK-MB (CK-2) CK-MB (CK-2) Rel Index Troponin I Total Protein Albumin Globulin Albumin/Globulin Ratio Procalcitonin U Opiates 300ng/mL cut Negative Ur Oxycodone Screen Negative Urine Methadone Screen Negative Ur Barbiturates Screen Negative U Tricyclic Antidepress Negative Ur Phencyclidine Scrn Negative Ur Amphetamines Screen Positive H U Methamphetamines Scrn Positive H Ur MDMA Scrn (Ecstasy) Negative U Benzodiazepines Scrn Negative Urine Cocaine Screen Negative U Marijuana (THC) Screen Negative SARS-CoV-2 (PCR) Negative Assessment & Plan Assessment & Plan narrative: Hal Mayen will be admitted for acute cellulitis of the right lower leg. 1. Acute cellulitis of the right lower leg, present on admission He was administered IV vancomycin in the emergency department and will be continued on this Procalcitonin was markedly elevated and will recheck in the morning I have requested wound care consult Dr. Frankel general surgery has been consulted by the emergency department Midline was placed in the ED 2. History of a DVT not currently anticoagulated I have ordered bilateral vascular ultrasounds of his lower extremities DVT prophylaxis with enoxaparin 40 mg subQ daily 3. Probable polysubstance abuse with amphetamines detected in urine, present on admission Patient will likely have high opioid tolerance He will be written for methadone 20 mg b.i.d. for pain as well as Toradol 30 mg q.i.d. as needed for pain however this will probably be limited to 3 days Case management/social work should see him for this 4. History of Gonzalez Parkinson White syndrome Cardiac monitoring VTE Prophylaxis: Wells risk score [3] [X]Enoxaparin 40 mg subQ once daily Patient is admitted to the inpatient service due to the severity of disease, risks of further disease progression and this stay is expected to exceed 2 midnights. FEN: IV fluids: NS at 100 ml/hour, diet: heart healty diet, labs: CBC, C/BMP, liver enzymes, Mag, PT/INR Consultants Dr. Frankel, General Surgery, wound care, care and involvement in the patient?s care is appreciated. Dispo: probable discharge to home on oral antibiotics Code status: Full code as discussed with the patient who identifies his as his surrogate and POA. [X] I have utilized all available immediate resources to obtain, update, or review of the patient's current medications COVID-19 COVID-19 status: Negative Result date/Date tested (Pos, Neg/Pending): 02/07/21 Scores Wells' Criteria for PE Clinical signs and symptoms of DVT: No PE is #1 Dx or equally likely: No Heart rate > 100: Yes Immobilization at least 3 days or surg in previous 4 weeks: No History of PE or DVT: Yes Hemoptysis: No Malignancy w/Treatment within 6 months or palliative: No Wells' PE Score total: 3.0 Quality VTE Deep Vein Thrombosis/Pulmonary Embolism Present on Admission: No MIPS - Admit I confirm the patient?s Advance Care Plan is present, Code status is documented, Surrogate decision maker is in patient?s record [If Yes, STOP here]: Yes MIPS - DC The patient has current or prior documentation of left ventricular ejection fraction (LVEF) less than 40%, or moderate or severely depressed left ventricular systolic function.: No
[2021-02-07] MEDS: SODIUM CHLORIDE 0.9% 1,000 ML 100 ML IV ×2 (04:41→15:54)
[2021-02-07] MEDS: ONDANSETRON 4 MG/2 ML INJ IV (06:10)
[2021-02-07 06:11] LABS: Add Manual Diff / Slide Review NO; Basophils Absolute Auto 0 /uL (0-100); Basophils Percent Auto 0.1 % (0-2); Eosinophils Absolute Auto 0 /uL (0-450); Hematocrit 28.8 % (41-53); Hemoglobin 9.3 g/dL (13.5-17.5); Lymphocytes Absolute Auto 600 /uL (1100-4500); Lymphocytes Percent Auto 2.5 % (25-40); Mean Corpuscular HGB Conc 32.2 % (30-36); Mean Corpuscular Volume 71.5 fL (80-100); Monocytes Absolute Auto 700 /uL (0-900); Monocytes Percent Auto 2.8 % (3-14); Neutrophils Absolute Auto 21900 /uL (1500-7000); Neutrophils Percent Auto 94.6 % (50-75); Platelet Count 307 X10^3/uL (150-400); Red Blood Cell Count 4.03 X10^6/uL (4.5-5.9); Red Cell Distribution Width 16.4 % (11.6-14.8); White Blood Cell Count 23.1 X10^3/uL (4.5-11.0)
[2021-02-07] MEDS: KETOROLAC 30 MG/ML VIAL IV (06:11)
[2021-02-07] MEDS: LORazepam 1 MG TABLET PO (06:12)
[2021-02-07 06:13] LABS: Alanine Aminotransferase 14 IU/L (<50); Albumin Globulin Ratio 0.7 (1.0-2.8); Alkaline Phosphatase 81 U/L (38-126); Aspartate Aminotransferase 25 IU/L (17-59); BUN Creatinine Ratio 11.4 (6-22); Bilirubin Total 0.8 mg/dL (0.2-1.3); Bilirubin Unconjugated 0.5 mg/dL (0.0-1.1); Blood Urea Nitrogen 8 mg/dL (9-20); Calcium 7.6 mg/dL (8.4-10.2); Carbon Dioxide 26 mmol/L (22-32); Chloride 104 mmol/L (98-107); Estimated Glomerular Filt Rate > 60.0 mL/min (>60); Globulin 4.4 g/dL (1.7-4.1); Glucose 100 mg/dL (70-100); HEMOLYSIS < 15 (0-50); Potassium 3.8 mmol/L (3.4-5.1); Sodium 136 mmol/L (137-145); Total Protein 7.4 g/dL (6.3-8.2)
[2021-02-07 06:30] LABS: Procalcitonin 14.2 ng/mL (<0.5)
[2021-02-07 06:44] LABS: Erythrocyte Sedimentation Rate 96 MM/HR (0-15)
[2021-02-07 07:25] LABS: C-Reactive Protein Quant 14.8 mg/dL (<1.0)
--- NOTE | 2021-02-07 08:00 | DI.US.S_ITS ---
PROCEDURE: US PERIPH VENOUS LOW EXTREM BI INDICATIONS: RIGHT CALF PAIN WORSE THAN LEFT. TECHNIQUE: Real-time imaging, as well as color and pulse Doppler interrogation, were performed of the deep veins of both legs from the inguinal ligament to the popliteal fossa. COMPARISON: None. FINDINGS: Right: The common femoral, femoral and popliteal veins are normally compressible, and free of intraluminal thrombus. Color and pulse Doppler demonstrate normal phasic intravascular flow. There is normal augmentation response to distal compression maneuver. Left: The common femoral, femoral and popliteal veins are normally compressible, and free of intraluminal thrombus. Color and pulse Doppler demonstrate normal phasic intravascular flow. There is normal augmentation response to distal compression maneuver. Bilateral enlarged inguinal lymph nodes are noted largest right lymph node measuring 1.7 centimeters in short axis and largest left lymph node measuring 2.1 centimeters in short axis. Cortical thickening noted in the enlarged lymph nodes. Nonspecific edema noted in the left mid thigh extending into the left popliteal fossa. IMPRESSION: 1. No evidence of deep vein thrombosis involving either the right or left lower extremities. 2. Bilateral inguinal lymphadenopathy which could be reactive or neoplastic. Dictated by: Leda Martel MD, PhD on 02/07/2021 at 8:39 Approved by: Leda Martel MD, PhD on 02/07/2021 at 8:41
[2021-02-07] MEDS: VANCOMYCIN 1,500 MG/300 ML PIGGYBACK 200 MG IV ×2 (08:31→15:54)
[2021-02-07] MEDS: ENOXAPARIN 40 MG/0.4 ML SYRINGE SUBCUT (08:32)
--- NOTE | 2021-02-07 09:05 | DIET.PN1 ---
Dietary Progress Note RD Note: RD to see patient this morning. Will immediately start sending ONS Bucky bid to support wound healing and encourage pt to consume HH diet for meals. Recc pt start MVI to support chronic wounds. Electronically Signed by: Marisa Henderson 02/07/21 09:05 Clinical Dietitian [address] [address]
[2021-02-07] MEDS: METHADONE 10 MG TABLET 20 MG PO ×2 (09:58→21:37)
--- NOTE | 2021-02-07 14:14 | CM.DANOTE ---
DCP assessment: Patient was admitted for leg cellulites. Dr. Clinton stated he is working on getting a MRI to determine if patient has Osteomylitis or not. CM met with patient at the bed side and explained role. patient was diaphoretic and pale at time of visit. patient was oriented and able to answer CM questions but kept his eyes closed and complained of pain. CM asked how long patient has been using methamphetamines patient stated he has been using for a few years. patient states he lives with his in a single level home in [place]. CM asked if patient wants help with getting treatment for his drug usage. patient stated he is not interested in treatment at this time but is open to receiving information. Patient restless in his bed and is complaining of pain. Patient stated he will have his take him home at [place]. CM asked if patient would be open to going to either SNF or Swing bed at Discharge if detention IV Abx is needed due to cellulites. patient stated he would be okay with that if it is needed but would prefer to go home with his . CM called Abimbola at [facility] who is reviewing patient information. Called graciela at [facility] as well she is also reviewing.faxed clinicals to review to graciela at [facility]. CM spoke with Dr. Clinton after meeting with patient to discuss patient current condition and concerns for drug withdrawal. Dr. Clinton stated that he agreed that patient is possibly going through withdrawal. I: [facility] and Medicaid Plan: [place] home with if leave on PO ABX if need IV ABX either swing bed or SNF will be needed for detention IV ABX. this will need to be determined based on need for IV vs PO ABX. Lexie Marquez RNsummer school coordinator Discharge Planning/Care Management Advanced directive, confirm from FAMILY Start: 02/07/21 06:27 Freq: Q24H Status: Active Protocol: Document 02/07/21 12:01 GMP (Rec: 02/07/21 12:01 [facility] [id number]) Advance Directive, confirm on record Time 12:01 Person contacted pt Copy received No CM Discharge Assessment Start: 02/07/21 14:12 Freq: Status: Active Protocol: Document 02/07/21 14:12 HS (Rec: 02/07/21 14:14 HS [id number]) Discharge Planning Assessment Assigned Cement Patcher Lexie Marquez RN Case Manger DPOA/Assigned Designee Name Jermaine Hagen () Contact Information [phone] Advance Directives? No Advance Directives on File No History Provided By Patient,Medical Record Prior Living Arrangements House Household Members spouse Type of transporation used prior to Drives own vehicle admit Independent with ADL's Yes Is patient alert and oriented? Yes Caregiver for Another No Comment Pending Discharge Plan Home Transportation Arrangement Family can provide transport. Referrals Initiated Other Additional Comment Resources will be provided for substance abuse treatment. patient stated he is not interested in treatment at this time but will accept infromaiton. Whiteboard Updated in Patient Room with Yes name and ext. # of Cement Patcher Review Status In Process Next Review Type Continued Stay Review
--- NOTE | 2021-02-07 14:59 | DIET.PN1 ---
Dietary Progress Note Assessment: 35y M admitted for cellulitis secondary to subcutaneous injection of controlled substances. Pt with hx chronic wounds and morbid obesity referred to nutrition for bilateral lower leg wounds. Pt sleeping when RD attempted visit. Discussion with Room Office Specialist Kristin who states pt was agreeable to her suggestions for wound supportive foods and ONS Bucky. Pt states has EGG ALLERGY, nursing updated chart as such. Ht: 190.5 cm Wt: 143 kg BMI: 39.4 Last BM: () MNA: Kushal Score: 17 Diet: 02/07/21 Breakfast Heart Healthy Diet Diet Modifications: ONS Bucky bid Labs: RBC 4.03 X10^6/uL (4.5-5.9) L 02/07/21 05:20 Hgb 9.3 g/dL (13.5-17.5) L 02/07/21 05:20 Hct 28.8 % (41-53) L 02/07/21 05:20 Creatinine 0.70 mg/dL (0.66-1.25) 02/07/21 05:20 Lactate 1.0 mmol/L (0.7-2.1) 02/07/21 00:10 Nutrition Diagnosis: increased nutrient needs (protein, vitamin A, vitamin c, zinc) r/t chronic unhealing wounds, acute cellulitis aeb pt active drug user (injecting subcutaneous) c hx abdominal I&D for same three years ago, active meth use suppressing appetite, pt not interested in abstinence at this time. Interventions: 1. Recc ONS Bucky bid while hospitalized and encourage pt to continue bid at home to support wound healing. 2. Recc pt take MVI daily. 3. Recc increasing intake of nutrients for healing from protein rich foods, foods rich in vits A and C, and zinc. EER: 120g PRO/d (0.9g/kg) Monitoring/Evaluations: POs, ONS tolerance Electronically Signed by: Marisa Henderson 02/07/21 14:[address] [address]
--- NOTE | 2021-02-07 15:03 | CM.DPC ---
Emailed Joanie Traylor a referral packet per Lexie. Confirm. received. Morena Miles CM Asst.
--- NOTE | 2021-02-07 15:06 | PC.NURSE ---
KENDALL Anton reports to JOVITA Christian and this student RN that this patient has dropped his urinal on the floor twice. When this student RN was in the room the patient has been asleep with bed sheets twisted and occluding his IV tubing. This student RN repositioned his sheets and began the IV again per JUN. Call light is within reach, bed alarm is on.
--- NOTE | 2021-02-07 15:25 | PC.NURSE ---
Addendum entered by Anahi Constantino R.N. 02/07/21 17:33: Lab called to report Strep A in Blood, Notified Dr. lCinton, Per MD ok to finish infusing Vanco prior to infusing new orders. Per lab Strep A sensitive to PCN. Contact Isolation not initiated as Strep A is sensitive. Original Note: Assumed care of pt at 0700. Pt resting in bed during hand-off report. Awakens to sternal rub. Reports wanting to sleep and be left alone. Awakens for breakfast, Pt reports he is allergic to eggs but ate some of his [place] toast because he stated I was too hungry to wait for a different breakfast. MD aware. No s/s of allergic reaction. Chart updated to note egg allergy. Pt accepted offer of shower. Refused to let staff assist with transfer to bathroom or to allow skin assessment of posterior body. Ambulated to bathroom with FWW. Sitting in chair during shower. Refused to let staff assist during shower and requested to be left alone. Will call when finished. Student nurse documented note referencing pt dumping urinal on floor at least 2x this shift. See note for details.
[2021-02-07 15:47] LABS: Enterococcus species Not Detected (Not Detect); Listeria monocytogenes Not Detected (Not Detect); Staphylococcus species Not Detected (Not Detect); Streptococcus agalactiae (Gr B Not Detected (Not Detect); Streptococcus pneumonia Not Detected (Not Detect); Streptococcus species Detected (Not Detect)
[2021-02-07 15:48] LABS: Acinetobacter baumannii Not Detected (Not Detect); Candida albicans Not Detected (Not Detect); Candida glabrata Not Detected (Not Detect); Candida krusei Not Detected (Not Detect); Candida parapsilosis Not Detected (Not Detect); Candida tropicalis Not Detected (Not Detect); E. coli Not Detected (Not Detect); Enterobacter cloacae complex Not Detected (Not Detect); Enterobacteriaceae species Not Detected (Not Detect); Haemophilus influenzae Not Detected (Not Detect); Neisseria meningitidis Not Detected (Not Detect); Proteus species Not Detected (Not Detect); Pseudomonas aeruginosa Not Detected (Not Detect); Serratia marcescens Not Detected (Not Detect)
[2021-02-07 15:52] LABS: Streptococcus pyogenes (Gr A) Detected (Not Detect)
--- NOTE | 2021-02-07 16:49 | DI.CT.S_ITS ---
PROCEDURE: CT LE LT W CON INDICATIONS: group A strep bacteremia, r/o abscess entire left leg. TECHNIQUE: After the administration of intravenous contrast, 3 mm axial sections acquired of the left lower extremity , with coronal and sagittal reformats. COMPARISON: [facility], CT, CT LE RT W CON, 12/16/2020, 9:09. FINDINGS: Image quality: Excellent. Bones: No evidence of osteomyelitis. No significant degenerative change. Soft tissues: Diffuse edema, possibly representing cellulitic change. No abscess. No soft tissue gas. No radiopaque foreign body. There are extensive bilateral enlarged inguinal lymph nodes. Additionally, there are bilateral enlarged external iliac lymph nodes. IMPRESSION: 1. Diffuse edematous change in the subcutaneous tissues may represent cellulitis. 2. No evidence of osteomyelitis. There is no evidence of soft tissue gas or radiopaque foreign body. 3. Extensive bilateral inguinal adenopathy and lower pelvic adenopathy. Consider CT abdomen and pelvis to evaluate for the presence or absence of other enlarged lymph nodes and consider possible reactive adenopathy versus lymphoma. Dictated by: Parker Wright M.D. on 02/07/2021 at 17:45 Approved by: Parker Wright M.D. on 02/07/2021 at 17:50
[2021-02-07] MEDS: CLINDAMYCIN 900 MG/50 ML PIGGYBACK 50 MG IV (18:02)
[2021-02-07] MEDS: PENICILLIN POTASSIUM IV ×2 (19:13→22:57)
[2021-02-07] MEDS: SODIUM CHLORIDE 0.9% IV ×2 (19:13→22:57)
[2021-02-07] MEDS: SENNOSIDES 8.6 MG TABLET 17.2 MG PO (21:37)
[2021-02-07] MEDS: SODIUM CHLORIDE 0.9% FLUSH 10 ML IV (21:38)
[2021-02-08] VITALS (9 sets, daily range): BP systolic 93–135; BP diastolic 56–85; PULSE 89–101; RESP 16–18; TEMP 35–37.7; O2SAT 96–99
[2021-02-08] MEDS: CLINDAMYCIN 900 MG/50 ML PIGGYBACK 50 MG IV ×4 (00:14→23:46)
[2021-02-08] MEDS: SODIUM CHLORIDE 0.9% IV ×6 (01:30→21:20)
[2021-02-08] MEDS: KETOROLAC 30 MG/ML VIAL IV (01:30)
[2021-02-08] MEDS: PENICILLIN POTASSIUM IV ×6 (01:30→21:20)
[2021-02-08 05:15] LABS: Add Manual Diff / Slide Review NO; Basophils Absolute Auto 100 /uL (0-100); Basophils Percent Auto 0.3 % (0-2); Eosinophils Absolute Auto 100 /uL (0-450); Eosinophils Percent Auto 0.3 % (2-4); Hematocrit 27.6 % (41-53); Hemoglobin 8.8 g/dL (13.5-17.5); Lymphocytes Absolute Auto 1200 /uL (1100-4500); Lymphocytes Percent Auto 6.9 % (25-40); Mean Corpuscular HGB Conc 31.8 % (30-36); Mean Corpuscular Hemoglobin 22.9 PG (26-34); Mean Corpuscular Volume 72.1 fL (80-100); Monocytes Absolute Auto 1000 /uL (0-900); Monocytes Percent Auto 5.7 % (3-14); Neutrophils Absolute Auto 15500 /uL (1500-7000); Neutrophils Percent Auto 86.8 % (50-75); Platelet Count 315 X10^3/uL (150-400); Red Blood Cell Count 3.83 X10^6/uL (4.5-5.9); Red Cell Distribution Width 16.8 % (11.6-14.8); White Blood Cell Count 17.8 X10^3/uL (4.5-11.0)
[2021-02-08 05:30] LABS: Alanine Aminotransferase 15 IU/L (<50); Albumin 2.9 g/dL (3.5-5.0); Albumin Globulin Ratio 0.6 (1.0-2.8); Alkaline Phosphatase 94 U/L (38-126); Aspartate Aminotransferase 33 IU/L (17-59); BUN Creatinine Ratio 20.3 (6-22); Bilirubin Total 0.4 mg/dL (0.2-1.3); Bilirubin Unconjugated 0.2 mg/dL (0.0-1.1); Blood Urea Nitrogen 13 mg/dL (9-20); Calcium 7.5 mg/dL (8.4-10.2); Carbon Dioxide 25 mmol/L (22-32); Chloride 107 mmol/L (98-107); Estimated Glomerular Filt Rate > 60.0 mL/min (>60); Globulin 4.5 g/dL (1.7-4.1); Glucose 115 mg/dL (70-100); HEMOLYSIS 27 (0-50); Potassium 3.5 mmol/L (3.4-5.1); Sodium 136 mmol/L (137-145); Total Protein 7.4 g/dL (6.3-8.2)
[2021-02-08] MEDS: METHADONE 10 MG TABLET 20 MG PO ×2 (08:59→21:28)
[2021-02-08] MEDS: SODIUM CHLORIDE 0.9% 1,000 ML 100 ML IV (08:59)
[2021-02-08] MEDS: ENOXAPARIN 40 MG/0.4 ML SYRINGE SUBCUT (08:59)
--- NOTE | 2021-02-08 09:11 | CM.DPNOTE ---
Faxed referral packet to [facility] [employer] and emailed to [facility] per Jerri. Received confirm. Morena Miles CM Asst.
[2021-02-08] MEDS: SODIUM CHLORIDE 0.9% FLUSH 10 ML IV (09:12)
--- NOTE | 2021-02-08 12:10 | P.PN_ITS ---
Subjective Subjective Date Patient Seen: 02/08/21 Time Patient Seen: 12:10 Interval history: 35 M admitted with cellulitis, blood cultures now positive for group A strep. Antibiotics changed to penicillin and clindamycin. Vanco discontinued. Patient appears much improved today, erythema improving, and leg pain now gone per patient. Exam Vital Signs (past 8 hours): - 02/08/21 05:00 02/08/21 07:00 02/08/21 08:05 Temperature 95.0 F L 97.8 F Pulse Rate 89 96 H Respiratory Rate 16 16 Blood Pressure 93/56 L 98/69 Pulse Oximetry 96 96 99 02/08/21 10:37 Temperature Pulse Rate Respiratory Rate Blood Pressure Pulse Oximetry 99 Oxygen Delivery Method Room Air Oxygen Flow Rate 0 Narrative Exam Narrative: Gen: Alert, oriented, morbidly obese 35 y.o. male, no acute distress HEENT: normocephalic, atraumatic, conjunctiva clear, sclera non-icteric, oral mucosa pink and moist Neck: supple, full ROM, no JVD, trachea is midline Resp: Lungs CTA, non-labored breathing CV: RRR, no murmur or rubs Abd:? Obese, soft, non-tender, normoactive BTs Skin:? Multiple needle sticks visualized on both his lower extremities extending from his mid thigh area down to his toes.?left leg erythema from calf to hip, improving, less tender. R medial foot eschar, no active drainage. Neuro: Alert and oriented X 3 w/no focal deficits. Extremities: bilateral edema in the lower extremities, chronic. no obvious joint effusions. Psyche: normal mood and affect. Objective Labs Result Diagrams: 02/08/21 04:45 02/08/21 04:45 Labs: Laboratory Results - last 24 hr 02/07/21 02/08/21 02/08/21 00:25 04:45 04:45 WBC 17.8 H RBC 3.83 L Hgb 8.8 L Hct 27.6 L MCV 72.1 L MCH 22.9 L MCHC 31.8 RDW 16.8 H Plt Count 315 Neut % (Auto) 86.8 H Lymph % (Auto) 6.9 L [place] % (Auto) 5.7 Eos % (Auto) 0.3 L Baso % (Auto) 0.3 Neut # (Auto) 33394 H Lymph # (Auto) 1200 [place] # (Auto) 1000 H Eos # (Auto) 100 Baso # (Auto) 100 Sodium 136 L Potassium 3.5 Chloride 107 Carbon Dioxide 25 BUN 13 Creatinine 0.64 L Estimated GFR > 60.0 BUN/Creatinine Ratio 20.3 Glucose 115 H Calcium 7.5 L Total Bilirubin 0.4 Conjugated Bilirubin 0.0 Unconjugated Bilirubin 0.2 AST 33 ALT 15 Alkaline Phosphatase 94 Total Protein 7.4 Albumin 2.9 L Globulin 4.5 H Albumin/Globulin Ratio 0.6 L A. baumannii (PCR) Not detected Marlene albicans (PCR) Not detected C. glabrata (PCR) Not detected C. krusei (PCR) Not detected C. parapsilosis (PCR) Not detected C. tropicalis (PCR) Not detected Enterobacteriac sp PCR Not detected E. cloacae complex PCR Not detected Enterococcus sp PCR Not detected E. coli (PCR) Not detected H. influenzae (PCR) Not detected Klebsiella oxytoca PCR Not detected Klebsiella pneumoniae Not detected List. monocytogenes PCR Not detected N. meningitidis (PCR) Not detected Proteus species (PCR) Not detected Serratia marcescens PCR Not detected Staphylococcus sp PCR Not detected Staph aureus (PCR) Not detected mecA-Methicil Res Gene Not Reportable Streptococcus sp PCR Detected H Group A Strep (PCR) Detected H Strep agalactiae (PCR) Not detected Strep pneumoniae (PCR) Not detected P. aeruginosa (PCR) Not detected Portia/B-Vanco Res Genes Not Reportable KPC-Carbap Res Gene PCR Not Reportable [facility] Medical History Amphetamine abuse Drug abuse Hepatitis C virus infection cured after antiviral drug therapy History of DVT (deep vein thrombosis) Obesity (BMI 30-39.9) Opiate dependence, continuous Ytqhe-Ktzjsrbtq-Ohbgl (WPW) pattern Surgical History History of abdominal surgery Family History Father Overdose Drug addiction Mother Overdose Drug addiction Social History (Updated 02/07/21 @ 01:38 by JOSE Del Castillo) household members: spouse Smoking Status: Current every day smoker alcohol intake: never substance use type: opiates, IV drugs and methamphetamine Assessment & Plan Assessment & Plan narrative: Hal Mayen is a 35 year old male admitted with bilateral lower leg cellulitis and now group A strep bacteremia. 1.? Acute cellulitis of the right lower leg, group A strep bacteremia, sepsis ruled out - patient encephalopathic on admission, now improved. May be related to sepsis or more likely intoxication. SOFA score only 1. - continue penicillin G and clindamycin. Clinda can be stopped after 3 days if no shock develops. Penicillin should be continued for 14 days for bacteremia after first negative culture. - repeat blood cultures from this AM pending. Recommend midline or picc for continued antibiotics once cultures are negative. - source is likely his extensive cellulitis. CT without evidence of abscess, no evidence for osteomyelitis. 2. History of a DVT not currently anticoagulated * repeat ultrasound without DVT 3. Polysubstance abuse with amphetamines detected in urine, present on admission * Patient will likely have high opioid tolerance * He will be written for methadone 20 mg b.i.d. for pain as well as Toradol 30 mg q.i.d. as needed for pain however this will probably be limited to 3 days * Appreciate social work consultation. 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 Toxic metabolic encephalopathy, improved. - likely secondary to substance use, but cannot rule out source being his bacteremia. Now much improved today. VTE Prophylaxis: Enoxaparin 40 mg subQ once daily Dispo: will require 14 days of penicillin after first negative blood culture, so if today would be until 02/21. Care management looking for possible SNF or swing bed. May need to stay inpatient until completed. Code status: Full code as discussed with the patient who identifies his as? his surrogate and POA. [X] I have utilized all available immediate resources to obtain, update, or review of the patient's current medications Time Spent With Patient Critical Care time: I spent a total of [] minutes of critical care time on this patient's care today; this time is exclusive of procedural time. Quality VTE Deep Vein Thrombosis/Pulmonary Embolism Present on Admission: No
[2021-02-08] MEDS: POTASSIUM CHLORIDE 20 MEQ TAB 40 MEQ PO (12:16)
--- NOTE | 2021-02-08 12:24 | CM.DPC ---
DCP Cont: Referrals had been sent to facilities for senior care secondary to patient needing about 10-15 more days of IV ABO. [facility], both [facility] have refused secondary to his history of drug abuse. Had Morena, bakery assistant, send referral over to [facility] in [place]. They can potentially have a bed coming up next week. Have updated hospitalist. He stated, worst case scenario, he may need to complete his IV ABO treatment here, and does not look like osteomyelitis. P: DCP to continue to follow, and can touch base with [facility] as well. Savanna Johnson, JOVITA/Meatcutter
--- NOTE | 2021-02-08 18:54 | PC.NURSE ---
Wound care nurse brought drsg change supplies. Drsg changed per wound care verbal instructions. Stated to place silvercel non-adherent drsg to open wounds. Cover with telfa, wrap with kerlix and tubular compression stockings. Drsgs applied to open area on RLE. Tublar stockings applied to BLE.
[2021-02-08] MEDS: SENNOSIDES 8.6 MG TABLET 17.2 MG PO (21:28)
[2021-02-09] VITALS (7 sets, daily range): BP systolic 107–142; BP diastolic 63–91; PULSE 80–99; RESP 17–20; TEMP 36.6–37.7; O2SAT 96–100
[2021-02-09] MEDS: SODIUM CHLORIDE 0.9% IV ×6 (02:33→21:37)
[2021-02-09] MEDS: PENICILLIN POTASSIUM IV ×6 (02:33→21:37)
[2021-02-09] MEDS: SODIUM CHLORIDE 0.9% 1,000 ML 100 ML IV ×2 (02:36→17:21)
[2021-02-09 06:22] LABS: Add Manual Diff / Slide Review NO; Basophils Absolute Auto 0 /uL (0-100); Basophils Percent Auto 0.5 % (0-2); Eosinophils Absolute Auto 200 /uL (0-450); Eosinophils Percent Auto 2.4 % (2-4); Hematocrit 27.3 % (41-53); Hemoglobin 8.8 g/dL (13.5-17.5); Lymphocytes Absolute Auto 1200 /uL (1100-4500); Lymphocytes Percent Auto 13.3 % (25-40); Mean Corpuscular Hemoglobin 23.1 PG (26-34); Monocytes Absolute Auto 900 /uL (0-900); Monocytes Percent Auto 9.7 % (3-14); Neutrophils Absolute Auto 6500 /uL (1500-7000); Neutrophils Percent Auto 74.1 % (50-75); Platelet Count 355 X10^3/uL (150-400); Red Cell Distribution Width 17.2 % (11.6-14.8); White Blood Cell Count 8.8 X10^3/uL (4.5-11.0)
--- NOTE | 2021-02-09 07:36 | PM.PN.1 ---
Subjective Subjective Date Patient Seen: 02/09/21 Interval history: He is seen in his room here on 02/09/2021 to follow-up his group A bacteremia with cellulitis. The white count has dropped from 17 down to 8.8. The hemoglobin remains stable at 8.8 compared to yesterday. He is now 3 days into his 14 day planned ceftriaxone course. An echocardiogram will also be obtained to make sure there is no obvious endocarditis. Exam Vital Signs (past 8 hours): - 02/09/21 05:36 Temperature 97.9 F Pulse Rate 97 H Respiratory Rate 20 Blood Pressure 121/68 Pulse Oximetry 96 Oxygen Delivery Method Room Air Oxygen Flow Rate 0 Narrative Exam Narrative: He is alert and oriented x3. He is in no apparent distress. Heart is regular rate and rhythm without murmur Lungs are clear to auscultation bilaterally Lower legs are lymphedematous and are wrapped. Objective Labs Result Diagrams: 02/09/21 06:00 02/09/21 11:13 Labs: Laboratory Results - last 24 hr 02/09/21 06:00 WBC 8.8 D RBC 3.80 L Hgb 8.8 L Hct 27.3 L MCV 72.0 L MCH 23.1 L MCHC 32.0 RDW 17.2 H Plt Count 355 Neut % (Auto) 74.1 Lymph % (Auto) 13.3 L [place] % (Auto) 9.7 Eos % (Auto) 2.4 Baso % (Auto) 0.5 Neut # (Auto) 6500 Lymph # (Auto) 1200 [place] # (Auto) 900 Eos # (Auto) 200 Baso # (Auto) 0 PFSH Medical History Amphetamine abuse Drug abuse Hepatitis C virus infection cured after antiviral drug therapy History of DVT (deep vein thrombosis) Obesity (BMI 30-39.9) Opiate dependence, continuous Tedjp-Qszspaffj-Rvhny (WPW) pattern Surgical History History of abdominal surgery Family History Father Overdose Drug addiction Mother Overdose Drug addiction Social History (Updated 02/07/21 @ 01:38 by JOSE Del Castillo) household members: spouse Smoking Status: Current every day smoker alcohol intake: never substance use type: opiates, IV drugs and methamphetamine Assessment & Plan Assessment & Plan narrative: Hal Mayen is a 35 year old male admitted with bilateral lower leg cellulitis and now group A strep bacteremia. 1. Acute cellulitis of the right lower leg, group A strep bacteremia(strep pyogenes), sepsis ruled out - patient encephalopathic on admission, now improved. May be related to sepsis or more likely intoxication. SOFA score only 1. - initially treated with clindamycin (stopped 02/09) and penicillin. Now on day 05/20 penicillin for strep pyogenes bacteremia (after 1st negative blood culture on 02/08). - Blood culture negative on 02/08. Will need midline or picc for continued antibiotics. - source is likely his extensive cellulitis. CT without evidence of abscess, no evidence for osteomyelitis. Check echocardiogram due to possible IV drug use history. 2. History of a DVT not currently anticoagulated repeat ultrasound without DVT 3. Polysubstance abuse with amphetamines detected in urine, present on admission Patient will likely have high opioid tolerance Methadone 20 mg b.i.d. for pain as well as Toradol 30 mg q.i.d. (stopped after 3 days on 02/09) Appreciate social work consultation. 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 Toxic metabolic encephalopathy, improved. - likely secondary to substance use, but cannot rule out source being his bacteremia. Now resolved. 6. Anemia -Likely caused by inflammatory block of Strep Pyogenes Bacteremia/Cellulitis -Echo to r/o endocarditis -Stable at 8.8 Hgb on 02/09 VTE Prophylaxis: Enoxaparin 40 mg subQ once daily Dispo: will require 14 days of penicillin after first negative blood culture, so until 02/21. Care management looking for possible SNF or swing bed. May need to stay inpatient until completed. Code status: Full code as discussed with the patient who identifies his as his surrogate and POA. Time Spent With Patient Critical Care time: I spent a total of [] minutes of critical care time on this patient's care today; this time is exclusive of procedural time. Quality VTE Deep Vein Thrombosis/Pulmonary Embolism Present on Admission: No
[2021-02-09] MEDS: ENOXAPARIN 40 MG/0.4 ML SYRINGE SUBCUT (09:26)
[2021-02-09] MEDS: CLINDAMYCIN 900 MG/50 ML PIGGYBACK 50 MG IV (09:26)
[2021-02-09] MEDS: METHADONE 10 MG TABLET 20 MG PO ×2 (09:26→21:37)
[2021-02-09] MEDS: SODIUM CHLORIDE 0.9% FLUSH 10 ML IV ×2 (09:27→21:38)
[2021-02-09 11:50] LABS: Alanine Aminotransferase 16 IU/L (<50); Albumin 3.1 g/dL (3.5-5.0); Albumin Globulin Ratio 0.7 (1.0-2.8); Alkaline Phosphatase 102 U/L (38-126); Aspartate Aminotransferase 33 IU/L (17-59); BUN Creatinine Ratio 19.1 (6-22); Bilirubin Total 0.3 mg/dL (0.2-1.3); Blood Urea Nitrogen 13 mg/dL (9-20); Calcium 8.3 mg/dL (8.4-10.2); Carbon Dioxide 27 mmol/L (22-32); Chloride 107 mmol/L (98-107); Estimated Glomerular Filt Rate > 60.0 mL/min (>60); Globulin 4.5 g/dL (1.7-4.1); Glucose 120 mg/dL (70-100); HEMOLYSIS < 15 (0-50); Potassium 4.1 mmol/L (3.4-5.1); Sodium 140 mmol/L (137-145); Total Protein 7.6 g/dL (6.3-8.2)
--- NOTE | 2021-02-09 12:09 | DI.ECHO.S_ITS ---
[facility]---------+ [facility] +---------+ : : [address] [place] [address] : : : : [id number] : : : : Phone: [phone]+ Echocardiogram Report + + :Name: JAYLIN LUNA Study Date: 02/10/2021 Height: 75 in : :[facility] ReadingLocation: Weight: 315 lb : : Gender: Male BSA: 2.7 m2 : :: 1985 Age: 35 yrs BP: 142/91 mmHg: :Reason For Study: BACTEREMIA AND IVDU : :Ordering Physician: MASTER, : :ALETHA Ahumada Performed By: Scarlett Hart : :Referring: ALETHA THAO : + + Interpretation Summary Left ventricular systolic function appears normal with an estimated ejection fraction of 55 to 60% without any obvious focal wall motion abnormality. Left ventricular size and wall thickness appear normal. Diastolic function is likely normal with normal filling pressures. The right ventricle appears borderline enlarged and slightly larger compared to the previous study. Right ventricular systolic function appears normal and unchanged from the previous exam. Right ventricular systolic pressure cannot be estimated but CVP is likely around 3 mmHg, and is possibly lower compared to the previous study. Both atria are mildly enlarged and measure slightly larger compared to the previous study. The cardiac valves grossly appear normal although are not well visualized. Specifically, there is no obvious vegetation seen. There is no significant functional valvular abnormality. Procedure: A two-dimensional transthoracic echocardiogram with color flow and Doppler was performed. The study quality was technically difficult. Comparison is made with the echocardiogram of 04/05/2018. The patient was in sinus rhythm with heart rates between 74-86 bpm during the exam. Left Ventricle: The left ventricle is normal in size and wall thickness. Left ventricular systolic function is normal. The ejection fraction is estimated to be 55-60%. There are no obvious focal wall motion abnormalities noted but poor endocardial definition reduces the sensitivity for the detection of such. Diastolic parameters suggest probable normal left ventricular diastolic function and normal filling pressures. There has been no significant change since the previous study. Right Ventricle: The right ventricle is borderline dilated. This is slightly larger compared to the previous study. The right ventricular systolic function is normal. This is unchanged compared to the previous study. Atria: Both atria are mildly dilated. Both atria have mildly increased in size since the prior echo exam. There is no Doppler evidence for an interatrial shunt. Mitral Valve: The mitral valve is grossly normal. There is no obvious vegetation seen on the mitral valve. There is trace mitral regurgitation. Aortic Valve: The aortic valve is not well visualized. The aortic valve is grossly normal. The aortic valve opens well. There is no obvious aortic valvular vegetation. There is no aortic valve stenosis. No aortic regurgitation is present. Tricuspid Valve: The tricuspid valve is not well visualized. There is no obvious tricuspid valve vegetation. There is trace tricuspid regurgitation. Pulmonary artery pressures cannot be estimated because of the lack of a measurable TR jet velocity but the IVC suggests a CVP of around 3 mmHg. This is possibly slightly lower compared to the previous study. Pulmonic Valve: The pulmonic valve is not well seen, but is grossly normal. There is no obvious vegetation on the pulmonic valve. There is no pulmonic valvular regurgitation. There is no significant valvular heart disease. Great Vessels: The aortic root is normal size. The dimensions of the ascending aorta are normal. The IVC is of normal diameter and collapses greater than 50% with a sniff. This suggests a low right atrial pressure of 3 mm Hg. Pericardium/ Pleura There is no pericardial effusion. There is no pleural effusion. MMode/2D Measurements & Calculations LVIDd: 5.3 cm LVOT diam: 2.5 cm LVIDs: 3.7 cm Ao root diam: 3.5 cm FS: 29.8 % asc Aorta Diam: 3.2 cm IVSd: 0.84 cm LVPWd: 1.0 cm LV gardiner. diameter/BSA (cm/m^2): 2.0 LV sys. diameter/BSA (cm/m^2): 1.4 LA A2 area: 25.7 cm2 RA long axis: 6.0 cm LA A4 area: 27.4 cm2 RA area: 22.7 cm2 LA length (vol): 5.9 cm RA vol: 73.2 ml LA vol: 100.5 ml RA : 27.5 ml/m2 LA vol index: 37.8 ml/m2 IVC diam: 1.8 cm RVD1 (basal): 3.9 cm TAPSE: 2.5 cm Doppler Measurements & Calculations Ao V2 max: 111.1 cm/sec LVOT Max Alexi: 98.1 cm/sec Ao V2 mean: 74.3 cm/sec LV V1 max P.8 mmHg Ao max P.9 mmHg LV V1 VTI: 20.2 cm Ao mean P.5 mmHg EMELYN(I,D): 4.5 cm2 Ao V2 VTI: 22.9 cm EMELYN(V,D): 4.5 cm2 sev ratio: 0.88 EMELYN indexed to BSA (cm^2/m^2): 1.7 MV E max alexi: 85.5 cm/sec PA V2 max: 114.4 cm/sec MV A max alexi: 50.3 cm/sec PA V2 mean: 85.8 cm/sec MV E/A: 1.7 PA mean P.2 mmHg Med Peak E' Alexi: 12.7 cm/sec PA pr(Accel): 3.6 mmHg E/E' med: 6.7 Lat Peak E' Alexi: 17.0 cm/sec E/E' lat: 5.0 E/e' average: 5.9 MV dec time: 0.22 sec SV(LVOT): 102.3 ml Reading Physician:12:07 PM
--- NOTE | 2021-02-09 15:02 | CM.DPC ---
DCP Cont: Discussed patient during team rounds. It is confirmed that patient needs approximately 11 more days of IV ABO. His total was 14, and he has had 3 treatments. [facility] has referral, but has no openings until the middle of next week. Can check in with them again on Thursday. [facility], and both [facility] have denied. Started searching in the [place] area. Left Anne-Marie a message on her admissions cell phone about patient. Patient does have [facility], and unsure if they accept insurance. Authorization would need to be obtained regardless of the facility. Spoke to Winsome at [facility], and she denied. Left a message with [facility] with the attention of Sita. Left a message with [facility] with Kevin in admissions. Left a message with Becky at [facility] [place] [facility], as well as [facility]ri[facility] Gusman in [place]. P: DCP to continue to follow. Most facilities have been attempted as stated above, and messages left. Main barrier is history of drug use. Savanna Johnson RN/Sanitor
[2021-02-09] MEDS: SENNOSIDES 8.6 MG TABLET 17.2 MG PO (21:37)
[2021-02-10] VITALS (10 sets, daily range): BP systolic 119–145; BP diastolic 77–84; PULSE 79–88; RESP 14–18; TEMP 36.1–37.2; O2SAT 96–100
[2021-02-10] MEDS: PENICILLIN POTASSIUM IV ×6 (01:41→22:51)
[2021-02-10] MEDS: SODIUM CHLORIDE 0.9% IV ×6 (01:41→22:51)
--- NOTE | 2021-02-10 04:46 | PC.NURSE ---
Pt's room has been having an unusual smells. I asked pt if he has been smoking in the room which he denies. Pt has history of drug abuse. will continue to follow up.
[2021-02-10] MEDS: METHADONE 10 MG TABLET 20 MG PO ×2 (09:14→20:31)
[2021-02-10] MEDS: ENOXAPARIN 40 MG/0.4 ML SYRINGE SUBCUT (09:14)
[2021-02-10] MEDS: SODIUM CHLORIDE 0.9% FLUSH 10 ML IV ×2 (09:14→22:42)
--- NOTE | 2021-02-10 15:14 | CM.DPC ---
DCP: Discussed patient during team rounds, and verified by Dr. Underwood that patient will need IV ABO for the next two weeks. Patient will be on daily IV antibiotics. Dr. Underwood asked about patient going home with IV ABO, but he would need to go with a midline, and drug use is a concern. There would be another option of patient going to the wound clinic for the daily infusions, but would need to have an IV started each time. Will go and discuss with patient. This life care planner and PUTTIER, Erika, met with patient. Introduced self and role. Patient had been sleeping, pleasant. Asked him if he knew why he was still here, and he is aware that he has an infection in his blood that needs to be treated. Let him know that this case management coordinator had attempted to find facilities for patient to complete his IV ABO, but due to drug use, no facilities have accepted. Asked patient if he was still using IV drugs, he stated, I stopped doing that about a year ago, but recently smoked meth. Confirmed with him that he is continuing to go to [facility] wound clinic next to the hospital for wound care. Asked him if he would be willing to go to infusion clinic to complete his IV ABO, but would need a new IV daily. Patient stated, he would be fine with that. Asked him if he had a primary provider. He mentioned that he had gone to Dr. Victor at [facility], but hadn't been there for a while. He stated, she can see me again, even though I haven't been there for a while. He is already established with Dr. Mcdowell for wound care. Updated Dr. Underwood on plan. Will need to contact infusion clinic, as insurance is [employer]. Decided to call over at the infusion clinic. Left a message with them about this patient needing daily IV ABO, and if Dr. Mcdowell can follow him. Will go ahead and fax over a face sheet to them today. Will need to follow up tomorrow. P: DCP to continue to follow. Follow up with infusion clinic to see if they can accomidate patient, and then, hospitalist will need to write a script. Savanna Johnson RN/Commissioning Editor
--- NOTE | 2021-02-10 16:08 | PM.PN.1 ---
Subjective Subjective Date Patient Seen: 02/10/21 Interval history: Patient is in follow-up of group a strep bacteremia with lower extremity cellulitis. Repeat blood cultures negative. He has no complaints. Exam Vital Signs (past 8 hours): - 02/10/21 08:54 02/10/21 09:00 02/10/21 13:00 Temperature 98.2 F 98.9 F Pulse Rate 87 85 Respiratory Rate 18 18 Blood Pressure 129/78 138/80 Pulse Oximetry 99 99 100 Oxygen Delivery Method Room Air Oxygen Flow Rate 0 Narrative Exam Narrative: General: Alert, NAD Extremity: Chronic bilateral LE lymphedema with unchanged superficial non pressure ulcers and mild erythema Objective Labs Result Diagrams: 02/09/21 06:00 02/09/21 11:13 [facility] Medical History Amphetamine abuse Drug abuse Hepatitis C virus infection cured after antiviral drug therapy History of DVT (deep vein thrombosis) Obesity (BMI 30-39.9) Opiate dependence, continuous Fmjfd-Foiwdofsr-Vfgxi (WPW) pattern Surgical History History of abdominal surgery Family History Father Overdose Drug addiction Mother Overdose Drug addiction Social History (Updated 02/07/21 @ 01:38 by JOSE Del Castillo) household members: spouse Smoking Status: Current every day smoker alcohol intake: never substance use type: opiates, IV drugs and methamphetamine Assessment & Plan Assessment & Plan narrative: Hal Mayen is a 35 year old male admitted with bilateral lower leg cellulitis and now group A strep bacteremia. 1. Acute cellulitis of the right lower leg, group A strep bacteremia(strep pyogenes), sepsis ruled out - patient encephalopathic on admission, now improved. May be related to sepsis or more likely intoxication. SOFA score only 1. - initially treated with clindamycin (stopped 02/09) and penicillin. Now on day 3 penicillin for strep pyogenes bacteremia (after 1st negative blood culture on 02/08). - Blood culture negative on 02/08. - source is likely his extensive cellulitis. CT without evidence of abscess, no evidence for osteomyelitis. -no obvious vegetations on echo -patient agreeable to likely discharge tomorrow to come in to infusion clinic for daily IV antibiotic which will be with Rocephin 2 g IV Q 24 hours. Will transition him to Rocephin tomorrow a.m.. He will need fresh IV line each time due to past history of IVDU. -follow-up at local wound care 2. History of a DVT not currently anticoagulated repeat ultrasound without DVT 3. Polysubstance abuse with amphetamines detected in urine, present on admission Patient will likely have high opioid tolerance Methadone 20 mg b.i.d. for pain as well as Toradol 30 mg q.i.d. (stopped after 3 days on 02/09) Appreciate social work consultation. 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 Toxic metabolic encephalopathy, improved. - likely secondary to substance use, but cannot rule out source being his bacteremia. Now resolved. 6. Anemia -Likely caused by inflammatory block of Strep Pyogenes Bacteremia/Cellulitis -Stable at 8.8 Hgb on 02/09 VTE Prophylaxis: Enoxaparin 40 mg subQ once daily Time Spent With Patient Critical Care time: I spent a total of [] minutes of critical care time on this patient's care today; this time is exclusive of procedural time. Quality VTE Deep Vein Thrombosis/Pulmonary Embolism Present on Admission: No
[2021-02-10] MEDS: SENNOSIDES 8.6 MG TABLET 17.2 MG PO (20:31)
[2021-02-11 01:00] VITALS: BP 135/85; PULSE 89; RESP 20; TEMP 36.8; O2SAT 97
[2021-02-11] MEDS: PENICILLIN POTASSIUM IV ×2 (01:05→06:08)
[2021-02-11] MEDS: SODIUM CHLORIDE 0.9% IV ×2 (01:05→06:08)
[2021-02-11 07:00] VITALS: BP 144/79; PULSE 83; RESP 22; TEMP 37.1; O2SAT 96
[2021-02-11] MEDS: cefTRIAXone 2,000 MG in SODIUM CHLORIDE 0.9% 100 ML 200 ML IV (08:25)
[2021-02-11] MEDS: ENOXAPARIN 40 MG/0.4 ML SYRINGE SUBCUT (08:27)
[2021-02-11] MEDS: METHADONE 10 MG TABLET 20 MG PO (08:28)
[2021-02-11] MEDS: SODIUM CHLORIDE 0.9% FLUSH 10 ML IV (08:28)
[2021-02-11 08:47] VITALS: O2SAT 100
[2021-02-11 10:10] VITALS: BP 133/78; PULSE 76; RESP 16; TEMP 37.4; O2SAT 99
--- NOTE | 2021-02-11 10:59 | CM.DPC ---
Addendum entered by Micaela Smith DONNIE 02/11/21 11:50: ADD: Return call from Jennifer at [facility] confirming that Dr. Mcdowell will follow with pt for outpt wound care but preference is for PCP to follow for IV-Abx as pt has had difficulty coming in consistently/as often as recommended for Wound Care. GISEL called PCP office back again with request and then RADHA Berg faxed facesheet, H&P, d/c summ and [place] [facility] [place] to set up appointment with Dr. Victor. BF Original Note: DCP Discharge with IV-Abx needs Per MD, pt is medically stable to d/c today with 9 more days of IV-Abx Q24 if outpt infusion can be set up without midline or PICC being placed but daily IV sticks due to pt's ongoing IV-DA and hx. GISEL called [facility] and spoke to guide travel Frankie and discussed pt situation and she confirmed that they would be willing to do once daily IV access for pt's IV-Abx for 9 days at their clinic since pt is willing to drive daily. GISEL called pt's previous PCP Dr. Victor at [facility] and confirmed that pt has not been seen since June 2019 and therefore would need to schedule a re-establish appt with the MD and could not likely follow for ongoing IV-Abx. GISEL called [facility] and left msg inquiring if Dr. Mcdowell could be the following MD for the 9 days of IV-Abx and that referral/consult order placed for ongoing follow up outpt after d/c today and faxed pt's d/c summary. GISEL called Frankie back at Infusion Clinic and updated and she states they just need hard copy of script with IV-Abx dosing and frequency and duration, H&P, facesheet, d/c summ faxed to [phone] and they would schedule pt for tomorrow afternoon and will call him with time. GISEL met bedside with pt and explained role and discussed above and confirmed pt is agreeable with d/c home today with once daily drive from home in [place] to [facility]fusion [facility] in [place] as he has been established with [facility] wound care and will need f/u there at d/c anyways and it will only be for 9 more days. Pt agreeable with calling the [facility] clinic number provided to set up re-establish care apt with Dr. Victor while waiting for d/c today. Pt states his spouse is on her way to the hospital to transport him home today. SW updated MD and RN and RADHA Berg kindly faxing requested documents to Infusion Clinic at [facility]. Plan: Patient to d/c home via spouse POV and 9 days outpt IV-Abx clinic and ongoing wound care at [facility]. DONNIE Khan
--- NOTE | 2021-02-11 12:38 | PC.NURSE ---
Discharge orders received. Float nurse reviewed discharge paperwork and removed IV midline from patient, patient now state he has no further questions or concerns. Agrees with plan for infusion clinic infusions for next 9 days, and will re establish care/follow up with his PCP and wound care. Legs currently wrapped in nonadherent dressing, covered with wrap and his compression stockings, intact, patient declines dressing change today prior to discharge. Patient without complaint. Escorted out via wheelchair by RN to be discharged to home with his . Instructed to seek care for new or worsening symptoms.
--- NOTE | 2021-02-11 15:24 | CM.DPNOTE ---
Faxed RX, fs, & H&P to [facility] Infusion clinic. Will send DC summary when completed. Confirm received. Morena Miles CM Asst.
--- NOTE | 2021-02-11 15:40 | P.DS_ITS ---
History of Present Illness History of Present Illness Chief complaint: thinks possible blood infection Narrative: 35 year-old morbidly obese gentleman resident of [place] who presented to the emergency room with complaint of right Leg swelling, pain, and possible abscess. Discharge Providers Provider Date of admission: 02/07/21 01:09 Discharge Date: 02/11/21 Consults: 02/07/21 02:06 Consult to Dietitian, Adult Urgent Comment: Reason For Exam: bilateral lower leg wounds 02/07/21 02:07 Consult to Physician Routine Comment: Consulting Provider: Daksha Frankel Reason for consultation: ulcers on left calf Has provider been notified: Yes Consult to Wound Care Routine Comment: Consulting Provider: Rachael- Wound Care 02/07/21 03:00 Consult to JOB PRESS OPERATOR - Civil Design Specialist Routine Comment: Said he was interested in rehab JOB PRESS OPERATOR Consult: Substance Abuse Assess Discharge provider: Kendrick Underwood MD Summary Hospital Course Discharge Diagnosis: 1. Group a strep bacteremia without sepsis 2. Acute cellulitis of right lower leg 3. Polysubstance abuse 4. History of Wgpgc-Uzozeyhlk-Batwh syndrome 5. Acute toxic metabolic encephalopathy 6. Anemia secondary to inflammatory block Echocardiogram: No valvular vegetations Patient was admitted and started on antibiotic for right lower extremity cellulitis. There is no evidence of abscess. Blood cultures did grow group a strep. He was treated with penicillin IV q.4 hours and then transition to Rocephin on morning of discharge. He will come in to infusion clinic for 9 more days to complete a 14 day treatment course for group a strep bacteremia. He will have a fresh peripheral IV put in each time due to history of IVDU in the past. His repeat blood cultures did show clearance of bacteremia. Source of bacteremia is likely chronic non pressure ulcers on the lower extremity where he scratches. Status at Discharge Cognitive/behavioral status at discharge: oriented Functional status at discharge: independent ambulation Overall status at discharge: patient is back to baseline Time Spent with Patient Time spent: Less than 30 minutes Exam Vital Signs (past 8 hours): - 02/11/21 08:47 02/11/21 10:10 Temperature 99.3 F Pulse Rate 76 Respiratory Rate 16 Blood Pressure 133/78 Pulse Oximetry 100 99 Oxygen Delivery Method Room Air Oxygen Flow Rate 0 Narrative Exam Narrative: General: Alert, NAD Extremities: Chronic lymphedema, improving cellulitis of right leg with superficial non pressure ulcers Objective Labs Result Diagrams: 02/09/21 06:00 02/09/21 11:13 [facility] Medical History Amphetamine abuse Drug abuse Hepatitis C virus infection cured after antiviral drug therapy History of DVT (deep vein thrombosis) Obesity (BMI 30-39.9) Opiate dependence, continuous Aboes-Zovhmrhaj-Gzhev (WPW) pattern Surgical History History of abdominal surgery Family History Father Overdose Drug addiction Mother Overdose Drug addiction Social History (Updated 02/07/21 @ 01:38 by JOSE Del Castillo) household members: spouse Smoking Status: Current every day smoker alcohol intake: never substance use type: opiates, IV drugs and methamphetamine Discharge Plan Discharge Plan Patient Disposition: Home Provider Discharge Comment: You were treated for lower extremity cellulitis and strep bacteremia. You are scheduled to return to infusion clinic for 9 more days of IV antibioitic to complete treatment course. Follow up at wound care clinic. Discharge orders & Medications Prescriptions: New ceftriaxone 2 gram Recon Soln 2,000 mg IV Q24H 9 Days Qty: 9 RF: 0 Medication counseling provided by Pharmacist: Yes Follow up/Referrals: Rainer Quintero MD [Physician] - Discharge Health Status Multidrug resistant organism: No MDRO Diet/Activity/Treatments Diet: Regular Visit Report/Discharge Packet Instructions: DI for Cellulitis -- Adult, DI for Bacteremia-Adult Quality VTE Deep Vein Thrombosis/Pulmonary Embolism Present on Admission: No
== END 2021-02-11 12:30 | disposition home or self-care (01) | DRG 383 ==
LOC: ED 02-07 01:06 → AC 02-07 08:24
PROVIDERS: Admitting Provider Nurse Practitioner Family; Emergency Provider Emergency Medicine; Referring Provider Emergency Medicine; Visit Provider Nurse Practitioner Family
DX: L03.115 Cellulitis of right lower limb (principal); R78.81 Bacteremia; E66.01 Morbid (severe) obesity due to excess calories; G92.8 Other toxic encephalopathy; L97.919 Non-pressure chronic ulcer of unspecified part of right lower leg with unspecified severity; L97.929 Non-pressure chronic ulcer of unspecified part of left lower leg with unspecified severity; B95.0 Streptococcus, group A, as the cause of diseases classified elsewhere; Z68.39 Body mass index [BMI] 39.0-39.9, adult; I45.6 Pre-excitation syndrome; F15.10 Other stimulant abuse, uncomplicated; F11.10 Opioid abuse, uncomplicated; F17.210 Nicotine dependence, cigarettes, uncomplicated; D64.9 Anemia, unspecified; Z86.718 Personal history of other venous thrombosis and embolism; Z20.822 Contact with and (suspected) exposure to COVID-19
CPT/HCPCS: 36415; 73701; 76882; 80048; 80053; 80076; 80305; 81003; 82550; 83605; 84145; 84484; 85007; 85025; 85651; 86140; 87040; 87150; 87186; 87205; 87635; 93005; 93010; 93306; 93970; 94760; 96365; 96375; 99284; 99406; C9803; J0696; J1170; J1642; J1650; J1885; J2405; J2540; Q9957; Q9967

== ENCOUNTER 2022-03-19 04:55 | Emergency (ER) | payer OTHER, MEDICAID, SELFPAY ==
[2021-02-07 01:23] VITALS: BMI 39.4
[2022-03-19 05:06] VITALS: BP 146/86; PULSE 104; RESP 18; TEMP 36.1; O2SAT 96; BMI 36.8
[2022-03-19] MEDS: DOXYCYCLINE HYCLATE 100 MG TABLET PO (05:41)
--- NOTE | 2022-03-19 05:41 | ED.SKABFB ---
HPI - Skin/Abscess/Foreign Bdy General Chief complaint: Skin/Abscess/Foreign Body Stated complaint: infection in legs Time Seen by Provider: 03/19/22 05:20 Source: patient Mode of arrival: Ambulatory Limitations: no limitations History of Present Illness HPI narrative: Patient here for chronic bilateral leg wounds. His right leg flared up again about 2 or 3 weeks ago. No fever chills. Patient has chronic ulcerations from years of leg infections. Denies any chest pain or dyspnea. No fever chills. Dressing removed from leg and foot bilaterally Related Data Previous Rx's Medication Instructions Recorded doxycycline monohydrate 100 mg 100 mg PO BID #20 caps 03/19/22 capsule Allergies Allergy/AdvReac Type Severity Reaction Status Date / Time egg Allergy Intermediate Verified 02/07/21 10:07 Egg Derived Allergy Verified 02/07/21 10:07 Review of Systems Review of Systems Narrative: GENERAL: negative chills, fatigue, malaise, fever, sweats. HEENT: negative sinus pain, ear pain, sore throat RESPIRATORY: negative dyspnea, cough CARDIOVASCULAR: negative chest pain, palpitations GASTROINTESTINAL: negative nausea, vomiting, abdominal pain : negative dysuria, frequency, hematuria MUSCULOSKELETAL: negative muscle or bony pain SKIN: negative rash, positive skin lesions, positive ulcerations NEUROLOGIC: negative weakness, numbness ROS Unobtainable: All systems reviewed & are unremarkable except as noted in HPI and below Patient History Medical History Amphetamine abuse Drug abuse Hepatitis C virus infection cured after antiviral drug therapy History of DVT (deep vein thrombosis) Obesity (BMI 30-39.9) Opiate dependence, continuous Tkogw-Roxpmaxaq-Qoxnn (WPW) pattern Surgical History History of abdominal surgery Family History Father Overdose Drug addiction Mother Overdose Drug addiction Social History household members: spouse Smoking Status: Current every day smoker alcohol intake: never substance use type: opiates, IV drugs and methamphetamine Smoking Status: Current every day smoker alcohol intake frequency: 0-2 drinks per day Substance Use Type: heroin, amphetamines, opiates, IV drugs and methamphetamine Exam Narrative Exam Narrative: GENERAL: in no distress, not toxic not dyspneic HEAD: Normocephalic. EYES: Pupils equal round No scleral icterus. ENT: Mucous membranes moist. NECK: Trachea midline. CARDIOVASCULAR: Regular rate and rhythm without murmurs RESPIRATORY: Clear to auscultation. Breath sounds equal bilaterally. No wheezes, rales, or rhonchi. GASTROINTESTINAL: Abdomen soft, non-tender EXTREMITIES: Knees to toes exposed bilaterally. There is chronic appearing skin wounds on bilateral legs. No active drainage. No bleeding. No blood or muscle or fat or tendon or injury seen on ulcerations. Patient able to stand and bear weight. Steady self gait in hallway to his room. BACK: No flank tenderness. NEURO: AOx4. SKIN: Warm and dry PSYCH: Not anxious, is cooperative Initial Vital Signs Initial Vital Signs: Vital Signs Temperature 96.9 F L 03/19/22 05:06 Pulse Rate 104 H 03/19/22 05:06 Respiratory Rate 18 03/19/22 05:06 Blood Pressure 146/86 H 03/19/22 05:06 Pulse Oximetry 96 03/19/22 05:06 Oxygen Delivery Method 03/19/22 05:06 Course Course Course Narrative: No new issues during course of stay Orders Ordered: Discontinued Medications Doxycycline Hyclate (Doxycycline Hyclate 100 Mg Tablet) 100 mg PO NOW ONE Stop: 03/19/22 05:32 Last Admin: 03/19/22 05:41 Dose: 100 mg Documented By: INOCENCIO Vital Signs Vital signs: Vital Signs - 8 hr 03/19/22 05:06 Temperature 96.9 F L Pulse Rate 104 H Respiratory Rate 18 Blood Pressure 146/86 H Pulse Oximetry 96 Oxygen Delivery Method Room Air MDM - Skin/Abscess/Foreign Bdy MDM Narrative Medical decision making narrative: Appropriate for discharge home. Patient presents with chronic leg wound infection. Patient has been followed by wound care clinic here locally last year. Has been doing well, however about 3 weeks ago right leg lesions acted up again. He called online services in the prescribed him Bactrim and Keflex which he states helped him. No blood work or imaging indicated at this time. Again these are chronic findings today. Prescription for doxycycline has been sent with patient to complete. Referral to wound clinic provided for him with Dr. Quintero. Not toxic at discharge, patient desires discharge Discharge Plan Departure Patient Disposition: Home Clinical Impression: Cellulitis Instructions: DI for Cellulitis -- Adult Activity Restrictions/Additional Instructions: Call provided wound clinic today to establish appointment time for continued care of your chronic leg/skin wounds. Prescription antibiotic has been provided for you to continue. Be sure to complete these antibiotics. Continue wound care dressing changes daily. Return if worse if any questions or concerns Call provided primary care referral phone number to establish family doctor. Call [phone] Prescriptions: New doxycycline monohydrate 100 mg capsule 100 mg PO BID Qty: 20 0RF Referrals: Rainer Quintero MD [Non-Staff] - Visit Report Forms: Patient Portal/API
--- NOTE | 2022-03-19 05:52 | PC.NURSE ---
open wounds noted around the calf of the right lower extremity, abd pads x 4 placed over open areas and wrapped with kerlix
== END 2022-03-19 05:56 | disposition home or self-care (01) ==
PROVIDERS: Emergency Provider Emergency Medicine
DX: L03.115 Cellulitis of right lower limb (principal)
CPT/HCPCS: 99283

== ENCOUNTER → 2022-03-27 09:33 | Outpatient (CLI) | payer OTHER, MEDICAID, SELFPAY ==
[2021-02-07 01:23] VITALS: BMI 39.4
== END ==
PROVIDERS: Referring Provider Emergency Medicine; Visit Provider Surgery
DX: L08.9 Local infection of the skin and subcutaneous tissue, unspecified (principal); I87.2 Venous insufficiency (chronic) (peripheral); L97.822 Non-pressure chronic ulcer of other part of left lower leg with fat layer exposed; L97.522 Non-pressure chronic ulcer of other part of left foot with fat layer exposed; L97.812 Non-pressure chronic ulcer of other part of right lower leg with fat layer exposed; L97.512 Non-pressure chronic ulcer of other part of right foot with fat layer exposed; R60.0 Localized edema; L53.9 Erythematous condition, unspecified; F17.210 Nicotine dependence, cigarettes, uncomplicated
CPT/HCPCS: 36415; 80053; 85025; 87070; 87075; 87077; 87147; 87205; 99214; 99215

== ENCOUNTER → 2022-03-27 13:47 | Outpatient (CLI) | payer OTHER, MEDICAID, SELFPAY ==
[2021-02-07 01:23] VITALS: BMI 39.4
[2022-03-27 14:56] LABS: Add Manual Diff / Slide Review NO; Basophils Absolute Auto 0 /uL (0-100); Basophils Percent Auto 0.2 % (0-2); Eosinophils Absolute Auto 300 /uL (0-450); Eosinophils Percent Auto 2.3 % (2-4); Hematocrit 33.8 % (41-53); Hemoglobin 10.5 g/dL (13.5-17.5); Lymphocytes Absolute Auto 1500 /uL (1100-4500); Lymphocytes Percent Auto 11.7 % (25-40); Mean Corpuscular HGB Conc 31.1 % (30-36); Mean Corpuscular Hemoglobin 22.1 PG (26-34); Mean Corpuscular Volume 70.9 fL (80-100); Monocytes Absolute Auto 1200 /uL (0-900); Neutrophils Absolute Auto 9800 /uL (1500-7000); Neutrophils Percent Auto 76.8 % (50-75); Platelet Count 528 X10^3/uL (150-400); Red Blood Cell Count 4.77 X10^6/uL (4.5-5.9); Red Cell Distribution Width 17.9 % (11.6-14.8); White Blood Cell Count 12.8 X10^3/uL (4.5-11.0)
[2022-03-27 14:58] LABS: Alanine Aminotransferase 19 IU/L (<50); Albumin 3.6 g/dL (3.5-5.0); Albumin Globulin Ratio 0.6 (1.0-2.8); Alkaline Phosphatase 132 U/L (38-126); Aspartate Aminotransferase 23 IU/L (17-59); BUN Creatinine Ratio 17.5 (6-22); Bilirubin Total 0.5 mg/dL (0.2-1.3); Blood Urea Nitrogen 11 mg/dL (9-20); Calcium 8.6 mg/dL (8.4-10.2); Carbon Dioxide 28 mmol/L (22-32); Chloride 99 mmol/L (98-107); Estimated Glomerular Filt Rate > 60 mL/min (>60); Globulin 5.9 g/dL (1.7-4.1); Glucose 95 mg/dL (70-100); HEMOLYSIS < 15 (0-50); Potassium 4.6 mmol/L (3.4-5.1); Sodium 138 mmol/L (137-145); Total Protein 9.5 g/dL (6.3-8.2)
== END ==
PROVIDERS: Referring Provider Surgery; Visit Provider Surgery
DX: L08.9 Local infection of the skin and subcutaneous tissue, unspecified (principal)
CPT/HCPCS: 36415; 80053; 85025

== ENCOUNTER → 2022-04-03 15:12 | Outpatient (CLI) | payer OTHER, MEDICAID, SELFPAY ==
[2021-02-07 01:23] VITALS: BMI 39.4
== END ==
PROVIDERS: Referring Provider Emergency Medicine; Visit Provider Surgery
DX: I89.0 Lymphedema, not elsewhere classified (principal); L97.822 Non-pressure chronic ulcer of other part of left lower leg with fat layer exposed; L97.522 Non-pressure chronic ulcer of other part of left foot with fat layer exposed; L97.812 Non-pressure chronic ulcer of other part of right lower leg with fat layer exposed; L97.512 Non-pressure chronic ulcer of other part of right foot with fat layer exposed; F17.210 Nicotine dependence, cigarettes, uncomplicated
CPT/HCPCS: 99213

== ENCOUNTER → 2022-04-08 15:04 | Outpatient (CLI) | payer OTHER, MEDICAID, SELFPAY ==
[2021-02-07 01:23] VITALS: BMI 39.4
== END ==
PROVIDERS: Referring Provider Emergency Medicine; Visit Provider Surgery
DX: I89.0 Lymphedema, not elsewhere classified (principal); L97.822 Non-pressure chronic ulcer of other part of left lower leg with fat layer exposed; L97.522 Non-pressure chronic ulcer of other part of left foot with fat layer exposed; L97.812 Non-pressure chronic ulcer of other part of right lower leg with fat layer exposed; L97.512 Non-pressure chronic ulcer of other part of right foot with fat layer exposed
CPT/HCPCS: 29580

== ENCOUNTER → 2022-04-10 14:49 | Outpatient (CLI) | payer OTHER, MEDICAID, SELFPAY ==
[2021-02-07 01:23] VITALS: BMI 39.4
== END ==
PROVIDERS: Visit Provider Surgery
DX: I89.0 Lymphedema, not elsewhere classified (principal); I87.2 Venous insufficiency (chronic) (peripheral); L97.822 Non-pressure chronic ulcer of other part of left lower leg with fat layer exposed; L97.522 Non-pressure chronic ulcer of other part of left foot with fat layer exposed; L97.812 Non-pressure chronic ulcer of other part of right lower leg with fat layer exposed; L97.512 Non-pressure chronic ulcer of other part of right foot with fat layer exposed; Z86.718 Personal history of other venous thrombosis and embolism
CPT/HCPCS: 11042; 97597

== ENCOUNTER → 2022-04-15 14:40 | Outpatient (CLI) | payer OTHER, MEDICAID, SELFPAY ==
[2021-02-07 01:23] VITALS: BMI 39.4
== END ==
PROVIDERS: Referring Provider Emergency Medicine; Visit Provider Surgery
DX: I89.0 Lymphedema, not elsewhere classified (principal); I87.2 Venous insufficiency (chronic) (peripheral); L97.822 Non-pressure chronic ulcer of other part of left lower leg with fat layer exposed; L97.522 Non-pressure chronic ulcer of other part of left foot with fat layer exposed; L97.812 Non-pressure chronic ulcer of other part of right lower leg with fat layer exposed; L97.512 Non-pressure chronic ulcer of other part of right foot with fat layer exposed; F17.200 Nicotine dependence, unspecified, uncomplicated
CPT/HCPCS: 11042; 97597; 99213

== ENCOUNTER → 2022-05-05 15:21 | Outpatient (CLI) | payer OTHER, MEDICAID, SELFPAY ==
[2021-02-07 01:23] VITALS: BMI 39.4
== END ==
PROVIDERS: PCP Emergency Medicine; Referring Provider Emergency Medicine; Visit Provider Surgery
DX: I89.0 Lymphedema, not elsewhere classified (principal); L97.822 Non-pressure chronic ulcer of other part of left lower leg with fat layer exposed; L97.522 Non-pressure chronic ulcer of other part of left foot with fat layer exposed; L97.812 Non-pressure chronic ulcer of other part of right lower leg with fat layer exposed; L97.512 Non-pressure chronic ulcer of other part of right foot with fat layer exposed; I87.2 Venous insufficiency (chronic) (peripheral)
CPT/HCPCS: 97597; 99213

== ENCOUNTER → 2022-05-08 15:25 | Outpatient (CLI) | payer OTHER, MEDICAID, SELFPAY ==
[2021-02-07 01:23] VITALS: BMI 39.4
== END ==
PROVIDERS: PCP Emergency Medicine; Referring Provider Emergency Medicine; Visit Provider Surgery
DX: I89.0 Lymphedema, not elsewhere classified (principal); L97.822 Non-pressure chronic ulcer of other part of left lower leg with fat layer exposed; L97.522 Non-pressure chronic ulcer of other part of left foot with fat layer exposed; L97.812 Non-pressure chronic ulcer of other part of right lower leg with fat layer exposed; L97.512 Non-pressure chronic ulcer of other part of right foot with fat layer exposed; R60.0 Localized edema
CPT/HCPCS: 29581

== ENCOUNTER → 2022-05-13 14:55 | Outpatient (CLI) | payer OTHER, MEDICAID, SELFPAY ==
[2021-02-07 01:23] VITALS: BMI 39.4
== END ==
PROVIDERS: PCP Emergency Medicine; Referring Provider Emergency Medicine; Visit Provider Surgery
DX: I89.0 Lymphedema, not elsewhere classified (principal); L97.822 Non-pressure chronic ulcer of other part of left lower leg with fat layer exposed; L97.812 Non-pressure chronic ulcer of other part of right lower leg with fat layer exposed; L97.512 Non-pressure chronic ulcer of other part of right foot with fat layer exposed; L97.522 Non-pressure chronic ulcer of other part of left foot with fat layer exposed; F17.210 Nicotine dependence, cigarettes, uncomplicated
CPT/HCPCS: 11042; 97597

== ENCOUNTER → 2022-05-23 14:55 | Outpatient (CLI) | payer OTHER, MEDICAID, SELFPAY ==
[2021-02-07 01:23] VITALS: BMI 39.4
== END ==
PROVIDERS: PCP Emergency Medicine; Referring Provider Emergency Medicine; Visit Provider Nurse Practitioner Family
DX: I89.0 Lymphedema, not elsewhere classified (principal); L97.822 Non-pressure chronic ulcer of other part of left lower leg with fat layer exposed; L97.522 Non-pressure chronic ulcer of other part of left foot with fat layer exposed; L97.812 Non-pressure chronic ulcer of other part of right lower leg with fat layer exposed; L97.512 Non-pressure chronic ulcer of other part of right foot with fat layer exposed
CPT/HCPCS: 29581; 99212

== ENCOUNTER → 2022-05-26 15:11 | Outpatient (CLI) | payer OTHER, MEDICAID, SELFPAY ==
[2021-02-07 01:23] VITALS: BMI 39.4
== END ==
PROVIDERS: PCP Emergency Medicine; Referring Provider Emergency Medicine; Visit Provider Surgery
DX: I89.0 Lymphedema, not elsewhere classified (principal); I87.2 Venous insufficiency (chronic) (peripheral); L97.822 Non-pressure chronic ulcer of other part of left lower leg with fat layer exposed; L97.522 Non-pressure chronic ulcer of other part of left foot with fat layer exposed; L97.812 Non-pressure chronic ulcer of other part of right lower leg with fat layer exposed; L97.512 Non-pressure chronic ulcer of other part of right foot with fat layer exposed; F19.10 Other psychoactive substance abuse, uncomplicated; F17.210 Nicotine dependence, cigarettes, uncomplicated
CPT/HCPCS: 11042; 97597

== ENCOUNTER → 2022-06-02 13:50 | Outpatient (CLI) | payer OTHER, MEDICAID, SELFPAY ==
[2021-02-07 01:23] VITALS: BMI 39.4
== END ==
PROVIDERS: PCP Emergency Medicine; Referring Provider Emergency Medicine; Visit Provider Surgery
DX: I89.0 Lymphedema, not elsewhere classified (principal); L97.822 Non-pressure chronic ulcer of other part of left lower leg with fat layer exposed; L97.522 Non-pressure chronic ulcer of other part of left foot with fat layer exposed; L97.812 Non-pressure chronic ulcer of other part of right lower leg with fat layer exposed; L97.512 Non-pressure chronic ulcer of other part of right foot with fat layer exposed
CPT/HCPCS: 11042; 97597; 99212; 99213

== ENCOUNTER → 2022-06-09 15:06 | Outpatient (CLI) | payer OTHER, MEDICAID, SELFPAY ==
[2021-02-07 01:23] VITALS: BMI 39.4
== END ==
PROVIDERS: PCP Emergency Medicine; Referring Provider Emergency Medicine; Visit Provider Surgery
DX: I87.2 Venous insufficiency (chronic) (peripheral) (principal); I89.0 Lymphedema, not elsewhere classified; L97.822 Non-pressure chronic ulcer of other part of left lower leg with fat layer exposed; L97.522 Non-pressure chronic ulcer of other part of left foot with fat layer exposed; L97.512 Non-pressure chronic ulcer of other part of right foot with fat layer exposed; L97.812 Non-pressure chronic ulcer of other part of right lower leg with fat layer exposed; R60.0 Localized edema; L53.9 Erythematous condition, unspecified
CPT/HCPCS: 11042; 97597

== ENCOUNTER → 2022-06-12 14:35 | Outpatient (CLI) | payer OTHER, MEDICAID, SELFPAY ==
[2021-02-07 01:23] VITALS: BMI 39.4
== END ==
PROVIDERS: PCP Emergency Medicine; Referring Provider Emergency Medicine; Visit Provider Surgery
DX: I89.0 Lymphedema, not elsewhere classified (principal); L97.822 Non-pressure chronic ulcer of other part of left lower leg with fat layer exposed; L97.522 Non-pressure chronic ulcer of other part of left foot with fat layer exposed; L97.812 Non-pressure chronic ulcer of other part of right lower leg with fat layer exposed; L97.512 Non-pressure chronic ulcer of other part of right foot with fat layer exposed
CPT/HCPCS: 29581

== ENCOUNTER → 2022-06-19 14:49 | Outpatient (CLI) | payer OTHER, MEDICAID, SELFPAY ==
[2021-02-07 01:23] VITALS: BMI 39.4
== END ==
PROVIDERS: PCP Emergency Medicine; Referring Provider Emergency Medicine; Visit Provider Surgery
DX: I87.313 Chronic venous hypertension (idiopathic) with ulcer of bilateral lower extremity (principal); I89.0 Lymphedema, not elsewhere classified; L97.822 Non-pressure chronic ulcer of other part of left lower leg with fat layer exposed; L97.522 Non-pressure chronic ulcer of other part of left foot with fat layer exposed; L97.812 Non-pressure chronic ulcer of other part of right lower leg with fat layer exposed; L97.512 Non-pressure chronic ulcer of other part of right foot with fat layer exposed
CPT/HCPCS: 11042; 97597; 99213

== ENCOUNTER → 2022-07-04 08:50 | Outpatient (CLI) | payer OTHER, MEDICAID, SELFPAY ==
[2021-02-07 01:23] VITALS: BMI 39.4
== END ==
PROVIDERS: PCP Emergency Medicine; Referring Provider Emergency Medicine; Visit Provider Nurse Practitioner Family
DX: I89.0 Lymphedema, not elsewhere classified (principal); I87.2 Venous insufficiency (chronic) (peripheral); L97.822 Non-pressure chronic ulcer of other part of left lower leg with fat layer exposed; L97.522 Non-pressure chronic ulcer of other part of left foot with fat layer exposed; L97.812 Non-pressure chronic ulcer of other part of right lower leg with fat layer exposed; L97.512 Non-pressure chronic ulcer of other part of right foot with fat layer exposed; R60.0 Localized edema; Z91.199 Patient's noncompliance with other medical treatment and regimen due to unspecified reason
CPT/HCPCS: 11042; 11045; 87070; 87075; 87077; 87102; 87147; 87186; 87205; 99214

== ENCOUNTER → 2022-07-08 09:08 | Outpatient (CLI) | payer OTHER, MEDICAID, SELFPAY ==
[2021-02-07 01:23] VITALS: BMI 39.4
== END ==
PROVIDERS: PCP Emergency Medicine; Referring Provider Emergency Medicine; Visit Provider Surgery
DX: S81.801A Unspecified open wound, right lower leg, initial encounter (principal); S81.802A Unspecified open wound, left lower leg, initial encounter; S91.302A Unspecified open wound, left foot, initial encounter
CPT/HCPCS: 99212

== ENCOUNTER 2022-07-09 23:47 | Emergency (ER) | payer OTHER, MEDICAID, SELFPAY ==
[2021-02-07 01:23] VITALS: BMI 39.4
[2022-07-10 00:03] VITALS: BP 166/86; PULSE 98; RESP 20; TEMP 36.3; O2SAT 100; BMI 43.9
--- NOTE | 2022-07-10 00:41 | PC.NURSE ---
pt has several chronic open wounds to the BLE, pt states he has been dealing with this for over a year, he has been going to wound care but the areas are getting worse and he was told to come here d/t postive cultures. pt's legs are swollen, red, with many sores over both lower ext, some are weepy areas are dressed with medicinal dressings from wound care skin is darkened
--- NOTE | 2022-07-10 01:40 | ED.SKABFB ---
HPI - Skin/Abscess/Foreign Bdy General Chief complaint: Skin/Abscess/Foreign Body Stated complaint: both legs/feet infected/MRSA Time Seen by Provider: 07/09/22 23:52 Source: patient Mode of arrival: Ambulatory History of Present Illness HPI narrative: 37-year-old male daily smoker with history of IV drug abuse and chronic bilateral lower extremity cellulitis managed by wound care presents with his significant other and a chief complaint of concerns about a leg infection. He states that he was seen and evaluated by wound care recently, had cultures and was started on doxycycline. He is taken 2-3 days' worth thus far and states that he is actually feeling much better. His legs were becoming increasingly red with drainage from various wounds and since being on the doxycycline his symptoms have certainly stopped worsening and are likely to be improving. He denies fever or chills. He is not dizzy nor weak or lightheaded. He denies any chest pain or shortness of breath. Denies nausea, vomiting or diarrhea. Related Data Previous Rx's Medication Instructions Recorded doxycycline monohydrate 100 mg 100 mg PO BID #20 caps 03/19/22 capsule hydrocodone 5 mg-acetaminophen 325 1 tab PO Q4-6H PRN pain #10 tabs 07/10/22 mg tablet Allergies Allergy/AdvReac Type Severity Reaction Status Date / Time egg Allergy Intermediate Verified 02/07/21 10:07 Egg Derived Allergy Verified 02/07/21 10:07 Review of Systems Review of Systems Narrative: GENERAL: Denies chills, fatigue, malaise, fever, sweats. HEENT: Denies sinus pain, ear pain, sore throat, difficulty swallowing, dizziness. RESPIRATORY: Denies dyspnea, cough, wheezing, hemoptysis, sputum. CARDIOVASCULAR: Denies chest pain, palpitations, orthopnea, edema, GASTROINTESTINAL: Denies nausea, vomiting, abdominal pain, diarrhea, constipation, melena. : Denies dysuria, frequency, incontinence, hematuria, urinary retention. MUSCULOSKELETAL: denies weakness, joint pain, or bony pain SKIN: see HPI NEUROLOGIC: Denies weakness, headache, numbness, change in speech, confusion, seizures, incoordination. PSYCHIATRIC: No concerning psychosocial issues. 12 point review of systems is negative except for those stated above Patient History Medical History Amphetamine abuse Drug abuse Hepatitis C virus infection cured after antiviral drug therapy History of DVT (deep vein thrombosis) Obesity (BMI 30-39.9) Opiate dependence, continuous Hwrhc-Wpcxawise-Yfwhw (WPW) pattern Surgical History History of abdominal surgery Family History Father Overdose Drug addiction Mother Overdose Drug addiction Social History household members: spouse Smoking Status: Current every day smoker alcohol intake: never substance use type: opiates, IV drugs and methamphetamine Smoking Status: Current every day smoker alcohol intake frequency: 0-2 drinks per day Substance Use Type: heroin, amphetamines, opiates, IV drugs and methamphetamine Exam Narrative Exam Narrative: GENERAL: [37] year old patient appears stated age. Well-developed patient, in mild distress. HEAD: Atraumatic. Normocephalic. EYES: Pupils equal round and reactive. Extraocular motions intact. No scleral icterus. No injection or drainage. ENT: Nose without bleeding, purulent drainage. Throat without erythema, tonsillar hypertrophy or exudate. Airway patent. NECK: Trachea midline. Non tender CARDIOVASCULAR: Regular rate and rhythm without murmurs, gallops, or rubs. RESPIRATORY: Clear to auscultation. Breath sounds equal bilaterally. No wheezes, rales, or rhonchi. GASTROINTESTINAL: Abdomen soft, non-tender, nondistended. EXTREMITIES: Bilateral lower extremities BACK: Nontender without deformity or crepitance. No flank tenderness. NEURO: AOx3. SKIN: No rash or erythema of visible areas Initial Vital Signs Initial Vital Signs: Vital Signs Temperature 97.4 F L 07/10/22 00:03 Pulse Rate 98 H 07/10/22 00:03 Respiratory Rate 20 07/10/22 00:03 Blood Pressure 166/86 H 07/10/22 00:03 Pulse Oximetry 100 07/10/22 00:03 Oxygen Delivery Method Room Air 07/10/22 00:03 Course Orders Ordered: ED Orders 07/10/22 00:24 Blood Culture Stat C-Reactive Protein Quant Stat Complete Blood Count AUTO DIFF Stat 07/10/22 00:25 COVID19 -Nasal RAPID Stat Comprehensive Metabolic Panel Stat Erythrocyte Sedimentation Rate Stat Magnesium Stat 07/10/22 00:35 Wound Culture and Gram Stain Stat 07/10/22 00:50 Lactate (Lactic Acid) Stat Vital Signs Vital signs: Vital Signs - 8 hr 07/10/22 00:03 Temperature 97.4 F L Pulse Rate 98 H Respiratory Rate 20 Blood Pressure 166/86 H Pulse Oximetry 100 Oxygen Delivery Method Room Air MDM - Skin/Abscess/Foreign Bdy Lab Data Labs: Lab Results 07/10/22 Range/Units 00:50 Lactate 1.0 (0.7-2.1) mmol/L MDM Narrative Medical decision making narrative: [37] year old patient presents with concerns of leg infection Multiple etiologies for patient's symptoms considered including, but not limited to: [Cellulitis versus abscess versus other] Prior Charts reviewed in our EMR Primary Historian: patient After taking down the dressing and seeing no erythema or drainage we had a lengthy discussion at the bedside with patient and significant other. We discussed the risks and benefits of an advanced workup including labs etcetera and sure the opinion that he is only had a few days of doxycycline and is certainly not worsening and likely improving already. It seems likely that this is the appropriate antibiotic and it is doing its job. The patient shows no signs of sepsis. There is no active drainage or erythema. I have given him extensive return precautions which he understands fully as evidenced by his ability to recite back worsening pain, fever, vomiting, unexplained diaphoresis, drainage or other concerning symptoms. Findings and discharge diagnosis discussed with patient/family followed by verbalization of understanding Return precautions discussed with patient/family whom verbalize understanding of diagnosis and plan Discharge Plan Departure Patient Disposition: Home Clinical Impression: Bilateral cellulitis of lower leg Instructions: DI for Cellulitis -- Adult Activity Restrictions/Additional Instructions: *You have been diagnosed with [bilateral lower extremity acute on chronic cellulitis. As we discussed it would seem the doxycycline is doing it's job and there is little evidence to suggest that labs or changing antibiotics would be helpful at this time] *What to do: *Please continue to take your regular medications as directed. [x ] New medication prescriptions sent to your pharmacy: [ [facility]] [ ] New medication written as a paper prescription [ ] No new medications given *Please follow up with your primary care provider in 2-3 days, call for an appointment. Let them know you were seen in the Emergency Department and that we ask that you be seen in follow up. We will electronically transmit a record of today's note if your PCP is in our system *If you do not have a primary care provider please contact the [facility] Resource line at [phone]. They will ask some questions about your medical history and help get you set up with a doctor in the community. *Return to Emergency Department if you should have any new, worsening or concerning symptoms, such as [fever greater than 101 F, shaking chills, worsening pain, persistent vomiting or other bothersome symptoms] You have been prescribed a short course of narcotic medications. These are potentially dangerous and addictive medications that should be used carefully. While on these medications you cannot drive or operate heavy machinery. Additionally, you cannot sign legal documents or perform any duties such as this. Many people get constipated on narcotic medications so it would be advisable to discuss stool softeners with the pharmacist when you chicken picker your prescription. Please understand that we cannot provide further refills of narcotics or controlled substances through the ED and your pain management will need to be through your Primary Care Provider Prescriptions: New hydrocodone-acetaminophen 5-325 mg tablet 1 tab PO Q4-6H PRN (Reason: pain) Qty: 10 0RF No Action doxycycline monohydrate 100 mg capsule 100 mg PO BID Qty: 20 0RF Referrals: Linsey Wilkinson DO [Primary Care Provider] - Stand Alone Forms: Patient Portal/API
== END 2022-07-10 02:44 | disposition home or self-care (01) ==
PROVIDERS: Emergency Provider Emergency Medicine; PCP Emergency Medicine
DX: L03.116 Cellulitis of left lower limb (principal); L03.115 Cellulitis of right lower limb
CPT/HCPCS: 83605; 87070; 87077; 87147; 87205; 99281; 99283

== ENCOUNTER 2022-07-16 20:09 | Inpatient (IN) | payer OTHER, MEDICAID, SELFPAY ==
[2021-02-07 01:23] VITALS: BMI 39.4
[2022-07-16 20:24] VITALS: BP 130/79; PULSE 99; RESP 26; TEMP 36.9; O2SAT 98; BMI 43.7
--- NOTE | 2022-07-16 20:33 | DI.RAD.S_ITS ---
PROCEDURE: XR CHEST 1V INDICATIONS: chest pain TECHNIQUE: One view of the chest was acquired. COMPARISON: [facility], CR, XR CHEST 1V, 12/15/2020, 21:46. [facility], CR, XR CHEST 1V, 10/09/2020, 10:10. FINDINGS: Surgical changes and devices: None. Lungs and pleura: Lungs appear clear. No pneumothorax. Possible blunting of the right costophrenic angle. Mediastinum: Mediastinal contours appear normal. Heart size is normal. Bones and chest wall: No suspicious bony lesions. Overlying soft tissues appear unremarkable. IMPRESSION: Possible trace right pleural effusion. Dictated by: Shubham Martin M.D. on 07/16/2022 at 22:22 Approved by: Shubham Martin M.D. on 07/16/2022 at 22:23
[2022-07-16 20:40] VITALS: PULSE 93; RESP 23; O2SAT 97
[2022-07-16 21:00] VITALS: PULSE 96; RESP 20; O2SAT 98
[2022-07-16 21:29] LABS: INR 1.2 (0.9-1.3); Prothrombin Time 13.6 SECONDS (10.1-12.7)
[2022-07-16 21:30] LABS: Add Manual Diff / Slide Review NO; Basophils Absolute Auto 100 /uL (0-100); Basophils Percent Auto 1.5 % (0-2); Eosinophils Absolute Auto 200 /uL (0-450); Eosinophils Percent Auto 2.3 % (2-4); Hematocrit 31.8 % (41-53); Hemoglobin 10.3 g/dL (13.5-17.5); Lymphocytes Absolute Auto 1600 /uL (1100-4500); Lymphocytes Percent Auto 16.8 % (25-40); Mean Corpuscular HGB Conc 32.4 % (30-36); Mean Corpuscular Volume 70.9 fL (80-100); Monocytes Absolute Auto 700 /uL (0-900); Monocytes Percent Auto 7.8 % (3-14); Neutrophils Absolute Auto 6800 /uL (1500-7000); Neutrophils Percent Auto 71.6 % (50-75); Platelet Count 306 X10^3/uL (150-400); Red Blood Cell Count 4.48 X10^6/uL (4.5-5.9); Red Cell Distribution Width 16.7 % (11.6-14.8); White Blood Cell Count 9.5 X10^3/uL (4.5-11.0)
[2022-07-16 21:32] LABS: PTT Partial Thromboplastin Tim 29 SECONDS (26-36)
[2022-07-16 21:34] LABS: Lactate (Lactic Acid) 1.2 mmol/L (0.7-2.1)
[2022-07-16 21:35] LABS: Alanine Aminotransferase 18 IU/L (<50); Albumin 3.3 g/dL (3.5-5.0); Albumin Globulin Ratio 0.6 (1.0-2.8); Alkaline Phosphatase 102 U/L (38-126); Aspartate Aminotransferase 25 IU/L (17-59); BUN Creatinine Ratio 17.4 (6-22); Bilirubin Total 0.3 mg/dL (0.2-1.3); Blood Urea Nitrogen 12 mg/dL (9-20); Calcium 8.3 mg/dL (8.4-10.2); Carbon Dioxide 33 mmol/L (22-32); Chloride 98 mmol/L (98-107); Creatine Kinase 60 U/L (55-170); Estimated Glomerular Filt Rate > 60 mL/min (>60); Globulin 5.9 g/dL (1.7-4.1); Glucose 97 mg/dL (70-100); HEMOLYSIS < 15 (0-50); Lipase 56 U/L (23-300); Potassium 3.8 mmol/L (3.4-5.1); Sodium 134 mmol/L (137-145); Total Protein 9.2 g/dL (6.3-8.2)
[2022-07-16 21:46] LABS: NT-proBNP (BNP-Adult 18+) 133 pg/mL (<125); Troponin I < 0.012 ng/mL (0.01-0.034)
[2022-07-16 22:00] VITALS: PULSE 92; RESP 17; O2SAT 95
[2022-07-16 23:00] VITALS: PULSE 89; RESP 16; O2SAT 93
[2022-07-17] VITALS (10 sets, daily range): BP systolic 115–137; BP diastolic 56–75; PULSE 80–94; RESP 15–20; TEMP 36.1–36.6; O2SAT 91–97; BMI 43.7
--- NOTE | 2022-07-17 | DI.ECHO.S_ITS ---
[facility] +---------+ : : [address] : [address] : : : : [phone] : : : : Phone: [phone]+ Echocardiogram Report + + :Name: JAYLIN LUNA Study Date: 07/18/2022 Height: 75 in : :[facility] ReadingLocation: Weight: 350 lb : : Gender: Male BSA: 2.8 m2 : :: 1985 Age: 37 yrs BP: 117/75 mmHg: :Reason For Study: Acute PE, RV strain : : Performed By: Susana Goff : :Referring: GUILLE CHRISTIANSEN A : + + Interpretation Summary The left ventricle is normal in size and wall thickness. Left ventricular systolic function appears normal without focal wall motion abnormalities. The ejection fraction is estimated to be 60-65%. Diastolic parameters suggest probable normal left ventricular diastolic function and normal filling pressures. The right ventricle is normal in size and function. Pulmonary artery pressures cannot be estimated because of the lack of a measurable TR jet velocity but the IVC suggests a CVP of around 8 mmHg. Both atria are normal in size. There is no significant valvular heart disease. The aortic root is normal size. Procedure: A two-dimensional transthoracic echocardiogram with color flow and Doppler was performed. The study quality was technically difficult. The study was done portably. Comparison is made with the echocardiogram of 02/10/2021. Patient was supine and upright for duration of the exam. A contrast injection of Definity was performed to improve assessment of LV function. The patient was in normal sinus rhythm during the exam. Left Ventricle: The left ventricle is normal in size and wall thickness. Left ventricular systolic function appears normal without focal wall motion abnormalities. The ejection fraction is estimated to be 60-65%. Diastolic parameters suggest probable normal left ventricular diastolic function and normal filling pressures. Right Ventricle: The right ventricle is normal in size and function. Atria: Both atria are normal in size. There is no Doppler evidence for an interatrial shunt. Mitral Valve: The mitral valve is normal in structure and function. There is no mitral regurgitation noted. Aortic Valve: The aortic valve is normal in structure and function. No aortic regurgitation is present. Tricuspid Valve: The tricuspid valve is normal in structure and function. No tricuspid regurgitation. Pulmonary artery pressures cannot be estimated because of the lack of a measurable TR jet velocity but the IVC suggests a CVP of around 8 mmHg. Pulmonic Valve: The pulmonic valve is not well seen, but is grossly normal. There is no pulmonic valvular regurgitation. There is no significant valvular heart disease. Great Vessels: The aortic root is normal size. The ascending aorta is normal in size. The aortic arch is normal in size. The IVC is dilated (diameter is greater than 2.1 cm) yet it collapses greater than 50% with a sniff. This suggests a right atrial pressure of 8 mm Hg. Pericardium/ Pleura There is no pericardial effusion. MMode/2D Measurements & Calculations LVIDd: 5.7 cm LVOT diam: 2.6 cm LVIDs: 3.8 cm Ao root diam: 3.6 cm FS: 33.6 % asc Aorta Diam: 3.1 cm EPSS: 0.73 cm Ao Arch Diam (Prox Trans): 2.9 cm IVSd: 0.79 cm LVPWd: 0.85 cm LV gardiner. diameter/BSA (cm/m^2): 2.0 LV sys. diameter/BSA (cm/m^2): 1.3 LA A2 area: 22.6 cm2 RA long axis: 5.0 cm LA A4 area: 25.3 cm2 RA area: 17.2 cm2 LA length (vol): 5.7 cm RA vol: 50.0 ml LA vol: 85.4 ml RA : 18.0 ml/m2 LA vol index: 30.7 ml/m2 IVC diam: 2.4 cm RVD1 (basal): 3.8 cm TAPSE: 2.7 cm Doppler Measurements & Calculations Ao V2 max: 118.9 cm/sec LVOT Max Alexi: 97.3 cm/sec Ao V2 mean: 77.8 cm/sec LV V1 max P.8 mmHg Ao max P.7 mmHg LV V1 VTI: 16.8 cm Ao mean P.8 mmHg EMELYN(I,D): 4.3 cm2 Ao V2 VTI: 20.3 cm EMELYN(V,D): 4.2 cm2 sev ratio: 0.83 EMELYN indexed to BSA (cm^2/m^2): 1.5 MV E max alexi: 75.3 cm/sec PA V2 max: 92.7 cm/sec MV A max alexi: 66.3 cm/sec PA V2 mean: 61.7 cm/sec MV E/A: 1.1 PA mean P.7 mmHg Med Peak E' Alexi: 12.9 cm/sec PA pr(Accel): 45.6 mmHg E/E' med: 5.9 Lat Peak E' Alexi: 11.4 cm/sec E/E' lat: 6.6 E/e' average: 6.2 MV dec time: 0.24 sec SV(OT): 86.7 ml Reading Physician:12:55 PM
--- NOTE | 2022-07-17 01:15 | ED.CHESTPAIN ---
HPI - Chest Pain General Chief Complaint: Chest Pain Stated Complaint: states MRSA infection Time Seen by Provider: 07/16/22 20:32 Source: patient Mode of arrival: Ambulatory Limitations: no limitations History of Present Illness HPI narrative: This is a 37-year-old male, daily tobacco use with history of IV drug use and chronic bilateral lower extremity cellulitis managed with wound care. Patient presents with concern for increasingly worse infection in his legs, fevers and new chest pain. Patient states infections been going on for chronically but he is had about a week of worsening skin breakdown and then a new area of erythema, pain and swelling of his right upper thigh. It is particularly in the inside of the thigh. Patient does note he had a DVT remotely in the past and developed an pulmonary emboli when he was hospitalized for about 46 days he states he had subjective fevers with shaking chills 2 nights ago, he describes right-sided chest pain worse with movement, deep inspiration some shortness of breath. He denies any syncope. No nausea or vomiting, no diarrhea constipation, no urinary symptoms. Patient was started on doxycycline a week ago he thought it was maybe helping a little bit but things seemed to be progressing. He states his right leg is more swollen than his left and has new redness and pain that was not present before. He states he is currently in a methadone program he had his dose he states Thursday afternoon on 07/16/2022. He states he is on doxycycline but no other prescriptions currently. He states prior surgery was for an abscess of his abdomen. He does use tobacco, denies active alcohol use, states he still occasionally uses fentanyl to smoke but states he has not used any IV injection drugs in a long time. He is following with Wound Care locally he states regularly. He denies any drug allergies. Related Data Previous Rx's Medication Instructions Recorded doxycycline monohydrate 100 mg 100 mg PO BID #20 caps 03/19/22 capsule hydrocodone 5 mg-acetaminophen 325 1 tab PO Q4-6H PRN pain #10 tabs 07/10/22 mg tablet Allergies Allergy/AdvReac Type Severity Reaction Status Date / Time egg Allergy Intermediate Verified 07/16/22 20:31 Egg Derived Allergy Verified 07/16/22 20:31 Review of Systems Review of Systems ROS Unobtainable: All systems reviewed & are unremarkable except as noted in HPI and below Patient History Medical History Amphetamine abuse Drug abuse Hepatitis C virus infection cured after antiviral drug therapy History of DVT (deep vein thrombosis) Obesity (BMI 30-39.9) Opiate dependence, continuous Hszen-Yyencfide-Bgjxf (WPW) pattern Surgical History History of abdominal surgery Family History Father Overdose Drug addiction Mother Overdose Drug addiction Social History household members: spouse Smoking Status: Current every day smoker alcohol intake: never substance use type: opiates, IV drugs and methamphetamine Smoking Status: Current every day smoker alcohol intake frequency: 0-2 drinks per day Substance Use Type: heroin, amphetamines, opiates, IV drugs and methamphetamine Exam Narrative Exam Narrative: GENERAL: Alert and oriented x three, obese male in moderate distress. HEENT: Head normocephalic, atraumatic, EOMI, pupils reactive, face symmetric, moist mucous membranes NECK: Supple, full range of motion CARDIOVASCULAR: Regular rate and rhythm without murmurs, rubs or gallops. RESPIRATORY: Breath sounds equal bilaterally, no wheezes rales or rhonchi. No tachypnea. Speaks in full sentences. Patient is tender on the right side of his chest no obvious ecchymosis, no subcutaneous emphysema, symmetric movement. No rash or skin changes. ABDOMEN: Soft, nontender. Normoactive bowel sounds all 4 quadrants. No guarding or rebound, rigidity, no mass : No CVA tenderness EXTREMITIES: Normal range of motion, patient has thickening stent with chronic hyperkeratotic and venous stasis changes, patient's lower extremities are quite large in general and difficult to tell swelling versus body habitus but the right inner thigh is warm, erythematous in tracking around and up towards his groin. Patient does have many small wounds with foul odor with little bit of purulent discharge bilaterally.. Neurovascularly intact NEUROLOGICAL: Cranial nerves II through XII grossly intact. Moving all extremities SKIN: Warm, dry, no petechiae. Initial Vital Signs Initial Vital Signs: Vital Signs Temperature 98.4 F 07/16/22 20:24 Pulse Rate 99 H 07/16/22 20:24 Respiratory Rate 26 H 07/16/22 20:24 Blood Pressure 130/79 07/16/22 20:24 Pulse Oximetry 98 07/16/22 20:24 Oxygen Delivery Method Room Air 07/16/22 20:24 Course Orders Ordered: Acetaminophen (Acetaminophen 325 Mg Tablet) 650 mg PO Q6H PRN PRN Reason: Fever/Mild Pain (1-3) Enoxaparin Sodium (Enoxaparin 100 Mg/Ml Syringe) 160 mg SUBCUT BID [facility] Last Admin: 07/17/22 21:17 Dose: 160 mg Documented By: Admin: 07/17/22 08:48 Dose: 160 mg Documented By: CHRISTOS Vancomycin HCl/Dextrose (Vancomycin) 2,000 mg in 400 mls @ 200 mls/hr IV Q12H [facility] Last Infusion: 07/17/22 21:18 Dose: 0 mls/hr Documented By: Admin: 07/17/22 18:57 Dose: 200 mls/hr Documented By: CHRISTOS Cefepime HCl 2 gm/ Sodium (Chloride) 100 mls @ 200 mls/hr IV Q12H [facility] Last Admin: 07/17/22 21:21 Dose: 200 mls/hr Documented By: Infusion: 07/17/22 09:45 Dose: 0 mls/hr Documented By: Admin: 07/17/22 09:02 Dose: 200 mls/hr Documented By: CHRISTOS Methadone HCl (Methadone Intensol 10 Mg/Ml Oral.Conc) 70 mg PO DAILY [facility] Last Admin: 07/17/22 14:53 Dose: 70 mg Documented By: CHRISTOS Naloxone HCl (Naloxone 0.4 Mg/Ml Vial) 0.2 mg IV Q2MIN PRN PRN Reason: Opiate Reversal Ondansetron HCl (Ondansetron 4 Mg/2 Ml Inj) 4 mg IV Q8HR PRN PRN Reason: Nausea And Vomiting Polyethylene Glycol (Polyethylene Glycol 3350 17 Gm Powd.Pack) 17 gm PO DAILY PRN PRN Reason: Constipation Sennosides (Sennosides 8.6 Mg Tablet) 8.6 mg PO BID PRN PRN Reason: Constipation Vancomycin HCl (Vancomycin Trough) 1 request MIS 1805 [facility] Stop: 07/18/22 17:31 Discontinued Medications Heparin Sodium (Porcine) (Heparin 5,000 Unit/Ml Vial) 7,500 unit IV NOW ONE Stop: 07/17/22 03:01 Last Admin: 07/17/22 03:16 Dose: 7,500 unit Documented By: CAROLINA Vancomycin HCl/Dextrose (Vancomycin) 2,000 mg in 400 mls @ 200 mls/hr IV NOW ONE Stop: 07/17/22 03:27 Last Infusion: 07/17/22 03:12 Dose: 0 mls/hr Documented By: Infusion: 07/17/22 03:11 Dose: 200 mls/hr Documented By: Admin: 07/17/22 02:32 Dose: 200 mls/hr Documented By: ADY Piperacillin Sod/Tazobactam (Sod 4.5 gm/ Sodium Chloride) 100 mls @ 200 mls/hr IV NOW ONE Stop: 07/17/22 01:28 Last Infusion: 07/17/22 02:23 Dose: 0 mls/hr Documented By: Admin: 07/17/22 01:45 Dose: 200 mls/hr Documented By: CAROLINA Sodium Chloride (Normal Saline 0.9%) 1,000 mls @ 1,000 mls/hr IV BOLUS ONE Stop: 07/17/22 02:27 Last Infusion: 07/17/22 05:16 Dose: 0 mls/hr Documented By: Admin: 07/17/22 02:32 Dose: 1,000 mls/hr Documented By: ADY Heparin Sodium/Dextrose (Heparin Drip) 25,000 unit in 500 mls @ 57.153 mls/hr IV CONT ROSALINDA; Protocol Last Admin: 07/17/22 19:37 Dose: Not Given Documented By: ZAIDA Heparin Sodium/Dextrose (Heparin Drip) 25,000 unit in 500 mls @ 40 mls/hr IV CONT ROSALINDA; Protocol Last Titration: 07/17/22 06:00 Dose: 0 unit/hr, 0 mls/hr Documented By: Admin: 07/17/22 03:22 Dose: 2,000 unit/hr, 40 mls/hr Documented By: CAROLINA Clindamycin Phosphate (Cleocin) 900 mg in 50 mls @ 50 mls/hr IV Q8H ROSALINDA Last Admin: 07/17/22 19:36 Dose: Not Given Documented By: ZAIDA Cefepime HCl 1 gm/ Sodium (Chloride) 100 mls @ 200 mls/hr IV Q12H ROSALINDA Last Infusion: 07/17/22 06:55 Dose: 0 mls/hr Documented By: Admin: 07/17/22 06:15 Dose: 200 mls/hr Documented By: ZAIDA Vancomycin HCl (Vancomycin) 1,000 mg in 200 mls @ 200 mls/hr IV NOW ONE Stop: 07/17/22 06:29 Last Admin: 07/17/22 06:19 Dose: 200 mls/hr Documented By: ZAIDA Cefepime HCl 2 gm/ Sodium (Chloride) 100 mls @ 200 mls/hr IV Q12H [facility] Morphine Sulfate (Morphine 4 Mg/Ml Inj) 4 mg IV NOW ONE Stop: 07/17/22 03:20 Last Admin: 07/17/22 03:36 Dose: 4 mg Documented By: IDANIA Vital Signs Vital signs: Vital Signs - 8 hr 07/16/22 23:00 07/17/22 00:30 07/17/22 01:03 Pulse Rate 89 88 94 H Respiratory Rate 16 15 16 Blood Pressure 121/58 L Pulse Oximetry 93 94 Oxygen Delivery Method Room Air Room Air 07/17/22 01:30 07/17/22 01:30 07/17/22 02:00 Pulse Rate 91 H Respiratory Rate 17 Blood Pressure 115/56 L 115/56 L Pulse Oximetry Oxygen Delivery Method 07/17/22 02:00 07/17/22 02:55 07/17/22 02:55 Pulse Rate 90 80 Respiratory Rate 17 18 Blood Pressure 124/66 Pulse Oximetry 97 91 Oxygen Delivery Method MDM - Chest Pain Lab Data 07/17/22 05:40 07/17/22 05:40 Labs: Lab Results 07/16/22 07/16/22 07/16/22 Range/Units 21:10 21:10 21:10 WBC 9.5 (4.5-11.0) X10^3/uL RBC 4.48 L (4.5-5.9) X10^6/uL Hgb 10.3 L (13.5-17.5) g/dL Hct 31.8 L (41-53) % MCV 70.9 L (80-100) fL MCH 23.0 L (26-34) PG MCHC 32.4 (30-36) % RDW 16.7 H (11.6-14.8) % Plt Count 306 (150-400) X10^3/uL Neut % (Auto) 71.6 (50-75) % Lymph % (Auto) 16.8 L (25-40) % [place] % (Auto) 7.8 (3-14) % Eos % (Auto) 2.3 (2-4) % Baso % (Auto) 1.5 (0-2) % Neut # (Auto) 6800 (0321-3493) /uL Lymph # (Auto) 1600 (6019-9671) /uL [place] # (Auto) 700 (0-900) /uL Eos # (Auto) 200 (0-450) /uL Baso # (Auto) 100 (0-100) /uL PT 13.6 H (10.1-12.7) SECONDS INR 1.2 (0.9-1.3) APTT 29 (26-36) SECONDS Sodium 134 L (137-145) mmol/L Potassium 3.8 (3.4-5.1) mmol/L Chloride 98 (98-107) mmol/L Carbon Dioxide 33 H (22-32) mmol/L BUN 12 (9-20) mg/dL Creatinine 0.69 (0.66-1.25) mg/dL Estimated GFR > 60 (>60) mL/min BUN/Creatinine Ratio 17.4 (6-22) Glucose 97 (70-100) mg/dL Lactate (0.7-2.1) mmol/L Calcium 8.3 L (8.4-10.2) mg/dL Total Bilirubin 0.3 (0.2-1.3) mg/dL AST 25 (17-59) IU/L ALT 18 (<50) IU/L Alkaline Phosphatase 102 (38-126) U/L Total Creatine Kinase 60 (55-170) U/L CK-MB (CK-2) TNP CK-MB (CK-2) Rel Index TNP Troponin I < 0.012 (0.01-0.034) ng/mL NT-Pro-B Natriuret Pep 133 H (<125) pg/mL Total Protein 9.2 H (6.3-8.2) g/dL Albumin 3.3 L (3.5-5.0) g/dL Globulin 5.9 H (1.7-4.1) g/dL Albumin/Globulin Ratio 0.6 L (1.0-2.8) Lipase 56 (23-300) U/L Urine RBC (0-5/HPF) Urine WBC (0-5/HPF) Ur Squamous Epith Cells (0-5/HPF) Urine Bacteria (None) Ur Culture Indicated? U Opiates 300ng/mL cut (Negative) Ur Oxycodone Screen (Negative) Urine Methadone Screen (Negative) Ur Barbiturates Screen (Negative) U Tricyclic Antidepress (Negative) Ur Phencyclidine Scrn (Negative) Ur Amphetamines Screen (Negative) U Methamphetamines Scrn (Negative) Ur MDMA Scrn (Ecstasy) (Negative) U Benzodiazepines Scrn (Negative) Urine Cocaine Screen (Negative) U Marijuana (THC) Screen (Negative) 07/16/22 07/17/22 07/17/22 Range/Units 21:10 01:00 01:00 WBC (4.5-11.0) X10^3/uL RBC (4.5-5.9) X10^6/uL Hgb (13.5-17.5) g/dL Hct (41-53) % MCV (80-100) fL MCH (26-34) PG MCHC (30-36) % RDW (11.6-14.8) % Plt Count (150-400) X10^3/uL Neut % (Auto) (50-75) % Lymph % (Auto) (25-40) % Claiborne % (Auto) (3-14) % Eos % (Auto) (2-4) % Baso % (Auto) (0-2) % Neut # (Auto) (1800-6134) /uL Lymph # (Auto) (8678-6179) /uL Cla[place]orne # (Auto) (0-900) /uL Eos # (Auto) (0-450) /uL Baso # (Auto) (0-100) /uL PT (10.1-12.7) SECONDS INR (0.9-1.3) APTT (26-36) SECONDS Sodium (137-145) mmol/L Potassium (3.4-5.1) mmol/L Chloride (98-107) mmol/L Carbon Dioxide (22-32) mmol/L BUN (9-20) mg/dL Creatinine (0.66-1.25) mg/dL Estimated GFR (>60) mL/min BUN/Creatinine Ratio (6-22) Glucose (70-100) mg/dL Lactate 1.2 (0.7-2.1) mmol/L Calcium (8.4-10.2) mg/dL Total Bilirubin (0.2-1.3) mg/dL AST (17-59) IU/L ALT (<50) IU/L Alkaline Phosphatase (38-126) U/L Total Creatine Kinase (55-170) U/L CK-MB (CK-2) CK-MB (CK-2) Rel Index Troponin I (0.01-0.034) ng/mL NT-Pro-B Natriuret Pep (<125) pg/mL Total Protein (6.3-8.2) g/dL Albumin (3.5-5.0) g/dL Globulin (1.7-4.1) g/dL Albumin/Globulin Ratio (1.0-2.8) Lipase (23-300) U/L Urine RBC None seen (0-5/HPF) Urine WBC None seen (0-5/HPF) Ur Squamous Epith Cells 0-1 /hpf (0-5/HPF) Urine Bacteria None seen (None) Ur Culture Indicated? Cult not indicated U Opiates 300ng/mL cut Negative (Negative) Ur Oxycodone Screen Negative (Negative) Urine Methadone Screen Positive H (Negative) Ur Barbiturates Screen Negative (Negative) U Tricyclic Antidepress Negative (Negative) Ur Phencyclidine Scrn Negative (Negative) Ur Amphetamines Screen Positive H (Negative) U Methamphetamines Scrn Positive H (Negative) Ur MDMA Scrn (Ecstasy) Negative (Negative) U Benzodiazepines Scrn Negative (Negative) Urine Cocaine Screen Positive H (Negative) U Marijuana (THC) Screen Positive H (Negative) Imaging Data Chest x-ray: Radiologist's Impression: [address] [address] XRay Report Signed Patient: Hal Sifuentes MR#: [id number] : 1985 Acct:[id number] Age/Sex: 37 / M Date of Service: 07/16/22 Loc: ED Accession Number: [id number] ?? Procedure: XR chest 1V Ordering Provider: Linsey Wilkinson D.O. PROCEDURE:? XR CHEST 1V ? INDICATIONS:? chest pain ? TECHNIQUE:? One view of the chest was acquired.? ? COMPARISON:? [facility], CR, XR CHEST 1V, 12/15/2020, 21:46.? [facility], CR, XR CHEST 1V, 10/09/2020, 10:10. ? FINDINGS:? ? Surgical changes and devices:? None.? ? Lungs and pleura:? Lungs appear clear.? No pneumothorax.? Possible blunting of the right costophrenic angle. ? Mediastinum:? Mediastinal contours appear normal.? Heart size is normal.? ? Bones and chest wall:? No suspicious bony lesions.? Overlying soft tissues appear unremarkable.? ? IMPRESSION:? Possible trace right pleural effusion. ? ? Dictated by: Shubham Martin M.D. on 07/16/2022 at 22:22 ? ? Approved by: Shubham Martin M.D. on 07/16/2022 at 22:23?? DVT B/L LE: Radiologist's Impression: Negative for bilateral lower extremity DVT. ECG Data Attestation: I personally reviewed and interpreted this ECG as follows: Prior ECG tracings: available for review Interpretation: Rate of 95 [place] 180 QRS of 110 QTC of 464. No acute ST elevation appreciated S1 Q3. Patient has prior from 02/06/2021 which appears similar. MDM Narrative Medical decision making narrative: This is a 37-year-old male who presents with complaint of increased swelling and redness particularly if his right lower extremity likely infection but patient does have a history of DVT and blood clots to his lungs. Patient has also developed right-sided chest pain has his infection has been worsening. He describes subjective fevers, right-sided chest pain which is pleuritic in nature but also worse with movement patient has been on doxycycline for about a week but states his symptoms are continuing to worsen. He has a pulse of 94 but is not hypotensive, normal oxygenation, white count normal, hemoglobin is 10 with platelets 3 0 6- coags, CMP shows a CO2 of 33, negative LFTs, negative trope, BNP 133, negative lipase. Patient has trace right pleural effusion. This could certainly be contributing to patient's pain but with his history felt prudent to follow up with PE evaluation. I do think his right leg swelling is secondary to infection but with his history DVTs were ordered, DVT study is negative. Patient does have an echo with an EF of 55%, no focal wall motion abnormalities or effusions from 02/09/2021. Patient PE study is positive for enlargement of main pulmonary artery measuring 3.6 cm filling defect in the right lower lobe pulmonary artery consistent with acute PE RV/LV ratio is a proximally 1, no other acute findings, non aneurysmal thoracic aorta. Patient started on heparin bolus with drip. Patient's Hestia score is 48. Discussed with hospitalist with Dr. Nguyen, he accepts for inpatient admission. Critical Care Time Critical Care Time Critical Care Time: Yes Total Critical Care Time: 35 Attestation: The high probability of a clinically significant, sudden or life threatening deterioration of the [cardiac, pulm] system(s) required my full and direct attention, intervention and personal management. The aggregate critical care time was [] minutes. This time is in addition to time spent performing reported procedures but includes the following: [x] Data Review and interpretation [x] Patient assessment and monitoring of vital signs [x] Documentation [x] Medication orders and management Discharge Plan Departure Patient Disposition: Admitted As Inpatient Clinical Impression: Cellulitis of leg, right, Pulmonary embolism on right Admit Date/Time: 07/17/22 03:07 Admit Provider: Adi Nguyen
[2022-07-17 01:26] LABS: Ur Creatinine 20 (Normal); Ur Specific Gravity 1.015 (Normal)
[2022-07-17 01:27] LABS: UR Morphine/Opiate cutoff 300 Negative (Negative); Urine Amphetamines Positive (Negative); Urine Barbiturates Negative (Negative); Urine Benzodiazepines Negative (Negative); Urine Cocaine Positive (Negative); Urine MDMA Negative (Negative); Urine Methadone Positive (Negative); Urine Methamphetamines Positive (Negative); Urine Oxycodone Negative (Negative); Urine Phencyclidine Negative (Negative); Urine Tetrahydrocannabinol Positive (Negative); Urine Tricyclic Antidepressant Negative (Negative); Urine pH 6.5 (Normal)
--- NOTE | 2022-07-17 01:27 | DI.US.S_ITS ---
PROCEDURE: [facility] VENOUS LOW EXTREM BI INDICATIONS: PAIN, EDEMA TECHNIQUE: Real-time imaging, as well as color and pulse Doppler interrogation, were performed of the deep veins of both legs from the inguinal ligament to the popliteal fossa. COMPARISON: [facility], , [facility] VENOUS LOW EXTREM , 02/07/2021, 8:54. FINDINGS: Right: The common femoral, femoral and popliteal veins are normally compressible, and free of intraluminal thrombus. Color and pulse Doppler demonstrate normal phasic intravascular flow. There is normal augmentation response to distal compression maneuver. Left: The common femoral, femoral and popliteal veins are normally compressible, and free of intraluminal thrombus. Color and pulse Doppler demonstrate normal phasic intravascular flow. There is normal augmentation response to distal compression maneuver. IMPRESSION: No sonographic evidence of deep venous thrombosis in the right or left lower extremity. There is no significant discrepancy when compared to the overnight preliminary report. Approved by: Cuco Mcqueen M.D. on 07/17/2022 at 8:31
--- NOTE | 2022-07-17 01:27 | DI.CT.S_ITS ---
PROCEDURE: CT ANGIO CHEST PE PROTOCOL INDICATIONS: chest pain, hx pe, ? pna, red swollen leg TECHNIQUE: After the administration of intravenous contrast, 2 mm thick sections acquired from the pulmonary apices to the posterior costophrenic angles. 3-dimensional maximum intensity projection (MIP) coronal and sagittal reformats were then acquired through the thorax. For radiation dose reduction, the following was used: automated exposure control, adjustment of mA and/or kV according to patient size. COMPARISON: [facility], CR, XR CHEST 1V, 07/16/2022, 20:35. FINDINGS: Image quality: Excellent. Pulmonary arteries: Main pulmonary artery is enlarged, measuring 3.6 cm in diameter. There is a filling defect within the posterior basilar segmental artery of the right lower lobe extending into subsegmental branches. Questionable tiny filling defect within a subsegmental artery supplying the superior segment of the left lower lobe (60/4). RV: LV ratio is approximately 1 or slightly greater than 1. No reflux of contrast material into the hepatic veins. Lungs and pleura: Small ground-glass opacity in the right lower lobe could represent a small pulmonary infarct in the setting of pulmonary embolus. Mild atelectasis or scarring versus pleural thickening is seen at the lateral right middle lobe adjacent to the 5th rib fracture. No pleural effusions or pneumothorax. Central and peripheral airways are patent. Mediastinum: Heart size is normal, without pericardial effusion. No mediastinal or hilar adenopathy. Thoracic aorta is normal in caliber and enhancement. Esophagus is normal in caliber. Small hiatal hernia contains stomach and a small amount of peritoneal fat. Bones and chest wall: No suspicious bony lesions. A nondisplaced right 5th rib fractures of uncertain age. Thyroid is unremarkable. No axillary or supraclavicular adenopathy. Abdomen: Liver is hypoattenuating. Visualized upper abdominal solid organs otherwise appear normal in the early arterial phase of enhancement. IMPRESSION: 1. Acute right lower lobe segmental pulmonary embolus. Questionable tiny subsegmental pulmonary embolus in the left lower lobe. 2. Enlarged main pulmonary artery and borderline RV:LV ratio could indicate mild right heart strain. Recommend clinical correlation. 3. Ground-glass opacity in the right lower lobe distal to the pulmonary embolus is suspicious for early pulmonary infarct. 4. Nondisplaced fracture of the lateral right 5th rib is of uncertain age. No history of trauma was given. Recommend correlation for point tenderness. There is no significant discrepancy when compared to the overnight preliminary report. Approved by: Cuco Mcqueen M.D. on 07/17/2022 at 8:02
[2022-07-17 01:34] LABS: Bacteria Urine None Seen; Culture Indicated Urine Cult Not Indicated; RBC Urine None Seen (0-5/HPF); Squamous Epithelial Cell Urine 0-1 /HPF (0-5/HPF); WBC Urine None Seen (0-5/HPF)
[2022-07-17] MEDS: PIPERACILLIN/TAZO 4.5 GM in SODIUM CHLORIDE 0.9% 100 ML IV (01:45)
[2022-07-17] MEDS: VANCOMYCIN 2,000 MG/400 ML PIGGYBACK 200 MG IV ×2 (02:32→18:57)
[2022-07-17] MEDS: SODIUM CHLORIDE 0.9% 1,000 ML 1000 ML IV (02:32)
--- NOTE | 2022-07-17 03:13 | PC.NURSE ---
REVERSER note: Called the outside picc line company at [id number]. Put patient on the list for a picc line placement. Was told they couldn't come until 10am or later. Kept patient on the list, pending our picc line team wasn't here. The gal on the other end of the line told me to please call her if we no longer need their services because so often they come to [place] and the picc line placement has been cancelled. Assured her I would pass the message along. Called the internal diagnostic nurse and left a message about a PICC being placed.
[2022-07-17] MEDS: HEPARIN 5,000 UNIT/ML VIAL 7500 UNIT IV (03:16)
[2022-07-17] MEDS: HEPARIN DRIP 25,000 UNIT/500 ML IV.SOLN 40 UNIT IV (03:22)
[2022-07-17] MEDS: MORPHINE 4 MG/ML INJ IV (03:36)
--- NOTE | 2022-07-17 03:37 | P.HP_ITS ---
History of Present Illness History of Present Illness Date Patient Seen: 07/17/22 Time Patient Seen: 03:00 Chief complaint: states MRSA infection Narrative: Mr. Sifuentes is a 37M with H polysubstance abuse, morbid obesity, WPW syndrome, history of DVT, chronic lower extremity edema and wounds who presents with chest pain, shortness of breath, subjective fevers, and worsening leg swelling and pain. He states he has chronic ulcers on his legs. He is seen in wound care clinic. He think he has had about six antibiotic prescriptions for cellulitis in his legs prior to recently being given a prescription for doxycycline. He has noted worsening lower leg swelling primarily in his right leg and thigh erythema on his right leg. He notes for the last two days he has had chest pain on the right and shortness of breath. Chest pain in worse with breathing. No cough. He was diagnosed with VTE over 10 years ago, but he does not think he took any anticoagulation. In the ED workup was done, vitals notable for temp 98.4, heart rate in the 90s, respiratory rate in the 20s, blood pressure 130s/70s. Sats 98% on room air. Labs reviewed by me and notable for WBC 9.5, hgb 10.3, plts 306. Creatinine 0.69. INR 1.2. Troponin negative. BNP 133. Chest xray reviewed by me and notable for no consolidation and small right pleural effusion. CTA PE noted right lower lobe pulmonary artery PE with RV/LV ratio of approximately one and possible RV enlargement. He was given antibiotics and started on heparin drip and admitted for further treatment. [facility] Medical History Amphetamine abuse Drug abuse Hepatitis C virus infection cured after antiviral drug therapy History of DVT (deep vein thrombosis) Obesity (BMI 30-39.9) Opiate dependence, continuous Nnxcn-Tmckbxhib-Bjrju (WPW) pattern Surgical History History of abdominal surgery Family History Father Overdose Drug addiction Mother Overdose Drug addiction Social History household members: spouse Smoking Status: Current every day smoker alcohol intake: never substance use type: opiates, IV drugs and methamphetamine Meds Home Medications and Allergies Home Medications Medication Instructions Recorded Confirmed Type doxycycline monohydrate 100 mg 100 mg PO BID #20 caps 03/19/22 Rx capsule hydrocodone 5 mg-acetaminophen 325 1 tab PO Q4-6H PRN pain #10 tabs 07/10/22 Rx mg tablet Allergies Allergy/AdvReac Type Severity Reaction Status Date / Time egg Allergy Intermediate Verified 07/16/22 20:31 Egg Derived Allergy Verified 07/16/22 20:31 Review of Systems Review of Systems Narrative: 14 systems reviewed and negative aside from what is noted in HPI Exam Vital Signs (past 8 hours): - 07/16/22 20:24 07/16/22 20:40 07/16/22 21:00 Temperature 98.4 F Pulse Rate 99 H 93 H 96 H Respiratory Rate 26 H 23 20 Blood Pressure 130/79 Pulse Oximetry 98 97 98 Oxygen Delivery Method Room Air 07/16/22 22:00 07/16/22 23:00 07/17/22 00:30 Temperature Pulse Rate 92 H 89 88 Respiratory Rate 17 16 15 Blood Pressure Pulse Oximetry 95 93 94 Oxygen Delivery Method Room Air Room Air Room Air 07/17/22 01:03 07/17/22 01:30 07/17/22 01:30 Temperature Pulse Rate 94 H 91 H Respiratory Rate 16 17 Blood Pressure 121/58 L 115/56 L Pulse Oximetry Oxygen Delivery Method 07/17/22 02:00 07/17/22 02:00 07/17/22 02:55 Temperature Pulse Rate 90 80 Respiratory Rate 17 18 Blood Pressure 115/56 L 124/66 Pulse Oximetry 97 Oxygen Delivery Method 07/17/22 02:55 Temperature Pulse Rate Respiratory Rate Blood Pressure Pulse Oximetry 91 Oxygen Delivery Method Oxygen Delivery Method Room Air Narrative Exam Narrative: GEN: in distress from pain HEENT: moist mucous membranes, PERRL NECK: trachea midline, no JVD PULM: clear bilaterally, no wheezes, rhonchi, rales CV: regular rate and rhythm, with no murmurs ABD: soft, nontender, nondistended, no organomegaly, normal bowel sounds EXT: warm and well perfused, erythema and tenderness on right thigh just proximal to right knee, bilateral edematous legs with chronic venous stasis changes and multiple ulcers NEURO: awake, alert, oriented, with no focal deficits Objective Labs 07/16/22 21:10 07/16/22 21:10 Labs: Laboratory Results - last 24 hr 07/16/22 07/16/22 07/16/22 21:10 21:10 21:10 WBC 9.5 RBC 4.48 L Hgb 10.3 L Hct 31.8 L MCV 70.9 L MCH 23.0 L MCHC 32.4 RDW 16.7 H Plt Count 306 Neut % (Auto) 71.6 Lymph % (Auto) 16.8 L [place] % (Auto) 7.8 Eos % (Auto) 2.3 Baso % (Auto) 1.5 Neut # (Auto) 6800 Lymph # (Auto) 1600 [place] # (Auto) 700 Eos # (Auto) 200 Baso # (Auto) 100 PT 13.6 H INR 1.2 APTT 29 Sodium 134 L Potassium 3.8 Chloride 98 Carbon Dioxide 33 H BUN 12 Creatinine 0.69 Estimated GFR > 60 BUN/Creatinine Ratio 17.4 Glucose 97 Lactate Calcium 8.3 L Total Bilirubin 0.3 AST 25 ALT 18 Alkaline Phosphatase 102 Total Creatine Kinase 60 CK-MB (CK-2) TNP CK-MB (CK-2) Rel Index TNP Troponin I < 0.012 NT-Pro-B Natriuret Pep 133 H Total Protein 9.2 H Albumin 3.3 L Globulin 5.9 H Albumin/Globulin Ratio 0.6 L Lipase 56 Urine RBC Urine WBC Ur Squamous Epith Cells Urine Bacteria Ur Culture Indicated? U Opiates 300ng/mL cut Ur Oxycodone Screen Urine Methadone Screen Ur Barbiturates Screen U Tricyclic Antidepress Ur Phencyclidine Scrn Ur Amphetamines Screen U Methamphetamines Scrn Ur MDMA Scrn (Ecstasy) U Benzodiazepines Scrn Urine Cocaine Screen U Marijuana (THC) Screen 07/16/22 07/17/22 07/17/22 21:10 01:00 01:00 WBC RBC Hgb Hct MCV MCH MCHC RDW Plt Count Neut % (Auto) Lymph % (Auto) [place] % (Auto) Eos % (Auto) Baso % (Auto) Neut # (Auto) Lymph # (Auto) [place] # (Auto) Eos # (Auto) Baso # (Auto) PT INR APTT Sodium Potassium Chloride Carbon Dioxide BUN Creatinine Estimated GFR BUN/Creatinine Ratio Glucose Lactate 1.2 Calcium Total Bilirubin AST ALT Alkaline Phosphatase Total Creatine Kinase CK-MB (CK-2) CK-MB (CK-2) Rel Index Troponin I NT-Pro-B Natriuret Pep Total Protein Albumin Globulin Albumin/Globulin Ratio Lipase Urine RBC None seen Urine WBC None seen Ur Squamous Epith Cells 0-1 /hpf Urine Bacteria None seen Ur Culture Indicated? Cult not indicated U Opiates 300ng/mL cut Negative Ur Oxycodone Screen Negative Urine Methadone Screen Positive H Ur Barbiturates Screen Negative U Tricyclic Antidepress Negative Ur Phencyclidine Scrn Negative Ur Amphetamines Screen Positive H U Methamphetamines Scrn Positive H Ur MDMA Scrn (Ecstasy) Negative U Benzodiazepines Scrn Negative Urine Cocaine Screen Positive H U Marijuana (THC) Screen Positive H Assessment & Plan Assessment & Plan narrative: 1. Pulmonary embolism, acute -presented with right sided chest pain, and shortness of breath -patient hemodynamically stable, not requiring oxygen -CTA PE positive for small PE -DVT us negative for VTE -started on heparin gtt in the ED, will continue -initial trop normal, BNP 133 -keep on telemetry -CTA showed some indication for right ventricle dilation, but no severe symptoms from PE, no hypotension -consider ECHO if patient symptoms worsen to evaluate for RV strain -no indication for catheter directed lysis, but will monitor for worsening symptoms 2. Acute cellulitis -patient with pain, swelling, and erythema of right thigh -probable infection, though may be secondary to chronic changes -is currently on doxycycline -will order vancomycin, clindamycin, and cefepime for now, has had wound cultures with group a strep, e. coli, and mrsa within the last two weeks -follow up blood cultures 3. Morbid obesity -BMI 43.7 -obesity will delay healing of wound and infection 4. History of Gokqz-Cmefsowhl-vzzqe syndrome -monitor on telemetry for above indication 5. Polysubstance abuse -positive uds for methadone, meth, cocaine, marijuana I have discussed plan and obtained history from the patient. I have discussed plan of care with ED physician and bedside nurse. I have reviewed labs, previous medical notes, chest xray and CT imaging.
[2022-07-17 04:39] LABS: COVID19 -Nasal RAPID Negative (Negative)
[2022-07-17] MEDS: CEFEPIME 1 GM in SODIUM CHLORIDE 0.9% 100 ML IV (06:15)
[2022-07-17 06:16] LABS: Add Manual Diff / Slide Review NO; Basophils Absolute Auto 100 /uL (0-100); Basophils Percent Auto 0.6 % (0-2); Eosinophils Absolute Auto 200 /uL (0-450); Eosinophils Percent Auto 2.2 % (2-4); Hematocrit 30.8 % (41-53); Hemoglobin 10.1 g/dL (13.5-17.5); Lymphocytes Absolute Auto 1700 /uL (1100-4500); Lymphocytes Percent Auto 17.6 % (25-40); Mean Corpuscular HGB Conc 32.7 % (30-36); Mean Corpuscular Hemoglobin 23.2 PG (26-34); Mean Corpuscular Volume 70.8 fL (80-100); Monocytes Absolute Auto 900 /uL (0-900); Monocytes Percent Auto 9.5 % (3-14); Neutrophils Absolute Auto 6600 /uL (1500-7000); Neutrophils Percent Auto 70.1 % (50-75); Platelet Count 283 X10^3/uL (150-400); Red Blood Cell Count 4.35 X10^6/uL (4.5-5.9); Red Cell Distribution Width 16.8 % (11.6-14.8); White Blood Cell Count 9.5 X10^3/uL (4.5-11.0)
[2022-07-17] MEDS: VANCOMYCIN 1,000 MG/200 ML PIGGYBACK 200 MG IV (06:19)
[2022-07-17 06:28] LABS: BUN Creatinine Ratio 17.7 (6-22); Blood Urea Nitrogen 11 mg/dL (9-20); Calcium 8.2 mg/dL (8.4-10.2); Carbon Dioxide 27 mmol/L (22-32); Chloride 102 mmol/L (98-107); Estimated Glomerular Filt Rate > 60 mL/min (>60); Glucose 96 mg/dL (70-100); HEMOLYSIS 22 (0-50); Potassium 4.1 mmol/L (3.4-5.1); Sodium 133 mmol/L (137-145)
--- NOTE | 2022-07-17 06:49 | PC.NURSE ---
Related to Vancomycin administration: The remainder of the dose that was started in the ER was finished on the floor. He is to receive the complete 2 grams from that dose is infusing now. In addition, another 1 gram was ordered that is infusing now as well. Starting at 0630, he will be begin receiving the remainder of the 2 grams, then the 1 gram of vanco for a total of 3 grams. In addition he is receiving the cefepime. The heparin has been discontinued in the setting of limited IV access. He currently has one IV in his right FA.
[2022-07-17] MEDS: ENOXAPARIN 100 MG/ML SYRINGE 160 MG SUBCUT ×2 (08:48→21:17)
[2022-07-17] MEDS: CEFEPIME 2 GM in SODIUM CHLORIDE 0.9% 100 ML IV ×2 (09:02→21:21)
--- NOTE | 2022-07-17 11:02 | CM.DANOTE ---
Addendum entered by Savanna Johnson R.N. 07/17/22 13:32: Met with patient, confirmed that he does not have a primary care provider, but has been able to go to [facility]. Asked him if he had attempted to get in touch with [facility], stated, they have a long waiting list, was trying to get established with Dr. Victor. He stated, it has been hard to find providers that accept his insurance. Let him know that this [place] Parking Line Painter can check with [facility] next door, to see if they accept his insurance. Called over at [facility], spoke to banking center manager, and indicated that their providers to accept [facility]. Dr. Mendez is accepting, is booked out until about September, Dr. Zaragoza, Dr. Zarate, accepting, booked out until about November. Gave patient their phone number and information, placed at his bedside to review. Original Note: DCP: Case received, EMR reviewed and met with patient. Introduced self and role. Was able to get limited amount of information from patient in order to complete DCP assessment. Assessment completed with information currently available. Patient is a 37 year old male who admitted early this morning to the care of the hospitalist team. PCP: unknown at this time. Payer: confirmed: [facility] [employer]/Medicaid. Patient came to the hospital via private vehicle secondary to having concerns of increased infection in his legs. Notes indicate that patient had a DVT remotely and a pulmonary emboli. Patient was also complaining of increased chest pain, and shortness of breath. Patient was admitted for pulmonary embolism, acute, and acute cellulitis. Met briefly with patient, he was in bed, groggy. Confirmed that he resides in [place] with his spouse, Mena. He is independent at baseline. He is established at the Methadone clinic in [facility]. He goes to the would clinic. Called over at [facility], spoke to Ladonna, and confirmed that he is active with them. His last appointment was on 07-08. She gave their fax number of: [phone], can fax them DC Summary. Their phone extension is [phone]. Ladonna indicated that they see patient once, sometimes twice a week. P: DCP to continue to follow. Plan will most likely be home, updated hospitalist regarding Methadone clinic, and wound clinic. Did not yet get to ask patient his primary care provider. Will need to update [facility] upon discharge. Savanna Johnson RN/Pop Singer Discharge Planning/Care Management CM Discharge Assessment Start: 07/17/22 10:59 Freq: Status: Active Protocol: Document 07/17/22 10:59 (Rec: 07/17/22 11:02 [id number]) Discharge Planning Assessment Assigned News Videotape Editor Savanna Johnson RN/Pop Singer Advance Directives? No Advance Directives on File No History Provided By Patient,Medical Record Household Members spouse Type of transporation used prior to Drives own vehicle admit Independent with ADL's Yes Is patient alert and oriented? Yes Caregiver for Another No Barriers to Discharge No Comment Patient is established at [facility], verified with Concha at the wound clinic. Discharge Plan Home [facility] Wound Care Transportation Arrangement Family can provide transport. Referrals Initiated Other Additional Comment Patient is established at Methadone clinic, at [facility], and [facility] wound clinic. Whiteboard Updated in Patient Room with Yes name and ext. # of News Videotape Editor Review Status In Process Next Review Type Continued Stay Review
[2022-07-17] MEDS: METHADONE INTENSOL 10 MG/ML ORAL.CONC 70 MG PO (14:53)
[2022-07-18 02:00] VITALS: BP 140/74; PULSE 77; RESP 18; TEMP 36.5; O2SAT 95
[2022-07-18 05:26] VITALS: BP 120/72; PULSE 80; RESP 19; TEMP 36.1; O2SAT 96
[2022-07-18] MEDS: VANCOMYCIN 2,000 MG/400 ML PIGGYBACK 200 MG IV ×2 (06:23→18:43)
--- NOTE | 2022-07-18 07:33 | PM.PN.1 ---
Subjective Subjective Interval history: Patient says his LE pain is improving but he is having more itching in his legs. Exam Vital Signs (past 8 hours): - 07/18/22 02:00 07/18/22 05:26 Temperature 97.7 F 96.9 F L Pulse Rate 77 80 Respiratory Rate 18 19 Blood Pressure 140/74 120/72 Pulse Oximetry 95 96 Oxygen Flow Rate 0 0 Oxygen Delivery Method Room Air Oxygen Flow Rate 0 Narrative Exam Narrative: GEN: NAD HEENT: moist mucous membranes, PERRL NECK: trachea midline, no JVD PULM: clear bilaterally, no wheezes, rhonchi, rales CV: regular rate and rhythm, with no murmurs ABD: soft, nontender, nondistended, no organomegaly, normal bowel sounds EXT: warm and well perfused, erythema and tenderness on right thigh just proximal to right knee, bilateral edematous legs with chronic venous stasis changes and multiple ulcers NEURO: awake, alert, oriented, with no focal deficits Objective Labs 07/18/22 09:00 07/18/22 09:00 [facility] Medical History Amphetamine abuse Drug abuse Hepatitis C virus infection cured after antiviral drug therapy History of DVT (deep vein thrombosis) Obesity (BMI 30-39.9) Opiate dependence, continuous Zeums-Clhaqwzvh-Ggqmm (WPW) pattern Surgical History History of abdominal surgery Family History Father Overdose Drug addiction Mother Overdose Drug addiction Social History household members: spouse Smoking Status: Current every day smoker alcohol intake: never substance use type: opiates, IV drugs and methamphetamine Assessment & Plan Assessment & Plan narrative: 1. Pulmonary embolism, acute -presented with right sided chest pain, and shortness of breath -patient hemodynamically stable, not requiring oxygen -CTA PE positive for small PE -DVT us negative for VTE -change lovenox to eliquis 10mg BID x7 days the 5mg BID after likely indefinitely as this is 2nd occurrence of PE -initial trop normal, BNP 133 -keep on telemetry -CTA showed some indication for right ventricle dilation, but no severe symptoms from PE, no hypotension -echo with EF 60-65% and diastolic dysfunction but no RH strain 2. Acute cellulitis, improving -patient with pain, swelling, and erythema of right thigh -probable infection, though may be secondary to chronic changes -is currently on doxycycline -will order vancomycin and cefepime for now, has had wound cultures with group a strep, e. coli, and mrsa within the last two weeks -follow up blood cultures -will likely switch to po linezolid on discharge -benadryl PRN for itching 3. Morbid obesity -BMI 43.7 -obesity will delay healing of wound and infection 4. History of Jldyr-Cesywqlci-yfoid syndrome -monitor on telemetry for above indication 5. Polysubstance abuse -positive uds for methadone, meth, cocaine, marijuana -continue methadone 70mg daily verified with [facility] Dispo: Home in 1-2 days pending improvement in cellulitis. Quality VTE Deep Vein Thrombosis/Pulmonary Embolism Present on Admission: Yes
[2022-07-18 08:00] VITALS: BP 121/57; PULSE 73; RESP 16; TEMP 36.2; O2SAT 97
[2022-07-18] MEDS: METHADONE INTENSOL 10 MG/ML ORAL.CONC 70 MG PO (08:25)
[2022-07-18] MEDS: APIXABAN 5 MG TABLET 10 MG PO ×2 (08:25→21:03)
[2022-07-18] MEDS: CEFEPIME 2 GM in SODIUM CHLORIDE 0.9% 100 ML IV ×2 (08:25→21:03)
[2022-07-18 09:15] LABS: Add Manual Diff / Slide Review NO; Basophils Absolute Auto 0 /uL (0-100); Basophils Percent Auto 0.6 % (0-2); Eosinophils Absolute Auto 300 /uL (0-450); Eosinophils Percent Auto 4.1 % (2-4); Hematocrit 31.5 % (41-53); Hemoglobin 10.2 g/dL (13.5-17.5); Lymphocytes Absolute Auto 1700 /uL (1100-4500); Lymphocytes Percent Auto 22.6 % (25-40); Mean Corpuscular HGB Conc 32.4 % (30-36); Mean Corpuscular Hemoglobin 23.2 PG (26-34); Mean Corpuscular Volume 71.5 fL (80-100); Monocytes Absolute Auto 900 /uL (0-900); Monocytes Percent Auto 11.8 % (3-14); Neutrophils Absolute Auto 4500 /uL (1500-7000); Neutrophils Percent Auto 60.9 % (50-75); Platelet Count 329 X10^3/uL (150-400); Red Cell Distribution Width 16.8 % (11.6-14.8); White Blood Cell Count 7.3 X10^3/uL (4.5-11.0)
[2022-07-18 09:27] LABS: BUN Creatinine Ratio 14.7 (6-22); Blood Urea Nitrogen 10 mg/dL (9-20); Calcium 8.1 mg/dL (8.4-10.2); Carbon Dioxide 32 mmol/L (22-32); Chloride 104 mmol/L (98-107); Estimated Glomerular Filt Rate > 60 mL/min (>60); Glucose 101 mg/dL (70-100); HEMOLYSIS < 15 (0-50); Potassium 4.1 mmol/L (3.4-5.1); Sodium 138 mmol/L (137-145)
--- NOTE | 2022-07-18 11:23 | CM.DPC ---
DCP Cont: Discussed patient during team rounds. Patient is continuing with treatment for P.E, and cellulitis. Patient will discharge when medically stable, and will follow up at wound clinic. Have given patient number for [facility], to look into primary providers, as indicated in note from yesterday. P: DCP to continue to follow. Plan is home when medically stable. Savanna Johnson RN/Yarn Preparation Supervisor
[2022-07-18 18:22] LABS: Vancomycin Trough 13.3 ug/mL (10-20)
[2022-07-18 20:00] VITALS: BP 145/97; PULSE 86; RESP 16; TEMP 36; O2SAT 97
[2022-07-18] MEDS: SODIUM CHLORIDE 0.9% FLUSH 10 ML IV (22:00)
--- NOTE | 2022-07-18 22:51 | PC.NURSE ---
Addendum entered by Radha Hilario R.N. 07/19/22 05:42: Earlier found documentation that patient had MRSA in right leg wounds on 07/04/22 so is now on contact isolation. Addendum entered by Radha Hilario R.N. 07/19/22 05:42: here earlier and now found cigarette application development team lead in patient's bed. Removed from room and placed in nurse bistro server drawer. Original Note: Patient is alert and oriented. Breath sounds CTA with RA sat of 97%. HRR w/elevated BP of 145/97. Does complain of right sided chest pain with severity of 5/10 which he states is due to his PE. Denies SOB and declines offer of pain medication. Denies nausea. BT present and abdomen is soft. Voiding per urinal and denies dysuria. Is independent with mobility and steady on feet. Dressings to bilateral LE, knee to toe, are CDI; patient changed dressings prior to RN doing assessment. Refusing SCD's related to independent mobility and ulcers on legs. Fall risk score is moderate; bed alarm is not activated.
[2022-07-18 23:30] VITALS: BP 143/93; PULSE 87; RESP 15; TEMP 35.9; O2SAT 95
[2022-07-19 04:45] VITALS: BP 142/91; PULSE 89; RESP 16; TEMP 35.9; O2SAT 96
[2022-07-19] MEDS: SODIUM CHLORIDE 0.9% FLUSH 10 ML IV (05:35)
[2022-07-19] MEDS: VANCOMYCIN 2,000 MG/400 ML PIGGYBACK 200 MG IV (05:35)
[2022-07-19 06:49] LABS: Add Manual Diff / Slide Review NO; Basophils Absolute Auto 0 /uL (0-100); Basophils Percent Auto 0.5 % (0-2); Eosinophils Absolute Auto 400 /uL (0-450); Eosinophils Percent Auto 5.4 % (2-4); Hematocrit 33.7 % (41-53); Hemoglobin 10.8 g/dL (13.5-17.5); Lymphocytes Absolute Auto 1800 /uL (1100-4500); Lymphocytes Percent Auto 25.5 % (25-40); Mean Corpuscular HGB Conc 32.1 % (30-36); Mean Corpuscular Hemoglobin 22.9 PG (26-34); Mean Corpuscular Volume 71.5 fL (80-100); Monocytes Absolute Auto 900 /uL (0-900); Monocytes Percent Auto 12.9 % (3-14); Neutrophils Absolute Auto 3800 /uL (1500-7000); Neutrophils Percent Auto 55.7 % (50-75); Platelet Count 333 X10^3/uL (150-400); Red Blood Cell Count 4.71 X10^6/uL (4.5-5.9); Red Cell Distribution Width 16.9 % (11.6-14.8); White Blood Cell Count 6.9 X10^3/uL (4.5-11.0)
[2022-07-19 06:56] LABS: BUN Creatinine Ratio 13.4 (6-22); Blood Urea Nitrogen 11 mg/dL (9-20); Calcium 8.4 mg/dL (8.4-10.2); Carbon Dioxide 32 mmol/L (22-32); Chloride 103 mmol/L (98-107); Estimated Glomerular Filt Rate > 60 mL/min (>60); Glucose 94 mg/dL (70-100); HEMOLYSIS < 15 (0-50); Potassium 4.5 mmol/L (3.4-5.1); Sodium 139 mmol/L (137-145)
[2022-07-19 08:00] VITALS: BP 140/85; PULSE 80; RESP 20; TEMP 36.8; O2SAT 96
--- NOTE | 2022-07-19 08:15 | P.DS_ITS ---
History of Present Illness History of Present Illness Date Patient Seen: 07/17/22 Time Patient Seen: 03:00 Chief complaint: states MRSA infection Narrative: Mr. Sifuentes is a 37M with H polysubstance abuse, morbid obesity, WPW syndrome, history of DVT, chronic lower extremity edema and wounds who presents with chest pain, shortness of breath, subjective fevers, and worsening leg swelling and pain. He states he has chronic ulcers on his legs. He is seen in wound care clinic. He think he has had about six antibiotic prescriptions for cellulitis in his legs prior to recently being given a prescription for doxycycline. He has noted worsening lower leg swelling primarily in his right leg and thigh erythema on his right leg. He notes for the last two days he has had chest pain on the right and shortness of breath. Chest pain in worse with breathing. No cough. He was diagnosed with VTE over 10 years ago, but he does not think he took any anticoagulation. In the ED workup was done, vitals notable for temp 98.4, heart rate in the 90s, respiratory rate in the 20s, blood pressure 130s/70s. Sats 98% on room air. Labs reviewed by me and notable for WBC 9.5, hgb 10.3, plts 306. Creatinine 0.69. INR 1.2. Troponin negative. BNP 133. Chest xray reviewed by me and notable for no consolidation and small right pleural effusion. CTA PE noted right lower lobe pulmonary artery PE with RV/LV ratio of approximately one and possible RV enlargement. He was given antibiotics and started on heparin drip and admitted for further treatment. Discharge Providers Provider Date of admission: 07/17/22 03:07 Discharge Date: 07/19/22 Consults: 07/17/22 05:43 Consult to Corporate Quality Assurance Manager Routine Comment: Discharge provider: Ricardo Colbert DO Summary Hospital Course Discharge Diagnosis: 1. Pulmonary embolism, acute -presented with right sided chest pain, and shortness of breath -patient hemodynamically stable, not requiring oxygen -CTA PE positive for small PE -DVT us negative for VTE -change lovenox to eliquis 10mg BID x7 days the 5mg BID after likely indefinitely as this is 2nd occurrence of PE -initial trop normal, BNP 133 -keep on telemetry -CTA showed some indication for right ventricle dilation, but no severe symptoms from PE, no hypotension -echo with EF 60-65% and diastolic dysfunction but no RH strain 2. Acute cellulitis, improving -patient with pain, swelling, and erythema of right thigh -probable infection, though may be secondary to chronic changes -is currently on doxycycline prior to admit -will order vancomycin and cefepime for now, has had wound cultures with group a strep, e. coli, and mrsa within the last two weeks -blood cultures NG at 48 hours -benadryl PRN for itching -discharged on doxy and cefdinir po 3. Morbid obesity -BMI 43.7 -obesity will delay healing of wound and infection 4. History of Tjgjg-Uatqqhpnt-zyzer syndrome -monitor on telemetry for above indication 5. Polysubstance abuse -positive uds for methadone, meth, cocaine, marijuana -continue methadone 70mg daily verified with [facility] Hospital Course: Admitted for worsening cellulitis of RLE which improved with IV abx. Found to have acute PE and started on eliquis for this. Discharged home on eliquis, doxy and cefdinir to complete 5 more days of po abx as he previously grew MRSA sensitive to doxy and E. coli sensitive to cephalosporins. Time Spent with Patient Time spent: Greater than 30 minutes Exam Vital Signs (past 8 hours): - 07/19/22 04:45 Temperature 96.6 F L Pulse Rate 89 Respiratory Rate 16 Blood Pressure 142/91 H Pulse Oximetry 96 Oxygen Flow Rate 0 Oxygen Delivery Method Room Air Oxygen Flow Rate 0 Narrative Exam Narrative: GEN: NAD HEENT: moist mucous membranes, PERRL NECK: trachea midline, no JVD PULM: clear bilaterally, no wheezes, rhonchi, rales CV: regular rate and rhythm, with no murmurs ABD: soft, nontender, nondistended, no organomegaly, normal bowel sounds EXT: warm and well perfused, erythema and tenderness on right thigh just proximal to right knee, bilateral edematous legs with chronic venous stasis changes and multiple ulcers NEURO: awake, alert, oriented, with no focal deficits Objective Labs 07/19/22 06:32 07/19/22 06:32 Labs: Laboratory Results - last 24 hr 07/18/22 07/18/22 07/18/22 09:00 09:00 17:38 WBC 7.3 RBC 4.40 L Hgb 10.2 L Hct 31.5 L MCV 71.5 L MCH 23.2 L MCHC 32.4 RDW 16.8 H Plt Count 329 Neut % (Auto) 60.9 Lymph % (Auto) 22.6 L [place] % (Auto) 11.8 Eos % (Auto) 4.1 H Baso % (Auto) 0.6 Neut # (Auto) 4500 Lymph # (Auto) 1700 [place] # (Auto) 900 Eos # (Auto) 300 Baso # (Auto) 0 Sodium 138 Potassium 4.1 Chloride 104 Carbon Dioxide 32 BUN 10 Creatinine 0.68 Estimated GFR > 60 BUN/Creatinine Ratio 14.7 Glucose 101 H Calcium 8.1 L Vancomycin Trough 13.3 07/19/22 07/19/22 06:32 06:32 WBC 6.9 RBC 4.71 Hgb 10.8 L Hct 33.7 L MCV 71.5 L MCH 22.9 L MCHC 32.1 RDW 16.9 H Plt Count 333 Neut % (Auto) 55.7 Lymph % (Auto) 25.5 [place] % (Auto) 12.9 Eos % (Auto) 5.4 H Baso % (Auto) 0.5 Neut # (Auto) 3800 Lymph # (Auto) 1800 [place] # (Auto) 900 Eos # (Auto) 400 Baso # (Auto) 0 Sodium 139 Potassium 4.5 Chloride 103 Carbon Dioxide 32 BUN 11 Creatinine 0.82 Estimated GFR > 60 BUN/Creatinine Ratio 13.4 Glucose 94 Calcium 8.4 Vancomycin Trough [facility] Medical History Amphetamine abuse Drug abuse Hepatitis C virus infection cured after antiviral drug therapy History of DVT (deep vein thrombosis) Obesity (BMI 30-39.9) Opiate dependence, continuous Lpmvm-Vtsihfrfy-Ctosj (WPW) pattern Surgical History History of abdominal surgery Family History Father Overdose Drug addiction Mother Overdose Drug addiction Social History household members: spouse Smoking Status: Current every day smoker alcohol intake: never substance use type: opiates, IV drugs and methamphetamine Discharge Plan Discharge Plan Patient Disposition: Home Provider Discharge Comment: You were admitted for cellulitis infection of your right leg and found to have a pulmonary embolism. You will now need to be on the blood thinner eliquis and probably indefinitely since this is your 2nd time having a clot in your lungs. I've sent you home on 2 antibiotics to finish 5 days of for your legs. Discharge orders & Medications Prescriptions: New Eliquis 5 mg Tablet 10 mg PO BID Qty: 60 0RF Rx Instructions: take 10mg twice daily for 6 days then 5mg twice daily after that cefdinir 300 mg capsule 300 mg PO BID 5 Days Qty: 10 0RF Continued hydrocodone-acetaminophen 5-325 mg tablet 1 tab PO Q4-6H PRN (Reason: pain) Qty: 10 0RF doxycycline monohydrate 100 mg capsule 100 mg PO BID 5 Days Qty: 10 0RF Visit Report/Discharge Packet Instructions: DI for Cellulitis -- Adult, DI for Pulmonary Embolism, Apixaban Stand Alone Forms: Patient Portal/API, Stroke Signs & Symptoms Discharges patient from system. Discharge Date/Time: 07/19/22 10:30 Quality VTE Deep Vein Thrombosis/Pulmonary Embolism Present on Admission: Yes
[2022-07-19] MEDS: CEFEPIME 2 GM in SODIUM CHLORIDE 0.9% 100 ML IV (08:42)
[2022-07-19] MEDS: METHADONE 10 MG TABLET 70 MG PO (08:43)
[2022-07-19] MEDS: APIXABAN 5 MG TABLET 10 MG PO (08:43)
--- NOTE | 2022-07-19 09:17 | CM.DPC ---
DCP Discharge Home Per MD, pt is medically stable to d/c home today with spouse and outpt f/u with Wound Clinic and ongoing [facility]. SW faxed pt's d/c summary to [facility] per their request to fax [phone] for review for pt's next scheduled outpt appointment. Plan: Patient to d/c home with spouse assist today and outpt f/u with wound care and methadone clinic. No further SW needs at this time. DONNIE Khan
--- NOTE | 2022-07-19 09:40 | PC.NURSE ---
Day shift: Paperwork signed and all questions answered at this time ([id number]). Paperwork went over w/ Pt by JOVITA Delacruz and this fiction and nonfiction writer prose in room as well. Pt getting dressed and will be taken to car via WC. Pt's S.O. is picking him up. Pt states he has nothing in safe or locked up in pharmacy.
--- NOTE | 2022-07-19 12:29 | PC.NURSE ---
Discharge: Pt feels ready to d/c to home. Found smoking something in the bathroom, bandage maker was removed on noc shift. Pt changed his own lower leg dressings. Reviewed discharge packet. Questions answered. Taken to the front of the hospital to wait for his ride. He was concerned about his methadone for thursday, ifhe gets to the clinic before it closes they will give him a dose.
== END 2022-07-19 10:30 | disposition home or self-care (01) | DRG 134 ==
LOC: ED 07-17 02:46 → AC 07-17 03:08
PROVIDERS: Student in an Organized Health Care Education/Training Program; Admitting Provider Internal Medicine; Emergency Provider Emergency Medicine; Referring Provider Emergency Medicine; Visit Provider Internal Medicine
DX: I26.99 Other pulmonary embolism without acute cor pulmonale (principal); L03.115 Cellulitis of right lower limb; E66.01 Morbid (severe) obesity due to excess calories; F14.10 Cocaine abuse, uncomplicated; F15.10 Other stimulant abuse, uncomplicated; F17.210 Nicotine dependence, cigarettes, uncomplicated; B95.62 Methicillin resistant Staphylococcus aureus infection as the cause of diseases classified elsewhere; B96.20 Unspecified Escherichia coli [E. coli] as the cause of diseases classified elsewhere; Z20.822 Contact with and (suspected) exposure to COVID-19; Z68.41 Body mass index [BMI] 40.0-44.9, adult
CPT/HCPCS: 36415; 71045; 71275; 80048; 80053; 80202; 80305; 81015; 82550; 83605; 83690; 83880; 84484; 85025; 85610; 85730; 87040; 87635; 93005; 93010; 93306; 93970; 96365; 96367; 96375; 99284; 99291; C9803; J0692; J1644; J1650; J2270; J2543; Q9957; Q9967

== ENCOUNTER → 2022-07-23 14:37 | Outpatient (CLI) | payer OTHER, MEDICAID, SELFPAY ==
[2022-07-17 03:17] VITALS: BMI 43.7
== END ==
PROVIDERS: PCP Emergency Medicine; Referring Provider Emergency Medicine; Visit Provider Surgery
DX: I87.313 Chronic venous hypertension (idiopathic) with ulcer of bilateral lower extremity (principal); I89.0 Lymphedema, not elsewhere classified; L97.822 Non-pressure chronic ulcer of other part of left lower leg with fat layer exposed; L97.522 Non-pressure chronic ulcer of other part of left foot with fat layer exposed; L97.812 Non-pressure chronic ulcer of other part of right lower leg with fat layer exposed; L97.512 Non-pressure chronic ulcer of other part of right foot with fat layer exposed; R60.0 Localized edema
CPT/HCPCS: 11042; 99213

== ENCOUNTER 2022-08-14 17:23 | Emergency (ER) | payer OTHER, MEDICAID, SELFPAY ==
[2022-07-17 03:17] VITALS: BMI 43.7
[2022-08-14 17:38] VITALS: BP 152/75; PULSE 104; RESP 16; TEMP 36.4; O2SAT 97; BMI 40.6
--- NOTE | 2022-08-14 22:41 | ED.SKABFB ---
HPI - Skin/Abscess/Foreign Bdy General Chief complaint: Skin/Abscess/Foreign Body Stated complaint: Ongoing infection Time Seen by Provider: 08/14/22 22:07 Source: patient Mode of arrival: Ambulatory Limitations: no limitations History of Present Illness HPI narrative: Patient is a 37-year-old male history of IVDA chronic ongoing lower extremity wound and cellulitis, history of WPW syndrome, DVT, admitted in July for cellulitis. He reports that he has been going to wound care however over the last 2-3 days he is noticed blisters and new wounds on his legs. He has been chilled but no fevers. No chest pain or shortness of breath. Related Data Previous Rx's Medication Instructions Recorded hydrocodone 5 mg-acetaminophen 325 1 tab PO Q4-6H PRN pain #10 tabs 07/10/22 mg tablet apixaban 5 mg tablet (Eliquis) 10 mg PO BID #60 tabs 07/19/22 doxycycline monohydrate 100 mg 100 mg PO BID 5 days #10 caps 07/19/22 capsule doxycycline hyclate 100 mg capsule 100 mg PO BID #20 caps 08/15/22 levofloxacin 750 mg tablet 750 mg PO DAILY 10 days #10 tabs 08/15/22 Allergies Allergy/AdvReac Type Severity Reaction Status Date / Time egg Allergy Intermediate Verified 08/14/22 17:38 Egg Derived Allergy Verified 08/14/22 17:38 Review of Systems Review of Systems ROS Unobtainable: All systems reviewed & are unremarkable except as noted in HPI and below Patient History Medical History Amphetamine abuse Drug abuse Hepatitis C virus infection cured after antiviral drug therapy History of DVT (deep vein thrombosis) Obesity (BMI 30-39.9) Opiate dependence, continuous Kxsjj-Mhjojcqyc-Eints (WPW) pattern Surgical History History of abdominal surgery Family History Father Overdose Drug addiction Mother Overdose Drug addiction Social History household members: spouse Smoking Status: Current every day smoker alcohol intake: never substance use type: opiates, IV drugs and methamphetamine Smoking Status: Current every day smoker alcohol intake frequency: holidays/special occasions only Substance Use Type: former substance user, heroin, amphetamines, opiates, IV drugs and methamphetamine Exam Initial Vital Signs Initial Vital Signs: Vital Signs Temperature 97.5 F L 08/14/22 17:38 Pulse Rate 104 H 08/14/22 17:38 Respiratory Rate 16 08/14/22 17:38 Blood Pressure 152/75 H 08/14/22 17:38 Pulse Oximetry 97 08/14/22 17:38 Oxygen Delivery Method Room Air 08/14/22 17:38 GENERAL: Alert cooperative well-appearing 37-year-old male and in no acute distress. HEENT: Head atraumatic,EOMI, pupils reactive, face symmetric, moist mucous membranes CARDIOVASCULAR: Regular rate and rhythm without murmurs, rubs or gallops. RESPIRATORY: Breath sounds equal bilaterally, no wheezes rales or rhonchi. EXTREMITIES: Normal range of motion, no clubbing or edema. Neurovascularly intact NEUROLOGICAL: Alert and oriented x4.Normal gait and speech. SKIN: Chronic lower extremity wounds some are open clear drainage mild surrounding erythema thickened skin Course Orders Ordered: ED Orders 08/14/22 21:56 Wound Culture and Gram Stain Stat Wound Culture and Gram Stain Stat 08/14/22 22:45 BNP [NT-proBNP (BNP-Adult 18+)] Stat CBC Auto Diff [Complete Blood Count AUTO DIFF] Stat CMP [Comprehensive Metabolic Panel] Stat Lactate (Lactic Acid) Stat Procalcitonin Stat Troponin & CK Cardiac Panel Stat 08/14/22 23:10 Blood Culture Stat Discontinued Medications Doxycycline Hyclate (Doxycycline Hyclate 100 Mg Tablet) 100 mg PO NOW ONE Stop: 08/15/22 00:35 Last Admin: 08/15/22 01:01 Dose: 100 mg Documented By: Levofloxacin (Levofloxacin 250 Mg Tablet) 750 mg PO NOW ONE Stop: 08/15/22 00:35 Last Admin: 08/15/22 01:01 Dose: 750 mg Documented By: Vital Signs Vital signs: Vital Signs - 8 hr 08/15/22 01:10 Pulse Rate 96 H Respiratory Rate 16 Blood Pressure 136/99 H Pulse Oximetry 100 Oxygen Delivery Method Room Air MDM - Skin/Abscess/Foreign Bdy Lab Data 08/14/22 22:45 08/14/22 22:45 Labs: Lab Results 08/14/22 08/14/22 08/14/22 Range/Units 22:45 22:45 22:45 WBC 9.8 (4.5-11.0) X10^3/uL RBC 4.38 L (4.5-5.9) X10^6/uL Hgb 10.1 L (13.5-17.5) g/dL Hct 31.2 L (41-53) % MCV 71.1 L (80-100) fL MCH 23.1 L (26-34) PG MCHC 32.4 (30-36) % RDW 16.5 H (11.6-14.8) % Plt Count 435 H (150-400) X10^3/uL Neut % (Auto) 66.0 (50-75) % Lymph % (Auto) 16.9 L (25-40) % [place] % (Auto) 12.2 (3-14) % Eos % (Auto) 4.2 H (2-4) % Baso % (Auto) 0.7 (0-2) % Neut # (Auto) 6500 (5175-1838) /uL Lymph # (Auto) 1700 (4378-0327) /uL [place] # (Auto) 1200 H (0-900) /uL Eos # (Auto) 400 (0-450) /uL Baso # (Auto) 100 (0-100) /uL Sodium 135 L (137-145) mmol/L Potassium 4.2 (3.4-5.1) mmol/L Chloride 99 (98-107) mmol/L Carbon Dioxide 33 H (22-32) mmol/L BUN 8 L (9-20) mg/dL Creatinine 0.70 (0.66-1.25) mg/dL Estimated GFR > 60 (>60) mL/min BUN/Creatinine Ratio 11.4 (6-22) Glucose 121 H (70-100) mg/dL Lactate 1.5 (0.7-2.1) mmol/L Calcium 8.2 L (8.4-10.2) mg/dL Total Bilirubin 0.1 L (0.2-1.3) mg/dL AST 26 (17-59) IU/L ALT 16 (<50) IU/L Alkaline Phosphatase 80 (38-126) U/L Total Creatine Kinase 73 (55-170) U/L CK-MB (CK-2) TNP CK-MB (CK-2) Rel Index TNP Troponin I < 0.012 (0.01-0.034) ng/mL NT-Pro-B Natriuret Pep 160 H (<125) pg/mL Total Protein 8.8 H (6.3-8.2) g/dL Albumin 3.2 L (3.5-5.0) g/dL Globulin 5.6 H (1.7-4.1) g/dL Albumin/Globulin Ratio 0.6 L (1.0-2.8) Procalcitonin 0.08 (<0.5) ng/mL MDM Narrative Medical decision making narrative: Patient 37-year-old male chronic lower extremity wounds and cellulitis. He does present with new wound today he was recently admitted last month for MRSA infection. He is not septic he is afebrile not tachycardic or hypotensive blood work is overall reassuring. Cultures do show both Gram-negative rods Gram-positive rods g cocci. He has some erythema. We discussed staying in hospital versus going home reasonable to go home will treat him for Pseudomonas and MRSA infection given Levaquin and doxycycline. He says he is previously had doxy before. He has no sign of severe sepsis he is no significant erythema his legs. He is good outpatient follow-up and is established with wound care he just has to call in the morning. Gram Stain Final 08/15/22-0012 White blood cells No WBC seen Gram Positive Cocci 3+ Gram Positive Rods 1+ Gram Negative Rods 2+ Gram Stain Final 08/15/22-0009 White blood cells No WBC seen Epithelial cells Occasional (0-1) Gram Positive Cocci 2+ Gram Positive Rods 3+ Gram Negative Rods 3+ Discharge Plan Departure Patient Disposition: Home Clinical Impression: Cellulitis Instructions: DI for Cellulitis -- Adult Activity Restrictions/Additional Instructions: *You have been diagnosed with cellulitis *What to do: Will start you on 2 separate antibiotics. Hopefully he this helps your legs. We may call you in the next 2-3 days depending on your cultures. Please monitor very closely and follow-up with wound care *Continue to take medications as directed--> SENT TO [facility] Levaquin 750 mg once a day for 10 days Doxycycline 100 mg twice a day for 10 days *Follow up with your primary care provider in 2-3 days or call [phone] *Return to ER if you should have increasing redness pain drainage fever or any new, worsening or concerning symptoms Prescriptions: New doxycycline hyclate 100 mg capsule 100 mg PO BID Qty: 20 0RF levofloxacin 750 mg tablet 750 mg PO DAILY 10 Days Qty: 10 0RF No Action hydrocodone-acetaminophen 5-325 mg tablet 1 tab PO Q4-6H PRN (Reason: pain) Qty: 10 0RF Eliquis 5 mg Tablet 10 mg PO BID Qty: 60 0RF Rx Instructions: take 10mg twice daily for 6 days then 5mg twice daily after that doxycycline monohydrate 100 mg capsule 100 mg PO BID 5 Days Qty: 10 0RF Referrals: Linsey Wilkinson DO [Primary Care Provider] - Stand Alone Forms: Patient Portal/API
[2022-08-14 22:57] LABS: Add Manual Diff / Slide Review NO; Basophils Absolute Auto 100 /uL (0-100); Basophils Percent Auto 0.7 % (0-2); Eosinophils Absolute Auto 400 /uL (0-450); Eosinophils Percent Auto 4.2 % (2-4); Hematocrit 31.2 % (41-53); Hemoglobin 10.1 g/dL (13.5-17.5); Lymphocytes Absolute Auto 1700 /uL (1100-4500); Lymphocytes Percent Auto 16.9 % (25-40); Mean Corpuscular HGB Conc 32.4 % (30-36); Mean Corpuscular Hemoglobin 23.1 PG (26-34); Mean Corpuscular Volume 71.1 fL (80-100); Monocytes Absolute Auto 1200 /uL (0-900); Monocytes Percent Auto 12.2 % (3-14); Neutrophils Absolute Auto 6500 /uL (1500-7000); Platelet Count 435 X10^3/uL (150-400); Red Blood Cell Count 4.38 X10^6/uL (4.5-5.9); Red Cell Distribution Width 16.5 % (11.6-14.8); White Blood Cell Count 9.8 X10^3/uL (4.5-11.0)
[2022-08-14 23:12] LABS: Lactate (Lactic Acid) 1.5 mmol/L (0.7-2.1)
[2022-08-14 23:13] LABS: Alanine Aminotransferase 16 IU/L (<50); Albumin 3.2 g/dL (3.5-5.0); Albumin Globulin Ratio 0.6 (1.0-2.8); Alkaline Phosphatase 80 U/L (38-126); Aspartate Aminotransferase 26 IU/L (17-59); BUN Creatinine Ratio 11.4 (6-22); Bilirubin Total 0.1 mg/dL (0.2-1.3); Blood Urea Nitrogen 8 mg/dL (9-20); Calcium 8.2 mg/dL (8.4-10.2); Carbon Dioxide 33 mmol/L (22-32); Chloride 99 mmol/L (98-107); Creatine Kinase 73 U/L (55-170); Estimated Glomerular Filt Rate > 60 mL/min (>60); Globulin 5.6 g/dL (1.7-4.1); Glucose 121 mg/dL (70-100); HEMOLYSIS 35 (0-50); Potassium 4.2 mmol/L (3.4-5.1); Sodium 135 mmol/L (137-145); Total Protein 8.8 g/dL (6.3-8.2)
[2022-08-14 23:25] LABS: NT-proBNP (BNP-Adult 18+) 160 pg/mL (<125); Troponin I < 0.012 ng/mL (0.01-0.034)
[2022-08-14 23:30] LABS: Procalcitonin 0.08 ng/mL (<0.5)
[2022-08-15] MEDS: levoFLOXacin 250 MG TABLET 750 MG PO (01:01)
[2022-08-15] MEDS: DOXYCYCLINE HYCLATE 100 MG TABLET PO (01:01)
[2022-08-15 01:10] VITALS: BP 136/99; PULSE 96; RESP 16; O2SAT 100
[2022-08-15 19:08] LABS: Acinetobacter calcoa-baumannii Not Detected (Not Detect); Bacteroides fragilis Not Detected (Not Detect); Candida albicans Not Detected (Not Detect); Candida auris Not Detected (Not Detect); Candida glabrata Not Detected (Not Detect); Candida krusei Not Detected (Not Detect); Candida parapsilosis Not Detected (Not Detect); Candida tropicalis Not Detected (Not Detect); Cryptococcus neoformans/gatti Not Detected (Not Detect); Enterobacter cloacae complex Not Detected (Not Detect); Enterobacterales DETECTED (Not Detect); Enterococcus faecalis Not Detected (Not Detect); Enterococcus faecium Not Detected (Not Detect); Haemophilus influenzae Not Detected (Not Detect); Klebsiella aerogenes Not Detected (Not Detect); Listeria monocytogenes Not Detected (Not Detect); Neisseria meningitidis Not Detected (Not Detect); Proteus species Not Detected (Not Detect); Pseudomonas aeruginosa Not Detected (Not Detect); Salmonella species Not Detected (Not Detect); Serratia marcescens Not Detected (Not Detect); Staphylococcus epidermidis Not Detected (Not Detect); Staphylococcus lugdunensis Not Detected (Not Detect); Staphylococcus species Not Detected (Not Detect); Stenotrophomonas maltophilia Not Detected (Not Detect); Streptococcus agalactiae (Gr B Not Detected (Not Detect); Streptococcus pneumonia Not Detected (Not Detect); Streptococcus pyogenes (Gr A) Not Detected (Not Detect); Streptococcus species Not Detected (Not Detect)
--- NOTE | 2022-08-15 19:23 | PC.NURSE ---
Dr Otero review results of blood culture and was told to call patient to return. Called patient. Voicemail box is full at this time, no message left. Tried calling but 's phone number states not accepting calls at this time.
--- NOTE | 2022-08-15 19:29 | PC.NURSE ---
Pt returned call and was instructed to come back into the emergency deparment. Pt stated understanding.
[2022-08-16 07:11] LABS: CTX-M Resistance Not Detected (Not Detect); IMP Resistance Not Detected (Not Detect); KPC Resistance Not Detected (Not Detect); mcr-1 Resistance Not Detected (Not Detect)
[2022-08-16 07:12] LABS: NDM Resistance Not Detected (Not Detect); OXA-48-like Resistance Not Detected (Not Detect); VIM Resistance Not Detected (Not Detect)
== END 2022-08-15 01:11 | disposition home or self-care (01) ==
PROVIDERS: Emergency Provider Emergency Medicine; PCP Emergency Medicine
DX: L03.116 Cellulitis of left lower limb (principal); L03.115 Cellulitis of right lower limb; Z79.01 Long term (current) use of anticoagulants; Z79.899 Other long term (current) drug therapy
CPT/HCPCS: 36415; 80053; 82550; 82553; 83605; 83880; 84145; 84484; 85025; 87040; 87070; 87075; 87077; 87147; 87154; 87186; 87205; 99283

== ENCOUNTER 2022-08-18 14:05 | Inpatient (IN) | payer OTHER, MEDICAID, SELFPAY ==
[2022-07-17 03:17] VITALS: BMI 43.7
[2022-08-18] VITALS (26 sets, daily range): BP systolic 134–182; BP diastolic 63–90; PULSE 88–101; RESP 14–25; TEMP 36.3–37.1; O2SAT 95–100; BMI 42.5; BMI 41.8
--- NOTE | 2022-08-18 14:25 | PC.NURSE ---
I spoke with Dr. Bullock about the patient and the many call backs to get the patient to come back to the ER after positive cultures. he went to bedside to discuss with patient. No orders to be done until Dr. Bullock puts them in.
--- NOTE | 2022-08-18 14:29 | ED_ITS ---
HPI - General Adult General Chief complaint: Skin/Abscess/Foreign Body Stated complaint: was seen 2 days ago ER called to come back Time Seen by Provider: 08/18/22 14:22 Source: patient Mode of arrival: Ambulatory History of Present Illness HPI narrative: Patient is a 37-year-old male. Has have a history of IV drug abuse. Has chronic lower extremity swelling. Was admitted to our facility last month for infection/ulcerations in his lower extremities. He states he was on antibiotics for a period of time and also on oral antibiotics and he felt like his wounds were improving but then the course of antibiotics stopped and since that time he thinks that things have worsened. He was seen here in the emergency department a couple days ago. Was given a prescription for antibiotics. He is yet to fill this medication however he was told to come back to the emergency department because blood cultures that were obtained during that visit 2 days ago were positive. Related Data Previous Rx's Medication Instructions Recorded apixaban 5 mg tablet (Eliquis) 10 mg PO BID #60 tabs 07/19/22 Allergies Allergy/AdvReac Type Severity Reaction Status Date / Time egg Allergy Intermediate Verified 08/18/22 14:26 Egg Derived Allergy Verified 08/18/22 14:26 Review of Systems Review of Systems ROS Unobtainable: All systems reviewed & are unremarkable except as noted in HPI and below Patient History Medical History Amphetamine abuse Drug abuse Hepatitis C virus infection cured after antiviral drug therapy History of DVT (deep vein thrombosis) Obesity (BMI 30-39.9) Opiate dependence, continuous Jeosf-Sesvghayn-Ylmiz (WPW) pattern Surgical History History of abdominal surgery Family History Father Overdose Drug addiction Mother Overdose Drug addiction Social History household members: spouse Smoking Status: Current every day smoker alcohol intake: never substance use type: opiates, IV drugs and methamphetamine Smoking Status: Current every day smoker alcohol intake frequency: holidays/special occasions only Substance Use Type: former substance user, heroin, amphetamines, opiates, IV drugs and methamphetamine Exam Initial Vital Signs Initial Vital Signs: Vital Signs Temperature 98.6 F 08/18/22 14:20 Pulse Rate 101 H 08/18/22 14:20 Respiratory Rate 18 08/18/22 14:20 Blood Pressure 138/67 08/18/22 14:20 Pulse Oximetry 97 08/18/22 14:20 Oxygen Delivery Method Room Air 08/18/22 14:20 Const General: No ill appearing HENMT Head: normal to inspection and normocephalic Resp Effort & Inspection: normal respiratory effort Auscultation: clear to auscultation bilaterally Cardio Rate: tachycardic Rhythm: regular rhythm Skin Other: Bilateral lower extremity edema. Has multiple ulcerations at various stages of healing located circumferentially around his lower extremities from just distal to his knee to his toes. Some of these do have small amount of surrounding erythema. They are tender to the touch. There is no bone exposed. No purulent drainage. Do have a foul smell. Neuro General: patient alert, patient awake, patient oriented x3 and moves all extremities Extrem General: edema Course Orders Ordered: ED Orders 08/18/22 14:26 Consult to SERVICE ORDER CLERK - Liquor Inspector Stat 08/18/22 14:40 Complete Blood Count AUTO DIFF Stat Comprehensive Metabolic Panel Stat Lactate (Lactic Acid) Stat Lipase Stat Procalcitonin Stat 08/18/22 14:49 EC echo doppler complete Stat 08/18/22 15:03 Blood Culture Stat Discontinued Medications Sodium Chloride (Normal Saline 0.9%) 1,000 mls @ 1,000 mls/hr IV BOLUS ONE Stop: 08/18/22 15:35 Last Infusion: 08/18/22 16:00 Dose: 0 mls/hr Documented By: Admin: 08/18/22 14:48 Dose: 1,000 mls/hr Documented By: YON Vancomycin HCl/Dextrose (Vancomycin) 2,000 mg in 400 mls @ 200 mls/hr IV NOW ONE Stop: 08/18/22 16:36 Last Admin: 08/18/22 16:00 Dose: 200 mls/hr Documented By: YON Ceftriaxone Sodium 1,000 mg/ (Sodium Chloride) 100 mls @ 200 mls/hr IV NOW ONE Stop: 08/18/22 14:37 Last Infusion: 08/18/22 15:59 Dose: 0 mls/hr Documented By: Admin: 08/18/22 15:11 Dose: 200 mls/hr Documented By: SB Vital Signs Vital signs: Vital Signs - 8 hr 08/18/22 14:20 08/18/22 14:25 08/18/22 14:30 Temperature 98.6 F Pulse Rate 101 H 101 H 98 H Respiratory Rate 18 16 20 Blood Pressure 138/67 Pulse Oximetry 97 97 97 Oxygen Delivery Method Room Air 08/18/22 14:41 08/18/22 14:41 08/18/22 14:45 Temperature Pulse Rate 94 H Respiratory Rate 20 Blood Pressure 134/64 137/63 Pulse Oximetry 97 Oxygen Delivery Method Room Air 08/18/22 14:45 08/18/22 15:00 08/18/22 15:00 Temperature Pulse Rate 96 H 97 H Respiratory Rate 19 22 Blood Pressure 141/67 H Pulse Oximetry 97 100 Oxygen Delivery Method 08/18/22 15:15 08/18/22 15:15 08/18/22 15:30 Temperature Pulse Rate 99 H 95 H Respiratory Rate 21 20 Blood Pressure 145/74 H Pulse Oximetry 99 98 Oxygen Delivery Method 08/18/22 15:31 08/18/22 15:31 08/18/22 15:45 Temperature Pulse Rate 91 H Respiratory Rate 20 Blood Pressure 151/90 H 164/86 H Pulse Oximetry 98 Oxygen Delivery Method 08/18/22 15:45 08/18/22 16:00 08/18/22 16:00 Temperature Pulse Rate 94 H 91 H Respiratory Rate 25 H 20 Blood Pressure 155/81 H Pulse Oximetry 96 97 Oxygen Delivery Method 08/18/22 16:15 08/18/22 16:15 08/18/22 16:30 Temperature Pulse Rate 88 Respiratory Rate Blood Pressure 152/78 H 157/80 H Pulse Oximetry 95 Oxygen Delivery Method 08/18/22 16:30 08/18/22 16:45 08/18/22 16:45 Temperature Pulse Rate 93 H 90 Respiratory Rate Blood Pressure 153/74 H Pulse Oximetry 99 Oxygen Delivery Method 08/18/22 17:00 08/18/22 17:00 08/18/22 17:15 Temperature 97.4 F L Pulse Rate 95 H Respiratory Rate 22 Blood Pressure 152/82 H 157/79 H Pulse Oximetry 98 Oxygen Delivery Method Room Air 08/18/22 17:15 08/18/22 17:30 08/18/22 17:31 Temperature Pulse Rate 92 H 94 H Respiratory Rate 22 23 Blood Pressure 182/82 H Pulse Oximetry 97 Oxygen Delivery Method Medical Decision Making Medical Records Medical records reviewed: Yes I reviewed the patient's medical records. Lab Data Lab results reviewed: Yes I reviewed the patient's lab results. 08/18/22 14:40 08/18/22 14:40 Labs: Lab Results 08/18/22 08/18/22 08/18/22 Range/Units 14:40 14:40 14:40 WBC 9.5 (4.5-11.0) X10^3/uL RBC 4.55 (4.5-5.9) X10^6/uL Hgb 10.6 L (13.5-17.5) g/dL Hct 32.4 L (41-53) % MCV 71.2 L (80-100) fL MCH 23.2 L (26-34) PG MCHC 32.6 (30-36) % RDW 16.5 H (11.6-14.8) % Plt Count 448 H (150-400) X10^3/uL Neut % (Auto) 64.8 (50-75) % Lymph % (Auto) 21.6 L (25-40) % [place] % (Auto) 9.4 (3-14) % Eos % (Auto) 3.6 (2-4) % Baso % (Auto) 0.6 (0-2) % Neut # (Auto) 6100 (3395-3050) /uL Lymph # (Auto) 2100 (8306-8428) /uL [place] # (Auto) 900 (0-900) /uL Eos # (Auto) 300 (0-450) /uL Baso # (Auto) 100 (0-100) /uL Sodium 139 (137-145) mmol/L Potassium 3.8 (3.4-5.1) mmol/L Chloride 103 (98-107) mmol/L Carbon Dioxide 30 (22-32) mmol/L BUN 9 (9-20) mg/dL Creatinine 0.72 (0.66-1.25) mg/dL Estimated GFR > 60 (>60) mL/min BUN/Creatinine Ratio 12.5 (6-22) Glucose 100 (70-100) mg/dL Lactate 1.5 (0.7-2.1) mmol/L Calcium 8.4 (8.4-10.2) mg/dL Total Bilirubin 0.3 (0.2-1.3) mg/dL AST 29 (17-59) IU/L ALT 20 (<50) IU/L Alkaline Phosphatase 95 (38-126) U/L Total Protein 9.8 H (6.3-8.2) g/dL Albumin 3.5 (3.5-5.0) g/dL Globulin 6.3 H (1.7-4.1) g/dL Albumin/Globulin Ratio 0.6 L (1.0-2.8) Lipase 42 (23-300) U/L Procalcitonin 0.06 (<0.5) ng/mL MDM Narrative Medical decision making narrative: Patient did have blood cultures that were positive from a couple days ago which is why he was informed to come back here to the emergency department. His labs and vital signs are reassuring however he obviously has infections to his lower extremities. Cultures were reobtained today. Antibiotics administered. Lactate normal. Procalcitonin is negative. Low suspicion for DVT. He is on anticoagulation. I did discuss the case with Dr. rock hospitalist on-call who will admit for further evaluation and treatment. Discussed the need for admission with the patient who expressed understanding and agreement as well. Discharge Plan Departure Patient Disposition: Admitted As Inpatient Clinical Impression: Bilateral leg ulcer, Cellulitis Admit Date/Time: 08/18/22 17:37 Admit Provider: Justyna Rock
[2022-08-18] MEDS: SODIUM CHLORIDE 0.9% 1,000 ML 1000 ML IV (14:48)
[2022-08-18 14:52] LABS: Add Manual Diff / Slide Review NO; Basophils Absolute Auto 100 /uL (0-100); Basophils Percent Auto 0.6 % (0-2); Eosinophils Absolute Auto 300 /uL (0-450); Eosinophils Percent Auto 3.6 % (2-4); Hematocrit 32.4 % (41-53); Hemoglobin 10.6 g/dL (13.5-17.5); Lymphocytes Absolute Auto 2100 /uL (1100-4500); Lymphocytes Percent Auto 21.6 % (25-40); Mean Corpuscular HGB Conc 32.6 % (30-36); Mean Corpuscular Hemoglobin 23.2 PG (26-34); Mean Corpuscular Volume 71.2 fL (80-100); Monocytes Absolute Auto 900 /uL (0-900); Monocytes Percent Auto 9.4 % (3-14); Neutrophils Absolute Auto 6100 /uL (1500-7000); Neutrophils Percent Auto 64.8 % (50-75); Platelet Count 448 X10^3/uL (150-400); Red Blood Cell Count 4.55 X10^6/uL (4.5-5.9); Red Cell Distribution Width 16.5 % (11.6-14.8); White Blood Cell Count 9.5 X10^3/uL (4.5-11.0)
[2022-08-18 15:08] LABS: Lactate (Lactic Acid) 1.5 mmol/L (0.7-2.1)
[2022-08-18 15:10] LABS: Alanine Aminotransferase 20 IU/L (<50); Albumin 3.5 g/dL (3.5-5.0); Albumin Globulin Ratio 0.6 (1.0-2.8); Alkaline Phosphatase 95 U/L (38-126); Aspartate Aminotransferase 29 IU/L (17-59); BUN Creatinine Ratio 12.5 (6-22); Bilirubin Total 0.3 mg/dL (0.2-1.3); Blood Urea Nitrogen 9 mg/dL (9-20); Calcium 8.4 mg/dL (8.4-10.2); Carbon Dioxide 30 mmol/L (22-32); Chloride 103 mmol/L (98-107); Estimated Glomerular Filt Rate > 60 mL/min (>60); Globulin 6.3 g/dL (1.7-4.1); Glucose 100 mg/dL (70-100); HEMOLYSIS < 15 (0-50); Lipase 42 U/L (23-300); Potassium 3.8 mmol/L (3.4-5.1); Sodium 139 mmol/L (137-145); Total Protein 9.8 g/dL (6.3-8.2)
[2022-08-18] MEDS: cefTRIAXone 1,000 MG in SODIUM CHLORIDE 0.9% 100 ML 200 MG IV (15:11)
[2022-08-18 15:25] LABS: Procalcitonin 0.06 ng/mL (<0.5)
[2022-08-18] MEDS: VANCOMYCIN 2,000 MG/400 ML PIGGYBACK 200 MG IV (16:00)
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
[2022-08-18 18:34] LABS: COVID19 -Nasal RAPID Negative (Negative)
[2022-08-19] VITALS: BP 154/81; PULSE 90; RESP 18; TEMP 36.7; O2SAT 96
[2022-08-19] MEDS: VANCOMYCIN 2,000 MG/400 ML PIGGYBACK 200 MG IV (02:23)
[2022-08-19 02:55] VITALS: BP 151/88; PULSE 94; RESP 18; TEMP 36.8; O2SAT 95
[2022-08-19 03:00] VITALS: O2SAT 95
--- NOTE | 2022-08-19 03:05 | PM.HP.1 ---
History of Present Illness History of Present Illness Date Patient Seen: 08/18/22 Time Patient Seen: 20:00 Chief complaint: was seen 2 days ago ER called to come back Narrative: Mr. Sifuentes is a 37M with H polysubstance abuse, recent PE, history of DVT, morbid obesity, WPW syndrome, chronic lower extremity edema and wounds with repeated cellulitis who presents to the hospital for bacteremia. He states he has chronic ulcers on his legs. He is seen in wound care clinic but has not been in weeks. He has recently been treated many times for cellulitis. He says he has chronic ulcers of his toes on his left. He says they improved with going to wound care, but in the last few days have become notably worse. He presented to the ED a few days ago and was diagnosed with cellulitis and was given a prescription for antibiotics. He did not pick this medication up. His blood cultures grew bacteria and he was called back to the hospital. When I see him he is lethargic and slurring speech. He says he does not use IV drugs, he smokes percocet primarily, and he claims he has not used for a few days. In the ED workup was done, vitals notable for afebrile, heart rate in the 90s-100s. respiratory rate 18, blood pressure 130s/60s. Sats 97% on room air. Labs notable for WBC 9.5, hgb 10.6, plts 448. Creatinine 0.72. Lactate 1.5. Procal 0.06. Recent cultures show one draw with E. coli bacteremia, the other culture with gram positive bacilli and gram positive cocci. Two sound cultures with MRSA, providencia, gram negative rods, strep group A all growing. He was ordered for antibiotics and admitted for further treatment. [facility], [facility] Medical History Amphetamine abuse Drug abuse Hepatitis C virus infection cured after antiviral drug therapy History of DVT (deep vein thrombosis) Obesity (BMI 30-39.9) Opiate dependence, continuous Xhhzi-Ldkbspppe-Ttbcc (WPW) pattern Surgical History History of abdominal surgery Family History Father Overdose Drug addiction Mother Overdose Drug addiction Social History household members: spouse Smoking Status: Former smoker alcohol intake: never substance use type: opiates, IV drugs and methamphetamine Meds Home Medications and Allergies Home Medications Medication Instructions Recorded Confirmed Type apixaban 5 mg tablet (Eliquis) 10 mg PO BID #60 tabs 07/19/22 08/18/22 Rx Allergies Allergy/AdvReac Type Severity Reaction Status Date / Time egg Allergy Intermediate Verified 08/18/22 14:26 Egg Derived Allergy Verified 08/18/22 14:26 Review of Systems Review of Systems Narrative: 14 systems reviewed and negative aside from what is noted in HPI Exam Vital Signs (past 8 hours): - 08/18/22 20:10 08/18/22 19:58 08/18/22 21:24 Temperature 98.8 F Pulse Rate 91 H Respiratory Rate 18 Blood Pressure 140/76 Pulse Oximetry 95 97 Oxygen Delivery Method Room Air Room Air Oxygen Flow Rate 0 08/18/22 23:58 08/19/22 00:00 08/19/22 02:55 Temperature 98.0 F 98.3 F Pulse Rate 90 94 H Respiratory Rate 18 18 Blood Pressure 154/81 H 151/88 H Pulse Oximetry 95 96 95 Oxygen Delivery Method Room Air Oxygen Flow Rate 0 0 Oxygen Delivery Method Room Air Oxygen Flow Rate 0 Narrative Exam Narrative: GEN: lethargic HEENT: moist mucous membranes, PERRL NECK: trachea midline, no JVD PULM: clear bilaterally, no wheezes, rhonchi, rales CV: regular rate and rhythm, with no murmurs ABD: soft, nontender, nondistended, no organomegaly, normal bowel sounds EXT: warm and well perfused, bilateral legs with brawny changes, edema, and multiple ulcers, he has ulcers in his left first and second toe and erythema surrounding, painful to touch NEURO: awake, alert, oriented, with no focal deficits Objective Labs 08/18/22 14:40 08/18/22 14:40 Labs: Laboratory Results - last 24 hr 08/18/22 08/18/22 08/18/22 14:40 14:40 14:40 WBC 9.5 RBC 4.55 Hgb 10.6 L Hct 32.4 L MCV 71.2 L MCH 23.2 L MCHC 32.6 RDW 16.5 H Plt Count 448 H Neut % (Auto) 64.8 Lymph % (Auto) 21.6 L [place] % (Auto) 9.4 Eos % (Auto) 3.6 Baso % (Auto) 0.6 Neut # (Auto) 6100 Lymph # (Auto) 2100 [place] # (Auto) 900 Eos # (Auto) 300 Baso # (Auto) 100 Sodium 139 Potassium 3.8 Chloride 103 Carbon Dioxide 30 BUN 9 Creatinine 0.72 Estimated GFR > 60 BUN/Creatinine Ratio 12.5 Glucose 100 Lactate 1.5 Calcium 8.4 Total Bilirubin 0.3 AST 29 ALT 20 Alkaline Phosphatase 95 Total Protein 9.8 H Albumin 3.5 Globulin 6.3 H Albumin/Globulin Ratio 0.6 L Lipase 42 Procalcitonin 0.06 SARS-CoV-2 (PCR) 08/18/22 18:00 WBC RBC Hgb Hct MCV MCH MCHC RDW Plt Count Neut % (Auto) Lymph % (Auto) [place] % (Auto) Eos % (Auto) Baso % (Auto) Neut # (Auto) Lymph # (Auto) [place] # (Auto) Eos # (Auto) Baso # (Auto) Sodium Potassium Chloride Carbon Dioxide BUN Creatinine Estimated GFR BUN/Creatinine Ratio Glucose Lactate Calcium Total Bilirubin AST ALT Alkaline Phosphatase Total Protein Albumin Globulin Albumin/Globulin Ratio Lipase Procalcitonin SARS-CoV-2 (PCR) Negative Assessment & Plan Assessment & Plan narrative: 1. Acute cellulitis, toe ulcers, bacteremia -patient with left toe ulcers -blood cultures shows E. coli bactermia, also gram positive cocci and rods in blood -wound cultures show unspeciated gnr, mrsa, providencia and group a strep -for now ordered vancomycin and ceftriaxone -will adjust pending cultures -MRI of lower extremity to evaluation for osteomyelitis -will possibly need at least two weeks IV antibiotics and may need longer course, may be difficult to treat given substance abuse 2. Recent PE -continue eliquis 3. Polysubstance abuse -ordered for narcan prn 4. Morbid obesity -BMI 43.7 -obesity will delay healing of wound and infection 5. History of Kjvdd-Cfrojfusb-bxcub syndrome I have discussed plan and obtained history from the patient. I have discussed plan of care with ED physician and bedside nurse. I have reviewed labs, previous medical notes, chest xray and CT imaging. CODE: Full Proxy: Mena Hagen, spouse Quality VTE Deep Vein Thrombosis/Pulmonary Embolism Present on Admission: No
--- NOTE | 2022-08-19 03:22 | PC.NURSE ---
Pt was found at 0240 difficult to arouse. Pt had vapes, lighters, macgyvered pipes, tinfoil, multiple white tablets (M 57/71) and round blue pills (M 30), air freshener spray, and other drug paraphernalia tucked under bed linens. Items were removed from pt's room. Provider Wendy was notified at 0248 via phone and came to bedside at 0250. Pt was placed on telemetry. Pt vitals were BP:151/88 HR: 94 RR: 18 TEMP: 98.3F O2Sats: 95% RA TELE: NSR
[2022-08-19 05:29] LABS: Hematocrit 32.5 % (41-53); Hemoglobin 10.6 g/dL (13.5-17.5); Mean Corpuscular HGB Conc 32.5 % (30-36); Mean Corpuscular Hemoglobin 23.2 PG (26-34); Mean Corpuscular Volume 71.3 fL (80-100); Platelet Count 338 X10^3/uL (150-400); Red Blood Cell Count 4.55 X10^6/uL (4.5-5.9); Red Cell Distribution Width 16.4 % (11.6-14.8); White Blood Cell Count 10.5 X10^3/uL (4.5-11.0)
[2022-08-19 05:34] LABS: Add Manual Diff / Slide Review YES
[2022-08-19 05:35] LABS: BUN Creatinine Ratio 13.3 (6-22); Blood Urea Nitrogen 8 mg/dL (9-20); Calcium 8.1 mg/dL (8.4-10.2); Carbon Dioxide 29 mmol/L (22-32); Chloride 104 mmol/L (98-107); Estimated Glomerular Filt Rate > 60 mL/min (>60); Glucose 98 mg/dL (70-100); HEMOLYSIS < 15 (0-50); Potassium 3.9 mmol/L (3.4-5.1); Sodium 136 mmol/L (137-145)
[2022-08-19 05:37] LABS: C-Reactive Protein Quant 4.1 mg/dL (<1.0)
[2022-08-19 05:42] LABS: Neutrophils Absolute Manual 7245 /uL (3000-5900); Total Cells Counted 100
[2022-08-19 05:43] LABS: Microcytosis 1+
[2022-08-19 05:51] LABS: Erythrocyte Sedimentation Rate 77 MM/HR (0-15)
[2022-08-19] MEDS: ACETAMINOPHEN 325 MG TABLET 650 MG PO (05:56)
--- NOTE | 2022-08-19 07:29 | PM.PN.1 ---
Exam Vital Signs (past 8 hours): - 08/18/22 23:58 08/19/22 03:00 08/19/22 00:00 Temperature 98.0 F Pulse Rate 90 Respiratory Rate 18 Blood Pressure 154/81 H Pulse Oximetry 95 95 96 Oxygen Delivery Method Room Air Room Air Oxygen Flow Rate 0 08/19/22 02:55 Temperature 98.3 F Pulse Rate 94 H Respiratory Rate 18 Blood Pressure 151/88 H Pulse Oximetry 95 Oxygen Delivery Method Oxygen Flow Rate 0 Oxygen Delivery Method Room Air Oxygen Flow Rate 0 Narrative Exam Narrative: GEN: lethargic HEENT: moist mucous membranes, PERRL NECK: trachea midline, no JVD PULM: clear bilaterally, no wheezes, rhonchi, rales CV: regular rate and rhythm, with no murmurs ABD: soft, nontender, nondistended, no organomegaly, normal bowel sounds EXT: warm and well perfused, bilateral legs with brawny changes, edema, and multiple ulcers, he has ulcers in his left first and second toe and erythema surrounding, painful to touch NEURO: awake, alert, oriented, with no focal deficits Objective Labs 08/19/22 05:10 08/19/22 05:10 Labs: Laboratory Results - last 24 hr 08/18/22 08/18/22 08/18/22 14:40 14:40 14:40 WBC 9.5 RBC 4.55 Hgb 10.6 L Hct 32.4 L MCV 71.2 L MCH 23.2 L MCHC 32.6 RDW 16.5 H Plt Count 448 H Neut % (Auto) 64.8 Lymph % (Auto) 21.6 L [place] % (Auto) 9.4 Eos % (Auto) 3.6 Baso % (Auto) 0.6 Neut # (Auto) 6100 Lymph # (Auto) 2100 [place] # (Auto) 900 Eos # (Auto) 300 Baso # (Auto) 100 Total Counted Seg Neutrophils % Lymphocytes % (Manual) Monocytes % (Manual) Eosinophils % (Manual) Basophils % (Manual) Neutrophils # (Manual) RBC Morphology Microcytosis ESR Sodium 139 Potassium 3.8 Chloride 103 Carbon Dioxide 30 BUN 9 Creatinine 0.72 Estimated GFR > 60 BUN/Creatinine Ratio 12.5 Glucose 100 Lactate 1.5 Calcium 8.4 Total Bilirubin 0.3 AST 29 ALT 20 Alkaline Phosphatase 95 C-Reactive Protein Total Protein 9.8 H Albumin 3.5 Globulin 6.3 H Albumin/Globulin Ratio 0.6 L Lipase 42 Procalcitonin 0.06 SARS-CoV-2 (PCR) 08/18/22 08/19/22 08/19/22 18:00 05:10 05:10 WBC 10.5 RBC 4.55 Hgb 10.6 L Hct 32.5 L MCV 71.3 L MCH 23.2 L MCHC 32.5 RDW 16.4 H Plt Count 338 Neut % (Auto) Not Reportable Lymph % (Auto) Not Reportable [place] % (Auto) Not Reportable Eos % (Auto) Not Reportable Baso % (Auto) Not Reportable Neut # (Auto) Lymph # (Auto) Not Reportable [place] # (Auto) Not Reportable Eos # (Auto) Baso # (Auto) Not Reportable Total Counted 100 Seg Neutrophils % 69.0 Lymphocytes % (Manual) 20.0 L Monocytes % (Manual) 7.0 Eosinophils % (Manual) 3.0 Basophils % (Manual) 1.0 Neutrophils # (Manual) 7245 H RBC Morphology See below Microcytosis 1+ H ESR Sodium 136 L Potassium 3.9 Chloride 104 Carbon Dioxide 29 BUN 8 L Creatinine 0.60 L Estimated GFR > 60 BUN/Creatinine Ratio 13.3 Glucose 98 Lactate Calcium 8.1 L Total Bilirubin AST ALT Alkaline Phosphatase C-Reactive Protein Total Protein Albumin Globulin Albumin/Globulin Ratio Lipase Procalcitonin SARS-CoV-2 (PCR) Negative 08/19/22 08/19/22 05:10 05:10 WBC RBC Hgb Hct MCV MCH MCHC RDW Plt Count Neut % (Auto) Lymph % (Auto) [place] % (Auto) Eos % (Auto) Baso % (Auto) Neut # (Auto) Lymph # (Auto) [place] # (Auto) Eos # (Auto) Baso # (Auto) Total Counted Seg Neutrophils % Lymphocytes % (Manual) Monocytes % (Manual) Eosinophils % (Manual) Basophils % (Manual) Neutrophils # (Manual) RBC Morphology Microcytosis ESR 77 H Sodium Potassium Chloride Carbon Dioxide BUN Creatinine Estimated GFR BUN/Creatinine Ratio Glucose Lactate Calcium Total Bilirubin AST ALT Alkaline Phosphatase C-Reactive Protein 4.1 H Total Protein Albumin Globulin Albumin/Globulin Ratio Lipase Procalcitonin SARS-CoV-2 (PCR) [facility] Medical History Amphetamine abuse Drug abuse Hepatitis C virus infection cured after antiviral drug therapy History of DVT (deep vein thrombosis) Obesity (BMI 30-39.9) Opiate dependence, continuous Iychf-Pzlgnipqc-Yokvy (WPW) pattern Surgical History History of abdominal surgery Family History Father Overdose Drug addiction Mother Overdose Drug addiction Social History household members: spouse Smoking Status: Former smoker alcohol intake: never substance use type: opiates, IV drugs and methamphetamine Assessment & Plan Assessment & Plan narrative: 1. Acute cellulitis, toe ulcers, bacteremia -patient with left toe ulcers -blood cultures shows E. coli bactermia, also gram positive cocci and rods in blood -wound cultures show unspeciated gnr, mrsa, providencia and group a strep -for now ordered vancomycin and ceftriaxone -will adjust pending cultures -MRI of lower extremity to evaluation for osteomyelitis -will possibly need at least two weeks IV antibiotics and may need longer course, may be difficult to treat given substance abuse 2. Recent PE -continue eliquis 3. Polysubstance abuse -ordered for narcan prn 4. Morbid obesity -BMI 43.7 -obesity will delay healing of wound and infection 5. History of Slgbr-Xjonxqszw-tfsdo syndrome CODE: Full Proxy: Mean Hagen, spouse Quality VTE Deep Vein Thrombosis/Pulmonary Embolism Present on Admission: No
--- NOTE | 2022-08-19 07:37 | PM.DS.1 ---
History of Present Illness History of Present Illness Date Patient Seen: 08/18/22 Time Patient Seen: 20:00 Chief complaint: was seen 2 days ago ER called to come back Narrative: Mr. Sifuentes is a 37M with H polysubstance abuse, recent PE, history of DVT, morbid obesity, WPW syndrome, chronic lower extremity edema and wounds with repeated cellulitis who presents to the hospital for bacteremia. He states he has chronic ulcers on his legs. He is seen in wound care clinic but has not been in weeks. He has recently been treated many times for cellulitis. He says he has chronic ulcers of his toes on his left. He says they improved with going to wound care, but in the last few days have become notably worse. He presented to the ED a few days ago and was diagnosed with cellulitis and was given a prescription for antibiotics. He did not pick this medication up. His blood cultures grew bacteria and he was called back to the hospital. When I see him he is lethargic and slurring speech. He says he does not use IV drugs, he smokes percocet primarily, and he claims he has not used for a few days. In the ED workup was done, vitals notable for afebrile, heart rate in the 90s-100s. respiratory rate 18, blood pressure 130s/60s. Sats 97% on room air. Labs notable for WBC 9.5, hgb 10.6, plts 448. Creatinine 0.72. Lactate 1.5. Procal 0.06. Recent cultures show one draw with E. coli bacteremia, the other culture with gram positive bacilli and gram positive cocci. Two sound cultures with MRSA, providencia, gram negative rods, strep group A all growing. He was ordered for antibiotics and admitted for further treatment. Discharge Providers Provider Date of admission: 08/18/22 17:37 Discharge Date: 08/19/22 Primary care physician: Linsey Wilkinson DO Discharge provider: Ricardo Colbert DO Summary Hospital Course Discharge Diagnosis: 1. Acute cellulitis, toe ulcers, bacteremia -patient with left toe ulcers -blood cultures shows E. coli bactermia, also gram positive cocci and rods in blood -wound cultures show unspeciated gnr, mrsa, providencia and group a strep -for now ordered vancomycin and ceftriaxone -will adjust pending cultures -MRI ordered of lower extremity to evaluation for osteomyelitis, patient refused -will possibly need at least two weeks IV antibiotics and may need longer course, may be difficult to treat given substance abuse -patient left AMA the next morning after admission, given 10 day script for po linezolid 2. Recent PE -continue eliquis 3. Polysubstance abuse -ordered for narcan prn 4. Morbid obesity -BMI 43.7 -obesity will delay healing of wound and infection 5. History of Yecht-Admpvehxn-stvpi syndrome CODE: Full Proxy: Mena Hagen, spouse Hospital Course: Admitted for LE wounds, cellulitis and bacteremia with GPC, GNR providencia and GAS. Wound growing MRSA. Received IV doses of rocephin and vanco. MRI of LE ordered but patient refused. Found to have drug paraphernalia at bedside which was confiscated. Then left AMA 10 hours after being admitted. Given script for Linezolid po 600mg BID for 10 days as next best option given we don't have dalbavancin IV in our hospital formulary. Patient said nothing would convince him to stay. He was of sound mind and decisional when he chose to leave. Risks of bacteremia and were explained. Time Spent with Patient Time spent: Greater than 30 minutes Exam Vital Signs (past 8 hours): - 08/18/22 23:58 08/19/22 03:00 08/19/22 00:00 Temperature 98.0 F Pulse Rate 90 Respiratory Rate 18 Blood Pressure 154/81 H Pulse Oximetry 95 95 96 Oxygen Delivery Method Room Air Room Air Oxygen Flow Rate 0 08/19/22 02:55 Temperature 98.3 F Pulse Rate 94 H Respiratory Rate 18 Blood Pressure 151/88 H Pulse Oximetry 95 Oxygen Delivery Method Oxygen Flow Rate 0 Oxygen Delivery Method Room Air Oxygen Flow Rate 0 Narrative Exam Narrative: GEN: lethargic HEENT: moist mucous membranes, PERRL NECK: trachea midline, no JVD PULM: clear bilaterally, no wheezes, rhonchi, rales CV: regular rate and rhythm, with no murmurs ABD: soft, nontender, nondistended, no organomegaly, normal bowel sounds EXT: warm and well perfused, bilateral legs with brawny changes, edema, and multiple ulcers, he has ulcers in his left first and second toe and erythema surrounding, painful to touch NEURO: awake, alert, oriented, with no focal deficits Objective Labs 08/19/22 05:10 08/19/22 05:10 Labs: Laboratory Results - last 24 hr 08/18/22 08/18/22 08/18/22 14:40 14:40 14:40 WBC 9.5 RBC 4.55 Hgb 10.6 L Hct 32.4 L MCV 71.2 L MCH 23.2 L MCHC 32.6 RDW 16.5 H Plt Count 448 H Neut % (Auto) 64.8 Lymph % (Auto) 21.6 L [place] % (Auto) 9.4 Eos % (Auto) 3.6 Baso % (Auto) 0.6 Neut # (Auto) 6100 Lymph # (Auto) 2100 [place] # (Auto) 900 Eos # (Auto) 300 Baso # (Auto) 100 Total Counted Seg Neutrophils % Lymphocytes % (Manual) Monocytes % (Manual) Eosinophils % (Manual) Basophils % (Manual) Neutrophils # (Manual) RBC Morphology Microcytosis ESR Sodium 139 Potassium 3.8 Chloride 103 Carbon Dioxide 30 BUN 9 Creatinine 0.72 Estimated GFR > 60 BUN/Creatinine Ratio 12.5 Glucose 100 Lactate 1.5 Calcium 8.4 Total Bilirubin 0.3 AST 29 ALT 20 Alkaline Phosphatase 95 C-Reactive Protein Total Protein 9.8 H Albumin 3.5 Globulin 6.3 H Albumin/Globulin Ratio 0.6 L Lipase 42 Procalcitonin 0.06 SARS-CoV-2 (PCR) 08/18/22 08/19/22 08/19/22 18:00 05:10 05:10 WBC 10.5 RBC 4.55 Hgb 10.6 L Hct 32.5 L MCV 71.3 L MCH 23.2 L MCHC 32.5 RDW 16.4 H Plt Count 338 Neut % (Auto) Not Reportable Lymph % (Auto) Not Reportable [place] % (Auto) Not Reportable Eos % (Auto) Not Reportable Baso % (Auto) Not Reportable Neut # (Auto) Lymph # (Auto) Not Reportable [place] # (Auto) Not Reportable Eos # (Auto) Baso # (Auto) Not Reportable Total Counted 100 Seg Neutrophils % 69.0 Lymphocytes % (Manual) 20.0 L Monocytes % (Manual) 7.0 Eosinophils % (Manual) 3.0 Basophils % (Manual) 1.0 Neutrophils # (Manual) 7245 H RBC Morphology See below Microcytosis 1+ H ESR Sodium 136 L Potassium 3.9 Chloride 104 Carbon Dioxide 29 BUN 8 L Creatinine 0.60 L Estimated GFR > 60 BUN/Creatinine Ratio 13.3 Glucose 98 Lactate Calcium 8.1 L Total Bilirubin AST ALT Alkaline Phosphatase C-Reactive Protein Total Protein Albumin Globulin Albumin/Globulin Ratio Lipase Procalcitonin SARS-CoV-2 (PCR) Negative 08/19/22 08/19/22 05:10 05:10 WBC RBC Hgb Hct MCV MCH MCHC RDW Plt Count Neut % (Auto) Lymph % (Auto) [place] % (Auto) Eos % (Auto) Baso % (Auto) Neut # (Auto) Lymph # (Auto) [place] # (Auto) Eos # (Auto) Baso # (Auto) Total Counted Seg Neutrophils % Lymphocytes % (Manual) Monocytes % (Manual) Eosinophils % (Manual) Basophils % (Manual) Neutrophils # (Manual) RBC Morphology Microcytosis ESR 77 H Sodium Potassium Chloride Carbon Dioxide BUN Creatinine Estimated GFR BUN/Creatinine Ratio Glucose Lactate Calcium Total Bilirubin AST ALT Alkaline Phosphatase C-Reactive Protein 4.1 H Total Protein Albumin Globulin Albumin/Globulin Ratio Lipase Procalcitonin SARS-CoV-2 (PCR) [facility] Medical History Amphetamine abuse Drug abuse Hepatitis C virus infection cured after antiviral drug therapy History of DVT (deep vein thrombosis) Obesity (BMI 30-39.9) Opiate dependence, continuous Tjnzs-Uzczorlbz-Lmgnj (WPW) pattern Surgical History History of abdominal surgery Family History Father Overdose Drug addiction Mother Overdose Drug addiction Social History household members: spouse Smoking Status: Former smoker alcohol intake: never substance use type: opiates, IV drugs and methamphetamine Discharge Plan Discharge Plan Patient Disposition: Left Against Medical Advice Discharge orders & Medications Prescriptions: New linezolid 600 mg tablet 600 mg PO BID 10 Days Qty: 20 0RF Continued Eliquis 5 mg Tablet 10 mg PO BID Qty: 60 0RF Rx Instructions: take 10mg twice daily for 6 days then 5mg twice daily after that Follow up/Referrals: Linsey Wilkinson, DO [Primary Care Provider] - Visit Report/Discharge Packet Instructions: DI for Cellulitis -- Adult, DI for Substance Use Disorder, DI for Prescription Opioid Use, DI for Multiple Drug-resistant Organism (MDRO) Infection, Linezolid, DI for Bacteremia-Adult, Drug Withdrawal Stand Alone Forms: Patient Portal/API, Stroke Signs & Symptoms Discharge Data Primary Care Provider: Linsey Wilkinson Quality VTE Deep Vein Thrombosis/Pulmonary Embolism Present on Admission: No
--- NOTE | 2022-08-19 07:53 | PC.NURSE ---
Pt is dressed and ready for discharge home with Spouse. Personal medications have been returned to him. IV and tele have been removed. Pt states he wants to leave AMA. Dr. Colbert has been in to see Pt and provided a prescription and coupon for abx. Discussed risks of leaving and benefits of staying. Reviewed abx information and reminded Pt to take the full course of abx as prescribed and recommended he restart taking his Eliquis as prescribed (he stated he hadn't taken it for a few days). Encouraged Pt to seek treatment for the cellulitis and for his drug use disorder. Pt stated I just need to get myself together so that I can beat this. Encouraged Pt to try not to scratch his wounds and to keep them very clean. Pt wears compression socks-reminded Pt to keep them clean and dry to help prevent risk of bacterial spread. Pt denies further questions and will be taken out via w/c to Spouse's vehicle with all belongings.
--- NOTE | 2022-08-19 08:58 | CM.DPC ---
DCP Cont: Was informed by nurse, Fay, that patient most likely will be leaving AMA. Dr. Colbert will be writing him prescription with coupons. Will ask him during team rounds if a referral would be appropriate for the residency clinic in [facility], since he has no PCP. Will also update Jennifer at [facility]. P: DCP to follow for needs. MS IraidaW, has initiated assessment. Will ensure that he has the resources that he needs. Savanna Johnson RN/Internet Technology Manager
== END 2022-08-19 08:59 | disposition left against medical advice (07) | DRG 383 ==
LOC: ED 14:47 → AC 17:38
PROVIDERS: Internal Medicine; Admitting Provider Neuromusculoskeletal Medicine, Sports Medicine; Emergency Provider Emergency Medicine; PCP Emergency Medicine; Referring Provider Emergency Medicine; Visit Provider Neuromusculoskeletal Medicine, Sports Medicine
DX: L03.116 Cellulitis of left lower limb (principal); L03.115 Cellulitis of right lower limb; L97.529 Non-pressure chronic ulcer of other part of left foot with unspecified severity; E66.01 Morbid (severe) obesity due to excess calories; B96.20 Unspecified Escherichia coli [E. coli] as the cause of diseases classified elsewhere; F19.10 Other psychoactive substance abuse, uncomplicated; Z68.41 Body mass index [BMI] 40.0-44.9, adult; Z79.01 Long term (current) use of anticoagulants; Z86.711 Personal history of pulmonary embolism; Z53.29 Procedure and treatment not carried out because of patient's decision for other reasons; Z87.891 Personal history of nicotine dependence
CPT/HCPCS: 36415; 80048; 80053; 83605; 83690; 84145; 85007; 85025; 85651; 86140; 87040; 87635; 96365; 96366; 96367; 99284; C9803; J0696